=== PATIENT | male | born 1945 | race Caucasian/White ===

== ENCOUNTER → 2016-09-30 | Outpatient (CLI) | payer BC | END | disposition home or self-care (01) | LOC: C.LAB 06:53 | PROVIDERS: ATTEND Urology | DX: N40.1 Benign prostatic hyperplasia with lower urinary tract symptoms (principal) ==

== ENCOUNTER → 2016-11-11 | Outpatient (CLI) | payer BC | END | disposition home or self-care (01) | LOC: C.PATHSPEC 10:26 | PROVIDERS: ATTEND Urology | DX: R97.20 Elevated prostate specific antigen [PSA] (principal) ==

== ENCOUNTER → 2017-07-18 | Outpatient (CLI) | payer BC | END | disposition home or self-care (01) | LOC: C.LABSPEC 12:29 | PROVIDERS: ATTEND Internal Medicine | DX: Z12.11 Encounter for screening for malignant neoplasm of colon (principal) ==

== ENCOUNTER 2021-09-11 19:46 | Observation (INO) ==
[2021-09-11] MEDS ORDERED: SODIUM CHLORIDE 0.9% 1000ML 1,000 ML IV STA (19:57)
--- NOTE | 2021-09-11 20:02 | Emergency Department Note ---
Impression & Plan Observed seizure-like activity ADMIT ED Provider Note HPI: Patient arrived to the ED via EMS ambulance The patient is a 75-year-old male with history of type 2 diabetes, hypertension, presents the emergency department via EMS with concern for seizure-like activity. Patient reportedly was sitting in a recliner chair at home, his noticed him to become unresponsive for some period of time and had rigid upper extremities, he was incontinent of urine. Patient's at the bedside states this lasted approximately 60 seconds. He seemed somewhat confused for a period afterwards. Unclear how long this possible postictal phase lasted. Patient tells me the next he remembers was waking up with "everyone around me". He is saturating well on room air and otherwise appears well on my initial assessment, tells me "I feel completely fine". 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 She does state that he had upper extremity rigidity, his eyes rolled back, he seemed to have a postictal state, he did lose Continence of urine at the time. Labwork was obtained and is generally unremarkable, slight lactic acid elevation of 2.1, troponin is negative, EKG does not show any ischemic changes, CT imaging of the head does not show any evidence of an acute intracranial process. Prudencio daley overall appears very well here in the ED.Patient was given IV fluids in the ED. I discussed the above findings with on-call neurology, Dr. Vicente,She is recommending at this time admission, will hold off on any antiepileptic therapy as it is unclear whether or not the patient may have had a true seizure this could have been some type of syncopal event.The story according to his at the bedside is concerning for seizure. Will require observation on telemetry and further work-up and therefore will be admitted. I discussed the above findings with the on-call hospitalist, patient will be admitted [facility] the [facility] for further care. The patient and his at the bedside are in agreement to the above plan, patient was admitted in stable condition. Diagnosis: 1. Seizure-like event 2. Lactic acidosis Disposition: Admission Jorge A Thorpe DO Emergency Medicine Past Med/Surg History Medical History (Updated 09/12/21 @ 01:18 by Jorge A Thorpe DO) BPH with obstruction/lower urinary tract symptoms Bronchitis Hypercholesterolemia Surgical History No pertinent past surgical history Family History Father Cardiac disorder Mother Hypertension Son Nephrolithiasis Other Diabetes Social History Smoking Status: Former smoker Preferred Language: [place]i marital status: Feels Safe at Home: Yes Allergies Allergies Allergy/AdvReac Type Severity Reaction Status Date / Time No Known Allergies Allergy Unknown Verified 09/11/21 20:27 Home Meds Home Medications Medication Instructions Recorded Confirmed folic acid 1 mg tablet 1 mg PO DAILY tab 06/12/19 09/11/21 metformin 500 mg tablet 500 mg PO BID tab 06/12/19 09/11/21 losartan 100 mg tablet 100 mg PO DAILY 09/11/21 09/11/21 pyridoxine (vitamin B6) 100 mg 100 mg PO DAILY 09/11/21 09/11/21 tablet (Vitamin B-6) warfarin 5 mg tablet 0 mg PO DAILY 09/11/21 09/11/21 Results & Data (ED) Vital Signs Vital Signs - 24 hr 09/11/21 19:53 09/11/21 19:55 09/11/21 20:02 Temperature 37.0 C Temperature Source Oral Pulse Rate 107 H Pulse Rate [Apical] 92 H Pulse Rhythm Regular Pulse Rhythm [Apical] Regular Pulse Strength Normal Pulse Strength [Apical] Normal Respiratory Rate 16 18 Respiratory Effort / Characteristics Non-Labored Non-Labored Respiratory Depth Normal Normal Respiratory Pattern Regular Regular Blood Pressure 156/102 H Blood Pressure [Right Arm] 156/102 H Blood Pressure Mean 120 Blood Pressure Mean [Right Arm] 120 Blood Pressure Position Sitting Blood Pressure Position [Right Arm] Lying Pulse Oximetry 95 97 96 Oxygen Delivery Method Room Air Room Air Room Air Sepsis Recent Fever Within 48 Hours No Sepsis New/Unexplained Change in Mental Status Yes Sepsis Action Taken by Nursing Physician Notified 09/11/21 20:19 09/11/21 21:53 09/11/21 23:53 Temperature Temperature Source Pulse Rate Pulse Rate [Apical] 82 80 Pulse Rhythm Pulse Rhythm [Apical] Regular Regular Pulse Strength Pulse Strength [Apical] Normal Normal Respiratory Rate 16 16 Respiratory Effort / Characteristics Non-Labored Non-Labored Respiratory Depth Normal Normal Respiratory Pattern Regular Blood Pressure Blood Pressure [Right Arm] 156/100 H 168/100 H Blood Pressure Mean Blood Pressure Mean [Right Arm] 118 122 Blood Pressure Position Blood Pressure Position [Right Arm] Semi-fowlers Semi-fowlers Pulse Oximetry 95 95 96 Oxygen Delivery Method Room Air Room Air Room Air Sepsis Recent Fever Within 48 Hours Sepsis New/Unexplained Change in Mental Status Sepsis Action Taken by Nursing Laboratory Data Result diagrams: 09/11/21 20:00 09/11/21 20:00 Lab Results 09/11/21 09/11/21 09/11/21 Range/Units 20:00 20:00 20:00 WBC 5.99 (4.8-10.8) K/uL RBC 4.42 L (4.7-6.1) M/uL Hgb 13.4 L (14.0-18.0) g/dL Hct 39.0 L (42-52) % MCV 88.2 (80-100) fL MCH 30.3 (25-34) pg MCHC 34.4 (32-36) g/dL RDW Std Deviation 47.1 H (36.4-46.3) fL RDW Coeff of Spike 14.5 (11.5-14.5) % Plt Count 167 (130-400) K/uL MPV 9.7 (7.4-10.4) fL Immature Gran % (Auto) 0.2 % Neut % (Auto) 61.1 % Lymph % (Auto) 26.7 % [place] % (Auto) 7.8 % Eos % (Auto) 4.0 % Baso % (Auto) 0.2 % Neut # (Auto) 3.66 (1.4-6.5) K/uL Lymph # (Auto) 1.60 (1.2-3.4) K/uL [place] # (Auto) 0.47 (0.11-0.59) K/uL Eos # (Auto) 0.24 (0-0.5) K/uL Baso # (Auto) 0.01 (0-0.2) K/uL Immature Gran # (Auto) 0.01 (0.00-0.02) K/uL PT 29.1 H (9.0-12.0) Seconds INR 3.1 H (0.9-1.1) APTT 39.5 H (21.0-31.0) Seconds PTT Ratio 1.5 Sodium 140 (136-145) mmol/L Potassium 3.8 (3.5-5.1) mmol/L Chloride 106 (98-107) mmol/L Carbon Dioxide 28 (21-32) mmol/L Anion Gap 6.0 (3-11) BUN 17 (7-18) mg/dl Creatinine 1.43 H (0.6-1.4) mg/dl Est Cr Clr Drug Dosing 58.5 ml/min Est GFR ( Amer) 54.7 ml/min Est GFR (Non-Af Amer) 47.2 ml/min BUN/Creatinine Ratio 11.7 (10-20) Glucose 129 H (70-99) mg/dl POC Glucose (70-99) mg/dl Lactate (0.4-2.0) mmol/L Calcium 9.0 (8.5-10.1) mg/dl Total Bilirubin 0.4 (0.2-1) mg/dl AST 32 (15-37) U/L ALT 50 (12-78) Alkaline Phosphatase 63 (45-117) U/L Troponin I < 0.015 (0-0.045) ng/ml Total Protein 7.4 (6.4-8.2) gm/dl Albumin 3.5 (3.4-5.0) gm/dl Globulin 3.9 (2.5-4.0) gm/dl Albumin/Globulin Ratio 0.9 (0.9-2) Lipase 184 (73-393) U/L Urine Color Urine Appearance (Clear) Urine pH (4.5-7.5) Ur Specific [place] (1.000-1.030) Urine Protein (Negative) Urine Glucose (UA) (Negative) Urine Ketones (Negative) Urine Blood (Negative) Urine Nitrite (Negative) Urine Bilirubin (Negative) Urine Urobilinogen (Negative) Ur Leukocyte Esterase (Negative) Urine WBC (Auto) (0-5) /hpf Urine RBC (Auto) (0-4) /hpf U Hyaline Cast (Auto) (0-5) /lpf U Epithel Cells (Auto) (0-5) /lpf Urine Bacteria (Auto) (Negative) SARS-CoV-2 (PCR) (Negative) Influenza Type A (PCR) (Neg) Influenza Type B (PCR) (Neg) RSV (RT-PCR) (Neg) 09/11/21 09/11/21 09/11/21 Range/Units 20:07 20:15 20:17 WBC (4.8-10.8) K/uL RBC (4.7-6.1) M/uL Hgb (14.0-18.0) g/dL Hct (42-52) % MCV (80-100) fL MCH (25-34) pg MCHC (32-36) g/dL RDW Std Deviation (36.4-46.3) fL RDW Coeff of Spike (11.5-14.5) % Plt Count (130-400) K/uL MPV (7.4-10.4) fL Immature Gran % (Auto) % Neut % (Auto) % Lymph % (Auto) % [place] % (Auto) % Eos % (Auto) % Baso % (Auto) % Neut # (Auto) (1.4-6.5) K/uL Lymph # (Auto) (1.2-3.4) K/uL [place] # (Auto) (0.11-0.59) K/uL Eos # (Auto) (0-0.5) K/uL Baso # (Auto) (0-0.2) K/uL Immature Gran # (Auto) (0.00-0.02) K/uL PT (9.0-12.0) Seconds INR (0.9-1.1) APTT (21.0-31.0) Seconds PTT Ratio Sodium (136-145) mmol/L Potassium (3.5-5.1) mmol/L Chloride (98-107) mmol/L Carbon Dioxide (21-32) mmol/L Anion Gap (3-11) BUN (7-18) mg/dl Creatinine (0.6-1.4) mg/dl Est Cr Clr Drug Dosing ml/min Est GFR ( Amer) ml/min Est GFR (Non-Af Amer) ml/min BUN/Creatinine Ratio (10-20) Glucose (70-99) mg/dl POC Glucose 120 H (70-99) mg/dl Lactate 2.1 H* (0.4-2.0) mmol/L Calcium (8.5-10.1) mg/dl Total Bilirubin (0.2-1) mg/dl AST (15-37) U/L ALT (12-78) Alkaline Phosphatase (45-117) U/L Troponin I (0-0.045) ng/ml Total Protein (6.4-8.2) gm/dl Albumin (3.4-5.0) gm/dl Globulin (2.5-4.0) gm/dl Albumin/Globulin Ratio (0.9-2) Lipase (73-393) U/L Urine Color Urine Appearance (Clear) Urine pH (4.5-7.5) Ur Specific [place] (1.000-1.030) Urine Protein (Negative) Urine Glucose (UA) (Negative) Urine Ketones (Negative) Urine Blood (Negative) Urine Nitrite (Negative) Urine Bilirubin (Negative) Urine Urobilinogen (Negative) Ur Leukocyte Esterase (Negative) Urine WBC (Auto) (0-5) /hpf Urine RBC (Auto) (0-4) /hpf U Hyaline Cast (Auto) (0-5) /lpf U Epithel Cells (Auto) (0-5) /lpf Urine Bacteria (Auto) (Negative) SARS-CoV-2 (PCR) NEGATIVE (Negative) Influenza Type A (PCR) Negative (Neg) Influenza Type B (PCR) Negative (Neg) RSV (RT-PCR) Negative (Neg) 09/11/21 09/11/21 Range/Units 21:30 22:40 WBC (4.8-10.8) K/uL RBC (4.7-6.1) M/uL Hgb (14.0-18.0) g/dL Hct (42-52) % MCV (80-100) fL MCH (25-34) pg MCHC (32-36) g/dL RDW Std Deviation (36.4-46.3) fL RDW Coeff of Spike (11.5-14.5) % Plt Count (130-400) K/uL MPV (7.4-10.4) fL Immature Gran % (Auto) % Neut % (Auto) % Lymph % (Auto) % [place] % (Auto) % Eos % (Auto) % Baso % (Auto) % Neut # (Auto) (1.4-6.5) K/uL Lymph # (Auto) (1.2-3.4) K/uL [place] # (Auto) (0.11-0.59) K/uL Eos # (Auto) (0-0.5) K/uL Baso # (Auto) (0-0.2) K/uL Immature Gran # (Auto) (0.00-0.02) K/uL PT (9.0-12.0) Seconds INR (0.9-1.1) APTT (21.0-31.0) Seconds PTT Ratio Sodium (136-145) mmol/L Potassium (3.5-5.1) mmol/L Chloride (98-107) mmol/L Carbon Dioxide (21-32) mmol/L Anion Gap (3-11) BUN (7-18) mg/dl Creatinine (0.6-1.4) mg/dl Est Cr Clr Drug Dosing ml/min Est GFR ( Amer) ml/min Est GFR (Non-Af Amer) ml/min BUN/Creatinine Ratio (10-20) Glucose (70-99) mg/dl POC Glucose (70-99) mg/dl Lactate 1.1 (0.4-2.0) mmol/L Calcium (8.5-10.1) mg/dl Total Bilirubin (0.2-1) mg/dl AST (15-37) U/L ALT (12-78) Alkaline Phosphatase (45-117) U/L Troponin I (0-0.045) ng/ml Total Protein (6.4-8.2) gm/dl Albumin (3.4-5.0) gm/dl Globulin (2.5-4.0) gm/dl Albumin/Globulin Ratio (0.9-2) Lipase (73-393) U/L Urine Color Yellow Urine Appearance Clear (Clear) Urine pH 5.0 (4.5-7.5) Ur Specific [place] 1.014 (1.000-1.030) Urine Protein Trace H (Negative) Urine Glucose (UA) Negative (Negative) Urine Ketones Negative (Negative) Urine Blood Trace H (Negative) Urine Nitrite Negative (Negative) Urine Bilirubin Negative (Negative) Urine Urobilinogen Negative (Negative) Ur Leukocyte Esterase Negative (Negative) Urine WBC (Auto) 1-5 (0-5) /hpf Urine RBC (Auto) 0-4 (0-4) /hpf U Hyaline Cast (Auto) 1-5 (0-5) /lpf U Epithel Cells (Auto) 5-10 H (0-5) /lpf Urine Bacteria (Auto) Negative (Negative) SARS-CoV-2 (PCR) (Negative) Influenza Type A (PCR) (Neg) Influenza Type B (PCR) (Neg) RSV (RT-PCR) (Neg) Administered Medications Discontinued Medications Sodium Chloride (Nss 1000ml) 1,000 mls @ 999 mls/hr IV .[id number] STA Stop: 09/11/21 20:57 Last Infusion: 09/11/21 22:45 Dose: 0 mls/hr Documented by: [id number] Admin: 09/11/21 20:16 Dose: 999 mls/hr Documented by: [id number] Imaging Data Radiologist's Impression: Chest X-Ray 09/11/21 19:58 XR chest 1V portable CLINICAL HISTORY: Chest Pain. COMPARISON STUDY: No previous studies for comparison. TECHNIQUE: 1 view of the chest FINDINGS: Single frontal view of the chest demonstrates the cardiomediastinal silhouette to be within normal limits. There is a decreased inspiratory effort with elevation of the hemidiaphragms and crowding of the bronchovascular markings at the lung bases and centrally. The lungs are clear of alveolar opacities. There is no evidence for pleural effusion. There is no evidence for vascular congestion. There is no acute osseous pathology. IMPRESSION: There is a decreased inspiratory effort with otherwise no acute chest disease. ACT 112: Negative or not required by law. Electronically signed by: Ed Ash M.D. 09/11/2021 8:[address] 09/11/21 19:59 CT head/brain wo con CLINICAL HISTORY: Seizure like activity COMPARISON STUDY: No previous studies for comparison. CT DOSE: 729.78 mGycm TECHNIQUE: Standard CT of the Brain was performed without IV contrast. A dose lowering technique was utilized adhering to the principles of ALARA. FINDINGS: Extraaxial space: There is no evidence for subdural hematoma. There are no extra-axial fluid collections. Ventricles and cisterns: The ventricles are normal in size and configuration. There is no evidence for midline shift or mass effect. Parenchyma: There is no subarachnoid or intraparenchymal hemorrhage. There is no evidence for an acute infarct or cerebral edema. There is homogeneous attenuation of the brain parenchyma. There are no gross mass lesions. Osseous structures: There is no evidence for an acute fracture. The visualized paranasal sinuses are clear. The mastoid air cells are clear bilaterally. Soft tissues: There is no evidence for focal soft tissue swelling. IMPRESSION: No acute intracerebral pathology. ACT 112: Negative or not required by law. Electronically signed by: Ed Ash M.D. 09/11/2021 9:10 PM Discharge Plan Visit Data Chief Complaint: Altered Mental Status Stated Complaint: FEVER/SEIZURE ED Provider: Jorge A Thorpe Discharge Problem: Observed seizure-like activity Patient Disposition: Admitted As Inpatient Forms Stand Alone Forms: My [facility] Prescriptions Prescriptions: No Action folic acid 1 mg tablet 1 mg PO DAILY RF: 0 metformin 500 mg tablet 500 mg PO BID RF: 0 warfarin 5 mg tablet 0 mg PO DAILY RF: 0 pyridoxine (vitamin B6) [Vitamin B-6] 100 mg Tablet 100 mg PO DAILY RF: 0 losartan 100 mg tablet 100 mg PO DAILY RF: 0 Referrals Referrals: Konstantin Wade MD [Primary Care Provider] -
[2021-09-11 20:13] LABS: Basophils # (auto) 0.01 K/uL (0-0.2); Basophils % (auto) 0.2 %; Eosinophils # (auto) 0.24 K/uL (0-0.5); Hemoglobin 13.4 g/dL (14.0-18.0); Immature Granulocytes # (auto) 0.01 K/uL (0.00-0.02); Immature Granulocytes % (auto) 0.2 %; Lymphocytes % (auto) 26.7 %; Mean Corpuscular Hemoglobin 30.3 pg (25-34); Mean Corpuscular Hgb Conc 34.4 g/dL (32-36); Mean Corpuscular Volume 88.2 fL (80-100); Mean Platelet Volume 9.7 fL (7.4-10.4); Monocytes # (auto) 0.47 K/uL (0.11-0.59); Monocytes % (auto) 7.8 %; Neutrophils # (auto) 3.66 K/uL (1.4-6.5); Neutrophils % (auto) 61.1 %; Platelet Count 167 K/uL (130-400); RDW Coefficient of Variation 14.5 % (11.5-14.5); RDW Standard Deviation 47.1 fL (36.4-46.3); Red Blood Count 4.42 M/uL (4.7-6.1); White Blood Count 5.99 K/uL (4.8-10.8)
[2021-09-11 20:22] LABS: INR 3.1 (0.9-1.1); Partial Thromboplastin Ratio 1.5; Partial Thromboplastin Time 39.5 Seconds (21.0-31.0); Prothrombin Time 29.1 Seconds (9.0-12.0)
[2021-09-11 20:30] LABS: Alanine Aminotransferase 50 (12-78); Albumin Level 3.5 gm/dl (3.4-5.0); Aspartate Aminotransferase 32 U/L (15-37); BUN Creatinine Ratio 11.7 (10-20); Blood Urea Nitrogen 17 mg/dl (7-18); Carbon Dioxide 28 mmol/L (21-32); Chloride 106 mmol/L (98-107); Creatinine Clr Calc Pharmacy 58.5 ml/min; Est GFR (African American) 54.7 ml/min; Est GFR (Non-African American) 47.2 ml/min; Glucose 129 mg/dl (70-99); Lipase 184 U/L (73-393); Potassium 3.8 mmol/L (3.5-5.1); Sodium 140 mmol/L (136-145)
[2021-09-11 20:35] LABS: Albumin Globulin Ratio 0.9 (0.9-2); Alkaline Phosphatase 63 U/L (45-117); Bilirubin,Total 0.4 mg/dl (0.2-1); Globulin 3.9 gm/dl (2.5-4.0); Total Protein 7.4 gm/dl (6.4-8.2); Troponin I < 0.015 ng/ml (0-0.045)
--- NOTE | 2021-09-11 20:52 | XRay Report ---
XR chest 1V portable CLINICAL HISTORY: Chest Pain. COMPARISON STUDY: No previous studies for comparison. TECHNIQUE: 1 view of the chest FINDINGS: Single frontal view of the chest demonstrates the cardiomediastinal silhouette to be within normal li mits. There is a decreased inspiratory effort with elevation of the hemidiaphragms and crowding of th e bronchovascular markings at the lung bases and centrally. The lungs are clear of alveolar opacities . There is no evidence for pleural effusion. There is no evidence for vascular congestion. There is n o acute osseous pathology. IMPRESSION: There is a decreased inspiratory effort with otherwise no acute chest disease. ACT 112: Negative or not required by law. Electronically signed by: Ed Ash M.D. 09/11/2021 8:51 PM
[2021-09-11 21:00] LABS: Influenza A virus by PCR Negative (Neg); Influenza B virus by PCR Negative (Neg); RSV by PCR Negative (Neg); SARS CoV2 RNA(COVID-19) InHosp NEGATIVE (Negative)
--- NOTE | 2021-09-11 21:11 | CT Scan Report ---
CT head/brain wo con CLINICAL HISTORY: Seizure like activity COMPARISON STUDY: No previous studies for comparison. CT DOSE: 729.78 mGycm TECHNIQUE: Standard CT of the Brain was performed without IV contrast. A dose lowering technique was utilized adhering to the principles of ALARA. FINDINGS: Extraaxial space: There is no evidence for subdural hematoma. There are no extra-axial fluid collecti ons. Ventricles and cisterns: The ventricles are normal in size and configuration. There is no evidence f or midline shift or mass effect. Parenchyma: There is no subarachnoid or intraparenchymal hemorrhage. There is no evidence for an acu te infarct or cerebral edema. There is homogeneous attenuation of the brain parenchyma. There are no gross mass lesions. Osseous structures: There is no evidence for an acute fracture. The visualized paranasal sinuses are clear. The mastoid air cells are clear bilaterally. Soft tissues: There is no evidence for focal soft tissue swelling. IMPRESSION: No acute intracerebral pathology. ACT 112: Negative or not required by law. Electronically signed by: Ed Ash M.D. 09/11/2021 9:10 PM
[2021-09-11 21:45] LABS: Appearance Urine Clear (Clear); Bacteria Urine Automated Negative (Negative); Bilirubin Urine Negative (Negative); Blood Urine Trace (Negative); Color Urine Yellow; Glucose Urine UA Negative (Negative); Ketones Urine Negative (Negative); Leukocyte Esterase Urine Negative (Negative); Nitrite Urine Negative (Negative); Protein Urine Trace (Negative); RBC Urine Automated 0-4 /hpf (0-4); Specific Gravity Urine 1.014 (1.000-1.030); Urobilinogen Urine Negative (Negative)
--- NOTE | 2021-09-12 03:41 | History & Physical Report ---
Date of Service September 12, 2021 Assessment & Plan (1) Observed seizure-like activity: Plan: Patient had an approximate 10-minute episode as noted above CT head without contrast negative. Order MRI of brain without contrast, Order EEG, Order carotid Dopplers Seizure precautions Consult neurology, who was already contacted by the ED If recurrent symptoms while in hospital, will start seizure medications (2) Hx pulmonary embolism: Plan: He reports that after an initial episode of pulmonary emboli a few years ago, he did a trial off of anticoagulation after treatment for 6 months, had a recurrent episode of pulmonary emboli, and is now on anticoagulation for life (3) BPH with obstruction/lower urinary tract symptoms: Plan: On no specific treatment, but will monitor urinary output while in hospital (4) Type 2 diabetes mellitus: Plan: Hold Metformin Place on Accu-Cheks before meals and at bedtime with NovoLog coverage per scale (5) Hypertension: Plan: Continue losartan with hold parameters (6) Pseudogout: Plan: Reports primary involvement of left knee intermittently. (7) Peripheral neuropathy: Plan: Intermittent symptoms, none at this time Admission and Anticipated Discharge Date Admission Date: September 12, 2021 History of Present Illness Chief Complaint: The patient presents to the emergency department via EMS after his noted seizure-like activity at home Primary Care Provider: Konstantin Wade MD The patient is a 75-year-old male with a past medical history including BPH with LUTS, diabetes mellitus type 2, hypertension, pseudo-gout, hyperlipidemia, GPN, severe aortic stenosis, and chronic anticoagulation for recurrent pulmonary emboli. He reports that he had been moving some boxes around at home, and then went to sit in his recliner chair at home, where his noted him to become unresponsive for total time of about 10 minutes. During this time his eyes rolled backwards in his head, and his upper extremities became rigid, and he had an episode of urinary incontinence. In emergency department, patient is completely alert and oriented. He reports a brief episode similar to this about 2 years ago. Allergies Allergy/AdvReac Type Severity Reaction Status Date / Time No Known Allergies Allergy Unknown Verified 09/11/21 20:27 Home Medications Medication Instructions Recorded Confirmed Type folic acid 1 mg tablet 1 mg PO DAILY tab 06/12/19 09/11/21 History metformin 500 mg tablet 500 mg PO BID tab 06/12/19 09/11/21 History losartan 100 mg tablet 100 mg PO DAILY 09/11/21 09/11/21 History pyridoxine (vitamin B6) 100 mg 100 mg PO DAILY 09/11/21 09/11/21 History tablet (Vitamin B-6) warfarin 5 mg tablet 0 mg PO DAILY 09/11/21 09/11/21 History Past Med/Surg History Medical History (Updated 09/12/21 @ 04:14 by Joe Dale MD) BPH with obstruction/lower urinary tract symptoms Bronchitis Hx pulmonary embolism Hypercholesterolemia Peripheral neuropathy Pseudogout Surgical History No pertinent past surgical history Family History Father Cardiac disorder Mother Hypertension Son Nephrolithiasis Other Diabetes Social History Smoking Status: Former smoker Preferred Language: Pashto marital status: Feels Safe at Home: Yes Review of Systems Review of Systems: The patient denies chest pain, palpitations, shortness of breath, dyspnea on exertion, cough, lower extremity swelling, sore throat, fevers, chills, sweats, weight change, fatigue, nausea, vomiting, diarrhea , constipation, abdominal pain, pelvic pain, blood in urine or stool, dysuria, urinary frequency or urgency, rash, abnormal bruising or bleeding, imbalance, focal weakness, numbness or tingling in arms or legs, generalized arthralgias or myalgias, back or neck pain, or night sweats. The review of systems is otherwise negative other than for that already noted above, and at least 10 systems have been reviewed. Physical Exam Physical Exam: The patient is awake, alert and oriented 3, well developed and well nourished, normocephalic and atraumatic, lying in bed and in no acute distress. HEENT--PERRL, EOMI, mucous membranes and oropharynx mildly dry. Neck--supple. No JVD. No bruits. Thyroid normal, trachea midline, no adenopathy. Heart--normal S1 and S2. No murmurs, rubs or gallops. Lungs--clear bilaterally, no respiratory distress, no accessory muscle use. Abdomen--normal bowel sounds and soft. Nontender. Nondistended, no hernias or masses, no organomegaly. Extremities--no cyanosis or clubbing. No edema. Dermatologic--normal skin turgor, normal color, no abnormal lymph nodes, no rash. Neurologic--cranial nerves II through XII grossly intact. Rheumatologic--normal range of motion. Psychiatric--normal affect. Results & Data Results & Data ([facility]) Vital Signs (Past 12 Hours) Vital Signs Temp Pulse Pulse Resp BP BP Pulse Ox 09/11/21 23:53 80 16 168/100 H 96 09/11/21 21:53 82 16 156/100 H 95 09/11/21 20:19 95 09/11/21 20:02 96 09/11/21 19:55 37.0 C 107 H 18 156/102 H 97 09/11/21 19:53 92 H 16 156/102 H 95 Laboratory Results Laboratory Results WBC 5.99 K/uL (4.8-10.8) 09/11/21 20:00 RBC 4.42 M/uL (4.7-6.1) L 09/11/21 20:00 Hgb 13.4 g/dL (14.0-18.0) L 09/11/21 20:00 Hct 39.0 % (42-52) L 09/11/21 20:00 MCV 88.2 fL (80-100) 09/11/21 20:00 MCH 30.3 pg (25-34) 09/11/21 20:00 MCHC 34.4 g/dL (32-36) 09/11/21 20:00 RDW Std Deviation 47.1 fL (36.4-46.3) H 09/11/21 20:00 RDW Coeff of Spike 14.5 % (11.5-14.5) 09/11/21 20:00 Plt Count 167 K/uL (130-400) 09/11/21 20:00 MPV 9.7 fL (7.4-10.4) 09/11/21 20:00 Immature Gran % (Auto) 0.2 % 09/11/21 20:00 Neut % (Auto) 61.1 % 09/11/21 20:00 Lymph % (Auto) 26.7 % 09/11/21 20:00 [place] % (Auto) 7.8 % 09/11/21 20:00 Eos % (Auto) 4.0 % 09/11/21 20:00 Baso % (Auto) 0.2 % 09/11/21 20:00 Neut # (Auto) 3.66 K/uL (1.4-6.5) 09/11/21 20:00 Lymph # (Auto) 1.60 K/uL (1.2-3.4) 09/11/21 20:00 [place] # (Auto) 0.47 K/uL (0.11-0.59) 09/11/21 20:00 Eos # (Auto) 0.24 K/uL (0-0.5) 09/11/21 20:00 Baso # (Auto) 0.01 K/uL (0-0.2) 09/11/21 20:00 Immature Gran # (Auto) 0.01 K/uL (0.00-0.02) 09/11/21 20:00 PT 29.1 Seconds (9.0-12.0) H 09/11/21 20:00 INR 3.1 (0.9-1.1) H 09/11/21 20:00 APTT 39.5 Seconds (21.0-31.0) H 09/11/21 20:00 PTT Ratio 1.5 09/11/21 20:00 Sodium 140 mmol/L (136-145) 09/11/21 20:00 Potassium 3.8 mmol/L (3.5-5.1) 09/11/21 20:00 Chloride 106 mmol/L (98-107) 09/11/21 20:00 Carbon Dioxide 28 mmol/L (21-32) 09/11/21 20:00 Anion Gap 6.0 (3-11) 09/11/21 20:00 BUN 17 mg/dl (7-18) 09/11/21 20:00 Creatinine 1.43 mg/dl (0.6-1.4) H 09/11/21 20:00 Est Cr Clr Drug Dosing 58.5 ml/min 09/11/21 20:00 Est GFR ( Amer) 54.7 ml/min 09/11/21 20:00 Est GFR (Non-Af Amer) 47.2 ml/min 09/11/21 20:00 BUN/Creatinine Ratio 11.7 (10-20) 09/11/21 20:00 Glucose 129 mg/dl (70-99) H 09/11/21 20:00 POC Glucose 120 mg/dl (70-99) H 09/11/21 20:07 Lactate 1.1 mmol/L (0.4-2.0) 09/11/21 22:40 Calcium 9.0 mg/dl (8.5-10.1) 09/11/21 20:00 Total Bilirubin 0.4 mg/dl (0.2-1) 09/11/21 20:00 AST 32 U/L (15-37) 09/11/21 20:00 ALT 50 (12-78) 09/11/21 20:00 Alkaline Phosphatase 63 U/L (45-117) 09/11/21 20:00 Troponin I < 0.015 ng/ml (0-0.045) 09/11/21 20:00 Total Protein 7.4 gm/dl (6.4-8.2) 09/11/21 20:00 Albumin 3.5 gm/dl (3.4-5.0) 09/11/21 20:00 Globulin 3.9 gm/dl (2.5-4.0) 09/11/21 20:00 Albumin/Globulin Ratio 0.9 (0.9-2) 09/11/21 20:00 Lipase 184 U/L (73-393) 09/11/21 20:00 Urine Color Yellow 09/11/21 21:30 Urine Appearance Clear (Clear) 09/11/21 21:30 Urine pH 5.0 (4.5-7.5) 09/11/21 21:30 Ur Specific [place] 1.014 (1.000-1.030) 09/11/21 21:30 Urine Protein Trace (Negative) H 09/11/21 21:30 Urine Glucose (UA) Negative (Negative) 09/11/21 21:30 Urine Ketones Negative (Negative) 09/11/21 21:30 Urine Blood Trace (Negative) H 09/11/21 21:30 Urine Nitrite Negative (Negative) 09/11/21 21:30 Urine Bilirubin Negative (Negative) 09/11/21 21:30 Urine Urobilinogen Negative (Negative) 09/11/21 21:30 Ur Leukocyte Esterase Negative (Negative) 09/11/21 21:30 Urine WBC (Auto) 1-5 /hpf (0-5) 09/11/21 21:30 Urine RBC (Auto) 0-4 /hpf (0-4) 09/11/21 21:30 U Hyaline Cast (Auto) 1-5 /lpf (0-5) 09/11/21 21:30 U Epithel Cells (Auto) 5-10 /lpf (0-5) H 09/11/21 21:30 Urine Bacteria (Auto) Negative (Negative) 09/11/21 21:30 SARS-CoV-2 (PCR) NEGATIVE (Negative) 09/11/21 20:17 Influenza Type A (PCR) Negative (Neg) 09/11/21 20:17 Influenza Type B (PCR) Negative (Neg) 09/11/21 20:17 RSV (RT-PCR) Negative (Neg) 09/11/21 20:17 Impressions Chest X-Ray 09/11/21 19:58 XR chest 1V portable CLINICAL HISTORY: Chest Pain. COMPARISON STUDY: No previous studies for comparison. TECHNIQUE: 1 view of the chest FINDINGS: Single frontal view of the chest demonstrates the cardiomediastinal silhouette to be within normal limits. There is a decreased inspiratory effort with elevation of the hemidiaphragms and crowding of the bronchovascular markings at the lung bases and centrally. The lungs are clear of alveolar opacities. There is no evidence for pleural effusion. There is no evidence for vascular congestion. There is no acute osseous pathology. IMPRESSION: There is a decreased inspiratory effort with otherwise no acute chest disease. ACT 112: Negative or not required by law. Electronically signed by: Ed Ash M.D. 09/11/2021 8:[address] 09/11/21 19:59 CT head/brain wo con CLINICAL HISTORY: Seizure like activity COMPARISON STUDY: No previous studies for comparison. CT DOSE: 729.78 mGycm TECHNIQUE: Standard CT of the Brain was performed without IV contrast. A dose lowering technique was utilized adhering to the principles of ALARA. FINDINGS: Extraaxial space: There is no evidence for subdural hematoma. There are no extra-axial fluid collections. Ventricles and cisterns: The ventricles are normal in size and configuration. There is no evidence for midline shift or mass effect. Parenchyma: There is no subarachnoid or intraparenchymal hemorrhage. There is no evidence for an acute infarct or cerebral edema. There is homogeneous attenuation of the brain parenchyma. There are no gross mass lesions. Osseous structures: There is no evidence for an acute fracture. The visualized paranasal sinuses are clear. The mastoid air cells are clear bilaterally. Soft tissues: There is no evidence for focal soft tissue swelling. IMPRESSION: No acute intracerebral pathology. ACT 112: Negative or not required by law. Electronically signed by: Ed Ash M.D. 09/11/2021 9:10 PM Code Status & VTE Plan Code Status Full code VTE Prophylaxis Plan VTE Prophylaxis will be ordered: Yes PG Care Time/CCT Total # of Minutes Spent Total Time Spent with Patient: Total time spent is greater than 50% in coordination of care (as documented) at patient's floor/unit and/or counseling patient: Coding Level of Care Code INT OBSERVATION CARE 70M LVL 3 Diagnoses Hx pulmonary embolism Z86.711 Observed seizure-like activity R56.9 BPH with obstruction/lower urinary tract symptoms N40.1; N13.8 Type 2 diabetes mellitus E11.9 Hypertension I10 Pseudogout M11.20 Peripheral neuropathy G62.9
[2021-09-12] MEDS ORDERED: GLUCOSE 40% GEL 15 GM TUBE PO PRN (03:47)
[2021-09-12] MEDS ORDERED: ACETAMINOPHEN 325 MG TAB PO PRN (03:47)
[2021-09-12] MEDS ORDERED: DEXTROSE 50% 50 ML SYRINGE IV PRN (03:47)
[2021-09-12] MEDS ORDERED: GLUCOSE 10 TABS/TUBE PO PRN (03:47)
[2021-09-12] MEDS ORDERED: ONDANSETRON INJ 2 MG/ML 2 ML VIAL IV PRN (03:47)
[2021-09-12] MEDS ORDERED: CARBOHYDRATES FOR HYPOGLYCEMIA PO PRN (03:47)
[2021-09-12] MEDS ORDERED: GLUCAGON FOR INJ 1 MG VIAL SQ PRN (03:47)
[2021-09-12 07:19] LABS: Estimated Average Glucose 126 mg/dl
--- NOTE | 2021-09-12 08:45 | Ultrasound Report ---
US carotid doppler BI CLINICAL HISTORY: murmur, seizure like activity. COMPARISON: None. TECHNIQUE: Nguyen scale, Doppler spectral analysis, and color imaging was performed. Stenosis assessmen t by velocity criteria. FINDINGS: Right CCA velocity (cm/s): 100 Right ICA velocity (cm/s): 94 Right ICA/CCA ratio: 1.1 Right vertebral arterial flow: Antegrade. Right findings: There is no significant atherosclerotic plaquing noted on the right. Left CCA velocity (cm/s): 85 Left ICA velocity (cm/s): 102 Left ICA/CCA ratio: 1.2 Left vertebral arterial flow: Antegrade. Left findings: There is no significant atherosclerotic plaquing noted on the left. IMPRESSION: No significant atherosclerotic plaquing or significant flow limiting stenoses noted by v elocity criteria bilaterally. ACT 112: Negative or not required by law. Electronically signed by: Ed Ash M.D. 09/12/2021 8:43 AM
[2021-09-12] MEDS ORDERED: PYRIDOXINE HCL 50 MG TAB PO SCH (09:00)
[2021-09-12] MEDS ORDERED: FOLIC ACID 1 MG TAB PO SCH (09:00)
[2021-09-12] MEDS ORDERED: hydrALAZINE HCL 20 MG/ML VIAL IV PRN (09:36)
--- NOTE | 2021-09-12 09:37 | Hospitalist Progress Note ---
Date of Service September 12, 2021 Assessment & Plan (1) Observed seizure-like activity: Plan: Patient had an approximate 10-minute episode as noted above CT head without contrast negative. Order MRI of brain without contrast, Order EEG, Order carotid Dopplers Seizure precautions Consult neurology, who was already contacted by the ED If recurrent symptoms while in hospital, will start seizure medications (2) Hx pulmonary embolism: Plan: He reports that after an initial episode of pulmonary emboli a few years ago, he did a trial off of anticoagulation after treatment for 6 months, had a recurrent episode of pulmonary emboli, and is now on anticoagulation for life (3) BPH with obstruction/lower urinary tract symptoms: Plan: On no specific treatment, but will monitor urinary output while in hospital (4) Type 2 diabetes mellitus: Plan: Hold Metformin Place on Accu-Cheks before meals and at bedtime with NovoLog coverage per scale (5) Hypertension: Plan: Continue losartan with hold parameters (6) Pseudogout: Plan: Reports primary involvement of left knee intermittently. (7) Peripheral neuropathy: Plan: Intermittent symptoms, none at this time Admission and Anticipated Discharge Date Admission Date: September 12, 2021 Results & Data Results & Data ([facility]) Vital Signs (Past 12 Hours) Vital Signs Pulse Resp BP Pulse Ox Pulse Ox 09/12/21 03:47 73 16 149/87 H 95 96 09/11/21 23:53 80 16 168/100 H 96 09/11/21 21:53 82 16 156/100 H 95 PG Care Time/CCT Total # of Minutes Spent Total Time Spent with Patient: Total time spent is greater than 50% in coordination of care (as documented) at patient's floor/unit and/or counseling patient: Coding Diagnoses Observed seizure-like activity R56.9 Hx pulmonary embolism Z86.711 BPH with obstruction/lower urinary tract symptoms N40.1; N13.8 Type 2 diabetes mellitus E11.9 Hypertension I10 Pseudogout M11.20 Peripheral neuropathy G62.9
[2021-09-12] MEDS: INSULIN ASPART PER UNIT SC SCH ×3 (09:51→18:02)
--- NOTE | 2021-09-12 10:37 | Electrocardiogram Report ---
Test Reason : Blood Pressure : / mmHG Vent. Rate : 104 BPM Atrial Rate : 104 BPM P-R Int : 142 ms QRS Dur : 114 ms QT Int : 350 ms P-R-T Axes : 041 -03 087 degrees QTc Int : 460 ms Sinus tachycardia with occasional Premature ventricular complexes Abnormal ECG When compared with ECG of 12-JAN-2004 20:50, QRS duration has increased Confirmed by Sharath Felipe ([id number]) on 09/12/2021 10:36:54 AM Referred By: REFERRED SELF Confirmed By:Sharath Felipe
[2021-09-12 10:43] LABS: BUN Creatinine Ratio 15.9 (10-20); Calcium 8.6 mg/dl (8.5-10.1); Creatinine Clr Calc Pharmacy 83.6 ml/min; Est GFR (African American) 84.4 ml/min; Est GFR (Non-African American) 72.8 ml/min; Magnesium 1.5 mg/dl (1.8-2.4); Potassium 3.8 mmol/L (3.5-5.1)
[2021-09-12] MEDS ORDERED: FAMOTIDINE 20 MG TAB PO SCH (11:15)
--- NOTE | 2021-09-12 11:18 | Magnetic Resonance Report ---
MR brain wo con CLINICAL HISTORY: seizure like activity TECHNIQUE: Multiplanar and multisequence MR images of the brain were obtained without intravenous con trast. Comparison: None available at the time of this dictation. FINDINGS: No abnormal restricted diffusion is identified. Foci of T2 and FLAIR hyperintensity are noted in the paraventricular areas consistent with chronic small vessel ischemic disease. Ex vacuo ventriculomegal y and sulcal enlargement is noted compatible with diffuse encephalomalacia. No extra axial fluid luzma ections are seen. There are no masses, mass effect, or midline shift. The corpus callosum, pituitary gland, and cerebellar tonsils appear grossly unremarkable. Flow voids of the major intracranial arterial vessels are identified. The imaged portions of the para nasal sinuses, mastoid air cells, and orbits are unremarkable. IMPRESSION: No acute abnormalities. ACT 112: Negative or not required by law. Electronically signed by: Ba Prajapati M.D. 09/12/2021 11:17 AM
--- NOTE | 2021-09-12 11:23 | Neurology Consultation ---
Date of Consultation September 12, 2021 Assessment & Plan (1) Convulsive syncope: I suspect this patient experienced an episode of convulsive syncope, triggered by epigastric discomfort that he relates to his hiatal hernia and hyperventilation as reported by the patient. There is no compelling evidence in this case to suggest this patient has epilepsy. He has denied having episodes of loss of consciousness, syncope, or seizure activity in the past and I cannot find any documentation of such history in our medical record. (I see that he did present to [facility] in 2003 for dizziness and shortness of breath occurring in the context of pulmonary embolism.) He has an intact neurological examination and is without symptomatology at this point in time. Neurologic imaging thus far has been unrevealing including CT of the head, carotid duplex, and brain MRI per my review. Patient does have a mild bump in troponin and this lab abnormality will need to be trended. (I am uncertain if he would need to be reevaluated for recurrence of PE in this context.) Follow-up with official brain MRI report from radiology when available. Nonurgent EEG may be completed as an outpatient. Case discussed with hospitalist, Yady Montoya PA-C. History of Present Illness Reason for Consultation: Seizure-like episode Requesting Physician: Joe Dale MD Attending Physician: Deepthi Fortune MD History of Present Illness The patient is a 75-year-old male who presented to the emergency department last night after an episode of unresponsiveness with associated stiffening of the limbs that occurred while sitting in a recliner at home. The patient relays a history of hiatal hernia that frequently gives him trouble. He recalls having some epigastric discomfort prior to the episode, lying back in his recliner and taking multiple deep breaths to alleviate symptoms. Beyond that, no specific recollection. He was apparently confused afterwards, stiff in the upper limbs, shook for a little bit, had some urinary incontinence as well. Patient did not sustain any injuries. He is back to his baseline, feels fine, no recent illnesses or injuries, no fever. Denies experiencing any other neurologic symptoms at this point in time, no vision loss, diplopia, dysarthria, difficulty swallowing, focal weakness, neck or spinal pain. Patient adamantly denies having any history of previous episodes of loss of consciousness or seizure-like activity. (He remarks that his spouse had a similar episode of loss of consciousness 2 to 3 years ago, not himself as documented in the admission history.) He denies a history of stroke, TIA, or seizures. History notable for pulmonary embolism, on warfarin, reports compliance. History also notable for aortic stenosis, type 2 diabetes mellitus, and pseudogout. Patient follows regularly with Dr. Wade his PCP. Again, he is currently feeling fine, no specific complaints, no chest pain, fevers, chills, or other neurologic symptoms. He has just eaten his breakfast, no difficulty with swallowing. A CT of the head was negative for hemorrhage or acute process. A carotid duplex was negative for significant atherosclerotic plaque, no significant stenosis identified. Vertebral flow antegrade bilaterally. Brain MRI completed this morning. I did review the images, report pending at this time. No evidence of restricted diffusion or acute infarct. There is mild generalized atrophy and evidence of chronic small vessel ischemic change. No evidence of hemorrhage. Hippocampal formation are symmetric, no compelling evidence for mesial temporal sclerosis. Allergies Allergy/AdvReac Type Severity Reaction Status Date / Time No Known Allergies Allergy Unknown Verified 09/11/21 20:27 Home Medications Medication Instructions Recorded Confirmed Type folic acid 1 mg tablet 1 mg PO DAILY tab 06/12/19 09/11/21 History metformin 500 mg tablet 500 mg PO BID tab 06/12/19 09/11/21 History losartan 100 mg tablet 100 mg PO DAILY 09/11/21 09/11/21 History pyridoxine (vitamin B6) 100 mg 100 mg PO DAILY 09/11/21 09/11/21 History tablet (Vitamin B-6) warfarin 5 mg tablet 0 mg PO DAILY 09/11/21 09/11/21 History Patient History Medical History (Updated 09/12/21 @ 11:12 by Samuel Burnett MD) BPH with obstruction/lower urinary tract symptoms Bronchitis Hx pulmonary embolism Hypercholesterolemia Peripheral neuropathy Pseudogout Surgical History No pertinent past surgical history Family History Father Cardiac disorder Mother Hypertension Son Nephrolithiasis Other Diabetes Social History Smoking Status: Former smoker Preferred Language: Congolese marital status: Feels Safe at Home: Yes Review of Systems Constitutional: no fever and no chills Eyes: no blind spots and no diplopia Ear, Nose, Mouth, Throat: no ear pain and no hearing loss Respiratory: no cough and no dyspnea Cardiovascular: no chest pain and no palpitations Gastrointestinal: no constipation and no diarrhea/loose stools Genitourinary: + as per Subjective / HPI and + urinary incontinence; no urinary urgency Musculoskeletal: no muscle weakness and no muscle atrophy Integumentary: no rash and no lesions Neurologic: as per Subjective / HPI; no localized weakness, no loss of sensation, no tremor(s), no headache(s) and no memory loss Psychiatric: no behavioral changes, no depression, no abnormal sleep pattern and no anxiety Hematologic / Lymphatic: no easy bruising and no lymphadenopathy Results & Data ([facility]) Vital Signs (Past 12 Hours) Vital Signs Pulse Resp BP Pulse Ox Pulse Ox 09/12/21 03:47 73 16 149/87 H 95 96 09/11/21 23:53 80 16 168/100 H 96 Laboratory Results WBC 5.99, hemoglobin 13.4, hematocrit 39.0, platelet count 167, INR 3.1, sodium 140, potassium 3.8, BUN 16, creatinine 1.00, glucose 150, hemoglobin A1c 6.0, magnesium 1.5, troponin 0 0.263, SARS-CoV-2 PCR negative, influenza and RSV PCR is negative. Diagnostic Findings CT of the head, carotid duplex, and preliminary MRI images are as described in the history of present illness. Electrocardiogram reveals sinus tachycardia with occasional PVCs. An echocardiogram completed August 17, 2021 for follow-up of patient's aortic stenosis revealed left ventricular systolic function normal, moderate concentric left ventricular hypertrophy, severe valvular aortic stenosis, mild mitral regurgitation, slight progression in patient's aortic stenosis compared with previous echocardiogram done in July 2020. Normal left atrial size noted. Coding Level of Care Code 94833 Initial Inpt Care Lvl 3 Diagnoses Convulsive syncope R55
[2021-09-12] MEDS: MAGNESIUM SULFATE / D5W 1 GM/100 ML BAG IV SCH ×3 (11:49→15:51)
[2021-09-12 13:14] LABS: D Dimer 210 ug/L FEU (0-500)
[2021-09-12] MEDS ORDERED: METOPROLOL SUCC 25MG EXT REL TAB PO SCH (14:30)
--- NOTE | 2021-09-12 15:07 | Discharge Summary ---
Date of Service September 12, 2021 Admission HPI Per Admitting Provider The patient is a 75-year-old male with a past medical history including BPH with LUTS, diabetes mellitus type 2, hypertension, pseudo-gout, hyperlipidemia, GPN, severe aortic stenosis, and chronic anticoagulation for recurrent pulmonary emboli. He reports that he had been moving some boxes around at home, and then went to sit in his recliner chair at home, where his noted him to become unresponsive for total time of about 10 minutes. During this time his eyes rolled backwards in his head, and his upper extremities became rigid, and he had an episode of urinary incontinence. In emergency department, patient is completely alert and oriented. He reports a brief episode similar to this about 2 years ago. Admission Exam Per Admitting Provider The patient is awake, alert and oriented 3, well developed and well nourished, normocephalic and atraumatic, lying in bed and in no acute distress. HEENT--PERRL, EOMI, mucous membranes and oropharynx mildly dry. Neck--supple. No JVD. No bruits. Thyroid normal, trachea midline, no adenopathy. Heart--normal S1 and S2. No murmurs, rubs or gallops. Lungs--clear bilaterally, no respiratory distress, no accessory muscle use. Abdomen--normal bowel sounds and soft. Nontender. Nondistended, no hernias or masses, no organomegaly. Extremities--no cyanosis or clubbing. No edema. Dermatologic--normal skin turgor, normal color, no abnormal lymph nodes, no rash. Neurologic--cranial nerves II through XII grossly intact. Rheumatologic--normal range of motion. Psychiatric--normal affect. Principal Diagnosis Syncope, Aortic Stenosis Discharge Exam Constitutional WD/WN, vitals as above cooperative and comfortable; no acute distress Eyes + anicteric sclerae and PERRL ENMT mmm Neck normal visual inspection and trachea midline; no tracheal deviation Respiratory normal respiratory effort, lungs clear to auscultation Cardiovascular Rate/Rhythm: regular rate and regular rhythm +systolic ejection murmur with radiation to carotids, S1/quiet S2, no gallops or rubs appreciated, no edema, calves non-tender to palpation Gastrointestinal (Abdomen) normal bowel sounds, soft, nontender, no hepatosplenomegaly Musculoskeletal no cyanosis or clubbing, extremities motor strength 5/5 Skin warm, dry Neurologic patellar DTR's 2+ bilat, sensation intact and PERRL, EOMI, accommodation nl, no face palsy, no dysarthria Psychiatric A+Ox3, euthymic affect Genitourinary no simeon Lymphatic no cervical or axillary lymphadenopathy Discharge Data Allergies Allergy/AdvReac Type Severity Reaction Status Date / Time No Known Allergies Allergy Unknown Verified 09/11/21 20:27 Consultations 09/11/21 23:57 ED Decision to Admit Stat 09/12/21 03:47 Consult Neurology Routine 09/12/21 09:32 Consult Cardiology Routine 09/12/21 14:20 Consult [facility] curing oven attendant Routine 09/12/21 14:26 Consult [facility] curing oven attendant Routine Ordered Studies Chest X-Ray 09/11/21 19:58 XR chest 1V portable CLINICAL HISTORY: Chest Pain. COMPARISON STUDY: No previous studies for comparison. TECHNIQUE: 1 view of the chest FINDINGS: Single frontal view of the chest demonstrates the cardiomediastinal silhouette to be within normal limits. There is a decreased inspiratory effort with elevation of the hemidiaphragms and crowding of the bronchovascular markings at the lung bases and centrally. The lungs are clear of alveolar opacities. There is no evidence for pleural effusion. There is no evidence for vascular congestion. There is no acute osseous pathology. IMPRESSION: There is a decreased inspiratory effort with otherwise no acute chest disease. ACT 112: Negative or not required by law. Electronically signed by: Ed Ash M.D. 09/11/2021 8:[address] 09/11/21 19:59 CT head/brain wo con CLINICAL HISTORY: Seizure like activity COMPARISON STUDY: No previous studies for comparison. CT DOSE: 729.78 mGycm TECHNIQUE: Standard CT of the Brain was performed without IV contrast. A dose lowering technique was utilized adhering to the principles of ALARA. FINDINGS: Extraaxial space: There is no evidence for subdural hematoma. There are no extra-axial fluid collections. Ventricles and cisterns: The ventricles are normal in size and configuration. There is no evidence for midline shift or mass effect. Parenchyma: There is no subarachnoid or intraparenchymal hemorrhage. There is no evidence for an acute infarct or cerebral edema. There is homogeneous attenuation of the brain parenchyma. There are no gross mass lesions. Osseous structures: There is no evidence for an acute fracture. The visualized paranasal sinuses are clear. The mastoid air cells are clear bilaterally. Soft tissues: There is no evidence for focal soft tissue swelling. IMPRESSION: No acute intracerebral pathology. ACT 112: Negative or not required by law. Electronically signed by: Ed Ash M.D. 09/11/2021 9:10 PM Brain MRI 09/12/21 00:45 MR brain wo con CLINICAL HISTORY: seizure like activity TECHNIQUE: Multiplanar and multisequence MR images of the brain were obtained without intravenous contrast. Comparison: None available at the time of this dictation. FINDINGS: No abnormal restricted diffusion is identified. Foci of T2 and FLAIR hyperintensity are noted in the paraventricular areas consistent with chronic small vessel ischemic disease. Ex vacuo ventriculomegaly and sulcal enlargement is noted compatible with diffuse encephalomalacia. No extra axial fluid collections are seen. There are no masses, mass effect, or midline shift. The corpus callosum, pituitary gland, and cerebellar tonsils appear grossly unremarkable. Flow voids of the major intracranial arterial vessels are identified. The imaged portions of the paranasal sinuses, mastoid air cells, and orbits are unremarkable. IMPRESSION: No acute abnormalities. ACT 112: Negative or not required by law. Electronically signed by: Ba Prajapati M.D. 09/12/2021 11:17 AM Carotid Doppler Study 09/12/21 00:45 US carotid doppler BI CLINICAL HISTORY: murmur, seizure like activity. COMPARISON: None. TECHNIQUE: Nguyen scale, Doppler spectral analysis, and color imaging was performed. Stenosis assessment by velocity criteria. FINDINGS: Right CCA velocity (cm/s): 100 Right ICA velocity (cm/s): 94 Right ICA/CCA ratio: 1.1 Right vertebral arterial flow: Antegrade. Right findings: There is no significant atherosclerotic plaquing noted on the right. Left CCA velocity (cm/s): 85 Left ICA velocity (cm/s): 102 Left ICA/CCA ratio: 1.2 Left vertebral arterial flow: Antegrade. Left findings: There is no significant atherosclerotic plaquing noted on the left. IMPRESSION: No significant atherosclerotic plaquing or significant flow limiting stenoses noted by velocity criteria bilaterally. ACT 112: Negative or not required by law. Electronically signed by: Ed Ash M.D. 09/12/2021 8:43 AM Hospital Course (1) Observed seizure-like activity: Reported minute prior to admission after walking table cloth downstair and back up, feeling chest tightness requiring him to stop/deep breath (as previously reported "reflux" but no dietary links/PPI use and comes/goes but does seem to worsen with heavier activity per ) No previous episodes of seizure like activity as initially thought and this may have actually been history of his but misunderstoof by staff No arrhythmia on telemetry, back to baseline self. Initially thought to be seizure like activity, however review of chart in patient with known Aortic stenosis, admitted with VIDA with Cr 1.4 (baseline ~1)/dehydration. No jerking but did have urinary incontinence reported CT head, carotid dopplers negative MRI brain negative Neurology consulted --> back to baseline. Can arrange for outpatient EEG. Consult placed for nurse navigator to complete next week IVF provided --> repeat Cr back to baseline. Mag 1.5 -- ordered 3gm IV replacement. Repeat ECHO obtained -- official read not yet in system but with severe and significant LV --> Discussed with cards and started 12.5mg metoprolol which has been continued at discharge and arranging for cardiology outpatient follow up for further eval/consideration for TAVR in future. (2) Syncope: Suspected syncopal episode on admission rather than suspected seizure like activity, worsened by dehydration (elevated Cr to 1.45 on admission) in setting of severe aortic stenosis -- See below regarding Aortic Stenosis (3) Aortic stenosis: Recent Echo July 2021 (also noted severe in 2019) with normal LV systolic function, MODERATE LVH, SEVERE VALVULAR AORTIC STENOSIS, mild mitral regurgitation --> compared to Jul 2020, progressed slightly Repeat ECHO obtained prior to d/c but did discuss with Cardiology on consult who saw images, no wma. Ok w/ outpatient follow up and agreed elevated troponin likely 2nd to demand /dehydration in setting of NUrse navigator sent message to arrange for patient next week. Also has appointment with Dr Juliane Brunson this upcoming week as well (4) Elevated troponin: normal on admission, elevated to .263 on repeat and trending down with tx for above 0.150 ECHO obtained prior to admission -- official read not yet back but reportedly no wma. Patient did endorse anginal symptoms with activity indicating worsening of aortic valve and arrangements being made for f/u cardiology at discharge BB -- metoprolol 12.5mg daily started (5) Acute kidney injury: Cr 1.43 on admission IVF provided, losartan held Cr 1.0 on repeat To resume losartan tomorrow, stay hydrated. Also started low dose BB as above, and to have f/u with PCP outpatient (6) Hx pulmonary embolism: He reports that after an initial episode of pulmonary emboli a few years ago, he did a trial off of anticoagulation after treatment for 6 months, had a recurrent episode of pulmonary emboli, and is now on anticoagulation for life ddimer negative (7) Type 2 diabetes mellitus: Hold Metformin while inpatient and placed on ISS Cr back to baseline with IVF and resuming metformin at d/c A1c 6.0 (8) Hypertension: Continue losartan Bp elevated --> metoprolol succinate 12.5mg started and continued at d/c Encouraged hydration (9) Pseudogout: Reports primary involvement of left knee intermittently. (10) Peripheral neuropathy: Intermittent symptoms, none at this time (11) Dehydration: improved with IVF, losartan to resume tomorrow (12) Hypomagnesemia: 1.5 -- replacement ordered f/u PCP not on PPI therapy patient stable and wanting to discharge today with discussed Aortic Stenosis and warning signs to monitor/return to ER for and rec'd following up with PCP and Cards at d/c for further eval/work-up for possib le valve surgery in future given progressive nature of symptoms. Of note, patient follows with Dr Juliane Brunson and is retiring this upcoming year. They are attempting to get in with Dr. Cheyanne Olmos as no available PCP in [place] [facility], but they would like to f/u with [facility] Cardiology. Total Time Total Time Spent Total Time Spent (In Minutes): 70 Discharge Plan Discharge Items Patient Disposition: Home - Self-Care Reason For Visit: SEIZURE LIKE ACTIVITY Discharge Diagnosis: Syncope, Severe Aortic Stenosis, Dehydration Goals: You have been hospitalized for an acute medical problem. During your stay at [facility], we have made an effort to correct the problem that brought you to the hospital while keeping you as comfortable as possible. Medications were used to bring your condition under control and your discharge instructions will include directions for any medications you should take after leaving the hospital. Please make sure you see your Primary Care Provider as part of your follow up plan. Activity: As commented below Activity Comment: no heavy lifting/strenuous activity Non-emergency contact: Primary Care Provider and Infrastructure Technician Call non-emergency contact if: you have any medication questions and your symptoms worsen Follow-up/Referrals: Samuel Burnett MD [Physician] - Perez Kramer MD [Physician] - Konstantin Wade MD [Primary Care Provider] - Diet: Heart Healthy Addtl Attending Provider Instructions: You have been hospitalized for concerns of seizure like activity. Given this is first episode, you have been evaluated by Neurology and all imaging has been negative. You will be arranged for an outpatient EEG. As discussed, it is possible this current episode could be from worsening of your aortic heart valve, as indicated by worsening on most recent ECHOCARDIOGRAM in July, and combined with dehydration could have lead to a vasovagal/syncopal episode (passing out). You were given IV fluids and your kidney function has returned to normal. A d-dimer was checked to RULE OUT a Pulmonary Embolism, and this was negative. As discussed, it is important to stay well hydrated to prevent worsening issues with this valvular heart disease, and your troponin level was elevated and then trended down, indicating DEMAND ischemia. You will need to have follow up with Dr Juliane Brunson regarding possible change in medication from losartan to something like metoprolol as discussed, as the losartan can cause worsening dehydration and this can worsen symptoms. As discussed, you may need to have consideration for valve replacement/repair in the future and symptoms to watch out for are S.A.D -- Syncope (feeling like or actually passing out), angina (chest discomfort) and dyspnea (shortness of breath with activity) which sounds like you have, and worsening of these symptoms would indicate a more urgent need for intervention. Please follow up with Dr Juliane Brunson this week to monitor your progress. You should be checking your blood pressure at home and if elevated, would highly recommend additional agent like metoprolol or amlodipine as discussed. As discussed with cardiology in advance, you have been started on metoprolol 12.5mg by mouth ONCE daily. This will help with not only heart rate, but also blood pressure. You will be set up follow up with cardiology next week as well as a follow up appointment for EEG for further investigation of reported seizure activity, but suspect this is related to your heart valve. Please return to the emergency department with any fever, recurrent chest discomfort, shortness of breath, syncope, or for any other symptoms that are concerning for you. It has been a pleasure being a part of the medical team providing for you while you have been in the hospital. Take care! Pending Studies at Discharge: No Stand-Alone Forms: My [facility] Medications and DC Order Prescriptions: New metoprolol succinate [Toprol XL] 25 mg tablet extended release 24 hr 12.5 mg PO DAILY 30 Days Qty: 15 RF: 0 Continued folic acid 1 mg tablet 1 mg PO DAILY RF: 0 metformin 500 mg tablet 500 mg PO BID RF: 0 warfarin 5 mg tablet 0 mg PO DAILY RF: 0 pyridoxine (vitamin B6) [Vitamin B-6] 100 mg Tablet 100 mg PO DAILY RF: 0 losartan 100 mg tablet 100 mg PO DAILY RF: 0 Discharge Orders: Discharge Order (Routine); Ordered 09/12/21 Ordered By: Deepthi Fortune Admission Data Admit Date/Time: 09/12/21 00:45 Attending Provider: Deepthi Fortune Admit Provider: Joe Dale Primary Care Provider: Konstantin Wade Other Providers: Joe Dale ; Samuel Burnett ; Sharath Felipe Other Interventions: Discharge Summary Assessment (RN) Last Done: 09/12/21 18:02 Supervising Physician Co-Signing Physician Notes ZANDER Supervision Note: I personally saw and examined the patient. I verified all mcdaniel points and agree with ZANDER Montoya with the following exceptions and/or additions: S-patient reports no further chest pain or pressure, no lightheadedness or passing out. His troponin was mildly elevated and trended back downward. It does sound like he has been having stable angina with exertion that goes away with rest over the last 3 months and now an episode of syncope. All likely related to his severe aortic stenosis. I discussed his care with Dr. Felipe on the phone of cardiology who will help to arrange timely follow-up with cardiology within the next week. He will need a cardiac catheterization and evaluation for aortic valve replacement. Advised patient to not overexert himself and if he develops chest pain at rest or chest pain is not going away, or further episodes of lightheadedness or syncope, he should return to the hospital immediately. O- Vitals reviewed Gen: AAOx3, NAD HEENT: Anicteric sclerae, EOMI CV: RRR 3/6 GIOVANA at the RUSB Pulm: CTAB no wcr Abd: +BS soft NT ND no masses or hernias Ext: No edema, 2+ DP pulses Skin: No rashes, warm/dry Neuro: Full strength throughout A/H-62-nnci-old male here with syncope, stable angina, myocardial demand ischemia, in the setting of severe aortic stenosis. Plan outlined as above Follow-up with cardiology within the next week to be arranged as an outpatient Coding Level of Care Code OBSERV/HOSP SAME DATE LVL 3 Diagnoses Observed seizure-like activity R56.9 Hx pulmonary embolism Z86.711 Type 2 diabetes mellitus E11.9 Hypertension I10 Pseudogout M11.20 Peripheral neuropathy G62.9 Aortic stenosis I35.0 Syncope R55 Elevated troponin R77.8 Dehydration E86.0 Acute kidney injury N17.9 Hypomagnesemia E83.42
[2021-09-12] MEDS ORDERED: WARFARIN SOD 7.5 MG TAB PO SCH (16:00)
--- NOTE | 2021-09-13 11:21 | XCELERA ---
[id number]
== END 2021-09-12 18:00 | disposition home or self-care (01) ==
LOC: EDINP 19:46 → ED 19:46 → SUATTDRO 09-12 00:45 → EDINP 09-12 03:38
DX: R77.8 Other specified abnormalities of plasma proteins; N17.9 Acute kidney failure, unspecified; G62.9 Polyneuropathy, unspecified; R56.9 Unspecified convulsions; R55 Syncope and collapse; Z79.84 Long term (current) use of oral hypoglycemic drugs; Z20.822 Contact with and (suspected) exposure to COVID-19; Z79.01 Long term (current) use of anticoagulants; I10 Essential (primary) hypertension; E83.42 Hypomagnesemia; E78.00 Pure hypercholesterolemia, unspecified; Z87.891 Personal history of nicotine dependence; Z86.711 Personal history of pulmonary embolism; I35.0 Nonrheumatic aortic (valve) stenosis; E86.0 Dehydration; N40.1 Benign prostatic hyperplasia with lower urinary tract symptoms; N13.8 Other obstructive and reflux uropathy; E78.5 Hyperlipidemia, unspecified; E11.40 Type 2 diabetes mellitus with diabetic neuropathy, unspecified; Z79.899 Other long term (current) drug therapy

== ENCOUNTER 2023-01-06 09:24 | Inpatient (IN) ==
[2023-01-06] MEDS ORDERED: CEFEPIME 2,000 MG/20 ML VIAL IV STA (10:06)
[2023-01-06] MEDS ORDERED: SODIUM CHLORIDE 0.9% 1000ML 1,000 ML IV SCH (10:15)
--- NOTE | 2023-01-06 10:39 | XRay Report ---
SINGLE VIEW CHEST CLINICAL HISTORY: Sepsis FINDINGS: An AP, portable, upright chest radiograph is compared to study dated 09/11/2021. The patien t is status post cardiac valve surgery. The heart is enlarged. The pulmonary vasculature is nonconges majo. Chronic interstitial thickening is similar to previous. The lungs and pleural spaces are clear n oting bibasilar scarring/atelectasis. No pneumothorax is seen. The skeletal structures are osteopenic . The bony thorax is grossly intact. Tiny metallic foreign bodies project over the left shoulder. IMPRESSION: Cardiomegaly with no active disease in the chest. ACT 112: Negative or not required by law. Electronically signed by: David Shafer M.D. 01/06/2023 10:38 AM
[2023-01-06 11:06] LABS: Basophils # (auto) 0.02 K/uL (0-0.2); Basophils % (auto) 0.3 %; Eosinophils # (auto) 0.29 K/uL (0-0.50); Hematocrit (blood only) 33.3 % (42.0-52.0); Hemoglobin 11.5 g/dl (14.0-18.0); Immature Granulocytes # (auto) 0.09 K/uL (0.01-0.20); Immature Granulocytes % (auto) 1.3 %; Lymphocytes # (auto) 0.49 K/uL (1.2-3.4); Lymphocytes % (auto) 6.8 %; Mean Corpuscular Hgb Conc 34.5 g/dL (32.0-36.0); Mean Platelet Volume 9.8 fL (9.4-12.4); Monocytes # (auto) 0.65 K/uL (0.11-0.59); Monocytes % (auto) 9.1 %; Neutrophils # (auto) 5.63 K/uL (1.40-6.50); Neutrophils % (auto) 78.5 %; Platelet Count 293 K/uL (130-400); RDW Coefficient of Variation 14.7 % (11.5-14.5); RDW Standard Deviation 43.5 fL (36.4-46.3); Red Blood Count 4.11 M/uL (4.70-6.10); White Blood Count 7.17 K/ul (4.8-10.8)
[2023-01-06 11:25] LABS: Albumin Level 3.4 gm/dl (3.4-5.0); BUN Creatinine Ratio 24.3 (10-20); Bilirubin Direct 0.1 mg/dl (0-0.2); Bilirubin,Total 0.6 mg/dl (0.2-1.0); Calcium 9.1 mg/dl (8.6-10.3); Creatinine Clr Calc Pharmacy 26.6 ml/min; Potassium 4.9 mmol/L (3.5-5.1); Total Protein 7.3 gm/dl (6.0-8.3)
[2023-01-06 11:29] LABS: Troponin I High Sensitivity 13.3 pg/ml (0-20)
--- NOTE | 2023-01-06 11:35 | Emergency Department Note ---
Impression & Plan Fall, Generalized weakness, Contusion of periorbital region, right ED Provider Note INFORMANT: Patient and ED PROVIDER(S): Arnulfo West DO CHIEF COMPLAINT: Fall, generalized weakness PLAN: Disposition: Admission Outpatient prescription management: none Discussion with: Hospitalist MEDICAL DECISION MAKING: This is a 69-year-old male who presents to the ED with a chief complaint of decreased blood pressure at the PCPs office. The patient had fallen about 10 days ago. The patient is chronically on Coumadin for history of PE. He suffered a contusion to the right eye area. The patient was seen at the PCPs office today and was noted to be hypotensive with a blood pressure of 70/40. They recommended because of this and the generalized weakness that he be evaluated in the emergency department. The patient states that his fall was related to tripping. He typically has to use a walker to get around. He does complain of some stiffness in the back of his neck in addition to the right periorbital contusion. He is extremely weak according to the . Exam reveals right periorbital contusion. He has generalized weakness with difficulty/inability picking up his legs off the bed. No focal weakness. No long bone discomfort with axial loading. His EKG shows normal sinus rhythm at a rate of 80 with a chronic left bundle branch block. CBC did not show any concerning anemia or leukocytosis. The patient's chemistry panel shows no concerning electrolyte abnormality. Kidney function is worse than baseline with a BUN of 73 and a creatinine of 3. Baseline creatinine is 2. Chest x-ray was negative for acute pneumonia or other acute process. CT scan of the head and cervical spine did not show acute traumatic injury. Urine did not show in fection. The patient was told the results of the test. She had acute kidney injury and dehydration. He has generalized weakness. He will be seen by the hospitalist for further evaluation and care. Triage Nursing notes reviewed. Vital Signs: reviewed Prior /Outside records reviewed: Nephrology visit from 12/23/2022 shows history of acute kidney injury, hypertension, diabetes type 2 Differential diagnosis: Differential includes acute coronary syndrome, myocardial infarction, CVA, TIA, anemia, infection, pneumonia, UTI, pyelonephritis, poor nutrition, dehydration, electrolyte disturbance,hypoglycemia. Cervical spine injury, right periorbital injury, intracranial hemorrhage. Diagnostics, as interpreted by me: 12 lead ECG: Normal sinus rhythm rate of 80 with left bundle branch block. No ST elevation. No PVCs. Normal QTc. Cardiac Monitoring ordered: Normal sinus rhythm in the 70s and 80s Medical decision rules: none Imaging studies: Chest x-ray: No acute disease. No pneumonia. Procedures: none. Critical care: none. HPI: See MDM above. PAST MEDICAL HISTORY: See Below PAST SURGICAL HISTORY: See Below SOCIAL HISTORY: See Below HOME MEDICATIONS: See Below ALLERGIES: See Below VITALS: See Below PHYSICAL EXAMINATION: See MDM for positive findings otherwise unremarkable. CONSTITUTIONAL/VITAL SIGNS: Reviewed GENERAL:done as appropriate INTEGUMENTARY: done as appropriate HEAD: done as appropriate EYES: done as appropriate RESPIRATORY: done as appropriate CARDIOVASCULAR:done as appropriate GI/ABDOMEN:done as appropriate EXTREMITIES: done as appropriate NEUROLOGICAL: done as appropriate PSYCHIATRIC:done as appropriate MUSCULOSKELETAL:done as appropriate TRIAGE NURSING DOCUMENTATION REVIEWED. Past Med/Surg History Medical History (Updated 01/06/23 @ 11:35 by Arnulfo West DO) BPH with obstruction/lower urinary tract symptoms Bronchitis Hx pulmonary embolism Hypercholesterolemia Leg swelling Peripheral neuropathy Pseudogout Vitamin D deficiency Surgical History (Updated 07/13/22 @ 09:06 by Spenser Walsh) Aortic valve replaced S/P colonoscopy Family History (Updated 03/03/22 @ 14:31 by Elza Lu) Father Cardiac disorder Mother Hypertension Son Nephrolithiasis Other Diabetes Social History (Updated 03/03/22 @ 14:39 by Elza Lu) Smoking Status: Never smoker Tobacco Type: Cigarettes Hx Alcohol Use: No Hx Substance Use: No Preferred Language: Azerbaijani Communication Ability: Effective Chief Executive Officer Required: No Beliefs That Will Affect Care: None marital status: Current Living Situation: Spouse Feels Safe at Home: Yes Assistive Devices: None Allergies Allergies Allergy/AdvReac Type Severity Reaction Status Date / Time bee venom protein (honey bee) Allergy Unknown Anaphylaxis Verified 12/23/22 13:47 Home Meds Home Medications Medication Instructions Recorded Confirmed folic acid 1 mg tablet 1 mg PO DAILY 06/12/19 12/23/22 metformin 500 mg tablet 500 mg PO BID 06/12/19 12/23/22 losartan 100 mg tablet 100 mg PO DAILY 09/11/21 12/23/22 pyridoxine (vitamin B6) 100 mg 100 mg PO DAILY 09/11/21 12/23/22 tablet (Vitamin B-6) warfarin 5 mg tablet 0 mg PO DAILY 09/11/21 12/23/22 amlodipine 5 mg tablet 5 mg PO DAILY 03/04/22 12/23/22 famotidine 20 mg tablet (Pepcid) 20 mg PO BID 03/04/22 12/23/22 metoprolol tartrate 25 mg tablet 25 mg PO BID 03/04/22 12/23/22 triamcinolone acetonide 0.1 % g topical 03/04/22 12/23/22 topical cream triamterene 37.5 See Rx Instructions PO DAILY 03/04/22 12/23/22 mg-hydrochlorothiazide 25 mg tablet warfarin 1 mg tablet 1 mg PO DAILY 03/04/22 12/23/22 amoxicillin 500 mg capsule 500 mg PO ONCE 12/07/22 12/23/22 Previous Rx's Medication Instructions Recorded alfuzosin 10 mg tablet,extended 10 mg PO DAILY #90 tabs 12/24/22 release 24 hr (Uroxatral) Results & Data (ED) Vital Signs Vital Signs - 24 hr 01/06/23 09:25 01/06/23 10:00 01/06/23 10:00 Temperature 36.9 C Temperature Source Oral Pulse Rate 84 77 77 Pulse Rate from SpO2 Sensor 77 Pulse Rhythm Regular Respiratory Rate 19 21 Respiratory Effort / Characteristics Non-Labored Respiratory Depth Normal Respiratory Pattern Regular Blood Pressure 93/66 L 118/64 Blood Pressure Mean 75 82 Pulse Oximetry 97 97 Oxygen Delivery Method Room Air Sepsis Recent Fever Within 48 Hours No Sepsis New/Unexplained Change in Mental Status N/A Sepsis Action Taken by Nursing No Action Required 01/06/23 10:06 01/06/23 10:30 01/06/23 11:01 Temperature Temperature Source Pulse Rate 77 79 117 H Pulse Rate from SpO2 Sensor 79 Pulse Rhythm Regular Respiratory Rate 21 20 17 Respiratory Effort / Characteristics Respiratory Depth Respiratory Pattern Blood Pressure 116/71 116/100 Blood Pressure Mean 86 105 Pulse Oximetry 97 98 Oxygen Delivery Method Room Air Sepsis Recent Fever Within 48 Hours Sepsis New/Unexplained Change in Mental Status Sepsis Action Taken by Nursing 01/06/23 11:31 Temperature Temperature Source Pulse Rate 87 Pulse Rate from SpO2 Sensor 87 Pulse Rhythm Respiratory Rate 28 H Respiratory Effort / Characteristics Respiratory Depth Respiratory Pattern Blood Pressure 132/80 Blood Pressure Mean 97 Pulse Oximetry 98 Oxygen Delivery Method Sepsis Recent Fever Within 48 Hours Sepsis New/Unexplained Change in Mental Status Sepsis Action Taken by Nursing Laboratory Data 01/06/23 09:25 01/06/23 09:25 Lab Results 01/06/23 01/06/23 01/06/23 Range/Units 09:25 09:25 09:25 WBC 7.17 (4.8-10.8) K/ul RBC 4.11 L (4.70-6.10) M/uL Hgb 11.5 L (14.0-18.0) g/dl Hct 33.3 L (42.0-52.0) % MCV 81.0 (80.0-100.0) fL MCH 28.0 (25.0-34.0) pg MCHC 34.5 (32.0-36.0) g/dL RDW Std Deviation 43.5 (36.4-46.3) fL RDW Coeff of Spike 14.7 H (11.5-14.5) % Plt Count 293 (130-400) K/uL MPV 9.8 (9.4-12.4) fL Immature Gran % (Auto) 1.3 % Neut % (Auto) 78.5 % Lymph % (Auto) 6.8 % [place] % (Auto) 9.1 % Eos % (Auto) 4.0 % Baso % (Auto) 0.3 % Neut # (Auto) 5.63 (1.40-6.50) K/uL Lymph # (Auto) 0.49 L (1.2-3.4) K/uL [place] # (Auto) 0.65 H (0.11-0.59) K/uL Eos # (Auto) 0.29 (0-0.50) K/uL Baso # (Auto) 0.02 (0-0.2) K/uL Immature Gran # (Auto) 0.09 (0.01-0.20) K/uL Sodium 135 L (136-145) mmol/L Potassium 4.9 (3.5-5.1) mmol/L Chloride 103 (98-107) mmol/L Carbon Dioxide 19 L (21-32) mmol/L Anion Gap 13 H (3-11) BUN 73 H (6-23) mg/dl Creatinine 3.00 H (0.6-1.4) mg/dl Est Cr Clr Drug Dosing 26.6 ml/min Est GFR ( Amer) 22.0 ml/min Est GFR (Non-Af Amer) 19.0 ml/min BUN/Creatinine Ratio 24.3 H (10-20) Glucose 137 H (70-99(Fasting)) mg/dl Lactate (0.4-2.0) mmol/L Calcium 9.1 (8.6-10.3) mg/dl Magnesium 1.0 L (1.7-2.4) mg/dl Total Bilirubin 0.6 (0.2-1.0) mg/dl Direct Bilirubin 0.1 (0-0.2) mg/dl AST 39 (13-39) U/L ALT 50 (7-52) U/L Alkaline Phosphatase 73 (34-104) U/L Troponin I High Sens 13.3 (0-20) pg/ml Total Protein 7.3 (6.0-8.3) gm/dl Albumin 3.4 (3.4-5.0) gm/dl Procalcitonin 0.53 H (0-0.5) ng/ml Urine Color Urine Appearance (Clear) Urine pH (4.5-7.5) Ur Specific [place] (1.000-1.030) Urine Protein (Negative) Urine Glucose (UA) (Negative) Urine Ketones (Negative) Urine Blood (Negative) Urine Nitrite (Negative) Urine Bilirubin (Negative) Urine Urobilinogen (Negative) Ur Leukocyte Esterase (Negative) 01/06/23 01/06/23 Range/Units 10:41 11:00 WBC (4.8-10.8) K/ul RBC (4.70-6.10) M/uL Hgb (14.0-18.0) g/dl Hct (42.0-52.0) % MCV (80.0-100.0) fL MCH (25.0-34.0) pg MCHC (32.0-36.0) g/dL RDW Std Deviation (36.4-46.3) fL RDW Coeff of Spike (11.5-14.5) % Plt Count (130-400) K/uL MPV (9.4-12.4) fL Immature Gran % (Auto) % Neut % (Auto) % Lymph % (Auto) % [place] % (Auto) % Eos % (Auto) % Baso % (Auto) % Neut # (Auto) (1.40-6.50) K/uL Lymph # (Auto) (1.2-3.4) K/uL [place] # (Auto) (0.11-0.59) K/uL Eos # (Auto) (0-0.50) K/uL Baso # (Auto) (0-0.2) K/uL Immature Gran # (Auto) (0.01-0.20) K/uL Sodium (136-145) mmol/L Potassium (3.5-5.1) mmol/L Chloride (98-107) mmol/L Carbon Dioxide (21-32) mmol/L Anion Gap (3-11) BUN (6-23) mg/dl Creatinine (0.6-1.4) mg/dl Est Cr Clr Drug Dosing ml/min Est GFR ( Amer) ml/min Est GFR (Non-Af Amer) ml/min BUN/Creatinine Ratio (10-20) Glucose (70-99(Fasting)) mg/dl Lactate 1.3 (0.4-2.0) mmol/L Calcium (8.6-10.3) mg/dl Magnesium (1.7-2.4) mg/dl Total Bilirubin (0.2-1.0) mg/dl Direct Bilirubin (0-0.2) mg/dl AST (13-39) U/L ALT (7-52) U/L Alkaline Phosphatase (34-104) U/L Troponin I High Sens (0-20) pg/ml Total Protein (6.0-8.3) gm/dl Albumin (3.4-5.0) gm/dl Procalcitonin (0-0.5) ng/ml Urine Color Yellow Urine Appearance Clear (Clear) Urine pH 5.0 (4.5-7.5) Ur Specific [place] 1.011 (1.000-1.030) Urine Protein Negative (Negative) Urine Glucose (UA) Negative (Negative) Urine Ketones Negative (Negative) Urine Blood Negative (Negative) Urine Nitrite Negative (Negative) Urine Bilirubin Negative (Negative) Urine Urobilinogen Negative (Negative) Ur Leukocyte Esterase Negative (Negative) Administered Medications Discontinued Medications Cefepime HCl (Maxipime) 2,000 mg in 20 mls @ 5 mls/min IV NOW STA; Protocol Stop: 01/06/23 10:09 Last Admin: 01/06/23 10:55 Dose: 5 mls/min Documented By: MONTRELL Sodium Chloride (Nss 1000ml) 1,000 mls @ 999 mls/hr IV .Q1H1M JARAD Stop: 01/06/23 11:15 Last Infusion: 01/06/23 11:43 Dose: 0 mls/hr Documented By: Admin: 01/06/23 10:24 Dose: 999 mls/hr Documented By: MONTRELL Imaging Data Radiologist's Impression: Chest X-Ray 01/06/23 10:06 SINGLE VIEW CHEST CLINICAL HISTORY: Sepsis FINDINGS: An AP, portable, upright chest radiograph is compared to study dated 09/11/2021. The patient is status post cardiac valve surgery. The heart is enlarged. The pulmonary vasculature is noncongested. Chronic interstitial thickening is similar to previous. The lungs and pleural spaces are clear noting bibasilar scarring/atelectasis. No pneumothorax is seen. The skeletal structures are osteopenic. The bony thorax is grossly intact. Tiny metallic foreign bodies project over the left shoulder. IMPRESSION: Cardiomegaly with no active disease in the chest. ACT 112: Negative or not required by law. Electronically signed by: David Shafer M.D. 01/06/2023 10:[address] 01/06/23 10:07 CT SCAN OF THE BRAIN WITHOUT IV CONTRAST CLINICAL HISTORY: Head injury. COMPARISON STUDY: CT of the brain dated 09/11/2021. TECHNIQUE: Unenhanced axial CT scan of the brain is performed from the vertex to the skull base. A dose lowering technique was utilized adhering to the prin ciples of SERGO. The patient was scanned twice due to motion artifact. FINDINGS: Brain parenchyma: There is age-related involutional change noting moderate subcortical and periventricular microangiopathic disease. There is no hemorrhage, mass effect, or evidence of acute territorial ischemia by CT criteria. Mineralization is noted in the basal ganglia. Nguyen-white matter differentiation is preserved. No extra-axial fluid collection is seen. Ventricles, sulci, cisterns: Prominent secondary to involutional change. Intracranial vasculature: There is atherosclerotic calcification of the [place] carotid and vertebral arteries. Calvarium: The skeletal structures are osteopenic. No depressed calvarial fracture is seen. Soft tissues: There is minimal right supraorbital scalp contusion. Sinuses and mastoids: The paranasal sinuses are clear. The mastoid air cells are well pneumatized. Orbits: The bony orbits are grossly intact. IMPRESSION: There is no hemorrhage, mass effect, or evidence of acute territorial ischemia by CT criteria. ACT 112: Negative or not required by law. Electronically signed by: David Shafer M.D. 01/06/2023 11:[address] 01/06/23 10:[address] DOSE: 2036.64 mGy.cm HISTORY: fall, pain TECHNIQUE: Multiaxial CT images of the cervical spine were performed and reformatted in the sagittal and coronal plane without the use of contrast. A dose lowering technique was utilized adhering to the principles of ALARA. COMPARISON: None. FINDINGS: No fractures. No subluxation. Prevertebral soft tissues and the C1-C2 interval are intact. No pneumothorax. [id number] degenerative changes within the cervical spine. IMPRESSION: No fractures within the cervical spine. ACT 112: Negative or not required by law. Electronically signed by: Blaze Aguirre M.D. 01/06/2023 11:57 AM Discharge Plan Visit Data Chief Complaint: Hypotension Stated Complaint: HYPOTENSION, WEAKNESS ED Provider: Arnulfo West Discharge Problem: Fall, Generalized weakness, Contusion of periorbital region, right Patient Disposition: Being Evaluated by Hospitalist Forms Stand Alone Forms: [facility], Virtual Emergency Department, Important Visit Information Prescriptions Prescriptions: No Action alfuzosin [Uroxatral] 10 mg tablet extended release 24 hr 10 mg PO DAILY Qty: 90 3RF Rx Instructions: administer after the same meal each day warfarin 1 mg tablet 1 mg PO DAILY metoprolol tartrate 25 mg tablet 25 mg PO BID amlodipine 5 mg tablet 5 mg PO DAILY triamcinolone acetonide 0.1 % cream topical triamterene-hydrochlorothiazid 37.5-25 mg tablet See Rx Instructions PO DAILY Rx Instructions: 0.5 tab PO daily; famotidine [Pepcid] 20 mg tablet 20 mg PO BID amoxicillin 500 mg capsule 500 mg PO ONCE Rx Instructions: Prior to dental Procedures folic acid 1 mg tablet 1 mg PO DAILY metformin 500 mg tablet 500 mg PO BID warfarin 5 mg tablet 0 mg PO DAILY Rx Instructions: DOSE CHANGES DEPENDS ON INR. pyridoxine (vitamin B6) [Vitamin B-6] 100 mg Tablet 100 mg PO DAILY losartan 100 mg tablet 100 mg PO DAILY Referrals Referrals: Cheyanne De Los Santos MD [Primary Care Provider] -
--- NOTE | 2023-01-06 11:53 | CT Scan Report ---
CT SCAN OF THE BRAIN WITHOUT IV CONTRAST CLINICAL HISTORY: Head injury. COMPARISON STUDY: CT of the brain dated 09/11/2021. TECHNIQUE: Unenhanced axial CT scan of the brain is performed from the vertex to the skull base. A do se lowering technique was utilized adhering to the principles of ALARA. The patient was scanned twice due to motion artifact. FINDINGS: Brain parenchyma: There is age-related involutional change noting moderate subcortical and periventri cular microangiopathic disease. There is no hemorrhage, mass effect, or evidence of acute territorial ischemia by CT criteria. Mineralization is noted in the basal ganglia. Nguyen-white matter differentia tion is preserved. No extra-axial fluid collection is seen. Ventricles, sulci, cisterns: Prominent secondary to involutional change. Intracranial vasculature: There is atherosclerotic calcification of the cavernous carotid and vertebr al arteries. Calvarium: The skeletal structures are osteopenic. No depressed calvarial fracture is seen. Soft tissues: There is minimal right supraorbital scalp contusion. Sinuses and mastoids: The paranasal sinuses are clear. The mastoid air cells are well pneumatized. Orbits: The bony orbits are grossly intact. IMPRESSION: There is no hemorrhage, mass effect, or evidence of acute territorial ischemia by CT felipe campos. ACT 112: Negative or not required by law. Electronically signed by: David Shafer M.D. 01/06/2023 11:51 AM
--- NOTE | 2023-01-06 12:00 | CT Scan Report ---
CERVICAL SPINE CT CT DOSE: 2036.64 mGy.cm HISTORY: fall, pain TECHNIQUE: Multiaxial CT images of the cervical spine were performed and reformatted in the sagittal and coronal plane without the use of contrast. A dose lowering technique was utilized adhering to th e principles of ALARA. COMPARISON: None. FINDINGS: No fractures. No subluxation. Prevertebral soft tissues and the C1-C2 interval are intact. No pneumothorax. [id number] degenerative changes within the cervical spine. IMPRESSION: No fractures within the cervical spine. ACT 112: Negative or not required by law. Electronically signed by: Blaze Aguirre M.D. 01/06/2023 11:57 AM
[2023-01-06 12:10] LABS: Partial Thromboplastin Ratio 2.4; Prothrombin Time 88.3 Seconds (9.0-12.0)
[2023-01-06 12:19] LABS: Appearance Urine Clear (Clear); Bilirubin Urine Negative (Negative); Blood Urine Negative (Negative); Color Urine Yellow; Glucose Urine UA Negative (Negative); Ketones Urine Negative (Negative); Leukocyte Esterase Urine Negative (Negative); Nitrite Urine Negative (Negative); Protein Urine Negative (Negative); Specific Gravity Urine 1.011 (1.000-1.030); Urobilinogen Urine Negative (Negative)
[2023-01-06 12:28] LABS: INR 9.3 (0.9-1.1); Partial Thromboplastin Time 67.1 Seconds (21.0-31.0)
--- NOTE | 2023-01-06 12:36 | History & Physical Report ---
Date of Service January 06, 2023 Assessment & Plan (1) Acute kidney injury: Plan: -Admit to med/tele -The patient is currently afebrile, hemodynamically stable, and stable on RA -Cr noted to be 3.0 today, has had recent fluctuations in renal function over the past few months, baseline appears near 2.0 -Likely due to being dehydrated and his recent episodes of hypotension, could also include a component of obstruction with his hx of BPH and not starting alfluzosin, will obtain renal US to monitor for obstruction -S/P 1L NSS in the ED, appears dry on exam, will give LR at 80 mL/hr x 2 bags for now -Avoid nephrotoxic agents -Will obtain a bladder scan and PVR for further evaluation -Monitor daily renal function and electrolytes -BL SCD's for DVT PPX with his supratherapeutic INR today (2) Hypotension: Plan: -Likely due to not drinking enough water, taking a daily diuretic, and being on multiple antihypertensives -Was hypotensive this am at his PCP with systolics in the 70's -Currently hemodynamically stable S/P 1L NSS in the ED -Hold amlodipine and triamterene-HCTZ for now -Will continue metoprolol and losartan (Losartan is nephroprotective) -Will likely need to discontinue one or both of amlodipine/triamterene-HCTZ prior to discharge as we are starting him on HS tamsulosin for BPH (3) Hypomagnesemia: Plan: -Noted to be 1.0 today -Likely has been a chronic issue due to poor oral intake/absorption and diuretic use -Will start with 4gm IV mag-sulfate on admission -Due to a likely who body depletion of mag will also start oral Mag-Oxide at 400 mg PO BID tonight -Monitor daily magnesium levels and adjust regimen as needed -Continue to monitor on tele (4) Generalized weakness: Plan: -Likely multifactorial including severe hypomagnesemia, dehydration, and deconditioning -Hgb is stable, no leukocytosis, procal is elevated minimally at 0.53 but no signs, symptoms, labs, or imaging to suggest an acute infection at this time -Was given one dose of cefepime in the ED, will hold additional abx for now and monitor for fever or leukocytosis -Will continue to rehydrate and replete electrolytes -PT/OT consults placed, may need short rehab stay on discharge -Will obtain am B12 level (5) Supratherapeutic INR: Plan: -Noted to be 9.0 today -Typically take 6 mg Warfarin on Tuesday, Tue, and 7 mg on ,,,Tue -Does eat broccoli but tries to avoid other green-leafy vegetables -No signs of active bleeding but will give 2.5 mg PO Vit K now -Hold Warfarin, monitor daily INR and restart Warfarin when he's back within therapeutic range (6) Hypertension: Plan: -See hypotension (7) Type 2 diabetes mellitus: Plan: -Hold metformin -Monitor BSG ACHS, goal is 110-140 -Will start 5 units lantus BID, CF of 50 and CR of 15 -DM II and HH diet -Adjust regimen as needed -AM A1C ordered (8) BPH with obstruction/lower urinary tract symptoms: Plan: -Will start HS tamsulosin tonight -FU bladder scan and PVR (9) Hx pulmonary embolism: Plan: -Hold warfarin for now with Supratherapeutic INR -Restart warfarin when INR is therapeutic Plan The patient was discussed with Dr. Sánchez at the time of the admission History of Present Illness Chief Complaint: Generalized weakness, hypotension Primary Care Provider: Cheyanne De Los Santos MD Patrick is 77 year old male with a PMH significant for symptomatic aortic stenosis S/P TAVR in Sep, CAD, BPH with LUTS, diabetes mellitus type 2, hypertension, pseudo-gout, hyperlipidemia, GPN, and chronic anticoagulation (on Warfarin) for recurrent pulmonary emboli who presented to the [facility] ED on 01/06/23 due to generalized weakness and hypotension at his PCP's office this am. In the ED the patient was found to be afebrile, hypotensive at 93/66, and stable on RA. Labs were remarkable for a lymphocyte count of 0.49, Cr of 3.00 (baseline is approx 2.0 this year), AG of 13 with bicarb of 19, mag of 1.0, procal of 0.53, clean UA. CT of the head was read as "There is no hemorrhage, mass effect, or evidence of acute territorial ischemia by CT criteria.". Chest xray was read as "Cardiomegaly with no active disease in the chest.". CT of the cervical spine was read as "No fractures within the cervical spine.". Prior to admission the patient was given 1L NSS and a dose of Cefepime. At the time of the exam the patient was lying in bed in no acute distress with his , son, and [id number] at bedside, history was obtained from all. The patient has had progressive generalized weakness over the past couple of months. His states that he is not drinking enough water. Approximately 10 days ago the patient was at home by himself and walking in their bedroom. He felt dizzy and attempted to grab their treadmill for balance but fell; he hit the right side of his face on the treadmill resulting in the black eye but did not lose consciousness. They confirm that this has been the only episode of lightheadedness/dizziness since his TAVR. When asked about the recent prescription written for Alfuzosin, his states that they never started it because one of the side effects is dizziness, she was concerned he would fall at night while getting up to go to the bathroom. He has been taking his amlodipine, metoprolol, losartan, and triamterene-HCTZ as prescribed, and had all of his morning medications prior to his PCP appointment today. They made the appointment with his PCP today due to ongoing leg weakness/cramping. When his PCP saw his hypotension they advised the patient to come to the ED via EMS. They deny recent fever, chills, productive cough, chest pain, SOB, abd pain, nausea, vomiting, diarrhea, dysuria, hematuria, LE swelling and other recent falls or trauma. When asked about his diet due to his supratherapeutic INR, his states that they often eat broccoli but they try to avoid green/leafy vegetables. His family would like him to be evaluated by PT/OT for possibly rehab with his ongoing generalized weakness. We discussed code status, the patient is a DNR/DNI and would want his to make medical decisions for him if he cannot make them himself. Please refer to Dr. Sánchez's attestation for any changes to the treatment plan. Allergies Allergy/AdvReac Type Severity Reaction Status Date / Time bee venom protein (honey bee) Allergy Unknown Anaphylaxis Verified 01/06/23 12:26 Home Medications Medication Instructions Recorded Confirmed Type folic acid 1 mg tablet 1 mg PO DAILY 06/12/19 01/06/23 History metformin 500 mg tablet 500 mg PO BID 06/12/19 01/06/23 History losartan 100 mg tablet 100 mg PO DAILY 09/11/21 01/06/23 History pyridoxine (vitamin B6) 100 mg 100 mg PO DAILY 09/11/21 01/06/23 History tablet (Vitamin B-6) warfarin 5 mg tablet 0 mg PO DAILY 09/11/21 01/06/23 History amlodipine 5 mg tablet 5 mg PO HS 03/04/22 01/06/23 History famotidine 20 mg tablet (Pepcid) 20 mg PO BID 03/04/22 01/06/23 History metoprolol tartrate 25 mg tablet 25 mg PO BID 03/04/22 01/06/23 History triamcinolone acetonide 0.1 % 1 g topical DAILY 03/04/22 01/06/23 History topical cream triamterene 37.5 0.5 tab PO DAILY 03/04/22 01/06/23 History mg-hydrochlorothiazide 25 mg tablet warfarin 1 mg tablet 0 mg PO DAILY 03/04/22 01/06/23 History amoxicillin 500 mg capsule 0 mg PO ONCE 12/07/22 01/06/23 History Past Med/Surg History Medical History (Updated 01/06/23 @ 13:31 by Arnulfo Darnell PA-C) BPH with obstruction/lower urinary tract symptoms Bronchitis Hx pulmonary embolism Hypercholesterolemia Leg swelling Peripheral neuropathy Pseudogout Vitamin D deficiency Surgical History (Updated 07/13/22 @ 09:06 by Spenser Walsh) Aortic valve replaced S/P colonoscopy Family History (Updated 03/03/22 @ 14:31 by Elza Lu) Father Cardiac disorder Mother Hypertension Son Nephrolithiasis Other Diabetes Social History (Updated 03/03/22 @ 14:39 by Elza Lu) Smoking Status: Never smoker Tobacco Type: Cigarettes Hx Alcohol Use: No Hx Substance Use: No Preferred Language: Danish Communication Ability: Effective Branch Coordinator Required: No Beliefs That Will Affect Care: None marital status: Current Living Situation: Spouse Feels Safe at Home: Yes Safety Concerns: Feels Safe At This Time Assistive Devices: Walker Physical Exam Physical Exam: Physical Exam: General: In no acute distress, stated age, well-nourished, good hygiene HEENT: Patient with large hematoma in various stages of healing around the right eye, no scleral icterus, pupils around round, symmetrical, and reactive to light, dry mucus membranes, trachea midline, no thyromegaly Chest/Pulm: No respiratory distress, symmetrical chest expansion, clear breath sounds throughout Cardiac: RRR, systolic murmur noted Abdomen: Negative for ascites and bruising, normoactive bowel sounds, soft, non-tender to palpation throughout Musculoskeletal: No tenderness to palpation of the face, head, cervical spine, able to touch chin to his chest without issue, ROM intact in the BL upper and lower extremities Extremities: Radial, dorsalis pedis, and posterior tibial pulses are intact and symmetrical, no edema noted in the BL LE's Skin: Patient with facial bruising as described above, right skin tear overlying the right elbow is currently bleeding after removal of his home bandage but without signs of infection Neuro: Alert and oriented to person, place, month, year, and president, no focal defects, CN II-XII tested and intact, no tremors noted, symmetrical strength in the BL upper and lower extremities Psych: No acute distress, calm and cooperative during the exam Results & Data Results & Data Vital Signs (Past 12 Hours) Vital Signs Temp Pulse Resp BP Pulse Ox O2 Del Method 01/06/23 11:31 87 28 H 132/80 98 01/06/23 11:01 117 H 17 116/100 01/06/23 10:30 79 20 116/71 98 01/06/23 10:06 77 21 97 Room Air 01/06/23 10:00 77 21 118/64 97 01/06/23 10:00 77 01/06/23 09:25 36.9 C 84 19 93/66 L 97 Room Air Laboratory Results Abnormal lab results 01/06/23 01/06/23 01/06/23 Range/Units 09:25 09:25 09:25 RBC 4.11 L (4.70-6.10) M/uL Hgb 11.5 L (14.0-18.0) g/dl Hct 33.3 L (42.0-52.0) % RDW Coeff of Spike 14.7 H (11.5-14.5) % Lymph # (Auto) 0.49 L (1.2-3.4) K/uL [place] # (Auto) 0.65 H (0.11-0.59) K/uL PT 88.3 H (9.0-12.0) Seconds INR 9.3 H* (0.9-1.1) APTT 67.1 H* (21.0-31.0) Seconds Sodium 135 L (136-145) mmol/L Carbon Dioxide 19 L (21-32) mmol/L Anion Gap 13 H (3-11) BUN 73 H (6-23) mg/dl Creatinine 3.00 H (0.6-1.4) mg/dl BUN/Creatinine Ratio 24.3 H (10-20) Glucose 137 H (70-99(Fasting)) mg/dl Magnesium 1.0 L (1.7-2.4) mg/dl Procalcitonin (0-0.5) ng/ml 01/06/23 Range/Units 09:25 RBC (4.70-6.10) M/uL Hgb (14.0-18.0) g/dl Hct (42.0-52.0) % RDW Coeff of Spike (11.5-14.5) % Lymph # (Auto) (1.2-3.4) K/uL [place] # (Auto) (0.11-0.59) K/uL PT (9.0-12.0) Seconds INR (0.9-1.1) APTT (21.0-31.0) Seconds Sodium (136-145) mmol/L Carbon Dioxide (21-32) mmol/L Anion Gap (3-11) BUN (6-23) mg/dl Creatinine (0.6-1.4) mg/dl BUN/Creatinine Ratio (10-20) Glucose (70-99(Fasting)) mg/dl Magnesium (1.7-2.4) mg/dl Procalcitonin 0.53 H (0-0.5) ng/ml Diagnostic Findings Chest X-Ray 01/06/23 10:06 SINGLE VIEW CHEST CLINICAL HISTORY: Sepsis FINDINGS: An AP, portable, upright chest radiograph is compared to study dated 09/11/2021. The patient is status post cardiac valve surgery. The heart is enlarged. The pulmonary vasculature is noncongested. Chronic interstitial thickening is similar to previous. The lungs and pleural spaces are clear noting bibasilar scarring/atelectasis. No pneumothorax is seen. The skeletal structures are osteopenic. The bony thorax is grossly intact. Tiny metallic foreign bodies project over the left shoulder. IMPRESSION: Cardiomegaly with no active disease in the chest. ACT 112: Negative or not required by law. Electronically signed by: David Shafer M.D. 01/06/2023 10:[address] 01/06/23 10:07 CT SCAN OF THE BRAIN WITHOUT IV CONTRAST CLINICAL HISTORY: Head injury. COMPARISON STUDY: CT of the brain dated 09/11/2021. TECHNIQUE: Unenhanced axial CT scan of the brain is performed from the vertex to the skull base. A dose lowering technique was utilized adhering to the principles of ALARA. The patient was scanned twice due to motion artifact. FINDINGS: Brain parenchyma: There is age-related involutional change noting moderate subcortical and periventricular microangiopathic disease. There is no hemorrhage, mass effect, or evidence of acute territorial ischemia by CT criteria. Mineralization is noted in the basal ganglia. Nguyen-white matter differentiation is preserved. No extra-axial fluid collection is seen. Ventricles, sulci, cisterns: Prominent secondary to involutional change. Intracranial vasculature: There is atherosclerotic calcification of the cavernous carotid and vertebral arteries. Calvarium: The skeletal structures are osteopenic. No depressed calvarial fracture is seen. Soft tissues: There is minimal right supraorbital scalp contusion. Sinuses and mastoids: The paranasal sinuses are clear. The mastoid air cells are well pneumatized. Orbits: The bony orbits are grossly intact. IMPRESSION: There is no hemorrhage, mass effect, or evidence of acute territorial ischemia by CT criteria. ACT 112: Negative or not required by law. Electronically signed by: David Shafer M.D. 01/06/2023 11:[address] 01/06/23 10:[address] DOSE: 2036.64 mGy.cm HISTORY: fall, pain TECHNIQUE: Multiaxial CT images of the cervical spine were performed and reformatted in the sagittal and coronal plane without the use of contrast. A dose lowering technique was utilized adhering to the principles of ALARA. COMPARISON: None. FINDINGS: No fractures. No subluxation. Prevertebral soft tissues and the C1-C2 interval are intact. No pneumothorax. [id number] degenerative changes within the cervical spine. IMPRESSION: No fractures within the cervical spine. ACT 112: Negative or not required by law. Electronically signed by: Blaze Aguirre M.D. 01/06/2023 11:57 AM ECG Additional Comments: Normal sinus rhythm Left bundle branch block Abnormal ECG When compared with ECG of 07-DEC-2022 10:22, (unconfirmed) No significant change was found Code Status & VTE Plan Code Status DNR/DNI VTE Prophylaxis Plan VTE Prophylaxis will be ordered: Yes Supervising Physician Co-Signing Physician Notes I personally saw and examined the patient. I verified all mcdaniel points and agree with Arnulfo Darnell PA-C with the following exceptions and/or additions: 77 year old male admission for generalized weakness following fall getting slowly progressively worse. Chronic lack of balance and peripheral neuropathy below knee without EMG/NCS testing. O/E HS RRR, no murmurs, Chest CTAB, Abdo SNT, no CVA tenderness, bilateral LE motor weakness 3/5 hip flex, knee flex/ext, ankle plantarflex, left ankle dorsiflex 2/5, CN 2-> 12 intact A/P Generalized weakness - do no suspect stroke as b/l symptoms, possible chronic left foot drop, will get B12 level with AM labs. Worsening generalized weakness since fall may be due to concussion, low Mg (although suspect this is more chronic), low BP causing VIDA/uremia. PT/OT Hypomagnesemia - suspect chronic from diuretics and metformin use, unclear how much contributing towards current symptoms. Mg sulfate 4f IV ordered and will need oral supplementation in addition. Will likely continue to stay low as Mg redistributes into cells and will likely need a high amount of replacement ongoing until total body stores replenished. VIDA - suspect pre-renal secondary to diuretics. Stop amlodipine and diuretics. Supratherapeutic INR - unclear cause as he reports warfarin dosing usually stable. Will given 2.5mg PO vit K to slowly reverse as no active bleeding. Hold warfarin. On lifelong anticoagulation for multiple PE/DVTs BPH - start tamsulosin, bladder scan for PVR Dizziness - not clear dizziness prior to fall was vertigo vs. lightheadedness vs unbalanced. Adjustment of antihypertensives as above. B12 level as above. PT/OT to assess potentially will require inpatient rehabilitation. PG Care Time/CCT Total # of Minutes Spent Total Time Spent with Patient: Total time spent is greater than 50% in coordination of care (as documented) at patient's floor/unit and/or counseling patient: [place] [address] INT INP/OBS CARE 375MIN Patient Type Established Medical Decision Making High Complexity Diagnoses Acute kidney injury N17.9 Hypotension I95.9 Hypomagnesemia E83.42 Generalized weakness R53.1 Supratherapeutic INR R79.1 Hypertension I10 Type 2 diabetes mellitus E11.9 BPH with obstruction/lower urinary tract symptoms N40.1; N13.8 Hx pulmonary embolism Z86.711
[2023-01-06] MEDS ORDERED: GLUCAGON FOR INJ 1 MG VIAL SQ PRN (12:37)
[2023-01-06] MEDS ORDERED: DEXTROSE 50% 50 ML SYRINGE IV PRN (12:37)
[2023-01-06] MEDS ORDERED: GLUCOSE 10 TAB/TUBE PO PRN (12:37)
[2023-01-06] MEDS ORDERED: CARBOHYDRATES FOR HYPOGLYCEMIA PO PRN (12:37)
[2023-01-06] MEDS ORDERED: GLUCOSE 40% GEL 15 GM TUBE PO PRN (12:37)
[2023-01-06] MEDS ORDERED: PHYTONADIONE 5 MG TAB PO STA (13:15)
[2023-01-06] MEDS: MAGNESIUM SULFATE / D5W 1 GM/100 ML BAG IV SCH ×4 (13:47→20:43)
[2023-01-06] MEDS: LACTATED RINGER'S 1,000 ML IV SCH (13:48)
[2023-01-06] MEDS: INSULIN ASPART PER UNIT CHARGE SC SCH ×2 (17:37→20:43)
[2023-01-06] MEDS: TAMSULOSIN HCL 0.4 MG CAP PO SCH (20:43)
[2023-01-06] MEDS: METOPROLOL TARTRATE 25 MG TAB PO SCH (20:44)
[2023-01-06] MEDS: FAMOTIDINE 10 MG TABLET PO SCH (20:44)
[2023-01-06] MEDS: MAGNESIUM OXIDE 400 MG TAB PO SCH (20:45)
[2023-01-06] MEDS: ACETAMINOPHEN 500 MG TAB PO PRN (20:48)
[2023-01-06] MEDS: MELATONIN 3 MG TAB PO PRN (20:49)
[2023-01-06] MEDS: LANTUS PER UNIT CHARGE SQ SCH (20:53)
[2023-01-06] MEDS ORDERED: FAMOTIDINE 20 MG TAB PO SCH (21:00)
[2023-01-07] MEDS: LACTATED RINGER'S 1,000 ML IV SCH ×2 (03:43→18:39)
[2023-01-07] MEDS: ACETAMINOPHEN 500 MG TAB PO PRN ×2 (06:27→20:32)
[2023-01-07 07:35] LABS: Basophils # (auto) 0.02 K/uL (0-0.2); Basophils % (auto) 0.3 %; Eosinophils # (auto) 0.16 K/uL (0-0.50); Eosinophils % (auto) 2.7 %; Hematocrit (blood only) 28.3 % (42.0-52.0); Immature Granulocytes # (auto) 0.06 K/uL (0.01-0.20); Lymphocytes # (auto) 0.43 K/uL (1.2-3.4); Lymphocytes % (auto) 7.2 %; Mean Corpuscular Hemoglobin 28.6 pg (25.0-34.0); Mean Corpuscular Hgb Conc 35.3 g/dL (32.0-36.0); Mean Corpuscular Volume 80.9 fL (80.0-100.0); Mean Platelet Volume 9.7 fL (9.4-12.4); Monocytes # (auto) 0.52 K/uL (0.11-0.59); Monocytes % (auto) 8.7 %; Neutrophils # (auto) 4.79 K/uL (1.40-6.50); Neutrophils % (auto) 80.1 %; Platelet Count 250 K/uL (130-400); RDW Coefficient of Variation 14.6 % (11.5-14.5); RDW Standard Deviation 42.9 fL (36.4-46.3); White Blood Count 5.98 K/ul (4.8-10.8)
--- NOTE | 2023-01-07 07:35 | Hospitalist Progress Note ---
Date of Service January 07, 2023 Assessment & Plan (1) Acute kidney injury: (2) Hypotension: (3) Hypomagnesemia: (4) Generalized weakness: (5) Supratherapeutic INR: (6) Hypertension: (7) Type 2 diabetes mellitus: (8) BPH with obstruction/lower urinary tract symptoms: (9) Hx pulmonary embolism: Plan Patrick is a 77M with history of CAD, s/p TAVR for aortic stenosis, LBBB, convulsive syncope, peripheral neuropathy, BPH, Hx of PE, T2DM, and HTN who presented for evaluation of weakness and hypotension after being sent from his PCP. Patient was admitted for management of an VIDA, supratherapeutic INR, and hypomagnesemia. VIDA (a/w Dehydration) - Cr. 3.0 on admission, follows closely with Nephrology for history of AKIs, baseline 2.0 - Likely etiology is dehydration - Has not started Alfluzosin at home for his BPH - S/p 1 L NSS In ED, clinically dry, now s/p LR @ 80 ml/hr x 2 bags - Continue LR @ 80 ml/hr, patient hypovolemic on exam, monitor volume status - Avoid nephrotoxins - Follow CMP Hypotension (Chronic HTN) - Likely etiology is dehydration + diuretic + multiple antihypertensives - Presented to PCP with SBP in 70s - Hemodynamically stable following bolus NSS in ED - Amlodipine and Triamterene HCTZ held on admission - Will continue Metoprolol/Losartan (nephroprotective) - Consider dc of an antihypertensive prior to d/c to balance addition of Tamsulosin for BPH Hypomagnesemia - Likely component of patient's weakness - Considered a/w poor PO intake/absorption and diuretics - Mg 1.0 on admission, currently 1.6 - Continue PO Mag-Oxide at 400 mg PO BID - Check Magnesium level in AM Generalized Weakness - Multifactorial in nature a/w hypomagnesemia (severe), dehydration, deconditioning - Hgb stable (despite elevated INR and recent fall) - B12 level wnl - Procal at 0.53 (mildly elevated) w/o systemic sx, labs, or imaging suggestive of infection (received dose of Cefepime in ED) * No need for additional Abx at this time given no clinical evidence of infection - Continue re-hydration and electrolyte repletion as patient notes improvement - PT/OT consulted, recommending inpatient rehab upon discharge Supratherapeutic INR (d/t Hx of PE) - Noted to be 9.0 on admission, Warfarin held, currently 7.0 - Home dose 6 mg Warfarin Tuesday, Tuesday, Tuesday/ 7 mg on Tuesday, , Tuesday, Tuesday - No active bleeding, recent fall, Hgb stable - Received 2.5 mg PO Vitamin K - Follow daily INR, will restart Warfarin when within therapeutic range T2DM - Metformin held on admission - Started on BSG ACHS, 5 units Lantus BID, w/ CF of 50 CR of 15 - A1c 6.8 BPH (w/ obstructive uropathy - Bladder scan PRN - Started Tamsulosin HS on admission DVT Ppx: Bilateral SCDs, given supratherapeutic INR Code: DNR/DNI FEN: Reg, Heart Healthy, DM2 PT/OT: Rec inpatient rehab Admission and Anticipated Discharge Date Admission Date: January 06, 2023 Supervising Physician Co-Signing Physician Notes I personally examined the patient and verified all mcdaniel points of history and exam, discussed case, and agree with decision making and plan documented by Dr. Hart. BP improved, will monitor and adjust antihypertensives. Holding warfarin in setting of supratherapeutic INR. Patient deconditioned and will benefit from rehabilitation. Hema Nguyen is 77 year old male with a PMH significant for symptomatic aortic stenosis S/P TAVR in Sep, CAD, BPH with LUTS, diabetes mellitus type 2, hypertension, pseudo-gout, hyperlipidemia, GPN, and chronic anticoagulation (on Warfarin) for recurrent pulmonary emboli who presented to the [facility] ED on 01/06/23 due to generalized weakness and hypotension at his PCP's office this am. In the ED the patient was found to be afebrile, hypotensive at 93/66, and stable on RA. 01/07: Patient was resting comfortably upon arrival to room. Does not recall why he was brought to the hospital. Denies any pain or weakness. Patient continues to repeat that 'This all happened so quickly." and that "I was healthy before all this". Patrick denies any chest pain, dyspnea, abdominal pain, urinary symptoms, or bowel changes. He denies any recent bleeding. He notes that he had a recent fall where he hit the right side of his face, but does not recall the details. Patient's arrived in the afternoon, she noted that she was away when patient fell, and that she heard about it second hand from the neighbor. She states that patient has a chronic shuffling gait, but that over the last week has has become progressively more weak, to the point where its hard for him to get out of bed and walk. She denies any recent medication changes or illnesses. Review of Systems Review of Systems: As per HPI Physical Exam Physical Exam: Gen: NAD, alert, interactive, repetitive speech HEENT: Supple, no LAD, no thyromegaly, INGRID/EOMI (right periorbital ecchymosis), dry mucous membranes Resp:Non-labored, no wheezing/rhonchi/rales, CTAB CV:RRR, normal S1/S2, systolic murmur loudest at LUSB Abd: Soft, non-distended, no TTP, normoactive bowels, no masses Extr: 2+ dp bilaterally, no edema, strength 4/5 in UE and LE, symmetric bilaterally Skin: No rashes lesions or erythema Results & Data Results & Data Vital Signs (Past 12 Hours) Vital Signs Temp Pulse Pulse Resp BP BP Pulse Ox 01/06/23 22:04 101 H 01/07/23 03:10 37.2 C 86 18 143/72 H 95 01/06/23 23:25 36.8 C 87 20 126/65 94 01/06/23 19:47 36.6 C 98 H 20 159/81 H 96 O2 Del Method 01/06/23 22:04 01/07/23 03:10 Room Air 01/06/23 23:25 Room Air 01/06/23 19:47 Room Air Resident Activity Tracking Resident Involvement: Resident Care Provided Care Provided: Adult Hospital Medicine
[2023-01-07 07:36] LABS: Albumin Globulin Ratio 0.9 (0.9-2); BUN Creatinine Ratio 24.7 (10-20); Bilirubin,Total 0.6 mg/dl (0.2-1.0); Calcium 8.9 mg/dl (8.6-10.3); Creatinine Clr Calc Pharmacy 30.4 ml/min; Globulin 3.3 gm/dl (2.5-4.0); Magnesium 1.6 mg/dl (1.7-2.4); Potassium 4.7 mmol/L (3.5-5.1); Total Protein 6.3 gm/dl (6.0-8.3)
[2023-01-07 07:58] LABS: Prothrombin Time 68.3 Seconds (9.0-12.0)
[2023-01-07 08:40] LABS: INR 7.1 (0.9-1.1)
[2023-01-07] MEDS: FOLIC ACID 1 MG TAB PO SCH (08:55)
[2023-01-07] MEDS: LOSARTAN POTASSIUM 50 MG TAB PO SCH (08:55)
[2023-01-07] MEDS: PYRIDOXINE HCL 50 MG TAB PO SCH (08:55)
[2023-01-07] MEDS: MAGNESIUM OXIDE 400 MG TAB PO SCH ×2 (08:56→20:32)
[2023-01-07] MEDS: METOPROLOL TARTRATE 25 MG TAB PO SCH ×2 (08:56→20:25)
[2023-01-07 09:12] LABS: Estimated Average Glucose 148 mg/dl; Hemoglobin A1C 6.8 % (4.5-5.6)
[2023-01-07] MEDS: INSULIN ASPART PER UNIT CHARGE SC SCH ×4 (09:13→20:46)
[2023-01-07] MEDS: LANTUS PER UNIT CHARGE SQ SCH ×2 (09:58→20:25)
--- NOTE | 2023-01-07 17:52 | Electrocardiogram Report ---
Test Reason : Blood Pressure : / mmHG Vent. Rate : 080 BPM Atrial Rate : 080 BPM P-R Int : 134 ms QRS Dur : 138 ms QT Int : 398 ms P-R-T Axes : 086 007 125 degrees QTc Int : 459 ms Normal sinus rhythm Left bundle branch block Abnormal ECG When compared with ECG of 07-DEC-2022 10:22, (unconfirmed) No significant change was found Confirmed by Erasmo He ([id number]) on 01/07/2023 5:51:32 PM Referred By: REFERRED SELF Confirmed By:Mac He
[2023-01-07] MEDS: FAMOTIDINE 10 MG TABLET PO SCH (20:24)
[2023-01-07] MEDS: MELATONIN 3 MG TAB PO PRN (20:25)
[2023-01-07] MEDS: TAMSULOSIN HCL 0.4 MG CAP PO SCH (20:25)
--- NOTE | 2023-01-08 06:54 | Hospitalist Progress Note ---
Date of Service January 08, 2023 Assessment & Plan (1) Acute kidney injury: (2) Hypotension: (3) Hypomagnesemia: (4) Generalized weakness: (5) Supratherapeutic INR: (6) Hypertension: (7) Type 2 diabetes mellitus: (8) BPH with obstruction/lower urinary tract symptoms: (9) Hx pulmonary embolism: Plan Patrick is a 77M with history of CAD, s/p TAVR for aortic stenosis, LBBB, convulsive syncope, peripheral neuropathy, BPH, Hx of PE, T2DM, and HTN who presented for evaluation of weakness and hypotension after being sent from his PCP. Patient was admitted for management of an VIDA, supratherapeutic INR, and hypomagnesemia. VIDA (a/w Dehydration) - Cr. 3.0 on admission, follows closely with Nephrology for history of AKIs, baseline 2.0 - Likely etiology is dehydration - Has not started Alfluzosin at home for his BPH - S/p 1 L NSS In ED, clinically dry, now s/p LR @ 80 ml/hr x 2 bags - Continue LR @ 80 ml/hr, patient hypovolemic on exam, monitor volume status - Avoid nephrotoxins --- Cr down trending from 2.39 to 1.93 w/ rehydration --- Continue to monitor fluid status and follow BMP Hypotension (Chronic HTN) - Likely etiology is dehydration + diuretic + multiple antihypertensives - Presented to PCP with SBP in 70s - Hemodynamically stable following bolus NSS in ED - Amlodipine and Triamterene HCTZ held on admission - Will continue Metoprolol/Losartan (nephroprotective) - Consider dc of an antihypertensive prior to d/c to balance addition of Tamsulosin for BPH --- Blood pressure remains stable on Losartan/Metoprolol Hypomagnesemia - Likely component of patient's weakness - Considered a/w poor PO intake/absorption and diuretics - Mg 1.0 on admission - Continue PO Mag-Oxide at 400 mg PO BID - Check Magnesium level in AM --- Magnesium 1.3 L this AM, repleted with Magnesium Sulfate 1 g x 3 bags --- Continue PO supplementation as well Generalized Weakness - Multifactorial in nature a/w hypomagnesemia (severe), dehydration, deconditioning - Hgb stable (despite elevated INR and recent fall) - B12 level wnl - Procal at 0.53 (mildly elevated) w/o systemic sx, labs, or imaging suggestive of infection (received dose of Cefepime in ED) * No need for additional Abx at this time given no clinical evidence of infection - Continue re-hydration and electrolyte repletion as patient notes improvement - PT/OT consulted, recommending inpatient rehab upon discharge --- Placement pending for rehab Supratherapeutic INR (d/t Hx of PE) - Noted to be 9.0 on admission, Warfarin held - Home dose 6 mg Warfarin Tuesday, Tuesday, Tuesday/ 7 mg on Tuesday, , Tuesday, Tuesday - No active bleeding, recent fall, Hgb stable - Received 2.5 mg PO Vitamin K - Follow daily INR, will restart Warfarin when within therapeutic range --- INR now 7.4 despite Warfarin hold, continue to monitor INR, increase likely a/w ongoing dehydration T2DM - Metformin held on admission - Started on BSG ACHS, 5 units Lantus BID, w/ CF of 50 CR of 15 - A1c 6.8 BPH (w/ obstructive uropathy - Bladder scan PRN - Started Tamsulosin HS on admission Hx of GERD/Epigastric Fullness - Currently taking Famotidine 20 mg - Recommending outpatient follow up with Endoscopy DVT Ppx: Bilateral SCDs, given supratherapeutic INR Code: DNR/DNI FEN: Reg, Heart Healthy, DM2 PT/OT: Rec inpatient rehab Admission and Anticipated Discharge Date Admission Date: January 06, 2023 Supervising Physician Co-Signing Physician Notes I personally examined the patient and verified all mcdaniel points of history and exam, discussed case, and agree with decision making and plan documented by Dr. Hart. at bedside during exam. Patient continues to feel weak and anticipates rehabilitation. Discussed patient's weight loss over the past 6 months (~10lbs), he endorses early satiety and abdominal bloating, has not had an EGD and may benefit outpatient. INR remains supratherapeutic, continue to hold warfarin. Hema Nguyen is 77 year old male with a PMH significant for symptomatic aortic stenosis S/P TAVR in Sep, CAD, BPH with LUTS, diabetes mellitus type 2, hypertension, pseudo-gout, hyperlipidemia, GPN, and chronic anticoagulation (on Warfarin) for recurrent pulmonary emboli who presented to the [facility] ED on 01/06/23 due to generalized weakness and hypotension at his PCP's office this am. In the ED the patient was found to be afebrile, hypotensive at 93/66, and stable on RA. 01/08: Patient resting in bed upon arrival, had fallen asleep having breakfast. P mami upon awakening today, but somewhat confused, repeating that his was coming in soon. Patient continues to note that he doesn't know what's going on or why he is here. He denies any pain, but notes that his legs remain weak. He notes a disinterest in participating in PT but was agreeable to continue trying so that he can regain his strength. He denies chest pain, dyspnea, abdominal pain, or bowel/bladder change. Review of Systems Review of Systems: As per HPI Physical Exam Physical Exam: Gen: NAD, interactive, repetitive speech HEENT: INGRID/EOMI (right periorbital ecchymosis), dry mucous membranes Resp:Non-labored, no wheezing/rhonchi/rales, CTAB CV:RRR, normal S1/S2, systolic murmur loudest at LUSB Abd: Soft, non-distended, no TTP, normoactive bowels, no masses Extr: 2+ dp bilaterally, no edema, strength 4/5 in UE, symmetric Skin: No rashes lesions or erythema Results & Data Results & Data Vital Signs (Past 12 Hours) Vital Signs Temp Pulse Pulse Resp BP Pulse Ox O2 Del Method 01/08/23 04:00 36.4 C L 90 16 134/80 95 Room Air 01/08/23 00:24 111 H 01/07/23 22:40 37.2 C 83 18 133/75 95 Room Air 01/07/23 19:36 36.7 C 97 H 16 161/86 H 95 Room Air Resident Activity Tracking Resident Involvement: Resident Care Provided Care Provided: Adult Hospital Medicine
[2023-01-08] MEDS: LACTATED RINGER'S 1,000 ML IV SCH (07:17)
[2023-01-08 07:49] LABS: Basophils # (auto) 0.01 K/uL (0-0.2); Basophils % (auto) 0.2 %; Eosinophils # (auto) 0.19 K/uL (0-0.50); Eosinophils % (auto) 3.4 %; Hematocrit (blood only) 27.6 % (42.0-52.0); Hemoglobin 9.7 g/dl (14.0-18.0); Immature Granulocytes # (auto) 0.04 K/uL (0.01-0.20); Immature Granulocytes % (auto) 0.7 %; Lymphocytes # (auto) 0.55 K/uL (1.2-3.4); Lymphocytes % (auto) 9.9 %; Mean Corpuscular Hgb Conc 35.1 g/dL (32.0-36.0); Mean Corpuscular Volume 79.8 fL (80.0-100.0); Mean Platelet Volume 9.4 fL (9.4-12.4); Monocytes # (auto) 0.48 K/uL (0.11-0.59); Monocytes % (auto) 8.6 %; Neutrophils # (auto) 4.28 K/uL (1.40-6.50); Neutrophils % (auto) 77.2 %; Platelet Count 263 K/uL (130-400); RDW Coefficient of Variation 14.7 % (11.5-14.5); RDW Standard Deviation 43.2 fL (36.4-46.3); Red Blood Count 3.46 M/uL (4.70-6.10); White Blood Count 5.55 K/ul (4.8-10.8)
[2023-01-08 08:01] LABS: Albumin Globulin Ratio 0.9 (0.9-2); Albumin Level 2.9 gm/dl (3.4-5.0); BUN Creatinine Ratio 24.4 (10-20); Bilirubin,Total 0.5 mg/dl (0.2-1.0); Calcium 8.8 mg/dl (8.6-10.3); Creatinine Clr Calc Pharmacy 37.7 ml/min; Est GFR (African American) 37.6 ml/min; Est GFR (Non-African American) 32.4 ml/min; Globulin 3.4 gm/dl (2.5-4.0); Magnesium 1.3 mg/dl (1.7-2.4); Potassium 4.5 mmol/L (3.5-5.1); Total Protein 6.3 gm/dl (6.0-8.3)
[2023-01-08] MEDS: METOPROLOL TARTRATE 25 MG TAB PO SCH ×2 (08:05→21:18)
[2023-01-08] MEDS: MAGNESIUM OXIDE 400 MG TAB PO SCH ×2 (08:05→21:19)
[2023-01-08] MEDS: LOSARTAN POTASSIUM 50 MG TAB PO SCH (08:06)
[2023-01-08] MEDS: LANTUS PER UNIT CHARGE SQ SCH ×2 (08:06→21:18)
[2023-01-08] MEDS: PYRIDOXINE HCL 50 MG TAB PO SCH (08:06)
[2023-01-08] MEDS: FOLIC ACID 1 MG TAB PO SCH (08:06)
[2023-01-08] MEDS: INSULIN ASPART PER UNIT CHARGE SC SCH ×4 (08:07→21:13)
[2023-01-08 08:22] LABS: Prothrombin Time 71.8 Seconds (9.0-12.0)
[2023-01-08 08:27] LABS: INR 7.4 (0.9-1.1)
[2023-01-08] MEDS: ACETAMINOPHEN 500 MG TAB PO PRN ×2 (09:50→17:59)
[2023-01-08] MEDS: MAGNESIUM SULFATE / D5W 1 GM/100 ML BAG IV SCH ×3 (11:42→15:43)
[2023-01-08] MEDS: FAMOTIDINE 10 MG TABLET PO SCH (21:18)
[2023-01-08] MEDS: TAMSULOSIN HCL 0.4 MG CAP PO SCH (21:18)
[2023-01-09] MEDS: ACETAMINOPHEN 500 MG TAB PO PRN (03:50)
[2023-01-09 06:31] LABS: Basophils # (auto) 0.02 K/uL (0-0.2); Basophils % (auto) 0.3 %; Eosinophils # (auto) 0.23 K/uL (0-0.50); Eosinophils % (auto) 3.6 %; Hematocrit (blood only) 28.3 % (42.0-52.0); Hemoglobin 9.8 g/dl (14.0-18.0); Immature Granulocytes # (auto) 0.05 K/uL (0.01-0.20); Immature Granulocytes % (auto) 0.8 %; Lymphocytes # (auto) 0.64 K/uL (1.2-3.4); Lymphocytes % (auto) 9.9 %; Mean Corpuscular Hemoglobin 28.3 pg (25.0-34.0); Mean Corpuscular Hgb Conc 34.6 g/dL (32.0-36.0); Mean Corpuscular Volume 81.8 fL (80.0-100.0); Mean Platelet Volume 9.3 fL (9.4-12.4); Monocytes % (auto) 7.8 %; Neutrophils # (auto) 5.01 K/uL (1.40-6.50); Neutrophils % (auto) 77.6 %; Platelet Count 263 K/uL (130-400); RDW Coefficient of Variation 14.6 % (11.5-14.5); RDW Standard Deviation 43.8 fL (36.4-46.3); Red Blood Count 3.46 M/uL (4.70-6.10); White Blood Count 6.45 K/ul (4.8-10.8)
[2023-01-09 06:49] LABS: Albumin Globulin Ratio 0.9 (0.9-2); BUN Creatinine Ratio 22.2 (10-20); Bilirubin,Total 0.5 mg/dl (0.2-1.0); Creatinine Clr Calc Pharmacy 43.6 ml/min; Est GFR (African American) 44.7 ml/min; Est GFR (Non-African American) 38.6 ml/min; Globulin 3.2 gm/dl (2.5-4.0); Magnesium 1.6 mg/dl (1.7-2.4); Potassium 4.6 mmol/L (3.5-5.1); Total Protein 6.2 gm/dl (6.0-8.3)
[2023-01-09 07:11] LABS: Prothrombin Time 76.5 Seconds (9.0-12.0)
--- NOTE | 2023-01-09 07:11 | Hospitalist Progress Note ---
Date of Service January 09, 2023 Assessment & Plan (1) Acute kidney injury: (2) Hypotension: (3) Hypomagnesemia: (4) Generalized weakness: (5) Supratherapeutic INR: (6) Hypertension: (7) Type 2 diabetes mellitus: (8) BPH with obstruction/lower urinary tract symptoms: (9) Hx pulmonary embolism: Plan Patrick is a 77M with history of CAD, s/p TAVR for aortic stenosis, LBBB, convulsive syncope, peripheral neuropathy, BPH, Hx of PE, T2DM, and HTN who presented for evaluation of weakness and hypotension after being sent from his PCP. Patient was admitted for management of an VIDA, supratherapeutic INR, and hypomagnesemia. VIDA (a/w Dehydration) - Cr. 3.0 on admission, follows closely with Nephrology for history of AKIs, baseline 2.0 - Likely etiology is dehydration - Has not started Alfluzosin at home for his BPH - S/p 1 L NSS In ED, clinically dry, now s/p LR @ 80 ml/hr x 2 bags - Continue LR @ 80 ml/hr, patient hypovolemic on exam, monitor volume status - Avoid nephrotoxins --- Cr down trending from 2.39 to 1.93 w/ rehydration --- Continue to monitor fluid status and follow BMP Hypotension (Chronic HTN) - Likely etiology is dehydration + diuretic + multiple antihypertensives - Presented to PCP with SBP in 70s - Hemodynamically stable following bolus NSS in ED - Amlodipine and Triamterene HCTZ held on admission - Will continue Metoprolol/Losartan (nephroprotective) - Consider dc of an antihypertensive prior to d/c to balance addition of Tamsulosin for BPH --- Patient normotensive, remains stable on Losartan/Metoprolol only Hypomagnesemia - Likely component of patient's weakness - Considered a/w poor PO intake/absorption and diuretics - Mg 1.0 on admission - Continue PO Mag-Oxide at 400 mg PO BID - Check Magnesium level in AM --- Magnesium 1.3 L this AM, repleted with Magnesium Sulfate 1 g x 3 bags --- Continue PO supplementation as well Generalized Weakness - Multifactorial in nature a/w hypomagnesemia (severe), dehydration, deconditi oning - Hgb stable (despite elevated INR and recent fall) - B12 level wnl - Procal at 0.53 (mildly elevated) w/o systemic sx, labs, or imaging suggestive of infection (received dose of Cefepime in ED) * No need for additional Abx at this time given no clinical evidence of infection - Continue re-hydration and electrolyte repletion as patient notes improvement - PT/OT consulted, recommending inpatient rehab upon discharge --- Placement pending for rehab --- noted patient fell on R hip and that patient complained of pain with rolling/sitting * Obtained XR Hip, negative for acute fracture Supratherapeutic INR (d/t Hx of PE) - Noted to be 9.0 on admission, Warfarin held - Home dose 6 mg Warfarin Tuesday, Tuesday, Tuesday/ 7 mg on Tuesday, , Tuesday, Tuesday - No active bleeding, recent fall, Hgb stable - Received 2.5 mg PO Vitamin K - Follow daily INR, will restart Warfarin when within therapeutic range --- INR 8 (despite Warfarin hold and attempt at rehydration) --- Transitioned from Acetaminophen to Ibuprofen, given interaction with Warfarin metabolism --- Famotidine deemed low risk for interaction with Warfarin metabolism, per pharmacy review --- Continue to follow T2DM - Metformin held on admission - Started on BSG ACHS, 5 units Lantus BID, w/ CF of 50 CR of 15 - A1c 6.8 BPH (w/ obstructive uropathy - Bladder scan PRN - Started Tamsulosin HS on admission Hx of GERD/Epigastric Fullness - Currently taking Famotidine 20 mg - Recommending outpatient follow up with Endoscopy DVT Ppx: Bilateral SCDs, given supratherapeutic INR Code: DNR/DNI FEN: Reg, Heart Healthy, DM2 PT/OT: Rec inpatient rehab Admission and Anticipated Discharge Date Admission Date: January 06, 2023 Supervising Physician Co-Signing Physician Notes I personally examined the patient and verified all mcdaniel points of history and exam, discussed case, and agree with decision making and plan documented by Dr. Hart. Patient lying in bed during exam today. He continues to have profound weakness, especially in his proximal muscles, this has been worsening over the past few months per report, in addition to decreased ambulation and noted shuffling of feet. expressed concern that patient has not been out of bed during hospitalization, physical therapy was concerned that INR remained supratherapeutic. INR increased slightly to 8 today. We will give a dose of vitamin K 2.5 mg and recheck tomorrow. After discussion with team, will check CK, aldolase, CRP, and LDH in addition to morning labs. Magnesium is slowly improving. Patient reports no BM since admission, usual is 1 to 3 days at home, he is currently not interested in any medication, continue to monitor. Awaiting insurance Auth for dispo. Hema Nguyen is 77 year old male with a PMH significant for symptomatic aortic stenosis S/P TAVR in Sep, CAD, BPH with LUTS, diabetes mellitus type 2, hypertension, pseudo-gout, hyperlipidemia, GPN, and chronic anticoagulation (on Warfarin) for recurrent pulmonary emboli who presented to the [facility] ED on 01/06/23 due to generalized weakness and hypotension at his PCP's office this am. In the ED the patient was found to be afebrile, hypotensive at 93/66, and stable on RA. 01/09: Patient somnolent this morning, arousable, but confused upon awakening. Patient's at bedside, she notes concern about patient ongoing weakness, stats that she notices that he has pain in his right hip when attempting to roll and sit at bedside. Patient's re-iterated today that prior to this presentation, patient was very independent and active, despite taking slow, shuffling steps for many months. Review of Systems Review of Systems: As per HPI Physical Exam Physical Exam: Gen: NAD, interactive, repetitive speech HEENT: INGRID/EOMI (right periorbital ecchymosis), dry mucous membranes Resp:Non-labored, no wheezing/rhonchi/rales, CTAB CV:RRR, normal S1/S2, systolic murmur loudest at LUSB Abd: Soft, non-distended, no TTP, normoactive bowels, no masses Extr: 2+ dp bilaterally, no edema, strength 4/5 retail coverage merchandiser lead strength, slow/rigid movements of lower extremities Skin: No rashes lesions or erythema Results & Data Results & Data Vital Signs (Past 12 Hours) Vital Signs Temp Pulse Pulse Resp BP Pulse Ox O2 Del Method 01/09/23 02:38 36.8 C 93 H 18 155/82 H 92 Room Air 01/09/23 00:39 82 01/08/23 22:00 36.4 C L 81 18 152/78 H 94 Room Air 01/08/23 19:21 36.8 C 94 H 18 151/76 H 93 Room Air Diagnostic Findings Hip/Pelvis X-Ray 01/09/23 09:38 XR hip RT 2V w pelvis HISTORY: 77 years-old Male fall on right hip/hip pain acute right hip pain status post fall COMPARISON: None TECHNIQUE: AP view the pelvis with 2 views the right hip FINDINGS: Arterial calcifications. Mild osteoarthritis of the hips. No acute fracture, dislocation or avascular necrosis. Ill-defined sclerosis of the intertrochanteric right femur is likely benign. IMPRESSION: No acute fracture or dislocation identified. ACT 112: Negative or not required by law. The above report was generated using voice recognition software. It may contain grammatical, syntax or spelling errors. Electronically signed by: Brandan Argueta M.D. 01/09/2023 10:56 AM Resident Activity Tracking Resident Involvement: Resident Care Provided Care Provided: Adult Hospital Medicine
[2023-01-09] MEDS: MAGNESIUM SULFATE / D5W 1 GM/100 ML BAG IV SCH ×3 (07:15→11:13)
[2023-01-09] MEDS: PYRIDOXINE HCL 50 MG TAB PO SCH (07:17)
[2023-01-09] MEDS: FOLIC ACID 1 MG TAB PO SCH (07:17)
[2023-01-09] MEDS: LOSARTAN POTASSIUM 50 MG TAB PO SCH (07:17)
[2023-01-09] MEDS: MAGNESIUM OXIDE 400 MG TAB PO SCH ×2 (07:18→21:08)
[2023-01-09] MEDS: METOPROLOL TARTRATE 25 MG TAB PO SCH ×2 (07:18→21:09)
[2023-01-09] MEDS: LANTUS PER UNIT CHARGE SQ SCH ×2 (08:06→21:37)
[2023-01-09] MEDS: INSULIN ASPART PER UNIT CHARGE SC SCH ×4 (08:06→21:15)
[2023-01-09] MEDS ORDERED: LACTATED RINGER'S 1,000 ML IV SCH (09:45)
--- NOTE | 2023-01-09 10:58 | XRay Report ---
XR hip RT 2V w pelvis HISTORY: 77 years-old Male fall on right hip/hip pain acute right hip pain status post fall COMPARISON: None TECHNIQUE: AP view the pelvis with 2 views the right hip FINDINGS: Arterial calcifications. Mild osteoarthritis of the hips. No acute fracture, dislocation or avascular necrosis. Ill-defined sclerosis of the intertrochanteric right femur is likely benign. IMPRESSION: No acute fracture or dislocation identified. ACT 112: Negative or not required by law. The above report was generated using voice recognition software. It may contain grammatical, syntax o r spelling errors. Electronically signed by: Brandan Argueta M.D. 01/09/2023 10:56 AM
[2023-01-09] MEDS ORDERED: PHYTONADIONE 5 MG TAB PO STA (15:36)
[2023-01-09] MEDS: FAMOTIDINE 10 MG TABLET PO SCH (21:08)
[2023-01-09] MEDS: TAMSULOSIN HCL 0.4 MG CAP PO SCH (21:08)
[2023-01-10] MEDS: IBUPROFEN 800 MG TAB PO PRN (01:28)
--- NOTE | 2023-01-10 06:41 | Hospitalist Progress Note ---
Date of Service January 10, 2023 Assessment & Plan (1) Acute kidney injury: (2) Hypotension: (3) Hypomagnesemia: (4) Generalized weakness: (5) Supratherapeutic INR: (6) Hypertension: (7) Type 2 diabetes mellitus: (8) BPH with obstruction/lower urinary tract symptoms: (9) Hx pulmonary embolism: Plan Patrick is a 77M with history of CAD, s/p TAVR for aortic stenosis, LBBB, convulsive syncope, peripheral neuropathy, BPH, Hx of PE, T2DM, and HTN who presented for evaluation of weakness and hypotension after being sent from his PCP. Patient was admitted for management of an VIDA, supratherapeutic INR, and hypomagnesemia. VIDA (a/w Dehydration) - Cr. 3.0 on admission, follows closely with Nephrology for history of AKIs, baseline 2.0 - Likely etiology is dehydration - Has not started Alfluzosin at home for his BPH - S/p 1 L NSS In ED, clinically dry, now s/p LR @ 80 ml/hr x 2 bags - Continue LR @ 80 ml/hr, patient hypovolemic on exam, monitor volume status - Avoid nephrotoxins --- Cr down trending 1.61 w/ rehydration --- Continue to monitor fluid status and follow BMP Hypotension (Chronic HTN) - Likely etiology is dehydration + diuretic + multiple antihypertensives - Presented to PCP with SBP in 70s - Hemodynamically stable following bolus NSS in ED - Amlodipine and Triamterene HCTZ held on admission - Will continue Metoprolol/Losartan (nephroprotective) - Consider dc of an antihypertensive prior to d/c to balance addition of Tamsulosin for BPH --- Patient normotensive, remains stable on Losartan/Metoprolol only Hypomagnesemia - Likely component of patient's weakness - Considered a/w poor PO intake/absorption and diuretics - Mg 1.0 on admission - Continue PO Mag-Oxide at 400 mg PO BID - Check Magnesium level in AM --- Magnesium 1.6 L this AM, repleted with Magnesium Sulfate 1 g x 4 bags --- Continue PO supplementation as well Generalized Weakness - Multifactorial in nature a/w hypomagnesemia (severe), dehydration, deconditioning - Hgb stable (despite elevated INR and recent fall) - B12 level wnl - Procal at 0.53 (mildly elevated) w/o systemic sx, labs, or imaging suggestive of infection (received dose of Cefepime in ED) * No need for additional Abx at this time given no clinical evidence of infection - Continue re-hydration and electrolyte repletion as patient notes improvement - PT/OT consulted, recommending inpatient rehab upon discharge - noted patient fell on R hip and that patient complained of pain with rolling/sitting * Obtained XR Hip, negative for acute fracture --- Placement pending for rehab, ongoing inpatient --- ESR (127) and CRP (10.67) elevated, CK and LDH wnl, ongoing hip and shoulder pain/weakness, clinical picture consistent with PMR, will start therapeutic trial of Prednisone 15 mg daily --- Concern remains for clinical picture of underlying progressive dementia vs motor dysfunction with acute hospital delirium ongoing Supratherapeutic INR (d/t Hx of PE) - Noted to be 9.0 on admission, Warfarin held - Home dose 6 mg Warfarin Tuesday, Tuesday, Tuesday/ 7 mg on Tuesday, , Tuesday, Tuesday - No active bleeding, recent fall, Hgb stable - Received 2.5 mg PO Vitamin K - Follow daily INR, will restart Warfarin when within therapeutic range --- INR 2.6 (following receipt of Vitamin K) --- Continue Acetaminophen hold --- Continue to monitor INR and hold Warfarin T2DM - Metformin held on admission - Started on BSG ACHS, 5 units Lantus BID, w/ CF of 50 CR of 15 - A1c 6.8 BPH (w/ obstructive uropathy - Bladder scan PRN - Started Tamsulosin HS on admission Hx of GERD/Epigastric Fullness - Currently taking Famotidine 20 mg - Recommending outpatient follow up with Endoscopy DVT Ppx: Bilateral SCDs, given supratherapeutic INR Code: DNR/DNI FEN: Reg, Heart Healthy, DM2 PT/OT: Rec inpatient rehab Admission and Anticipated Discharge Date Admission Date: January 06, 2023 Supervising Physician Co-Signing Physician Notes I personally examined the patient and verified all mcdaniel points of history and exam, discussed case, and agree with decision making with Dr Hart Feeling okay. would like him to go to rehab. A little bit difficult to glean history, but seems quite consistent that he could have had fairly poor p.o. intake while his was out of town. Vitals noted, in general he is awake and alert pleasant no distress. HEENT normocephalic bruising around right eye mucous membranes moist. Breathing unlabored no accessory muscle use good effort. No focal neurodeficits Hypotension/hypomagnesemiaappears likely to have been poor p.o. intake plus diuretic use. This appears to have improved. Hold off on further diuretics, follow blood pressure, if further medications needed, would utilize a different class Coumadin coagulopathyfurther corroborates poor p.o. intake, given that his Coumadin dose was likely unchanged (polypharmacy by accident is certainly a possibility, but poor oral intake seems more likely)leading to reduced vitamin K intake Fall/weaknesshopefully from here to rehab Continue to follow mental status both urine chronically, supplement B12 since it is borderline at 260, continue to follow. Hema Nguyen is 77 year old male with a PMH significant for symptomatic aortic stenosis S/P TAVR in Sep, CAD, BPH with LUTS, diabetes mellitus type 2, hypertension, pseudo-gout, hyperlipidemia, GPN, and chronic anticoagulation (on Warfarin) for recurrent pulmonary emboli who presented to the [facility] ED on 01/06/23 due to generalized weakness and hypotension at his PCP's office this am. In the ED the patient was found to be afebrile, hypotensive at 93/66, and stable on RA. 01/10: Patient remained somnolent/confused this morning upon evaluation, but was arousable to voice and was able to follow brief commands. Patient denied pain or weakness, he was pleased to have increased mobility of his lower extremities tod ay. Patient's was at bedside again today, she noted concern about him having not yet been out of bed, provided reassurance that it is safe for him to advance with physical therapy now that his INR is down. Review of Systems Review of Systems: As per HPI Physical Exam Physical Exam: Gen: NAD, somnolent at baseline, repetitive speech, follows commands HEENT: INGRID/EOMI (right periorbital ecchymosis), dry mucous membranes Resp:Non-labored, no wheezing/rhonchi/rales, CTAB CV:RRR, normal S1/S2, systolic murmur loudest at LUSB Abd: Soft, non-distended, no TTP, normoactive bowels, no masses Extr: 2+ dp bilaterally, no edema, strength 4/5 structural manager strength, slow/rigid movements of lower extremities, will not raise arms independently, but will hold arms up if assisted Skin: No rashes lesions or erythema Results & Data Results & Data Vital Signs (Past 12 Hours) Vital Signs Temp Pulse Pulse Resp BP BP Pulse Ox 01/10/23 03:24 36.8 C 86 16 142/70 H 92 01/09/23 22:00 90 01/09/23 20:00 01/09/23 22:10 36.7 C 87 18 154/85 H 96 01/09/23 19:01 36.8 C 100 H 16 164/82 H 93 O2 Del Method 01/10/23 03:24 Room Air 01/09/23 22:00 01/09/23 20:00 Room Air 01/09/23 22:10 Room Air 01/09/23 19:01 Room Air Resident Activity Tracking Resident Involvement: Resident Care Provided Care Provided: Adult Hospital Medicine
[2023-01-10] MEDS: LOSARTAN POTASSIUM 50 MG TAB PO SCH (07:10)
[2023-01-10] MEDS: PYRIDOXINE HCL 50 MG TAB PO SCH (07:10)
[2023-01-10] MEDS: FOLIC ACID 1 MG TAB PO SCH (07:11)
[2023-01-10] MEDS: MAGNESIUM OXIDE 400 MG TAB PO SCH ×2 (07:11→22:14)
[2023-01-10] MEDS: LANTUS PER UNIT CHARGE SQ SCH ×2 (08:04→22:14)
[2023-01-10] MEDS: METOPROLOL TARTRATE 25 MG TAB PO SCH ×2 (08:05→22:13)
[2023-01-10] MEDS: INSULIN ASPART PER UNIT CHARGE SC SCH ×4 (08:05→22:06)
[2023-01-10 08:26] LABS: Hematocrit (blood only) 28.8 % (42.0-52.0); Hemoglobin 10.1 g/dl (14.0-18.0); Mean Corpuscular Hemoglobin 28.3 pg (25.0-34.0); Mean Corpuscular Hgb Conc 35.1 g/dL (32.0-36.0); Mean Corpuscular Volume 80.7 fL (80.0-100.0); Mean Platelet Volume 9.4 fL (9.4-12.4); Platelet Count 257 K/uL (130-400); RDW Coefficient of Variation 14.4 % (11.5-14.5); RDW Standard Deviation 42.5 fL (36.4-46.3); Red Blood Count 3.57 M/uL (4.70-6.10); White Blood Count 6.25 K/ul (4.8-10.8)
[2023-01-10 08:51] LABS: INR 2.6 (0.9-1.1); Prothrombin Time 27.3 Seconds (9.0-12.0)
[2023-01-10 08:54] LABS: Albumin Globulin Ratio 0.9 (0.9-2); Albumin Level 2.9 gm/dl (3.4-5.0); BUN Creatinine Ratio 21.1 (10-20); Bilirubin,Total 0.6 mg/dl (0.2-1.0); C Reactive Protein 10.67 mg/dl (0-0.5); Creatinine Clr Calc Pharmacy 45.2 ml/min; Est GFR (African American) 46.8 ml/min; Est GFR (Non-African American) 40.4 ml/min; Globulin 3.4 gm/dl (2.5-4.0); Magnesium 1.6 mg/dl (1.7-2.4); Potassium 4.5 mmol/L (3.5-5.1); Total Protein 6.3 gm/dl (6.0-8.3)
[2023-01-10] MEDS: MAGNESIUM SULFATE / D5W 1 GM/100 ML BAG IV SCH ×4 (10:29→16:17)
[2023-01-10] MEDS: predniSONE 5 MG TAB PO SCH (16:16)
--- NOTE | 2023-01-10 16:50 | Billing Data ---
Date of Service January 10, 2023 Coding Level of Care Code 45854 SUB INP/OBS CARE
[2023-01-10] MEDS: TAMSULOSIN HCL 0.4 MG CAP PO SCH (22:13)
[2023-01-10] MEDS: FAMOTIDINE 10 MG TABLET PO SCH (22:14)
--- NOTE | 2023-01-11 06:50 | Hospitalist Progress Note ---
Date of Service January 11, 2023 Assessment & Plan (1) Acute kidney injury: (2) Hypotension: (3) Hypomagnesemia: (4) Generalized weakness: (5) Supratherapeutic INR: (6) Hypertension: (7) Type 2 diabetes mellitus: (8) BPH with obstruction/lower urinary tract symptoms: (9) Hx pulmonary embolism: Plan Patrick is a 77M with history of CAD, s/p TAVR for aortic stenosis, LBBB, convulsive syncope, peripheral neuropathy, BPH, Hx of PE, T2DM, and HTN who presented for evaluation of weakness and hypotension after being sent from his PCP. Patient was admitted for management of an VIDA, supratherapeutic INR, and hypomagnesemia. VIDA (a/w Dehydration) - Cr. 3.0 on admission, follows closely with Nephrology for history of AKIs, baseline 2.0 - Likely etiology is dehydration - Has not started Alfluzosin at home for his BPH - S/p 1 L NSS In ED, clinically dry, now s/p LR @ 80 ml/hr x 2 bags - Continue LR @ 80 ml/hr, patient hypovolemic on exam, monitor volume status - Avoid nephrotoxins --- Cr down trending 1.61 w/ rehydration --- Continue to monitor fluid status and follow BMP Hypotension (Chronic HTN) - Likely etiology is dehydration + diuretic + multiple antihypertensives - Presented to PCP with SBP in 70s - Hemodynamically stable following bolus NSS in ED - Amlodipine and Triamterene HCTZ held on admission - Will continue Metoprolol/Losartan (nephroprotective) - Consider dc of an antihypertensive prior to d/c to balance addition of Tamsulosin for BPH --- Patient normotensive, remains stable on Losartan/Metoprolol only Hypomagnesemia - Likely component of patient's weakness - Considered a/w poor PO intake/absorption and diuretics - Mg 1.0 on admission - Continue PO Mag-Oxide at 400 mg PO BID - Check Magnesium level in AM --- Magnesium 1.6 L this AM, repleted with Magnesium Sulfate 1 g x 4 bags --- Continue PO supplementation as well Generalized Weakness - Multifactorial in nature a/w hypomagnesemia (severe), dehydration, deconditioning - Hgb stable (despite elevated INR and recent fall) - B12 level wnl - Procal at 0.53 (mildly elevated) w/o systemic sx, labs, or imaging suggestive of infection (received dose of Cefepime in ED) * No need for additional Abx at this time given no clinical evidence of infection - Continue re-hydration and electrolyte repletion as patient notes improvement - PT/OT consulted, recommending inpatient rehab upon discharge - noted patient fell on R hip and that patient complained of pain with rolling/sitting * Obtained XR Hip, negative for acute fracture --- Placement pending for rehab, ongoing inpatient --- ESR (127) and CRP (10.67) elevated, CK and LDH wnl, ongoing hip and shoulder pain/weakness, clinical picture consistent with PMR, will start therapeutic trial of Prednisone 15 mg daily --- Concern remains for clinical picture of underlying progressive dementia vs motor dysfunction with acute hospital delirium ongoing Supratherapeutic INR (d/t Hx of PE) - Noted to be 9.0 on admission, Warfarin held - Home dose 6 mg Warfarin Tuesday, Tuesday, Tuesday/ 7 mg on Tuesday, , Tuesday, Tuesday - No active bleeding, recent fall, Hgb stable - Received 2.5 mg PO Vitamin K - Follow daily INR, will restart Warfarin when within therapeutic range --- INR 2.6 (following receipt of Vitamin K) --- Continue Acetaminophen hold --- Continue to monitor INR and hold Warfarin T2DM - Metformin held on admission - Started on BSG ACHS, 5 units Lantus BID, w/ CF of 50 CR of 15 - A1c 6.8 BPH (w/ obstructive uropathy - Bladder scan PRN - Started Tamsulosin HS on admission Hx of GERD/Epigastric Fullness - Currently taking Famotidine 20 mg - Recommending outpatient follow up with Endoscopy DVT Ppx: Bilateral SCDs, given supratherapeutic INR Code: DNR/DNI FEN: Reg, Heart Healthy, DM2 PT/OT: Rec inpatient rehab Admission and Anticipated Discharge Date Admission Date: January 06, 2023 Hema Nguyen is 77 year old male with a PMH significant for symptomatic aortic stenosis S/P TAVR in Sep, CAD, BPH with LUTS, diabetes mellitus type 2, hypertension, pseudo-gout, hyperlipidemia, GPN, and chronic anticoagulation (on Warfarin) for recurrent pulmonary emboli who presented to the [facility] ED on 01/06/23 due to generalized weakness and hypotension at his PCP's office this am. In the ED the patient was found to be afebrile, hypotensive at 93/66, and stable on RA. 01/11: ____. 01/10: Patient remained somnolent/confused this morning upon evaluation, but was arousable to voice and was able to follow brief commands. Patient denied pain or weakness, he was pleased to have increased mobility of his lower extremities today. Patient's was at bedside again today, she noted concern about him having not yet been out of bed, provided reassurance that it is safe for him to advance with physical therapy now that his INR is down. Review of Systems Review of Systems: As per HPI Physical Exam Physical Exam: Gen: NAD, somnolent at baseline, repetitive speech, follows commands HEENT: INGRID/EOMI (right periorbital ecchymosis), dry mucous membranes Resp:Non-labored, no wheezing/rhonchi/rales, CTAB CV:RRR, normal S1/S2, systolic murmur loudest at LUSB Abd: Soft, non-distended, no TTP, normoactive bowels, no masses Extr: 2+ dp bilaterally, no edema, strength 4/5 telemetry tech strength, slow/rigid movements of lower extremities, will not raise arms independently, but will hold arms up if assisted Skin: No rashes lesions or erythema Results & Data Results & Data Vital Signs (Past 12 Hours) Vital Signs Temp Pulse Pulse Resp BP Pulse Ox O2 Del Method 01/11/23 03:22 36.5 C 83 18 134/73 95 Room Air 01/10/23 22:01 89 01/10/23 22:00 Room Air 01/10/23 22:19 36.8 C 93 H 18 149/81 H 92 Room Air 01/10/23 19:12 36.6 C 93 H 18 147/81 H 92 Room Air Resident Activity Tracking Resident Involvement: Resident Care Provided Care Provided: Adult Hospital Medicine
[2023-01-11 07:30] LABS: Hematocrit (blood only) 26.9 % (42.0-52.0); Hemoglobin 9.4 g/dl (14.0-18.0); Mean Corpuscular Hemoglobin 28.7 pg (25.0-34.0); Mean Corpuscular Hgb Conc 34.9 g/dL (32.0-36.0); Mean Corpuscular Volume 82.3 fL (80.0-100.0); Mean Platelet Volume 9.5 fL (9.4-12.4); Platelet Count 273 K/uL (130-400); RDW Coefficient of Variation 14.6 % (11.5-14.5); RDW Standard Deviation 44.4 fL (36.4-46.3); Red Blood Count 3.27 M/uL (4.70-6.10); White Blood Count 6.43 K/ul (4.8-10.8)
[2023-01-11 07:32] LABS: Albumin Globulin Ratio 0.9 (0.9-2); Albumin Level 2.9 gm/dl (3.4-5.0); BUN Creatinine Ratio 22.8 (10-20); Bilirubin,Total 0.5 mg/dl (0.2-1.0); Calcium 8.8 mg/dl (8.6-10.3); Creatinine Clr Calc Pharmacy 48.8 ml/min; Est GFR (African American) 51.4 ml/min; Est GFR (Non-African American) 44.3 ml/min; Globulin 3.4 gm/dl (2.5-4.0); Potassium 4.4 mmol/L (3.5-5.1); Total Protein 6.3 gm/dl (6.0-8.3)
[2023-01-11 07:41] LABS: INR 1.6 (0.9-1.1)
[2023-01-11] MEDS ORDERED: CYANOCOBALAMIN (B-12) 500 MCG TABLET PO SCH (09:00)
[2023-01-11] MEDS: LANTUS PER UNIT CHARGE SQ SCH (09:11)
[2023-01-11] MEDS: INSULIN ASPART PER UNIT CHARGE SC SCH ×3 (09:11→17:46)
[2023-01-11] MEDS: METOPROLOL TARTRATE 25 MG TAB PO SCH (09:13)
[2023-01-11] MEDS: IBUPROFEN 800 MG TAB PO PRN (09:13)
[2023-01-11] MEDS: MAGNESIUM OXIDE 400 MG TAB PO SCH (09:13)
[2023-01-11] MEDS: predniSONE 5 MG TAB PO SCH (09:14)
[2023-01-11] MEDS: FOLIC ACID 1 MG TAB PO SCH (09:14)
[2023-01-11] MEDS: PYRIDOXINE HCL 50 MG TAB PO SCH (09:14)
[2023-01-11] MEDS: LOSARTAN POTASSIUM 50 MG TAB PO SCH (09:14)
[2023-01-11] MEDS ORDERED: WARFARIN SOD 5 MG TAB PO SCH (16:00)
--- NOTE | 2023-01-11 17:48 | Discharge Summary ---
Date of Service January 11, 2023 Admission HPI Per Admitting Provider Patrick is 77 year old male with a PMH significant for symptomatic aortic stenosis S/P TAVR in Sep, CAD, BPH with LUTS, diabetes mellitus type 2, hypertension, pseudo-gout, hyperlipidemia, GPN, and chronic anticoagulation (on Warfarin) for recurrent pulmonary emboli who presented to the [facility] ED on 01/06/23 due to generalized weakness and hypotension at his PCP's office this am. In the ED the patient was found to be afebrile, hypotensive at 93/66, and stable on RA. Labs were remarkable for a lymphocyte count of 0.49, Cr of 3.00 (baseline is approx 2.0 this year), AG of 13 with bicarb of 19, mag of 1.0, procal of 0.53, clean UA. CT of the head was read as "There is no hemorrhage, mass effect, or evidence of acute territorial ischemia by CT criteria.". Chest xray was read as "Cardiomegaly with no active disease in the chest.". CT of the cervical spine was read as "No fractures within the cervical spine.". Prior to admission the patient was given 1L NSS and a dose of Cefepime. At the time of the exam the patient was lying in bed in no acute distress with his , son, and [id number] at bedside, history was obtained from all. The patient has had progressive generalized weakness over the past couple of months. His states that he is not drinking enough water. Approximately 10 days ago the patient was at home by himself and walking in their bedroom. He felt dizzy and attempted to grab their treadmill for balance but fell; he hit the right side of his face on the treadmill resulting in the black eye but did not lose consciousness. They confirm that this has been the only episode of lightheadedness/dizziness since his TAVR. When asked about the recent prescription written for Alfuzosin, his states that they never started it because one of the side effects is dizziness, she was concerned he would fall at night while getting up to go to the bathroom. He has been taking his amlodipine, metoprolol, losartan, and triamterene-HCTZ as prescribed, and had all of his morning medications prior to his PCP appointment today. They made the appointment with his PCP today due to ongoing leg weakness/cramping. When his PCP saw his hypotension they advised the patient to come to the ED via EMS. They deny recent fever, chills, productive cough, chest pain, SOB, abd pain, nausea, vomiting, diarrhea, dysuria, hematuria, LE swelling and other recent falls or trauma. When asked about his diet due to his supratherapeutic INR, his states that they often eat broccoli but they try to avoid green/leafy vegetables. His family would like him to be evaluated by PT/OT for possibly rehab with his ongoing generalized weakness. We discussed code status, the patient is a DNR/DNI and would want his to make medical decisions for him if he cannot make them himself. Please refer to Dr. Sánchez's attestation for any changes to the treatment plan. Admission Exam Per Admitting Provider Physical Exam: General:In no acute distress, stated age, well-nourished, good hygiene HEENT:Patient with large hematoma in various stages of healing around the right eye, no scleral icterus, pupils around round, symmetrical, and reactive to light, dry mucus membranes, trachea midline, no thyromegaly Chest/Pulm:No respiratory distress, symmetrical chest expansion, clear breath sounds throughout Cardiac:RRR, systolic murmur noted Abdomen:Negative for ascites and bruising, normoactive bowel sounds, soft, non-tender to palpation throughout Musculoskeletal:No tenderness to palpation of the face, head, cervical spine, able to touch chin to his chest without issue, ROM intact in the BL upper and lower extremities Extremities:Radial, dorsalis pedis, and posterior tibial pulses are intact and symmetrical, no edema noted in the BL LE's Skin:Patient with facial bruising as described above, right skin tear overlying the right elbow is currently bleeding after removal of his home bandage but without signs of infection Neuro:Alert and oriented to person, place, month, year, and president, no focal defects, CN II-XII tested and intact, no tremors noted, symmetrical strength in the BL upper and lower extremities Psych:No acute distress, calm and cooperative during the exam Principal Diagnosis Generalized Weakness Hypotension Supratherapeutic INR Discharge Exam Gen: NAD, somnolent at baseline, repetitive speech, follows commands HEENT: INGRID/EOMI (right periorbital ecchymosis), dry mucous membranes Resp:Non-labored, no wheezing/rhonchi/rales, CTAB CV:RRR, normal S1/S2, systolic murmur loudest at LUSB Abd: Soft, non-distended, no TTP, normoactive bowels, no masses Extr: 2+ dp bilaterally, no edema, strength 4/5 accountant machine processing strength, slow/rigid movements of lower extremities, will not raise arms independently, but will hold arms up if assisted Skin: No rashes lesions or erythema Discharge Data Allergies Allergy/AdvReac Type Severity Reaction Status Date / Time bee venom protein (honey bee) Allergy Unknown Anaphylaxis Verified 01/06/23 12:26 Consultations 01/06/23 12:29 ED Decision to Admit Stat Ordered Studies 01/06/23 10:07 CT head/brain wo con Stat 01/06/23 10:36 CT cervical spine wo con Stat Hospital Course (1) Acute kidney injury: (2) Hypotension: (3) Hypomagnesemia: (4) Generalized weakness: (5) Supratherapeutic INR: (6) Hypertension: (7) Type 2 diabetes mellitus: (8) BPH with obstruction/lower urinary tract symptoms: (9) Hx pulmonary embolism: Jerzy Nguyen is a 77M with history of CAD, s/p TAVR for aortic stenosis, LBBB, convulsive syncope, peripheral neuropathy, BPH, Hx of PE, T2DM, and HTN who presented for evaluation of weakness and hypotension after being sent from his PCP. Patient was admitted for management of an VIDA, supratherapeutic INR, and hypomagnesemia. VIDA (a/w Dehydration) - Cr. 3.0 on admission, follows closely with Nephrology for history of AKIs, baseline 2.0 - Likely etiology is dehydration - Has not started Alfluzosin at home for his BPH - S/p 1 L NSS In ED, clinically dry, now s/p LR @ 80 ml/hr x 2 bags - Continue LR @ 80 ml/hr, patient hypovolemic on exam, monitor volume status - Avoid nephrotoxins --- Cr downtrended; 1.4 at DC Hypotension (Chronic HTN) - Likely etiology is dehydration + diuretic + multiple antihypertensives - Presented to PCP with SBP in 70s - Hemodynamically stable following bolus NSS in ED - Amlodipine and Triamterene HCTZ held on admission - Will continue Metoprolol/Losartan (nephroprotective) - Consider dc of an antihypertensive prior to d/c to balance addition of Tamsulosin for BPH --- Patient normotensive, remains stable on Losartan/Metoprolol only Hypomagnesemia - Likely component of patient's weakness - Considered a/w poor PO intake/absorption and diuretics - Mg 1.0 on admission - Continue PO Mag-Oxide at 400 mg PO BID - Check Magnesium level in AM --- Magnesium normalized after parenteral repletion --- Continue PO supplementation at DC Generalized Weakness - Multifactorial in nature a/w hypomagnesemia (severe), dehydration, deconditioning - Hgb stable (despite elevated INR and recent fall) - B12 level wnl - Procal at 0.53 (mildly elevated) w/o systemic sx, labs, or imaging suggestive of infection (received dose of Cefepime in ED) * No need for additional Abx at this time given no clinical evidence of infection- Continue re-hydration and electrolyte repletion as patient notes improvement- PT/OT consulted, recommending inpatient rehab upon discharge -- will be transferred to inpt rehab from hospital - noted patient fell on R hip and that patient complained of pain with rolling/sitting * Obtained XR Hip, negative for acute fracture Polymyalgia Rheumatica --- ESR (127) and CRP (10.67) elevated, CK and LDH wnl, ongoing hip and shoulder pain/weakness, clinical picture consistent with PMR, will start therapeutic trial of Prednisone 15 mg daily * Proximal muscle weakness improving with prednisone -- will continue for at least 1 month and can discuss tapering down to lowest effective dose with PCP at f/u--- Likely contributing to Generalized weakness but concern remains for clinical picture of underlying progressive dementia vs motor dysfunction with acute hospital delirium ongoing Supratherapeutic INR (d/t Hx of PE) - Noted to be 9.0 on admission, Warfarin held - Home dose 6 mg Warfarin Tuesday, Tuesday, Tuesday/ 7 mg on Tuesday, , Tuesday, Tuesday - No active bleeding, recent fall, Hgb stable - Received 2.5 mg PO Vitamin K - Follow daily INR, will restart Warfarin when within therapeutic range --- INR 2.6 (following receipt of Vitamin K) --- Downtrended to 1.6 on day of DC; can restart regular home warfarin dosing --- Monitor INR T2DM - Metformin held on admission -- continue at DC - A1c 6.8 BPH (w/ obstructive uropathy - Bladder scan PRN - Started Tamsulosin HS on admission Hx of GERD/Epigastric Fullness - Currently taking Famotidine 20 mg - Recommending outpatient follow up with Endoscopy Code: DNR/DNI Dispo: Transfer to inpt rehab Total Time Total Time Spent Total Time Spent (In Minutes): <30 minutes Discharge Plan Discharge Items Patient Disposition: Transfer Inpatient Rehab Fac Reason For Visit: GENERALIZED WEAKNESS, HYPOTENSION Discharge Diagnosis: Deconditioning Activity: Per Instructions section Non-emergency contact: Primary Care Provider Call non-emergency contact if: you have any medication questions and your symptoms worsen Follow-up/Referrals: Cheyanne De Los Santos MD [Primary Care Provider] - Diet: Carb Consistent or DM2 and Heart Healthy Addtl Attending Provider Instructions: Jerzy Nguyen is a 77M with history of CAD, s/p TAVR for aortic stenosis, LBBB, convulsive syncope, peripheral neuropathy, BPH, Hx of PE, T2DM, and HTN who presented for evaluation of weakness and hypotension after being sent from his PCP. Patient was admitted for management of an VIDA, supratherapeutic INR, and hypomagnesemia. VIDA (a/w Dehydration) - Cr. 3.0 on admission, follows closely with Nephrology for history of AKIs, baseline 2.0 - Likely etiology is dehydration - Has not started Alfluzosin at home for his BPH - S/p 1 L NSS In ED, clinically dry, now s/p LR @ 80 ml/hr x 2 bags - Continue LR @ 80 ml/hr, patient hypovolemic on exam, monitor volume status - Avoid nephrotoxins --- Cr downtrended; 1.49 at DC Hypotension (Chronic HTN) - Likely etiology is dehydration + diuretic + multiple antihypertensives - Presented to PCP with SBP in 70s - Hemodynamically stable following bolus NSS in ED - Amlodipine and Triamterene HCTZ held on admission - Will continue Metoprolol/Losartan (nephroprotective) - Consider dc of an antihypertensive prior to d/c to balance addition of Tamsulosin for BPH --- Patient normotensive, remains stable on Losartan/Metoprolol only Hypomagnesemia - Likely component of patient's weakness - Considered a/w poor PO intake/absorption and diuretics - Mg 1.0 on admission - Continue PO Mag-Oxide at 400 mg PO BID - Check Magnesium level in AM --- Magnesium normalized after parenteral repletion --- Continue PO supplementation at DC Generalized Weakness - Multifactorial in nature a/w hypomagnesemia (severe), dehydration, deconditioning - Hgb stable (despite elevated INR and recent fall) - B12 level wnl - Procal at 0.53 (mildly elevated) w/o systemic sx, labs, or imaging suggestive of infection (received dose of Cefepime in ED) * No need for additional Abx at this time given no clinical evidence of infection- Continue re-hydration and electrolyte repletion as patient notes improvement - PT/OT consulted, recommending inpatient rehab upon discharge -- will be transferred to inpt rehab from hospital - noted patient fell on R hip and that patient complained of pain with rolling/sitting * Obtained XR Hip, negative for acute fracture Polymyalgia Rheumatica --- ESR (127) and CRP (10.67) elevated, CK and LDH wnl, ongoing hip and shoulder pain/weakness, clinical picture consistent with PMR, will start therapeutic trial of Prednisone 15 mg daily * Proximal muscle weakness improving with prednisone -- will continue for at least 1 month and can discuss tapering down to lowest effective dose with PCP at f/u --- Likely contributing to Generalized weakness but concern remains for clinical picture of underlying progressive dementia vs motor dysfunction with acute hospital delirium ongoing Supratherapeutic INR (d/t Hx of PE) - Noted to be 9.0 on admission, Warfarin held - Home dose 6 mg Warfarin Tuesday, Tuesday, Tuesday/ 7 mg on Tuesday, , Tuesday, Tuesday - No active bleeding, recent fall, Hgb stable - Received 2.5 mg PO Vitamin K - Follow daily INR, will restart Warfarin when within therapeutic range --- INR 2.6 (following receipt of Vitamin K) --- Downtrended to 1.6 on day of DC; can restart regular home warfarin dosing --- Monitor INR T2DM - Metformin held on admission -- continue at DC - A1c 6.8 BPH (w/ obstructive uropathy - Bladder scan PRN - Started Tamsulosin HS on admission Hx of GERD/Epigastric Fullness - Currently taking Famotidine 20 mg - Recommending outpatient follow up with Endoscopy Code: DNR/DNI Dispo: Transfer to inpt rehab Pending Studies at Discharge: No Stand-Alone Forms: My [facility] Skilled Items Patient informed of condition?: Yes DNR: Yes Discharge Level of Care: Acute rehab Communicable Disease: No Discharge Prognosis: Improving Lines: None Urinary Catheter: No Medications and DC Order Prescriptions: New prednisone 5 mg Tablet 15 mg PO DAILY 30 Days Qty: 90 0RF Continued metoprolol tartrate 25 mg tablet 25 mg PO BID triamcinolone acetonide 0.1 % cream 1 g topical DAILY famotidine [Pepcid] 20 mg tablet 20 mg PO BID folic acid 1 mg tablet 1 mg PO DAILY metformin 500 mg tablet 500 mg PO BID warfarin 5 mg tablet 0 mg PO DAILY Rx Instructions: Current Dose as of 01/06/2023. 6mg by mouth on Tuesday, Tuesday and Tuesday and 7mg all other days. pyridoxine (vitamin B6) [Vitamin B-6] 100 mg Tablet 100 mg PO DAILY losartan 100 mg tablet 100 mg PO DAILY Discontinued warfarin 1 mg tablet 0 mg PO DAILY Rx Instructions: Current Dose as of 01/06/2023. 6mg by mouth on Tuesday, Tuesday and Tuesday and 7mg all other days. amlodipine 5 mg tablet 5 mg PO HS triamterene-hydrochlorothiazid 37.5-25 mg tablet 0.5 tab PO DAILY amoxicillin 500 mg capsule 0 mg PO ONCE Rx Instructions: Prior to dental Procedures Discharge Orders: Discharge Order (Routine); Ordered 01/11/23 Ordered By: Mik Tapia/Other Patient Handouts: Managing Type 2 Diabetes, Special Foot Care for Diabetes Admission Data Admit Date/Time: 01/06/23 12:36 Attending Provider: Tigre Soares Admit Provider: Luis Sánchez Primary Care Provider: Cheyanne De Los Santos Other Providers: Luis Sánchez ; [facility] ; Jay[facility] Other Interventions: Discharge Summary Assessment (RN) Last Done: 01/11/23 17:54 Supervising Physician Co-Signing Physician Notes I personally examined the patient and verified all mcdaniel points of history and exam, discussed case, and agree with decision making with Dr Hart Approved for rehab, feels up to going, happy that he is going. No new complaints. Vitals noted, in general he is awake and alert pleasant no distress. HEENT normocephalic bruising around right eye mucous membranes moist. Breathing unlabored no accessory muscle use good effort. Skin shows no rashes no pallor or icterus. Hypotension/hypomagnesemiaappears likely to have been poor p.o. intake plus diuretic use. This appears to have improved. Hold off on further diuretics, follow blood pressure, if further medications needed, would utilize a different classsafe for discharge Coumadin coagulopathyfurther corroborates poor p.o. intake, given that his Coumadin dose was likely unchanged (polypharmacy by accident is certainly a p ossibility, but poor oral intake seems more likely)leading to reduced vitamin K intakeresume Coumadin Fall/weaknessfor rehab Continue to follow mental status both urine chronically, supplement B12 since it is borderline at 260, continue to follow. Resident Activity Tracking Resident Involvement: Resident Care Provided Care Provided: Adult Hospital Medicine
--- NOTE | 2023-01-11 19:18 | Billing Data ---
Date of Service January 11, 2023 Coding Level of Care Code 79403 IN/OBS DISCH 30 MIN/LESS
== END 2023-01-11 18:38 | DRG 684 ==
LOC: ED 09:24 → 2N 12:36 → SUATTDRO 12:36 → 2N 15:48

== ENCOUNTER 2025-06-28 15:55 | Inpatient (IN) ==
--- NOTE | 2025-06-28 16:20 | Emergency Department Note ---
Impression & Plan Acute adrenal insufficiency, Hypomagnesemia, Supratherapeutic INR, Acute hyponatremia, Retroperitoneal mass ED Provider Note NAME: BETTYE Arndt WHITE AGE: 79 SEX: M : 1945 ARRIVES VIA: Walk-In INFORMANT: Patient, ED PROVIDER(S): Everardo Dubose DO CHIEF COMPLAINT: hypotension HPI: This is a 79-year-old male with the PMHx of hypertension, DM2, BPH, aortic stenosis s/p TAVR, CAD, chronic steroid use and CKD presenting to [facility] for further evaluation of hypotension and weakness. Patient is accompanied by his who provide additional history. Patient's reports that he has been hypotensive of late leading to cessation of antihypertensives including losartan and amlodipine. He is on chronic steroids and take 2 mg of prednisone daily. There were concerns for aortic insufficiency per his primary care physician. Patient's ambulatory status and performance of ADLs have been worsening of late. They deny fever or chills. Patient endorses a chronic cough that has been ongoing since he had a viral URI-like illness. Denies chest pain or palpitations. No shortness of breath. They deny abdominal pain, nausea and vomiting. No urinary complaints. No recent changes in bowel movements. Patient denies recent changes in medications or OTC supplements. Patient offers no other complaints, today. ADDITIONAL HISTORY OBTAINED: Per HPI Chronic Medical/Social Conditions Affecting Care: Per HPI PAST MEDICAL HISTORY: See Below PAST SURGICAL HISTORY: See Below FAMILY HISTORY: See Below SOCIAL HISTORY: See Below HOME MEDICATIONS: See Below ALLERGIES: See Below VITALS: See Below PHYSICAL EXAMINATION: GENERAL: Sitting up in bed, alert, well appearing, well nourished, no distress, non-toxic EYE EXAM: normal conjunctiva. PERRL and EOM's grossly intact. OROPHARYNX: no exudate, no erythema, lips, buccal mucosa, and tongue normal and mucous membranes are moist NECK: supple, no nuchal rigidity, no adenopathy, non-tender LUNGS: Clear to auscultation. Normal chest wall mechanics HEART: no murmurs, tachycardic rate, regular rhythm ABDOMEN: abdomen soft, non-tender, no masses, no rebound or guarding. BACK: Back is symmetrical on inspection and there is no deformity, no midline tenderness, no CVA tenderness. SKIN: no rashes and no bruising UPPER EXTREMITIES: upper extremities are grossly normal. LOWER EXTREMITIES: No pitting edema. NEURO EXAM: Normal sensorium, GCS 15, normal speech, no gross weakness of arms, no gross weakness of legs. No drift. Finger to nose intact. Gross sensation intact. NIHSS 0. MEDICAL DECISION MAKING: Differential diagnoses includes but not limited to intracranial hemorrhage, CVA, hydrocephalus, NPH, electrolyte derangements, dehydration, adrenal insufficiency, electrolyte derangements, dehydration, bacteremia, viral URI, UTI, malignancy, pneumonia In summary, this is an 79 year old male who presented with generalized weakness and hypotension. Differential as above. Nursing notes and pertinent past medical records reviewed. Vital signs reviewed and the patient is hypotensive, tachycardic and tachypneic. Patient is afebrile. History and presentation revealed has been ill over the past few weeks. Worsening anemia. Has been confused. Sent in by his primary care physician for further workup. There are concerns for possible adrenal insufficiency as well. Physical examination revealed as above. As a result of my initial evaluation, patient does have a nonfocal exam but will evaluate with CT head for possible hydrocephalus or NPH. Do feel he could have adrenal insufficiency given chronic steroid use. Plan to support this with laboratory workup. Will stress dose the patient at this time given hypotension and concerns for this. Patient will have sepsis workup as well given vital signs. Do not feel that broad-spectrum antibiotics are necessary at this time. Plan for CT of the chest for evaluation of possible pneumonia or malignancy given chronic cough now with hypotension and weakness. Diagnostics interpreted by me include EKG and cardiac monitoring as listed below: -Cardiac Monitoring: An order was placed for continuous cardiac monitoring. The monitor shows a rate of [] with [] rhythm. -ECG: EKG independently interpreted by me reveals normal sinus rhythm at a ventricular rate of 92 bpm. Left bundle branch block present. No significant ST segment changes to suggest STEMI. Does not meet Sgarbossa criteria. Patient's left bundle branch block is chronic. Patient completed laboratory studies and imaging. CXR independently interpreted by me reveals no evidence of focal consolidation to suggest pna. No large pneumothorax or pleural effusion. There is slight elevation of the L hemidiaphragm. Results independently interpreted by me are mild anemia that is stable as compared to prior. No significant leukocytosis. Hyponatremia and hypomagnesemia noted. Patient does not have an VIDA. Lactate is elevated at 3.7. Crystalloid resuscitation is ongoing. Patient did receive stress dose steroids given he is on chronic steroids with features that could be consistent with adrenal insufficiency. Minimal elevation of AST and ALT. Bilirubin is normal. Hypoalbuminemia is present. CTH independently interpreted by me reveals no evidence of ICH. No significant hydrocephalus. No major skull fractures. CTH does not demonstrate findings to suggest an etiology of the patient's symptoms or presentation, today. CT chest independently interpreted by me reveals some lower lobe atelectasis and a small left pleural effusion. There is a soft tissue abnormality involving the left diaphragm which could represent the left hemidiaphragm elevation on plain films. Given the patient's laboratory abnormalities as well as chronic cough, we will investigate further with CT abdomen/pelvis. Patient will be appropriate for admission following the CT imaging study. INR was found to be supratherapeutic. He is not bleeding at this time. Do not think reversal or vitamin K is necessary. He has held his Coumadin for 2 days and we will continue this. Patient was given another liter of IV crystalloid resuscitation given elevated lactate and appearance of hypovolemia. Patient will benefit from further resuscitation as an inpatient. Patient's tachycardia has improved. Doubt sepsis at this time and have found no source of infection. Do believe there is likely a component of adrenal insufficiency. CT abdomen/pelvis was concerning for possible retroperitoneal hematoma or bleeding. Could represent a mass as well. Again the patient symptoms have been going on for a month. There are concerns that he has adrenal insufficiency. He has had 0 trauma. The patient does not have any evidence of tenderness of the abdomen or peritonitis. His hemoglobin has been stable over the course the last few weeks. While his lactate is mildly elevated, I do believe this is likely related to mild dehydration. His blood pressure has responded briskly without significant interventions besides crystalloid resuscitation. The patient was to be admitted by the hospitalist service and I requested this. The hospitalist service requested that I consult general surgery. Patient was discussed with the general surgery team Dr. Avelar. I do not necessarily have a clinical question for general surgery at this time. The patient is hemodynamically stable and it is unclear if this is retroperitoneal hemorrhage or mass. I think it is sufficient for further workup as an inpatient while keeping a close monitor on the patient's hemodynamics, hemoglobin and INR. General surgery was agreeable to this. They discussed that there is no operative intervention at this time. Ultimately, the decision was made to admit the patient for generalized weakness and hypotension in the setting of likely adrenal insufficiency with multiple electrolyte derangements and supratherapeutic INR with possible retroperitoneal mass or hematoma. I discussed the case with the hospitalist service via telephone/TigerText and they are agreeable to admit the patient to their services. Based on the above, including the patient's age, coexisting illnesses, labs, imaging, and exam findings the decision to treat as an inpatient. I discussed the patient with the hospitalist team who recommended admission to their services. They received the medications, treatments, interventions indicated above and their condition remained guarded. I discussed my findings with the patient and their family and they understand and agree with the treatment plan. All patient / family questions were answered to their satisfaction. Consults/Care Managements Discussions: Per MDM ER treatment provided: See above Procedures: none Critical Care: None The chart was completed utilizing [employer] Speech voice recognition software. Grammatical errors, random word insertions, pronoun errors, and incomplete sentences are an occasional consequence of this system due to software limitations, ambient noise, and hardware issues. Any formal questions or concerns about the content, text, or information contained within the body of this dictation should be directly addressed to the physician for clarification. Past Med/Surg History Problem List Retroperitoneal mass (Acute) Acute hyponatremia (Acute) Supratherapeutic INR (Acute) Hypomagnesemia (Acute) Acute adrenal insufficiency (Acute) Hypomagnesemia Lactic acidosis Retroperitoneal hemorrhage Supratherapeutic INR Acute adrenal insufficiency Chronic kidney disease, stage 3a Spinal stenosis H/O polymyalgia rheumatica Back pain Arthralgia Vitamin D deficiency Anticoagulant long-term use CAD (coronary artery disease) Seizure-like activity S/P TAVR (transcatheter aortic valve replacement) TIA (transient ischemic attack) LBBB (left bundle branch block) Leg swelling Chest discomfort Acute kidney injury Dehydration Elevated troponin Syncope Aortic stenosis Convulsive syncope Peripheral neuropathy Pseudogout Observed seizure-like activity (Acute) BPH with obstruction/lower urinary tract symptoms Type 2 diabetes mellitus (Acute) Elevated PSA (Acute) Hypertension (Acute) Medical History Hypotension Contusion of periorbital region, right Generalized weakness Fall Hx pulmonary embolism Hypercholesterolemia Bronchitis Surgical History Aortic valve replaced S/P colonoscopy Family History Father Cardiac disorder Mother Hypertension Son Nephrolithiasis Other Diabetes Social History Smoking Status: Former smoker Tobacco Type: Cigarettes Second Hand Exposure: No; Do You Dip or Chew Tobacco: No; Hx Alcohol Use: No Hx Substance Use: No Preferred Language: Serbian Communication Ability: Effective Monorail Hooker Required: No Beliefs That Will Affect Care: None marital status: Current Living Situation: Spouse Current Living Situation Comment: single family home Other Information That Helps Us Care for You: No Feels Safe at Home: Yes Safety Concerns: Feels Safe At This Time Assistive Devices: Glasses and Walker Allergies Allergies Allergy/AdvReac Type Severity Reaction Status Date / Time bee venom protein (honey bee) Allergy Unknown Anaphylaxis Verified 12/12/24 10:02 Home Meds Home Medications Medication Instructions Recorded Confirmed folic acid 1 mg tablet 1 mg PO DAILY 06/12/19 06/28/25 metformin 500 mg tablet 500 mg PO BID 06/12/19 06/28/25 losartan 100 mg tablet 100 mg PO DAILY 09/11/21 06/28/25 pyridoxine (vitamin B6) 100 mg 100 mg PO DAILY 09/11/21 06/28/25 tablet (Vitamin B-6) warfarin 5 mg tablet 0 mg PO DAILY 09/11/21 06/28/25 famotidine 20 mg tablet (Pepcid) 20 mg PO BID 03/04/22 06/28/25 metoprolol tartrate 25 mg tablet 25 mg PO BID 03/04/22 06/28/25 triamcinolone acetonide 0.1 % 1 g topical DAILY PRN Rash 03/04/22 06/28/25 topical cream magnesium 200 mg tablet 400 mg PO DAILY 02/23/23 06/28/25 tamsulosin 0.4 mg capsule (Flomax) 0.4 mg PO DAILY 02/23/23 06/28/25 cholecalciferol (vitamin D3) 50 50 mcg PO DAILY 06/08/23 06/28/25 mcg (2,000 unit) capsule amlodipine 5 mg tablet 5 mg PO DAILY 06/28/25 06/28/25 prednisone 1 mg tablet 2 mg PO DAILY 06/28/25 06/28/25 Results & Data (ED) Vital Signs Vital Signs - 24 hr 06/28/25 16:05 06/28/25 16:15 06/28/25 16:36 Temperature 36.5 C Temperature Source Temporal Artery Scan Pulse Rate 100 H 98 H 98 H Pulse Rate [Apical] Pulse Rate from SpO2 Sensor Pulse Rhythm Regular Respiratory Rate 22 22 Respiratory Effort / Characteristics Non-Labored Respiratory Depth Normal Respiratory Pattern Blood Pressure 89/58 L Blood Pressure [Right Arm] Blood Pressure Mean 68 Blood Pressure Mean [Right Arm] Blood Pressure Position [Right Arm] Pulse Oximetry 95 95 Oxygen Delivery Method Room Air Room Air Sepsis Recent Fever Within 48 Hours No Sepsis New/Unexplained Change in Mental Status No Sepsis Action Taken by Nursing No Action Required 06/28/25 17:15 06/28/25 18:09 06/28/25 18:57 Temperature Temperature Source Pulse Rate 85 85 87 Pulse Rate [Apical] Pulse Rate from SpO2 Sensor 86 85 87 Pulse Rhythm Respiratory Rate 19 21 19 Respiratory Effort / Characteristics Respiratory Depth Respiratory Pattern Blood Pressure 147/80 H 121/74 Blood Pressure [Right Arm] Blood Pressure Mean 102 89 Blood Pressure Mean [Right Arm] Blood Pressure Position [Right Arm] Pulse Oximetry 97 94 92 Oxygen Delivery Method Sepsis Recent Fever Within 48 Hours Sepsis New/Unexplained Change in Mental Status Sepsis Action Taken by Nursing 06/28/25 19:00 06/28/25 19:00 06/28/25 19:00 Temperature Temperature Source Pulse Rate Pulse Rate [Apical] 88 Pulse Rate from SpO2 Sensor Pulse Rhythm Respiratory Rate 20 Respiratory Effort / Characteristics Non-Labored Spontaneous Respiratory Depth Normal Respiratory Pattern Regular Blood Pressure 141/77 H 141/77 H Blood Pressure [Right Arm] 141/77 H Blood Pressure Mean 111 111 Blood Pressure Mean [Right Arm] 98 Blood Pressure Position [Right Arm] Semi-fowlers Pulse Oximetry 94 Oxygen Delivery Method Room Air Sepsis Recent Fever Within 48 Hours Sepsis New/Unexplained Change in Mental Status Sepsis Action Taken by Nursing 06/28/25 19:00 06/28/25 19:00 06/28/25 19:03 Temperature Temperature Source Pulse Rate 84 81 Pulse Rate [Apical] Pulse Rate from SpO2 Sensor 81 81 Pulse Rhythm Respiratory Rate 17 16 Respiratory Effort / Characteristics Respiratory Depth Respiratory Pattern Blood Pressure 141/77 H Blood Pressure [Right Arm] Blood Pressure Mean 111 Blood Pressure Mean [Right Arm] Blood Pressure Position [Right Arm] Pulse Oximetry 90 92 Oxygen Delivery Method Sepsis Recent Fever Within 48 Hours Sepsis New/Unexplained Change in Mental Status Sepsis Action Taken by Nursing 06/28/25 19:15 06/28/25 19:27 06/28/25 19:30 Temperature Temperature Source Pulse Rate 87 Pulse Rate [Apical] Pulse Rate from SpO2 Sensor 84 Pulse Rhythm Respiratory Rate 17 Respiratory Effort / Characteristics Respiratory Depth Respiratory Pattern Blood Pressure 140/72 140/81 Blood Pressure [Right Arm] Blood Pressure Mean 114 92 Blood Pressure Mean [Right Arm] Blood Pressure Position [Right Arm] Pulse Oximetry 95 Oxygen Delivery Method Sepsis Recent Fever Within 48 Hours Sepsis New/Unexplained Change in Mental Status Sepsis Action Taken by Nursing 06/28/25 19:30 06/28/25 19:33 06/28/25 19:42 Temperature Temperature Source Pulse Rate 83 83 Pulse Rate [Apical] Pulse Rate from SpO2 Sensor 84 83 Pulse Rhythm Respiratory Rate 20 24 Respiratory Effort / Characteristics Respiratory Depth Respiratory Pattern Blood Pressure 140/81 Blood Pressure [Right Arm] Blood Pressure Mean 92 Blood Pressure Mean [Right Arm] Blood Pressure Position [Right Arm] Pulse Oximetry 92 93 Oxygen Delivery Method Sepsis Recent Fever Within 48 Hours Sepsis New/Unexplained Change in Mental Status Sepsis Action Taken by Nursing 06/28/25 19:45 06/28/25 19:45 06/28/25 19:45 Temperature Temperature Source Pulse Rate Pulse Rate [Apical] Pulse Rate from SpO2 Sensor Pulse Rhythm Respiratory Rate 20 Respiratory Effort / Characteristics Non-Labored Spontaneous Respiratory Depth Normal Respiratory Pattern Blood Pressure 148/84 H 148/84 H Blood Pressure [Right Arm] Blood Pressure Mean 111 111 Blood Pressure Mean [Right Arm] Blood Pressure Position [Right Arm] Pulse Oximetry 94 Oxygen Delivery Method Room Air Sepsis Recent Fever Within 48 Hours Sepsis New/Unexplained Change in Mental Status Sepsis Action Taken by Nursing 06/28/25 20:00 06/28/25 20:03 06/28/25 20:15 Temperature Temperature Source Pulse Rate 78 Pulse Rate [Apical] Pulse Rate from SpO2 Sensor 78 Pulse Rhythm Respiratory Rate 14 Respiratory Effort / Characteristics Respiratory Depth Respiratory Pattern Blood Pressure 150/97 H 135/75 Blood Pressure [Right Arm] Blood Pressure Mean 123 96 Blood Pressure Mean [Right Arm] Blood Pressure Position [Right Arm] Pulse Oximetry 92 Oxygen Delivery Method Sepsis Recent Fever Within 48 Hours Sepsis New/Unexplained Change in Mental Status Sepsis Action Taken by Nursing 06/28/25 20:15 06/28/25 20:34 06/28/25 20:35 Temperature Temperature Source Pulse Rate 85 88 Pulse Rate [Apical] Pulse Rate from SpO2 Sensor 85 Pulse Rhythm Respiratory Rate 21 Respiratory Effort / Characteristics Respiratory Depth Respiratory Pattern Blood Pressure 136/73 Blood Pressure [Right Arm] Blood Pressure Mean 100 Blood Pressure Mean [Right Arm] Blood Pressure Position [Right Arm] Pulse Oximetry 93 Oxygen Delivery Method Sepsis Recent Fever Within 48 Hours Sepsis New/Unexplained Change in Mental Status Sepsis Action Taken by Nursing 06/28/25 20:39 06/28/25 20:45 06/28/25 20:45 Temperature Temperature Source Pulse Rate 85 89 Pulse Rate [Apical] Pulse Rate from SpO2 Sensor 84 88 Pulse Rhythm Respiratory Rate 20 18 Respiratory Effort / Characteristics Respiratory Depth Respiratory Pattern Blood Pressure 127/73 Blood Pressure [Right Arm] Blood Pressure Mean 96 Blood Pressure Mean [Right Arm] Blood Pressure Position [Right Arm] Pulse Oximetry 94 95 Oxygen Delivery Method Sepsis Recent Fever Within 48 Hours Sepsis New/Unexplained Change in Mental Status Sepsis Action Taken by Nursing 06/28/25 21:00 06/28/25 21:00 06/28/25 21:00 Temperature 36.4 C Temperature Source Oral Pulse Rate 84 Pulse Rate [Apical] Pulse Rate from SpO2 Sensor 84 Pulse Rhythm Respiratory Rate 20 Respiratory Effort / Characteristics Respiratory Depth Respiratory Pattern Blood Pressure 123/72 Blood Pressure [Right Arm] Blood Pressure Mean 99 Blood Pressure Mean [Right Arm] Blood Pressure Position [Right Arm] Pulse Oximetry 94 Oxygen Delivery Method Sepsis Recent Fever Within 48 Hours Sepsis New/Unexplained Change in Mental Status Sepsis Action Taken by Nursing 06/28/25 21:15 06/28/25 21:15 06/28/25 21:15 Temperature Temperature Source Pulse Rate 82 Pulse Rate [Apical] Pulse Rate from SpO2 Sensor 81 Pulse Rhythm Respiratory Rate 23 Respiratory Effort / Characteristics Respiratory Depth Respiratory Pattern Blood Pressure 118/68 118/68 Blood Pressure [Right Arm] Blood Pressure Mean 84 84 Blood Pressure Mean [Right Arm] Blood Pressure Position [Right Arm] Pulse Oximetry 93 Oxygen Delivery Method Sepsis Recent Fever Within 48 Hours Sepsis New/Unexplained Change in Mental Status Sepsis Action Taken by Nursing Laboratory Data 06/28/25 16:32 06/28/25 16:32 Lab Results 06/28/25 06/28/25 06/28/25 Range/Units 16:32 16:52 19:52 WBC 5.65 (4.8-10.8) K/ul RBC 4.53 L (4.70-6.10) M/uL Hgb 11.9 L (14.0-18.0) g/dl Hct 35.2 L (42.0-52.0) % MCV 77.7 L (80.0-100.0) fL MCH 26.3 (25.0-34.0) pg MCHC 33.8 (32.0-36.0) g/dL RDW Std Deviation 40.9 (36.4-46.3) fL RDW Coeff of Spike 14.7 H (11.5-14.5) % Plt Count 162 (130-400) K/uL MPV 10.5 (9.4-12.4) fL Immature Gran % (Auto) 0.9 % Neut % (Auto) 56.3 % Lymph % (Auto) 11.5 % Gordon % (Auto) 30.3 % Eos % (Auto) 0.5 % Baso % (Auto) 0.5 % Neut # (Auto) 3.18 (1.40-6.50) K/uL Lymph # (Auto) 0.65 L (1.20-3.40) K/uL Gordon # (Auto) 1.71 H (0.11-0.59) K/uL Eos # (Auto) 0.03 (0.00-0.50) K/uL Baso # (Auto) 0.03 (0.00-0.20) K/uL Immature Gran # (Auto) 0.05 (0.01-0.20) K/uL PT 69.8 H (9.0-12.0) Seconds INR 7.4 H* (0.9-1.1) APTT 56 H (21-31) Seconds PTT Ratio 2.1 VBG pH 7.39 (7.36-7.41) VBG pCO2 37 L (38-50) mmHg VBG pO2 31 mmHg VBG HCO3 22 mmol/L VBG O2 Saturation < 60.0 % VBG Base Excess -2.2 mEq/L Sodium 132 L (136-145) mmol/L Potassium 4.9 (3.5-5.1) mmol/L Chloride 96 L (98-107) mmol/L Carbon Dioxide 22 (21-32) mmol/L Anion Gap 14 H (3-11) BUN 22 (6-23) mg/dl Creatinine 1.31 (0.6-1.4) mg/dl Est Cr Clr Drug Dosing 53.8 ml/min eGFR 55.03 BUN/Creatinine Ratio 16.8 (10-20) Glucose 118 H (70-99(Fasting)) mg/dl Lactate 3.7 H* (0.4-2.0) mmol/L Calcium 9.2 (8.6-10.3) mg/dl Phosphorus 3.0 (2.5-4.9) mg/dl Magnesium 1.4 L (1.7-2.4) mg/dl Total Bilirubin 0.8 (0.2-1.0) mg/dl Direct Bilirubin 0.1 (0-0.2) mg/dl AST 132 H (13-39) U/L ALT 87 H (7-52) U/L Alkaline Phosphatase 83 (34-104) U/L Troponin I High Sens 18.1 (0-20) pg/ml Total Protein 6.8 (6.0-8.3) gm/dl Albumin 3.2 L (3.4-5.0) gm/dl Procalcitonin 0.25 (0-0.5) ng/ml Random Cortisol 22.81 mcg/dl Urine Color Yellow Urine Appearance Clear (Clear) Urine pH 5.5 (4.5-7.5) Ur Specific Jadwin > 1.045 H (1.000-1.030) Urine Protein Negative (Negative) Urine Glucose (UA) Negative (Negative) Urine Ketones 1+ H (Negative) Urine Blood Negative (Negative) Urine Nitrite Negative (Negative) Urine Bilirubin Negative (Negative) Urine Urobilinogen Negative (Negative) Ur Leukocyte Esterase Negative (Negative) Urine Comment Adenovirus (PCR) Not Detected (NotDetected) B. pertussis DNA (PCR) Not Detected (NotDetected) B.parapertussis DNA PCR Not Detected (NotDetected) C. pneumoniae DNA (PCR) Not Detected (NotDetected) Coronavirus OC43 (PCR) Not Detected (NotDetected) Coronavirus HKU1 (PCR) Not Detected (NotDetected) Coronavirus 229E (PCR) Not Detected (NotDetected) SARS-CoV-2 (PCR) Not Detected (NotDetected) Coronavirus NL63 (PCR) Not Detected (NotDetected) Human Metapneumovir PCR Not Detected (NotDetected) Influenza Type A (PCR) Not Detected (NotDetected) Influenza Type B (PCR) Not Detected (NotDetected) M. pneumoniae (PCR) Not Detected (NotDetected) Parainfluenza 1 (PCR) Not Detected (NotDetected) Parainfluenza 2 (PCR) Not Detected (NotDetected) Parainfluenza 3 (PCR) Not Detected (NotDetected) Parainfluenza 4 (PCR) Not Detected (NotDetected) RSV (PCR) Not Detected (NotDetected) Entero/Rhino (PCR) Not Detected (NotDetected) 06/28/25 Range/Units 20:56 WBC (4.8-10.8) K/ul RBC (4.70-6.10) M/uL Hgb (14.0-18.0) g/dl Hct (42.0-52.0) % MCV (80.0-100.0) fL MCH (25.0-34.0) pg MCHC (32.0-36.0) g/dL RDW Std Deviation (36.4-46.3) fL RDW Coeff of Spike (11.5-14.5) % Plt Count (130-400) K/uL MPV (9.4-12.4) fL Immature Gran % (Auto) % Neut % (Auto) % Lymph % (Auto) % Gordon % (Auto) % Eos % (Auto) % Baso % (Auto) % Neut # (Auto) (1.40-6.50) K/uL Lymph # (Auto) (1.20-3.40) K/uL Gordon # (Auto) (0.11-0.59) K/uL Eos # (Auto) (0.00-0.50) K/uL Baso # (Auto) (0.00-0.20) K/uL Immature Gran # (Auto) (0.01-0.20) K/uL PT (9.0-12.0) Seconds INR (0.9-1.1) APTT (21-31) Seconds PTT Ratio VBG pH (7.36-7.41) VBG pCO2 (38-50) mmHg VBG pO2 mmHg VBG HCO3 mmol/L VBG O2 Saturation % VBG Base Excess mEq/L Sodium (136-145) mmol/L Potassium (3.5-5.1) mmol/L Chloride (98-107) mmol/L Carbon Dioxide (21-32) mmol/L Anion Gap (3-11) BUN (6-23) mg/dl Creatinine (0.6-1.4) mg/dl Est Cr Clr Drug Dosing ml/min eGFR BUN/Creatinine Ratio (10-20) Glucose (70-99(Fasting)) mg/dl Lactate 1.9 (0.4-2.0) mmol/L Calcium (8.6-10.3) mg/dl Phosphorus (2.5-4.9) mg/dl Magnesium (1.7-2.4) mg/dl Total Bilirubin (0.2-1.0) mg/dl Direct Bilirubin (0-0.2) mg/dl AST (13-39) U/L ALT (7-52) U/L Alkaline Phosphatase (34-104) U/L Troponin I High Sens (0-20) pg/ml Total Protein (6.0-8.3) gm/dl Albumin (3.4-5.0) gm/dl Procalcitonin (0-0.5) ng/ml Random Cortisol mcg/dl Urine Color Urine Appearance (Clear) Urine pH (4.5-7.5) Ur Specific Jadwin (1.000-1.030) Urine Protein (Negative) Urine Glucose (UA) (Negative) Urine Ketones (Negative) Urine Blood (Negative) Urine Nitrite (Negative) Urine Bilirubin (Negative) Urine Urobilinogen (Negative) Ur Leukocyte Esterase (Negative) Urine Comment Adenovirus (PCR) (NotDetected) B. pertussis DNA (PCR) (NotDetected) B.parapertussis DNA PCR (NotDetected) C. pneumoniae DNA (PCR) (NotDetected) Coronavirus OC43 (PCR) (NotDetected) Coronavirus HKU1 (PCR) (NotDetected) Coronavirus 229E (PCR) (NotDetected) SARS-CoV-2 (PCR) (NotDetected) Coronavirus NL63 (PCR) (NotDetected) Human Metapneumovir PCR (NotDetected) Influenza Type A (PCR) (NotDetected) Influenza Type B (PCR) (NotDetected) M. pneumoniae (PCR) (NotDetected) Parainfluenza 1 (PCR) (NotDetected) Parainfluenza 2 (PCR) (NotDetected) Parainfluenza 3 (PCR) (NotDetected) Parainfluenza 4 (PCR) (NotDetected) RSV (PCR) (NotDetected) Entero/Rhino (PCR) (NotDetected) Administered Medications Lactated Ringer's (Lr) 1,000 mls @ 100 mls/hr IV .Q10H JARAD Stop: 06/29/25 17:14 Last Admin: 06/28/25 22:57 Dose: 100 mls/hr Documented By: RICHY Discontinued Medications Hydrocortisone Sodium Succinate (Hydrocortisone Sod Succinate 100 Mg/2 Ml Vial) 100 mg IV NOW STA Stop: 06/28/25 16:30 Last Admin: 06/28/25 16:49 Dose: 100 mg Documented By: MONTRELL Parenteral Electrolytes (Plasma-Lyte A Ph 7.4) 1,000 mls @ 999 mls/hr IV .Q1H1M ONE Stop: 06/28/25 17:14 Last Infusion: 06/28/25 18:02 Dose: Infused Documented By: Admin: 06/28/25 16:49 Dose: 999 mls/hr Documented By: MONTRELL Magnesium Sulfate/Dextrose (Magnesium Sulfate / D5w) 1 gm in 100 mls @ 100 mls/hr IV Q1H JARAD Stop: 06/28/25 19:13 Last Infusion: 06/28/25 20:00 Dose: Infused Documented By: Admin: 06/28/25 19:07 Dose: 100 mls/hr Documented By: Infusion: 06/28/25 19:07 Dose: Infused Documented By: Admin: 06/28/25 18:04 Dose: 100 mls/hr Documented By: MONTRELL Parenteral Electrolytes (Plasma-Lyte A Ph 7.4) 1,000 mls @ 999 mls/hr IV .Q1H1M ONE Stop: 06/28/25 19:38 Last Infusion: 06/28/25 20:00 Dose: Infused Documented By: Admin: 06/28/25 18:57 Dose: 999 mls/hr Documented By: MONTRELL Phytonadione 5 mg/ Dextrose 50.5 mls @ 101 mls/hr IV ONE ONE Stop: 06/28/25 19:49 Last Infusion: 06/28/25 20:45 Dose: Infused Documented By: Admin: 06/28/25 19:57 Dose: 101 mls/hr Documented By: RICHY Phytonadione 5 mg/ Dextrose 50.5 mls @ 101 mls/hr IV ONE ONE Stop: 06/28/25 20:32 Last Infusion: 06/28/25 22:50 Dose: Infused Documented By: Admin: 06/28/25 21:23 Dose: 101 mls/hr Documented By: RICHY Magnesium Sulfate/Dextrose (Magnesium Sulfate / D5w) 1 gm in 100 mls @ 50 mls/hr IV ONE ONE Stop: 06/28/25 22:11 Last Infusion: 06/29/25 00:25 Dose: Infused Documented By: Admin: 06/28/25 21:19 Dose: 50 mls/hr Documented By: RICHY Ioversol (Optiray 320 100ml) 93 ml IV ONCE ONE Stop: 06/28/25 17:54 Last Admin: 06/28/25 17:53 Dose: 93 ml Documented By: RENE Ioversol (Optiray 320 100ml) 93 ml IV ONCE ONE Stop: 06/28/25 18:49 Last Admin: 06/28/25 18:48 Dose: 93 ml Documented By: RENE Imaging Data Radiologist's Impression: Chest X-Ray 06/28/25 16:15 Chest radiograph, one view History: Sepsis Comparison: None Findings: Single AP view of the chest performed. No focal consolidation or pleural effusion. No pneumothorax. The cardiomediastinal silhouette is within normal limits. Normal pulmonary vascularity. No evidence for lymphadenopathy. No visualized bony or soft tissue abnormality. Impression: Normal chest radiograph Electronically signed by Erasmo Lezama 06-28-2025 5:[address] 06/28/25 16:28 Clinical history: Chronic cough Technique: Axial computed tomography images were obtained of the chest after the administration of intravenous contrast Findings: There is mild dependent subsegmental atelectasis in both lower lobes. The lungs otherwise appear clear without infiltrate or mass. There is no right pleural effusion or pneumothorax. There is a small left pleural effusion. No endobronchial lesion is seen There is no mediastinal, hilar, or axillary adenopathy. The thoracic aorta appears unremarkable with no sign of aneurysm or dissection. There is no pericardial effusion. There is extensive coronary atherosclerosis. There is an aortic valve replacement There are small thyroid nodules bilaterally The spleen is at the upper limit of normal in size. There is partially visualized soft tissue attenuation enlargement of the left diaphragmatic torres. No fracture is seen. No focal osseous lesion is evident Impression: 1. Mild bilateral lower lobe atelectasis 2. Small left pleural effusion 3. Partially visualized soft tissue abnormality involving the left diaphragmatic torres. CT of the abdomen and pelvis could be obtained for further evaluation 4. Indeterminate thyroid nodules. A follow-up thyroid ultrasound could be obtained 5. Extensive coronary atherosclerosis ACT 112: Positive. There are findings on this exam that require communication between the performing entity and the patient following Patient Test Result Information Act ([place] ACT 112) guidelines. Electronically signed by Amador Weinstein 06-28-2025 6:[address] 06/28/25 16:28 Technique: Axial computed tomography images were obtained of the brain without intravenous contrast. Findings: There is diffuse cerebral atrophy, within expected limits for the patient's age. Areas of decreased attenuation are seen within the periventricular white matter, likely representing chronic small vessel ischemic disease. There is no definite sign of acute or old infarction. No intracranial hemorrhage is evident. No definite mass lesion is seen on this noncontrast examination. There is no midline shift or other form of herniation. No hydrocephalus is seen. No fracture is identified. The orbits and the visualized paranasal sinuses appear unremarkable. The mastoid air cells appear clear. Impression: 1. Cerebral atrophy and chronic small vessel ischemic disease 2. Otherwise unremarkable noncontrast CT of the brain Electronically signed by Amador Weinstein 06-28-2025 6:20 PM Abdomen/Pelvis CT 06/28/25 18:29 EXAMINATION: CT of the abdomen and pelvis performed after the administration of IV contrast TECHNIQUE: Helical CT images from the lung bases through the symphysis pubis were obtained with contrast. Coronal and sagittal reformatted images were generated at a workstation for further assessment. Dose reduction techniques were achieved by using automatic exposure control and/or adjustment of mA and/or kV according to patient size and/or use of iterative reconstruction technique. COMPARISON: Same-day chest CT HISTORY: Abdominal pain FINDINGS: Lower chest: A small left pleural effusion demonstrates increased attenuation. There is elevation of the left hemidiaphragm. Liver: No suspicious liver lesions. Portal veins appear patent. Gallbladder: No gallstones. No evidence of acute cholecystitis. Spleen: Normal size. Pancreas: No suspicious pancreatic lesions. The pancreatic duct is not dilated. Adrenal glands: No adrenal nodules. Kidneys: No hydronephrosis or obstructing renal stones. Bladder / Pelvic organs: The prostate gland is significantly enlarged. The urinary bladder is normal.. Bowel: No bowel obstruction. No abnormal bowel wall thickening. The appendix is unremarkable. Lymph nodes: No retroperitoneal, mesenteric, or pelvic lymphadenopathy. Peritoneum / Retroperitoneum: As noted on the chest CT, there is thickening of the left diaphragmatic torres medially, which appears high in attenuation. Further inferiorly in the retroperitoneum, there is extensive rounded high density, lateral to the psoas muscle, and the psoas muscle is also enlarged. Mild fat stranding is seen to overlie this area posteriorly within the peritoneal space, which extends into the left paracolic gutter. Vessels: No infrarenal aortic aneurysm. Heavy aortoiliac calcification. Bones and soft tissues: No suspicious lesion in the bones. IMPRESSION: Enlargement of the left psoas muscle as well as the left diaphragmatic torres, which is high in density, with additional rounded area of high attenuation abnormality lateral to the psoas, as well as some fat stranding seen anterior to this region. Findings overall favor retroperitoneal hemorrhage, over that of a malignancy, although which is difficult to entirely exclude. A distinctly enhancing mass is not definitely seen, and the area appears homogeneously hyperattenuating. Additionally, a tiny left pleural effusion is increased in attenuation, and favors a hemothorax. If the findings do not resolve, or there is further clinical concern, both PET/CT as well as multiphasic MRI would be helpful for further evaluation. Electronically signed by Erasmo Lezama 06-28-2025 7:18 PM Discharge Plan Visit Data Chief Complaint: Abnormal Labs/Diagnostic Testing Stated Complaint: ADRENAL INSUFFICIENCY ED Provider: Everardo Dubose Discharge Problem: Acute adrenal insufficiency, Hypomagnesemia, Supratherapeutic INR, Acute hyponatremia, Retroperitoneal mass Patient Disposition: Admitted As Inpatient Condition: Serious Discharge Instructions Interventions: ED Discharge Assessment Last Done: 06/28/25 22:58
[2025-06-28] MEDS: HYDROCORTISONE SOD SUCCINATE 100 MG/2 ML VIAL IV STA (16:49)
[2025-06-28] MEDS: PLASMA-LYTE A 1,000 ML IV ONE ×2 (16:49→18:57)
[2025-06-28 16:54] LABS: Base Excess VBG -2.2 mEq/L; HCO3 VBG 22 mmol/L; Oxygen Saturation VBG < 60.0 %; PCO2 VBG 37 mmHg (38-50); PO2 VBG 31 mmHg; pH VBG 7.39 (7.36-7.41)
[2025-06-28 16:59] LABS: Hematocrit (blood only) 35.2 % (42.0-52.0); Hemoglobin 11.9 g/dl (14.0-18.0); Immature Granulocytes # (auto) 0.05 K/uL (0.01-0.20); Immature Granulocytes % (auto) 0.9 %; Mean Corpuscular Hemoglobin 26.3 pg (25.0-34.0); Mean Corpuscular Volume 77.7 fL (80.0-100.0); Platelet Count 162 K/uL (130-400); RDW Standard Deviation 40.9 fL (36.4-46.3); Red Blood Count 4.53 M/uL (4.70-6.10); White Blood Count 5.65 K/ul (4.8-10.8)
[2025-06-28 17:13] LABS: Alanine Aminotransferase 87.0 U/L (7-52); Albumin Level 3.2 gm/dl (3.4-5.0); Alkaline Phosphatase 83.0 U/L (34-104); Anion Gap 14.0 (3-11); Bilirubin,Total 0.8 mg/dl (0.2-1.0); Blood Urea Nitrogen 22.0 mg/dl (6-23); Calcium 9.2 mg/dl (8.6-10.3); Carbon Dioxide 22.0 mmol/L (21-32); Chloride 96.0 mmol/L (98-107); Creatinine Clr Calc Pharmacy 53.8 ml/min; Glucose 118.0 mg/dl (70-99(Fasting)); Magnesium 1.4 mg/dl (1.7-2.4); Potassium 4.9 mmol/L (3.5-5.1); Sodium 132.0 mmol/L (136-145); Total Protein 6.8 gm/dl (6.0-8.3)
[2025-06-28 17:32] LABS: Partial Thromboplastin Time 56 Seconds (21-31); Prothrombin Time 69.8 Seconds (9.0-12.0)
[2025-06-28 17:40] LABS: INR 7.4 (0.9-1.1)
[2025-06-28] MEDS: OPTIRAY 320 100ml IV ONE ×2 (17:53→18:48)
--- NOTE | 2025-06-28 17:54 | XRay Report ---
Chest radiograph, one view History: Sepsis Comparison: None Findings: Single AP view of the chest performed. No focal consolidation or pleural effusion. No pneumothorax. The cardiomediastinal silhouette is within normal limits. Normal pulmonary vascularity. No evidence for lymphadenopathy. No visualized bony or soft tissue abnormality. Impression: Normal chest radiograph Electronically signed by Erasmo Lezama 06-28-2025 5:47 PM
[2025-06-28 18:02] LABS: Chlamydia pneumoniae PCR Not Detected (NotDetected); Coronavirus 229E PCR Not Detected (NotDetected); Coronavirus CoV-2 (COVID19)PCR Not Detected (NotDetected); Coronavirus HKU1 PCR Not Detected (NotDetected); Coronavirus NL63 PCR Not Detected (NotDetected); Coronavirus OC43PCR Not Detected (NotDetected); Human Metapneumovirus PCR Not Detected (NotDetected); Parainfluenza Virus 1 PCR Not Detected (NotDetected); Parainfluenza Virus 2 PCR Not Detected (NotDetected); Parainfluenza Virus 3 PCR Not Detected (NotDetected); Parainfluenza Virus 4 PCR Not Detected (NotDetected); Respiratory Syncytial VirusPCR Not Detected (NotDetected); Rhinovirus/Enterovirus PCR Not Detected (NotDetected)
[2025-06-28] MEDS: MAGNESIUM SULFATE / D5W 1 GM/100 ML BAG IV SCH (18:04)
--- NOTE | 2025-06-28 18:21 | CT Scan Report ---
Technique: Axial computed tomography images were obtained of the brain without intravenous contrast. Findings: There is diffuse cerebral atrophy, within expected limits for the patient's age. Areas of decreased attenuation are seen within the periventricular white matter, likely representing chronic small vessel ischemic disease. There is no definite sign of acute or old infarction. No intracranial hemorrhage is evident. No definite mass lesion is seen on this noncontrast examination. There is no midline shift or other form of herniation. No hydrocephalus is seen. No fracture is identified. The orbits and the visualized paranasal sinuses appear unremarkable. The mastoid air cells appear clear. Impression: 1. Cerebral atrophy and chronic small vessel ischemic disease 2. Otherwise unremarkable noncontrast CT of the brain Electronically signed by Amador Weinstein 06-28-2025 6:20 PM
--- NOTE | 2025-06-28 18:25 | CT Scan Report ---
Clinical history: Chronic cough Technique: Axial computed tomography images were obtained of the chest after the administration of intravenous contrast Findings: There is mild dependent subsegmental atelectasis in both lower lobes. The lungs otherwise appear clear without infiltrate or mass. There is no right pleural effusion or pneumothorax. There is a small left pleural effusion. No endobronchial lesion is seen There is no mediastinal, hilar, or axillary adenopathy. The thoracic aorta appears unremarkable with no sign of aneurysm or dissection. There is no pericardial effusion. There is extensive coronary atherosclerosis. There is an aortic valve replacement There are small thyroid nodules bilaterally The spleen is at the upper limit of normal in size. There is partially visualized soft tissue attenuation enlargement of the left diaphragmatic torres. No fracture is seen. No focal osseous lesion is evident Impression: 1. Mild bilateral lower lobe atelectasis 2. Small left pleural effusion 3. Partially visualized soft tissue abnormality involving the left diaphragmatic torres. CT of the abdomen and pelvis could be obtained for further evaluation 4. Indeterminate thyroid nodules. A follow-up thyroid ultrasound could be obtained 5. Extensive coronary atherosclerosis ACT 112: Positive. There are findings on this exam that require communication between the performing entity and the patient following Patient Test Result Information Act ([place] ACT 112) guidelines. Electronically signed by Amador Weinstein 06-28-2025 6:24 PM
--- NOTE | 2025-06-28 19:19 | CT Scan Report ---
EXAMINATION: CT of the abdomen and pelvis performed after the administration of IV contrast TECHNIQUE: Helical CT images from the lung bases through the symphysis pubis were obtained with contrast. Coronal and sagittal reformatted images were generated at a workstation for further assessment. Dose reduction techniques were achieved by using automatic exposure control and/or adjustment of mA and/or kV according to patient size and/or use of iterative reconstruction technique. COMPARISON: Same-day chest CT HISTORY: Abdominal pain FINDINGS: Lower chest: A small left pleural effusion demonstrates increased attenuation. There is elevation of the left hemidiaphragm. Liver: No suspicious liver lesions. Portal veins appear patent. Gallbladder: No gallstones. No evidence of acute cholecystitis. Spleen: Normal size. Pancreas: No suspicious pancreatic lesions. The pancreatic duct is not dilated. Adrenal glands: No adrenal nodules. Kidneys: No hydronephrosis or obstructing renal stones. Bladder / Pelvic organs: The prostate gland is significantly enlarged. The urinary bladder is normal.. Bowel: No bowel obstruction. No abnormal bowel wall thickening. The appendix is unremarkable. Lymph nodes: No retroperitoneal, mesenteric, or pelvic lymphadenopathy. Peritoneum / Retroperitoneum: As noted on the chest CT, there is thickening of the left diaphragmatic torres medially, which appears high in attenuation. Further inferiorly in the retroperitoneum, there is extensive rounded high density, lateral to the psoas muscle, and the psoas muscle is also enlarged. Mild fat stranding is seen to overlie this area posteriorly within the peritoneal space, which extends into the left paracolic gutter. Vessels: No infrarenal aortic aneurysm. Heavy aortoiliac calcification. Bones and soft tissues: No suspicious lesion in the bones. IMPRESSION: Enlargement of the left psoas muscle as well as the left diaphragmatic torres, which is high in density, with additional rounded area of high attenuation abnormality lateral to the psoas, as well as some fat stranding seen anterior to this region. Findings overall favor retroperitoneal hemorrhage, over that of a malignancy, although which is difficult to entirely exclude. A distinctly enhancing mass is not definitely seen, and the area appears homogeneously hyperattenuating. Additionally, a tiny left pleural effusion is increased in attenuation, and favors a hemothorax. If the findings do not resolve, or there is further clinical concern, both PET/CT as well as multiphasic MRI would be helpful for further evaluation. Electronically signed by Erasmo Lezama 06-28-2025 7:18 PM
--- NOTE | 2025-06-28 19:54 | Communication Note ---
Date of Service: June 28, 2025 I was called by the emergency department to review a CT scan because the hospitalists need a surgeon to review his scan before admitting the patient to the hospital. This is an 79-year-old gentleman who is in for weakness, dehydration, adrenal insufficiency. A CT the scan demonstrates a masslike lesion of the left psoas muscle versus possible retroperitoneal hematoma. I reviewed the scan. There are no general surgical indications in this situation. The radiologist recommended possible PET scan versus possible MRI for further evaluation of this area, as the radiologist was unclear what this was. Once again, this is not a general surgical issue. If there is concern for mass or for retroperitoneal bleed, he would need the specialty services that we do not have here. Recommend having hospitalist workup patient further for diagnostic purposes.
[2025-06-28] MEDS: PHYTONADIONE 5 MG in DEXTROSE 5% 50 ML IV ONE ×2 (19:57→21:23)
[2025-06-28 20:08] LABS: Appearance Urine Clear (Clear); Glucose Urine UA Negative (Negative)
--- NOTE | 2025-06-28 20:25 | History & Physical Report ---
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 Patient presented after referral by his PCP for 3 weeks of weakness, hypotension, URI symptoms, and difficulty with ADLs. He was found to have a supratherapeutic INR of 7.4 and concern for retroperitoneal hemorrhage first mass on abdomen pelvis CT. He is being admitted for adrenal insufficiency. #adrenal insufficiency - on chronic prednisone 2mg daily. BP 89/58, Na 132, K+ 4.9, AST and ALT mildly elevated, renal function stable. - PT/OT consulted - given 100 mg IV hydrocortisone in ED, continue with hydrocortisone 50mg Q8h - random cortisol ordered Continue to hold antihypertensive agents with hypotension including losartan, amlodipine, metoprolol - trend CMP #supratherapeutic INR - Likely 2/2 poor po intake of Vit K with above. INR has been reportedly increasing since 06/19. 7.4 at time of admission. Follows with [facility] anticoagulation clinic. - total of 10mg IV Vit K ordered - hold warfarin - trend INR #retroperitoneal hemorrhage vs mass - AP CT showed concern for retroperitoneal hemorrhage vs mass. Low concern for bleeding as hemodynamically stable, abd nontender, denies trauma. - trend CBC - recommend PET scan in outpatient setting as patient stated mass has been present for several years, recent weight loss/anorexia, and fatigue #lactic acidosis - lactate 3.7 -> 1.9, anion gap 14. Likely in the setting of acute dehydration and hypotension. - low concern for infectious causing elevated lactate - CXR negative, biofire negative, UA negative - holding metformin - lactate improved after 2L plasmalyte in ED - continue fluid resuscitation with LR @ 100 ml/hr X2L - trend CMP #hypomagnesemia - 2/2 GI losses with diarrhea and poor po intake. Mag 1.4. - 3 g IV mag ordered - continue home PO supplement - trend Mag #Type II DMon metformin, holding. SSI ordered Pharmacy glycemic consult with stress dose steroids #PMRfollows with Dr. Rodriguez. Has been tapering off 15 mg daily prednisone currently at 2 mg daily over the past 2 years. #Thyroid nodulesnoted on chest CT Follow-up with PCP in outpatient setting #HTN/CAD holding antihypertensives. #Recurrent PEspatient reported when he was 49 years old. 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 Patient presented after referral by his PCP for 3 weeks of weakness, hypotension, URI symptoms, and difficulty with ADLs. He was was found to have a supratherapeutic INR of 7.4 and concern for retroperitoneal hemorrhage first mass on abdomen pelvis CT. He is being admitted for adrenal insufficiency. Patient seen at bedside with his present.Patient is extremely hard of hearing however able to obtain history. He stated for several weeks he has been getting weaker, had poor appetite, had significant weight loss, difficulty with ADLs, and a low blood pressure. They are holding his losartan and amlodipine for this. Typically is able to ambulate without assistance during the daytime and uses a walker at night however has been having even difficulty with this. He also is extremely fatigued and has difficulty with ADLs in the morning. He also endorses a dry cough for about 4 months. He does endorse diarrhea last week, now resolved. Regarding his supratherapeutic INR. He follows with the [facility] anticoagulation clinic and had an INR of 4.8 on 06/19. He held warfarin for 1 day and continued with 5 mg daily after this. On 06/26 his stated it was 6.7 in which she was told to hold warfarin for 2 days. Today would be day 3 and he is due for his warfarin this evening. He has never had issues with his INR other than when he was admitted in 2022. He has been on warfarin since he was about 49 years old for recurrent PEs. As for the retroperitoneal hemorrhage versus mass seen on his CAT scan. Patient stated he has had a palpable mass on his left upper quadrant for several years, palpated at bedside and is firm and mobile. He denies any trauma to the area. He is due for his evening medications including metformin, metoprolol, and warfarin. He has been tapering off 15mg daily prednisone over 2 years. Discussed CODE STATUS with patient and his at bedside. He wishes to be full code currently however if clinically digresses would want to switch to DNR/DNI. He would not want prolonged or extensive measures. General surgery Dr. Avelar reviewed patient's chart and diagnostic imaging. Stated there is no surgical indication at this time. If there is concern for mass or retroperitoneal bleed would recommend transfer as patient will require services that are not present here. Allergies Allergy/AdvReac Type Severity Reaction Status Date / Time bee venom protein (honey bee) Allergy Unknown Anaphylaxis Verified 12/12/24 10:02 Home Medications Medication Instructions Recorded Confirmed Type folic acid 1 mg tablet 1 mg PO DAILY 06/12/19 06/28/25 History metformin 500 mg tablet 500 mg PO BID 06/12/19 06/28/25 History losartan 100 mg tablet 100 mg PO DAILY 09/11/21 06/28/25 History pyridoxine (vitamin B6) 100 mg 100 mg PO DAILY 09/11/21 06/28/25 History tablet (Vitamin B-6) warfarin 5 mg tablet 0 mg PO DAILY 09/11/21 06/28/25 History famotidine 20 mg tablet (Pepcid) 20 mg PO BID 03/04/22 06/28/25 History metoprolol tartrate 25 mg tablet 25 mg PO BID 03/04/22 06/28/25 History triamcinolone acetonide 0.1 % 1 g topical DAILY PRN Rash 03/04/22 06/28/25 History topical cream magnesium 200 mg tablet 400 mg PO DAILY 02/23/23 06/28/25 History tamsulosin 0.4 mg capsule (Flomax) 0.4 mg PO DAILY 02/23/23 06/28/25 History cholecalciferol (vitamin D3) 50 50 mcg PO DAILY 06/08/23 06/28/25 History mcg (2,000 unit) capsule amlodipine 5 mg tablet 5 mg PO DAILY 06/28/25 06/28/25 History prednisone 1 mg tablet 2 mg PO DAILY 06/28/25 06/28/25 History Past Med/Surg History Problem List (Updated 06/29/25 @ 12:41 by Jamilah Ni DO) Weakness Retroperitoneal mass (Acute) Acute hyponatremia (Acute) Supratherapeutic INR (Acute) Hypomagnesemia (Acute) Acute adrenal insufficiency (Acute) Hypomagnesemia Lactic acidosis Retroperitoneal hemorrhage Supratherapeutic INR Acute adrenal insufficiency Chronic kidney disease, stage 3a Spinal stenosis H/O polymyalgia rheumatica Back pain Arthralgia Vitamin D deficiency Anticoagulant long-term use CAD (coronary artery disease) Seizure-like activity S/P TAVR (transcatheter aortic valve replacement) TIA (transient ischemic attack) LBBB (left bundle branch block) Leg swelling Chest discomfort Acute kidney injury Dehydration Elevated troponin Syncope Aortic stenosis Convulsive syncope Peripheral neuropathy Pseudogout Observed seizure-like activity (Acute) BPH with obstruction/lower urinary tract symptoms Type 2 diabetes mellitus (Acute) Elevated PSA (Acute) Hypertension (Acute) Medical History Hypotension Contusion of periorbital region, right Generalized weakness Fall Hx pulmonary embolism Hypercholesterolemia Bronchitis Surgical History Aortic valve replaced S/P colonoscopy Family History Father Cardiac disorder Mother Hypertension Son Nephrolithiasis Other Diabetes Social History Smoking Status: Former smoker Tobacco Type: Cigarettes Second Hand Exposure: No; Do You Dip or Chew Tobacco: No; Hx Alcohol Use: No Hx Substance Use: No Preferred Language: Palestinian Communication Ability: Effective Oil Burner Required: No Beliefs That Will Affect Care: None marital status: Current Living Situation: Spouse Current Living Situation Comment: single family home Other Information That Helps Us Care for You: No Feels Safe at Home: Yes Safety Concerns: Feels Safe At This Time Assistive Devices: Glasses and Walker Review of Systems Review of Systems: see HPI Physical Exam Physical Exam: The patient is awake, alert and oriented 3, well developed and well nourished, normocephalic and atraumatic, in no acute distress. Non-toxic appearing. HEENT- EOMI, mucous membranes dry. Hearing grossly intact. Heart-normal S1 and S2. No murmurs, rubs or gallops. Lungs-clear bilaterally, no respiratory distress, no accessory muscle use. Abdomen-normal bowel sounds and soft. No ascites noted. Non-tender. Firm, mobile, nontender mass to left upper lateral abdominal wall. Extremities- no clubbing, cyanosis, or edema. Psychiatric-normal affect. Results & Data Results & Data Vital Signs (Past 12 Hours) Vital Signs Temp Pulse Pulse Resp BP BP Pulse Ox 06/28/25 19:45 148/84 H 06/28/25 19:45 148/84 H 06/28/25 19:45 20 94 06/28/25 19:42 83 24 93 06/28/25 19:33 83 20 92 06/28/25 19:30 140/81 06/28/25 19:30 140/81 06/28/25 19:27 87 17 95 06/28/25 19:15 140/72 06/28/25 19:03 81 16 92 06/28/25 19:00 84 17 90 06/28/25 19:00 141/77 H 06/28/25 19:00 141/77 H 06/28/25 19:00 141/77 H 06/28/25 19:00 88 20 141/77 H 94 06/28/25 18:57 87 19 92 06/28/25 18:09 85 21 121/74 94 06/28/25 17:15 85 19 147/80 H 97 06/28/25 16:36 98 H 06/28/25 16:15 98 H 22 95 06/28/25 16:05 36.5 C 100 H 22 89/58 L 95 O2 Del Method 06/28/25 19:45 06/28/25 19:45 06/28/25 19:45 Room Air 06/28/25 19:42 06/28/25 19:33 06/28/25 19:30 06/28/25 19:30 06/28/25 19:27 06/28/25 19:15 06/28/25 19:03 06/28/25 19:00 06/28/25 19:00 06/28/25 19:00 06/28/25 19:00 06/28/25 19:00 Room Air 06/28/25 18:57 06/28/25 18:09 06/28/25 17:15 06/28/25 16:36 06/28/25 16:15 Room Air 06/28/25 16:05 Room Air Laboratory Results Reviewed CBC, PT/INR, CMP, Pro-Antonio, bio fire, UA, troponin, mag, lactate, VBG Diagnostic Findings reviewed AP CT, head CT, chest CT, CXR Medications Administered ed - 2l plasmalyte bolus, 2g IV mag, 5mg IV vit k, hydrocortisone 100 mg IV admission - 1 g IV mag, additional 5mg IV vit k Code Status & VTE Plan Code Status full code VTE Prophylaxis Plan VTE Prophylaxis will be ordered: Yes Supervising Physician Co-Signing Physician Notes Attending addendum: I have physically seen this patient, have supervised the ORA's activities, and agree with the H&P unless as otherwise noted. 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 He is referred from his PCP due to 3 weeks of generalized weakness, hypotension, respiratory infection symptoms and difficulty with ADLs. In the emergency department he was found to have a supratherapeutic INR 7.4, and CT scan of abdomen pelvis suggesting retroperitoneal hemorrhage versus mass. He is referred to ED by admitting hospitalist service for evaluation for admission and treatment, including adrenal insufficiency. Adrenal sufficiency- On chronic prednisone 10 mg daily. Given hydrocortisone 100 mg IV in the ED, will admit on 50 mg IV every 8 hours Consult PT/OT Random cortisol level ordered Hypotension- Blood pressure 89/58 in the ED Hold antihypertensives, amlodipine, losartan, mag oxide, metoprolol tartrate Supratherapeutic INR- INR 7.4 on admission lab Follows with the anticoagulation clinic Was given 5 mg IV vitamin K by the ED, will give an additional 5 mg IV now for a total of 10 Holding warfarin Follow serial PT/INR Retroperitoneal hemorrhage versus mass- CT of abdomen pelvis concern for retroperitoneal hemorrhage versus mass. Reversing supratherapeutic INR above is noted Serial CT scans Serial H&H's Initial hemoglobin 11.9 with hematocrit 35.2 General Surgery consulted from the ED, and reports no urgent need for surgery. They will follow-up during stay Lactic acidosis- Initial lactate 3.7 with follow-up 1.9, and anion gap 14 Principal treatment will be rehydration Hold metformin Patient was given 2 L of Plasma-Lyte from the ED, which improved lactate is noted Continue fluid resuscitation with LR at 100 mL/h x 2 L Serial laboratories Hypomagnesemia- Magnesium 1.4 on admission Received 3 g of IV replacement Continue home mag oxide replacement Repeat laboratories in a.m. Diabetes mellitus type 2- Hold metformin Placed on Accu-Cheks with NovoLog SSI PMR- Following with rheumatology Dr. Rodriguez Presently on prednisone taper as noted Will need stress dosing as noted above Remaining orders and notations as noted PG Care Time/CCT Total # of Minutes Spent Total Time Spent with Patient: Total time spent is greater than 50% in coordination of care (as documented) at patient's floor/unit and/or counseling patient: Coding Level of Care Code 63298 INT INP/OBS CARE 3/75MIN Diagnoses Acute adrenal insufficiency E27.40 Supratherapeutic INR R79.1 Retroperitoneal hemorrhage K68.3 Lactic acidosis E87.20 Hypomagnesemia E83.42
[2025-06-28] MEDS: MAGNESIUM SULFATE / D5W 1 GM/100 ML BAG IV ONE (21:19)
[2025-06-28] MEDS: LACTATED RINGER'S 1,000 ML IV SCH (22:57)
[2025-06-29] MEDS ORDERED: ONDANSETRON INJ 2 MG/ML 2 ML VIAL IV PRN (00:20)
[2025-06-29] MEDS ORDERED: GLUCAGON FOR INJ 1 MG VIAL SQ PRN (00:20)
[2025-06-29] MEDS ORDERED: GLUCOSE 40% GEL 15 GM TUBE PO PRN (00:20)
[2025-06-29] MEDS ORDERED: GLUCOSE 10 TAB/TUBE PO PRN (00:20)
[2025-06-29] MEDS ORDERED: DEXTROSE 50% 50 ML SYRINGE IV PRN (00:20)
[2025-06-29] MEDS ORDERED: DOCUSATE SODIUM 100 MG CAP PO PRN (00:20)
[2025-06-29] MEDS ORDERED: PHARMACY GLYCEMIC MGMT CONSULT PRN (00:20)
[2025-06-29] MEDS ORDERED: CARBOHYDRATES FOR HYPOGLYCEMIA PO PRN (00:20)
[2025-06-29] MEDS ORDERED: MELATONIN 3 MG TAB PO PRN (00:20)
[2025-06-29 06:31] LABS: Hematocrit (blood only) 28.3 % (42.0-52.0); Hemoglobin 9.5 g/dl (14.0-18.0); Immature Granulocytes # (auto) 0.05 K/uL (0.01-0.20); Immature Granulocytes % (auto) 1.0 %; Mean Corpuscular Hemoglobin 25.6 pg (25.0-34.0); Mean Corpuscular Volume 76.3 fL (80.0-100.0); Platelet Count 153 K/uL (130-400); RDW Standard Deviation 40.5 fL (36.4-46.3); Red Blood Count 3.71 M/uL (4.70-6.10); White Blood Count 5.20 K/ul (4.8-10.8)
[2025-06-29 06:52] LABS: INR 1.7 (0.9-1.1); Prothrombin Time 17.1 Seconds (9.0-12.0)
[2025-06-29 07:05] LABS: Alanine Aminotransferase 57.0 U/L (7-52); Albumin Globulin Ratio 1.0 (0.9-2); Albumin Level 2.7 gm/dl (3.4-5.0); Alkaline Phosphatase 58.0 U/L (34-104); Anion Gap 9.0 (3-11); Bilirubin,Total 0.6 mg/dl (0.2-1.0); Blood Urea Nitrogen 20.0 mg/dl (6-23); Calcium 8.3 mg/dl (8.6-10.3); Carbon Dioxide 24.0 mmol/L (21-32); Chloride 101.0 mmol/L (98-107); Creatinine Clr Calc Pharmacy 68.4 ml/min; Globulin 2.7 gm/dl (2.5-4.0); Glucose 139.0 mg/dl (70-99(Fasting)); Magnesium 2.0 mg/dl (1.7-2.4); Potassium 4.1 mmol/L (3.5-5.1); Sodium 134.0 mmol/L (136-145); Total Protein 5.4 gm/dl (6.0-8.3)
[2025-06-29 07:26] LABS: Hemoglobin A1C 6.5 % (4.5-5.6)
[2025-06-29] MEDS: FAMOTIDINE 20 MG TAB PO SCH (08:24)
[2025-06-29] MEDS: HYDROCORTISONE SOD 50 MG in SYRINGE 0 ML IV SCH (08:25)
[2025-06-29] MEDS ORDERED: HYDROCORTISONE SOD SUCCINATE 100 MG/2 ML VIAL IV SCH (09:00)
[2025-06-29] MEDS: INSULIN ASPART PER UNIT CHARGE SC SCH (09:34)
[2025-06-29] MEDS: LORazepam 1 MG TAB PO STA (10:36)
[2025-06-29] MEDS: MAGNESIUM OXIDE 400 MG TAB PO SCH (10:37)
[2025-06-29] MEDS: TAMSULOSIN HCL 0.4 MG CAP PO SCH (10:37)
[2025-06-29] MEDS: GADOBUTROL 30ML VIAL IV ONE (12:12)
--- NOTE | 2025-06-29 12:43 | Hospitalist Progress Note ---
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 Patient presented after referral by his PCP for 3 weeks of weakness, hypotension, URI symptoms, and difficulty with ADLs. ED workup revealing of CT abdomen/pelvis concerning for retroperitoneal hemorrhage vs mass, as well as a supratherapeutic INR of 7.4. He is being admitted for weakness in the setting of suspected adrenal insufficiency and supratherapeutic INR. #weakness/adrenal insufficiency #retroperitoneal hemorrhage vs mass - ongoing for 3 weeks with decreased appetite, 13 pound weight loss and decreased ability to complete ADLs without assistance - possibly in setting of adrenal insufficiency as patient is on chronic prednisone 2mg daily. Hypotensive on admission BP 89/58. Na 132, K+ 4.9, AST and ALT mildly elevated, renal function stable. random cortisol 22.81. However, CT ab/pelvis was revealing of concern for retroperitoneal hemorrhage vs mass. - patient remains hemodynamically stable. H&H 9.1 & 28 (slight decrease from hbg 11.9 yesterday, however is likely dilutional because of IV fluids administered). There is less concern for active bleed at this point, given patient stability. 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 Given these MRI findings, patient's new onset weakness is likely in the setting of malignancy which is resulting in the fatigue, decreased energy, appetite and weight loss - will likely need tissue biopsy to confirm diagnosis - PT/OT consulted - given 100 mg IV hydrocortisone in ED, continue with hydrocortisone 50mg Q8h BP remain stable, however will continue to hold antihypertensive agents with hypotension including losartan, amlodipine, metoprolol - trend CMP #supratherapeutic INR - Likely 2/2 poor po intake of Vit K with above. INR has been reportedly increasing since 06/19. 7.4 at time of admission. Follows with [facility] anticoagulation clinic. - IV vit K given on admission. INR today now 1.7 - will continue to hold warfarin, even with INR out of therapeutic range. Concern for thromboembolic event is low at this time. - trend INR #lactic acidosis - lactate 3.7 -> 1.9, anion gap 14. Likely in the setting of acute dehydration and hypotension. - low concern for infectious causing elevated lactate - CXR negative, biofire negative, UA negative - lactate improved after 2L plasmalyte in ED - patient remains without sign of systemic infection or sepsis; hemodynamically stable and afebrile - holding metformin - continue fluid resuscitation with LR @ 100 ml/hr X2L - trend CMP #hypomagnesemia - 2/2 GI losses with diarrhea and poor po intake. Mag 1.4 on admission; replaced with 3g IV mag - Mg 1.4 -> 2.0. - continue home PO supplement - trend Mag #Type II DMon metformin, holding. SSI ordered Pharmacy glycemic consult with stress dose steroids #PMRfollows with Dr. Rodriguez. Has been tapering off 15 mg daily prednisone cur rently at 2 mg daily over the past 2 years. - continue hydrocortisone Iv q8h as above #Thyroid nodulesnoted on chest CT Follow-up with PCP in outpatient setting #HTN/CAD holding antihypertensives. #Recurrent PEspatient reported when he was 49 years old. Holding warfarin as above #BPH - MRI abdomen showing enlarged prostate and irregularity of the wall of the urinary bladder, possible [id number] from chronic urinary bladder outlet obstruction - continue tamsulosin - bladder scan as needed - simeon catheter available if retaining #GERDcontinue famotidine VTE ppx: SCDs, holding chemical Dispo: med/tele Admission and Anticipated Discharge Date Admission Date: June 28, 2025 Supervising Physician Co-Signing Physician Notes I personally examined the patient and verified all mcdaniel points of history and exam, discussed case, and agree with decision making with Dr Ni Patient very sedated after Ativan for MRI. Updated extensively. Vitals noted, in general he is sleeping comfortably appears to be in no distress. HEENT normocephalic atraumatic mucous membranes moist. Breathing unlabored no accessory muscle use good effort. Skin without rashes pallor or icterus. Neuro without focal deficits. 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 Fortunately because by their nature ER is have to cast a "wide net" their workup for what might be causing him illness essentially accidentally found the psoas mass, which otherwise probably would not have been found this soon with such nonspec [facility] symptoms. As a relates to the deconditioningPT/OT eval and treat. As it relates to the malnutrition, dietitian eval and supportive care (he did eat better today), and as it relates to the mass, hopefully radiology will be able to do biopsy on Tuesday. To be clearthere was no retroperitoneal bleeding his Coumadin is for recurrent VTE, not his aortic valvetherefore being subtherapeutic for a few days is reasonable, and if he is below 1.5, we could always utilize 40 of Lovenox for DVT prophylaxis otherwise as above Subjective Seen and examined at bedside this morning. Patient's is at bedside. No acute distress. No overnight events. Feeling well this morning, still reporting decreased appetite, did not eat much of his breakfast this morning. Has not been up and walking around so unable to authorization nurse how patient is feeling compared to baseline. At bedside, his also mentioned Lexx has lost about 13 pounds over 3 weeks, since the onset of this weakness that he has been feeling. Denies chest pain, SOB, abdominal pain, flank pain. Review of Systems Review of Systems: as per hpi Physical Exam Constitutional: WD/WN, vitals as above Respiratory: normal respiratory effort; no respiratory distress, no labored breathing and does not use accessory muscles Auscultation: lungs clear to auscultation bilaterally Cardiovascular: RRR, no murmur, no edema Musculoskeletal: Head/Neck/Chest: normocephalic and head atraumatic Extremities: extremities normal to inspection Skin: no rashes, warm and dry Neurologic: no focal neurological deficits Psychiatric: A+Ox3, euthymic affect Results & Data Results & Data Vital Signs (Past 12 Hours) Vital Signs Temp Pulse Pulse Resp BP BP BP 06/29/25 03:32 36.3 C L 77 18 137/68 06/29/25 00:46 06/29/25 00:30 36.4 C L 90 20 146/77 H 06/28/25 22:58 36.5 C 76 16 129/68 06/28/25 22:21 82 16 06/28/25 22:03 79 18 06/28/25 22:00 123/78 06/28/25 22:00 123/78 06/28/25 21:57 83 14 06/28/25 21:45 79 18 Pulse Ox O2 Del Method 06/29/25 03:32 96 Room Air 06/29/25 00:46 Room Air 06/29/25 00:30 93 Room Air 06/28/25 22:58 95 Room Air 06/28/25 22:21 92 06/28/25 22:03 93 06/28/25 22:00 06/28/25 22:00 06/28/25 21:57 94 06/28/25 21:45 94
--- NOTE | 2025-06-29 12:59 | Magnetic Resonance Report ---
Clinical history: Abnormal CT Technique: Multiple T1 and T2-weighted magnetic resonance images were obtained of the abdomen before and after the administration of 10 cc of Gadavist intravenous gadolinium contrast Comparison is made to the CT dated 06/28/2025 Findings: This examination is limited by artifact Again seen is lobulated enlargement of the left psoas muscle, extending approximately 25 cm craniocaudal and up to 11 x 7 cm in cross-section. This is of intermediate T1 signal intensity and heterogeneous intermediate and mildly high T2 signal intensity. There is apparent heterogeneous enhancement. This lesion extends posteriorly to involve the left posterior paraspinal musculature and also the left iliacus muscle No liver mass lesion is identified. There is no sign of cirrhosis or significant fatty infiltration. The gallbladder appears unremarkable. No bile duct dilatation is noted. The pancreatic duct is of normal caliber. There is no sign of acute pancreatitis. There are several apparent pancreatic cysts, measuring up to 9 mm. No definite pancreatic mass lesion is seen The spleen is of normal size. No focal splenic lesion is evident. The adrenal glands appear unremarkable. No renal mass lesion is seen. There is no hydronephrosis The visualized aorta is of normal caliber. No adenopathy is seen. There is a minimal amount of ascites. No definite abnormality of the abdominal wall musculature is identified. No hernia is seen The prostate is enlarged, measuring 6.2 cm in diameter. There is irregularity of the bladder wall that may be due to trabeculation from chronic bladder outlet obstruction. There is colonic diverticulosis without definite diverticulitis Impression: 1. 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 Tissue diagnosis may be needed 2. Limited examination due to motion artifact 3. Apparent small pancreatic cysts, indeterminate in nature but likely benign congenital or post inflammatory cysts 4. Enlarged prostate. Correlation with PSA levels may be useful 5. Irregularity of the wall of the urinary bladder, which may be due to trabeculation from chronic bladder outlet obstruction 6. Minimal amount of ascites ACT 112: Positive. There are findings on this exam that require communication between the performing entity and the patient following Patient Test Result Information Act ([place] ACT 112) guidelines. Electronically signed by Amador Weinstein 06-29-2025 12:58 PM
--- NOTE | 2025-06-29 14:43 | Pharmacy Report ---
Pharmacy Glycemic Short Note 2 - Date of Service June 29, 2025 - Glycemic Short BSG Results (Last 24 hours): 06/28/25 06/29/25 06/29/25 16:32 05:47 08:20 Glucose 118 H 139 H POC Glucose 128 H 06/29/25 12:41 Glucose POC Glucose 123 H OUTPATIENT ANTIDIABETIC REGIMEN: * metformin 500 mg bid ASSESSMENT: * 79 year old admitted with adrenal insufficiency, elevated INR. Started on hydrocortisone - pharmacy consulted for glycemic management. Typically limited effects seen with this steroid and blood sugar therefore will continue with only novolog SSI for now PLAN FOR INPATIENT GLYCEMIC CONTROL: * Hold outpatient oral diabetes medications * Basal insulin * Lantus - hold * Bolus insulin * NovoLog per scale ACHS or Q6hrs while NPO * Goal Range: Low 110 mg/dL - High 140 mg/dL * Correction Factor: 25 mg/dL/unit * Nutritional / Prandial insulin per carb ratio of 1 unit per 12 grams CHO consumed
--- NOTE | 2025-06-29 17:36 | Billing Data ---
Date of Service June 29, 2025 Coding Level of Care Code 84501 SUB INP/OBS CARE MIN
[2025-06-30 06:00] LABS: Hematocrit (blood only) 27.3 % (42.0-52.0); Hemoglobin 9.4 g/dl (14.0-18.0); Immature Granulocytes # (auto) 0.07 K/uL (0.01-0.20); Immature Granulocytes % (auto) 1.1 %; Mean Corpuscular Hemoglobin 26.4 pg (25.0-34.0); Mean Corpuscular Volume 76.7 fL (80.0-100.0); Platelet Count 156 K/uL (130-400); RDW Standard Deviation 40.7 fL (36.4-46.3); Red Blood Count 3.56 M/uL (4.70-6.10); White Blood Count 6.09 K/ul (4.8-10.8)
[2025-06-30 06:16] LABS: Alanine Aminotransferase 51.0 U/L (7-52); Albumin Globulin Ratio 1.1 (0.9-2); Albumin Level 2.7 gm/dl (3.4-5.0); Alkaline Phosphatase 57.0 U/L (34-104); Anion Gap 7.0 (3-11); Bilirubin,Total 0.6 mg/dl (0.2-1.0); Blood Urea Nitrogen 18.0 mg/dl (6-23); Calcium 8.6 mg/dl (8.6-10.3); Carbon Dioxide 26.0 mmol/L (21-32); Chloride 104.0 mmol/L (98-107); Creatinine Clr Calc Pharmacy 74.1 ml/min; Globulin 2.5 gm/dl (2.5-4.0); Glucose 151.0 mg/dl (70-99(Fasting)); Magnesium 1.7 mg/dl (1.7-2.4); Potassium 4.2 mmol/L (3.5-5.1); Sodium 137.0 mmol/L (136-145); Total Protein 5.2 gm/dl (6.0-8.3)
[2025-06-30 06:29] LABS: INR 1.2 (0.9-1.1); Prothrombin Time 12.8 Seconds (9.0-12.0)
--- NOTE | 2025-06-30 06:58 | Electrocardiogram Report ---
Test Reason : Blood Pressure : */* mmHG Vent. Rate : 92 BPM Atrial Rate : 92 BPM P-R Int : 120 ms QRS Dur : 132 ms QT Int : 364 ms P-R-T Axes : 43 9 141 degrees QTcB Int : 450 ms Normal sinus rhythm Left bundle branch block Abnormal ECG When compared with ECG of 11-Jun-2025 13:51, T wave inversion no longer evident in Inferior leads Confirmed by Perez Kramer ([id number]) on 06/30/2025 6:58:25 AM Referred By: REFERRED SELF Confirmed By: Perez Kramer
--- NOTE | 2025-06-30 08:24 | Hospitalist Progress Note ---
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 Patient presented after referral by his PCP for 3 weeks of weakness, hypotension, URI symptoms, and difficulty with ADLs. ED workup revealing of CT abdomen/pelvis concerning for retroperitoneal hemorrhage vs mass, as well as a supratherapeutic INR of 7.4. He is being admitted for weakness in the setting of suspected adrenal insufficiency and supratherapeutic INR. #weakness/malnutrition/deconditioning - ongoing for at least 3 weeks with decreased appetite, 13 pound weight loss and decreased ability to complete ADLs without assistance. It was initially thought on presentation that these symptoms were the result of adrenal insufficiency as patient is on chronic prednisone for PMR. He was hypotensive on admission BP 89/58, Na 132, K+ 4.9, AST and ALT mildly elevated, renal function stable, random cortisol 22.81. However, during workup in ED, CT ab/pelvis was completed revealing a concern for retroperitoneal hemorrhage vs mass. 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 Given these MRI findings, patient's new onset weakness is likely in the setting of malignancy which is resulting in the fatigue, decreased energy, appetite and weight loss. There is NO evidence of retroperitoneal hemorrhage. Patient continues to be hemodynamically stable and H&H remains stable 9.4 & 27. - will likely need tissue biopsy to confirm diagnosis, plan to discuss with IR tomorrow in hopes of getting this completed on Tuesday - PT/OT eval and treat - dietitian evaluation and continued support/encouragement to eat and drink - continue hydrocortisone 50 mg IV q8h - BP remains stable, however will continue to hold antihypertensives given patient's hypotension on admission - losartan, amlodipine, metoprolol hold - AST & ALT continue to downtrend - 57 & 51, respectfully - CBC and CMP daily - NPO at midnight #supratherapeutic INR Likely 2/2 poor po intake of Vit K with above. INR has been reportedly increasing since 06/19. 7.4 at time of admission. Follows with [facility] anticoagulation clinic. Chronically anticoagulated due to recurrent PE, not due to TAVR - IV vit K given on admission. INR today now 1.2 - lovenox 40mg subq given due to today's INR. - will continue to hold warfarin, even with INR out of therapeutic range. Concern for thromboembolic event is low at this time. Will continue to supplement with lovenox 40mg subq as needed if INR <1.5. - daily INR #lactic acidosis - resolved - lactate 3.7 -> 1.9, anion gap 14. Likely in the setting of acute dehydration and hypotension. - low concern for infectious causing elevated lactate - CXR negative, biofire negative, UA negative - lactate improved after 2L plasmalyte in ED - patient remains without sign of systemic infection or sepsis; hemodynamically stable and afebrile - holding metformin - continue fluid resuscitation with LR @ 80 ml/hr - trend CMP #hypomagnesemia - 2/2 GI losses with diarrhea and poor po intake. Mag 1.4 on admission; replaced with 3g IV mag - Mg 1.7 today. - continue home PO supplement - trend Mag #Type II DMon metformin, holding. SSI ordered Pharmacy glycemic consult with stress dose steroids #PMRfollows with Dr. Rodriguez. Has been tapering off 15 mg daily prednisone currently at 2 mg daily over the past 2 years. - continue hydrocortisone IV q8h as above #Thyroid nodulesnoted on chest CT Follow-up with PCP in outpatient setting #HTN/CAD holding antihypertensives. #Recurrent PEspatient reported when he was 49 years old. Holding warfarin as above #BPH - MRI abdomen showing enlarged prostate and irregularity of the wall of the urinary bladder, possible [id number] from chronic urinary bladder outlet obstruction - continue tamsulosin - bladder scan as needed - simeon catheter available if retaining #GERDcontinue famotidine VTE ppx: SCDs, lovenox 40mg subq if INR <1.5 Dispo: med/surg ; plan to discuss mass with IR tomorrow morning to see if there is chance of biopsy. Patient will be NPO at midnight in anticipation for procedure. Will most likely need acute rehab before patient is safe enough to return home, would still like formal PT/OT evaluation. Anticipate discharge either tomorrow or Tuesday following biopsy. Admission and Anticipated Discharge Date Admission Date: June 28, 2025 Supervising Physician Co-Signing Physician Notes I personally examined the patient and verified all mcdaniel points of history and exam, discussed case, and agree with decision making with Dr Ni feeling weak. was only able to sit in the chair for about 15 minutes. He is awake and alert, was able to discuss everything that I discussed with his yesterdayhe expresses understanding. Vitals noted, in general he is sleeping comfortably appears to be in no distress. HEENT normocephalic atraumatic mucous membranes moist. Breathing unlabored no accessory muscle use good effort. Skin without rashes pallor or icterus. Neuro without focal deficits. 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 Fortunately because by their nature ER is have to cast a "wide net" their workup for what might be causing him illness essentially accidentally found the psoas mass, which otherwise probably would not have been found this soon with such nonspecific symptoms. As a relates to the deconditioningPT/OT eval and treat. As it relates to the malnutrition, dietitian eval and supportive care (he did eat better today), and as it relates to the mass, hopefully radiology will be able to do biopsy on Tuesday. INR is low enough for this, he is not on antiplatelets, I have made him n.p.o. after midnight and put the order in, I did make it clear to patient and that I do not yet know if this will be reachable by IR biopsy, but hopefully will be To be clearthere was no retroperitoneal bleeding his Coumadin is for recurrent VTE, not his aortic valvetherefore being subtherapeutic for a few days is reasonable, and if he is below 1.5, we could always utilize 40 of Lovenox for DVT prophylaxis otherwise as above after biopsy, the plan would be going for a rehab stay, and then having follow- up after biopsy results are back. Subjective Seen and examined at bedside this morning. Patient's in the room during discussion. Reports feeling well today. Has not been OOB much, his expresses that she would like him to be OOB and moving more often, which I agree. Diet improved yesterday, was able to eat more of his meals throughout the day. Ate some eggs and a little toast this morning for breakfast. Denies abdominal pain/N/V. No acute concerns or complaints today. Review of Systems Review of Systems: as per hpi Physical Exam Constitutional: WD/WN, vitals as above Respiratory: normal respiratory effort; no respiratory distress, no labored breathing and does not use accessory muscles Auscultation: lungs clear to auscultation bilaterally Cardiovascular: RRR, no murmur, no edema Musculoskeletal: Head/Neck/Chest: normocephalic and head atraumatic Extremities: extremities normal to inspection Skin: no rashes, warm and dry Neurologic: no acute neurological deficits Psychiatric: A+Ox3, euthymic affect Results & Data Results & Data Vital Signs (Past 12 Hours) Vital Signs Temp Pulse Resp BP Pulse Ox O2 Del Method 06/29/25 22:45 Room Air 06/29/25 22:33 36.7 C 80 14 125/79 94 Room Air Resident Activity Tracking Resident Involvement: Resident Care Provided Care Provided: Adult Hospital Medicine
[2025-06-30] MEDS: ENOXAPARIN INJ 40 MG/0.4 ML SYR SQ ONE (08:39)
[2025-06-30] MEDS: LACTATED RINGER'S 1,000 ML IV SCH (08:43)
--- NOTE | 2025-06-30 13:47 | Pharmacy Report ---
Pharmacy Glycemic Sign Off Nt - Date of Service June 30, 2025 - Assessment & Plan ASSESSMENT: * Pharmacy was consulted by ZANDER Tristan on 06/29 for glycemic control and to write orders per [facility] inpatient glycemic control protocol. * Major changes made by pharmacy to antidiabetic regimen include: * added novolog scale * Patient has been receiving minimal insulin over last 24 hours PLAN FOR INPATIENT GLYCEMIC CONTROL: No changes needed to current regimen. * No basal insulin currently warranted * Continue NovoLog per scale ACHS/Q6hrs while NPO * Goal range = 110-140 mg/dl * CF = 25 mg/dl/unit * CR = 1 unit for ever 12 g CHO consumed * Pharmacy is signing off of glycemic consult and will no longer be making adjustments to inpatient regimen. Please feel free to re-consult if needed. Thank you.
--- NOTE | 2025-06-30 18:25 | Billing Data ---
Date of Service June 30, 2025 Coding Level of Care Code 25274 SUB INP/OBS CARE MIN
[2025-07-01 07:13] LABS: Hematocrit (blood only) 29.0 % (42.0-52.0); Hemoglobin 9.7 g/dl (14.0-18.0); Mean Corpuscular Hemoglobin 26.1 pg (25.0-34.0); Mean Corpuscular Volume 78.0 fL (80.0-100.0); Platelet Count 165 K/uL (130-400); RDW Standard Deviation 41.7 fL (36.4-46.3); Red Blood Count 3.72 M/uL (4.70-6.10); White Blood Count 5.70 K/ul (4.8-10.8)
[2025-07-01 07:34] LABS: Anion Gap 6.0 (3-11); Blood Urea Nitrogen 16.0 mg/dl (6-23); Calcium 8.6 mg/dl (8.6-10.3); Carbon Dioxide 28.0 mmol/L (21-32); Chloride 104.0 mmol/L (98-107); Creatinine Clr Calc Pharmacy 73.4 ml/min; Glucose 115.0 mg/dl (70-99(Fasting)); Potassium 3.8 mmol/L (3.5-5.1); Sodium 138.0 mmol/L (136-145)
[2025-07-01 07:51] LABS: INR 1.2 (0.9-1.1); Prothrombin Time 12.1 Seconds (9.0-12.0)
--- NOTE | 2025-07-01 07:58 | Hospitalist Progress Note ---
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 Patient presented after referral by his PCP for 3 weeks of weakness, hypotension, URI symptoms, and difficulty with ADLs. ED workup revealing of CT abdomen/pelvis concerning for retroperitoneal hemorrhage vs mass, as well as a supratherapeutic INR of 7.4. He is being admitted for weakness in the setting of suspected adrenal insufficiency and supratherapeutic INR. #weakness/malnutrition/deconditioning - ongoing for at least 3 weeks with decreased appetite, 13 pound weight loss and decreased ability to complete ADLs without assistance. It was initially thought on presentation that these symptoms were the result of adrenal insufficiency as patient is on chronic prednisone for PMR. He was hypotensive on admission BP 89/58, Na 132, K+ 4.9, AST and ALT mildly elevated, renal function stable, random cortisol 22.81. However, during workup in ED, CT ab/pelvis was completed revealing a concern for retroperitoneal hemorrhage vs mass. 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 Given these MRI findings, patient's new onset weakness is likely in the setting of malignancy which is resulting in the fatigue, decreased energy, appetite and weight loss. There is NO evidence of retroperitoneal hemorrhage. Patient continues to be hemodynamically stable and H&H remains stable 9.7 & 29. - may need tissue biopsy to confirm diagnosis, discussed with IR on 07/01, who believe biopsy may not have diagnostic benefit at this time and that psoas muscle is enlarged due to hemorrhage, advised pt to complete CT in 1 month and to follow with biopsy if CT does not show anything - PT/OT eval and treat - dietitian evaluation and continued support/encouragement to eat and drink - continue hydrocortisone 50 mg IV q8h - BP remains stable, however will continue to hold antihypertensives given patient's hypotension on admission - losartan, amlodipine, metoprolol hold - AST & ALT continue to downtrend - 57 & 51, respectfully - CBC and CMP daily - orthostatic vitals today, >10mmHg change in diastolic value, administered 1 L NS fluid on 07/01 - IV Morphine, PO Tylenol, HS Gabapentin, lidocaine patch, heating pad for pain management #supratherapeutic INR Likely 2/2 poor PO intake of Vit K with above. INR has been reportedly increasing since 06/19. 7.4 at time of admission. Follows with [facility] anticoagulation clinic. Chronically anticoagulated due to recurrent PE, not due to TAVR - IV vit K given on admission. INR today now 1.2 - Lovenox 40mg subq given 06/30 to 1.2 INR. - Continue to hold warfarin, even with INR out of therapeutic range. Concern for thromboembolic event is low at this time. Previously supplementing with lovenox 40mg subq as needed if INR <1.5, however will hold with this after speaking with IR and there being a chance for bleed - daily PT & INR #lactic acidosis - resolved - lactate 3.7 -> 1.9, anion gap 14. Likely in the setting of acute dehydration and hypotension. - low concern for infectious causing elevated lactate - CXR negative, biofire negative, UA negative - lactate improved after 2L plasmalyte in ED - patient remains without sign of systemic infection or sepsis; hemodynamically stable and afebrile - holding metformin - continue fluid resuscitation with LR @ 80 ml/hr - trend CMP #hypomagnesemia - 2/2 GI losses with diarrhea and poor po intake. Mag 1.4 on admission; replaced with 3g IV mag - Mg 1.7 06/30. - continue home PO supplement - Mg 2g given on 07/01 - trend Mag #Type II DMon metformin, holding. SSI ordered Pharmacy glycemic consult with stress dose steroids #PMRfollows with Dr. Rodriguez. Has been tapering off 15 mg daily prednisone currently at 2 mg daily over the past 2 years. - continue hydrocortisone IV q8h as above #Thyroid nodulesnoted on chest CT Follow-up with PCP in outpatient setting #HTN/CAD holding antihypertensives. #Recurrent PEspatient reported when he was 49 years old. Holding warfarin as above #BPH - MRI abdomen showing enlarged prostate and irregularity of the wall of the urinary bladder, possible [id number] from chronic urinary bladder outlet obstruction - continue tamsulosin - bladder scan as needed - simeon catheter available if retaining #GERDcontinue famotidine VTE ppx: SCDs, lovenox 40mg subq if INR <1.5 Dispo: med/surg; Will most likely need acute rehab before patient is safe enough to return home, would still like formal PT/OT evaluation. Admission and Anticipated Discharge Date Admission Date: June 28, 2025 Supervising Physician Co-Signing Physician Notes Attending Attestation & Progress Note: Pt seen/examined, chart reviewed, care plan d/w resident physician Dr Kandy Douglas. I agree w/ the mcdaniel components of her progress note documentation with the fo fely addition - * acute blood loss anemia Patient c/o severe left lower back pain with extension onto the upper L buttock. Pain not worsened with flexing the left hip. He reports nightsweats for some period of time - couple weeks? He has lost weight recently. Has simply felt poorly with extreme fatigue. VSS, afebrile gen - lying in bed; when he rolls he has pain in the left low back mouth - MM very dry neck - no JVD, lymph nodes b/l vs prominent submandibular glands b/l heart - RRR, s1 s2 lungs - CTA b/l back - neg Nobles-Day's sign, no obvious deformity abd - soft NT ND BS+ ext - no edema, pulses 2+ b/l skin - mild pallor labs: Hb 11.9 --> 9.7 imaging from this admission reviewed A/P: 1. Left psoas/retroperitoneal mass/hemorrhage - -case d/w IR today; after reviewing all imaging radiology does not feel that IR biopsy/drainage will yield a diagnosis -radiology feels that much of the mass is hemorrhage -repeat CBC am -gen surg was consulted for their opinion as well 2. supratherapeutic INR - resolved -likely due to poor PO intake leading to unopposed action of coumadin 3. acute blood loss anemia - 2nd to #1 4. weight loss, nightsweats - etiology? -if #1 is a true mass consider lymphoma vs sarcoma vs other 5. low MCV - check Fe studies in am 6. low back pain - 2nd to #1 - increase pain meds, schedule tylenol 1gm TID, heating pad if available Luis Mota MD Subjective Patient is complaining of L lower back pain today. States the pain is very severe and uncomfortable. Denies CP, AP, SOB, urinary sx. States he has lost 30 pounds in the past few months and feels tired. Reports night sweats for past week. Reports issues with balance, attempted to ambulate around the room but felt dizzy within 15 min. Review of Systems Review of Systems: All systems reviewed & are unremarkable except as noted in HPI & below Physical Exam Constitutional: WD/WN, vitals as above Respiratory: normal respiratory effort, lungs clear to auscultation Cardiovascular: RRR, no murmur, no edema Gastrointestinal (Abdomen): normal bowel sounds, soft, nontender, no hepatosplenomegaly Skin: no rashes, warm and dry Psychiatric: A+Ox3, euthymic affect Results & Data Results & Data Vital Signs (Past 12 Hours) Vital Signs Temp Pulse Resp BP BP Pulse Ox O2 Del Method 07/01/25 07:43 36.8 C 84 18 168/75 H 93 Room Air 06/30/25 23:39 36.6 C 76 16 157/81 H 94 Room Air Resident Activity Tracking Resident Involvement: Resident Care Provided Care Provided: Adult Hospital Medicine
[2025-07-01] MEDS ORDERED: ENOXAPARIN INJ 40 MG/0.4 ML SYR SQ SCH (10:00)
[2025-07-01] MEDS: KETOROLAC TROMETHAMINE 15 MG/ML VIAL IV PRN (10:05)
[2025-07-01] MEDS: ACETAMINOPHEN 500 MG TAB PO PRN (11:05)
[2025-07-01] MEDS: MAGNESIUM SULFATE / D5W 1 GM/100 ML BAG IV SCH (11:10)
--- NOTE | 2025-07-01 19:36 | Surgery Consultation ---
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 The patient was worked up in the ED and was found to have a supratherapeutic INR (7.4) and CT imaging concerning for retroperitoneal hemorrhage vs mass (NO evidence of retroperitoneal hemorrhage). The IR team was consulted for possible biopsy however due to psoas muscle being enlarged they believe repeating CT imaging in about a months time and possibly obtaining a biopsy at that time. The surgical team was also consulted for further evaluation. The patient was seen and evaluated this evening at bedside, from a surgical standpoint recommend the following: -Continue to treat patient conservatively, currently here is no surgical intervention required. -Continue to trend H&H -Patient has remained hemodynamically stable, however if he has any signs of active bleeding, recommend repeat imaging and possible transfer to outside facility for intervention. -Will discuss patient's case with attending surgeon, Dr. Alejandro, and will provide any additional recommendations. (2) Supratherapeutic INR: (3) Weakness: (4) Acute hyponatremia: Supervising Physician Co-Signing Physician Notes The CT and MRI images were personally viewed interpreted by myself He does have a large left-sided retroperitoneal versus psoas mass We did discuss the case with radiology who feels this is more likely a hematoma than malignancy and recommended a repeat CT scan in 1 month No role for surgical biopsy or drainage of the hematoma Would certainly reach out to surgical oncology at a tertiary care center if malignancy needs to be ruled out Surgery will sign off at this time, please call with any questions or concerns History of Present Illness Reason for Consultation: retroperitoneal hemorrhage vs mass History of Present Illness The patient is an 79-year-old male with a PMH of PMR on chronic prednisone, aortic stenosis s/p TAVR, 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 The patient was worked up in the ED and was found to have a supratherapeutic INR (7.4) and CT imaging concerning for retroperitoneal hemorrhage vs mass (NO evidence of retroperitoneal hemorrhage) and he was admitted to the medical service. Due to CT findings IR team was consulted for possible biopsy however due to psoas muscle being enlarged they believe treating the patient conservatively for now and repeating CT imaging in about a months time and possibly obtaining a biopsy at that time. However, the general surgery was consulted for evaluation because of these findings. The patient was seen and evaluated at bedside this evening. He is accompanied by his who helps provide some history due to the patient being significantly hard of hearing. Both the patient, and his , state that over the last few weeks he has had poor appetite, weight loss, and started with pain in his left hip region. He states the pain has been progressively getting worse and has made it difficult for him to walk. He denies any recent falls or trauma to the area. Due to his INR level of 6.7 on 06/26 his Warfarin was held by his PCP and since admission his anticoagulation has continued to be held. Through his hospital stay the patient has remained hemodynamically stable, H&H 9.7 today. Allergies Allergy/AdvReac Type Severity Reaction Status Date / Time bee venom protein (honey bee) Allergy Unknown Anaphylaxis Verified 12/12/24 10:02 Home Medications Medication Instructions Recorded Confirmed Type folic acid 1 mg tablet 1 mg PO DAILY 06/12/19 06/28/25 History metformin 500 mg tablet 500 mg PO BID 06/12/19 06/28/25 History losartan 100 mg tablet 100 mg PO DAILY 09/11/21 06/28/25 History pyridoxine (vitamin B6) 100 mg 100 mg PO DAILY 09/11/21 06/28/25 History tablet (Vitamin B-6) warfarin 5 mg tablet 0 mg PO DAILY 09/11/21 06/28/25 History famotidine 20 mg tablet (Pepcid) 20 mg PO BID 03/04/22 06/28/25 History metoprolol tartrate 25 mg tablet 25 mg PO BID 03/04/22 06/28/25 History triamcinolone acetonide 0.1 % 1 g topical DAILY PRN Rash 03/04/22 06/28/25 History topical cream magnesium 200 mg tablet 400 mg PO DAILY 02/23/23 06/28/25 History tamsulosin 0.4 mg capsule (Flomax) 0.4 mg PO DAILY 02/23/23 06/28/25 History cholecalciferol (vitamin D3) 50 50 mcg PO DAILY 06/08/23 06/28/25 History mcg (2,000 unit) capsule amlodipine 5 mg tablet 5 mg PO DAILY 06/28/25 06/28/25 History prednisone 1 mg tablet 2 mg PO DAILY 06/28/25 06/28/25 History Patient History Medical History Hypotension Contusion of periorbital region, right Generalized weakness Fall Hx pulmonary embolism Hypercholesterolemia Bronchitis Surgical History Aortic valve replaced S/P colonoscopy Family History Father Cardiac disorder Mother Hypertension Son Nephrolithiasis Other Diabetes Social History Smoking Status: Former smoker Tobacco Type: Cigarettes Second Hand Exposure: No; Do You Dip or Chew Tobacco: No; Hx Alcohol Use: No Hx Substance Use: No Preferred Language: Slovak Communication Ability: Effective Detective Supervisor Required: No Beliefs That Will Affect Care: None marital status: Current Living Situation: Spouse Current Living Situation Comment: single family home Other Information That Helps Us Care for You: No Feels Safe at Home: Yes Safety Concerns: Feels Safe At This Time Assistive Devices: Lift Chair, Raised Toilet Seat and Walker Review of Systems Constitutional: + chills, + weakness and + weight loss; no fever Respiratory: + cough (dry cough ) Cardiovascular: no chest pain and no palpitations Gastrointestinal: no abdominal pain, no bloating, no nausea and no vomiting Physical Exam Constitutional: WD/WN, vitals as above Respiratory: normal respiratory effort; no respiratory distress and no labored breathing Cardiovascular: Rate/Rhythm: regular rate Gastrointestinal (Abdomen): Soft, nondistended, nontender to palpation. Firm, mobile, nontender mass to left upper lateral abdominal wall. Skin: no rashes, warm and dry Psychiatric: A+Ox3, euthymic affect Results & Data Vital Signs (Past 12 Hours) Vital Signs Temp Pulse Resp BP Pulse Ox O2 Del Method 07/01/25 17:01 36.8 C 76 20 145/78 H 95 Room Air 07/01/25 07:43 36.8 C 84 18 168/75 H 93 Room Air Diagnostic Findings EXAMINATION: CT of the abdomen and pelvis performed after the administration of IV contrast TECHNIQUE: Helical CT images from the lung bases through the symphysis pubis were obtained with contrast. Coronal and sagittal reformatted images were generated at a workstation for further assessment. Dose reduction techniques were achieved by using automatic exposure control and/or adjustment of mA and/or kV according to patient size and/or use of iterative reconstruction technique. COMPARISON: Same-day chest CT HISTORY: Abdominal pain FINDINGS: Lower chest: A small left pleural effusion demonstrates increased attenuation. There is elevation of the left hemidiaphragm. Liver: No suspicious liver lesions. Portal veins appear patent. Gallbladder: No gallstones. No evidence of acute cholecystitis. Spleen: Normal size. Pancreas: No suspicious pancreatic lesions. The pancreatic duct is not dilated. Adrenal glands: No adrenal nodules. Kidneys: No hydronephrosis or obstructing renal stones. Bladder / Pelvic organs: The prostate gland is significantly enlarged. The urinary bladder is normal.. Bowel: No bowel obstruction. No abnormal bowel wall thickening. The appendix is unremarkable. Lymph nodes: No retroperitoneal, mesenteric, or pelvic lymphadenopathy. Peritoneum / Retroperitoneum: As noted on the chest CT, there is thickening of the left diaphragmatic torres medially, which appears high in attenuation. Further inferiorly in the retroperitoneum, there is extensive rounded high density, lateral to the psoas muscle, and the psoas muscle is also enlarged. Mild fat stranding is seen to overlie this area posteriorly within the peritoneal space, which extends into the left paracolic gutter. Vessels: No infrarenal aortic aneurysm. Heavy aortoiliac calcification. Bones and soft tissues: No suspicious lesion in the bones. IMPRESSION: Enlargement of the left psoas muscle as well as the left diaphragmatic torres, which is high in density, with additional rounded area of high attenuation abnormality lateral to the psoas, as well as some fat stranding seen anterior to this region. Findings overall favor retroperitoneal hemorrhage, over that of a malignancy, although which is difficult to entirely exclude. A distinctly enhancing mass is not definitely seen, and the area appears homogeneously hyperattenuating. Additionally, a tiny left pleural effusion is increased in attenuation, and favors a hemothorax. If the findings do not resolve, or there is further clinical concern, both PET/CT as well as multiphasic MRI would be helpful for further evaluation. Electronically signed by Erasmo Lezama 06-28-2025 7:18 PM MRI Abdomen: Clinical history: Abnormal CT Technique: Multiple T1 and T2-weighted magnetic resonance images were obtained of the abdomen before and after the administration of 10 cc of Gadavist intravenous gadolinium contrast Comparison is made to the CT dated 06/28/2025 Findings: This examination is limited by artifact Again seen is lobulated enlargement of the left psoas muscle, extending approximately 25 cm craniocaudal and up to 11 x 7 cm in cross-section. This is of intermediate T1 signal intensity and heterogeneous intermediate and mildly high T2 signal intensity. There is apparent heterogeneous enhancement. This lesion extends posteriorly to involve the left posterior paraspinal musculature and also the left iliacus muscle No liver mass lesion is identified. There is no sign of cirrhosis or significant fatty infiltration. The gallbladder appears unremarkable. No bile duct dilatation is noted. The pancreatic duct is of normal caliber. There is no sign of acute pancreatitis. There are several apparent pancreatic cysts, measuring up to 9 mm. No definite pancreatic mass lesion is seen The spleen is of normal size. No focal splenic lesion is evident. The adrenal glands appear unremarkable. No renal mass lesion is seen. There is no hydronephrosis The visualized aorta is of normal caliber. No adenopathy is seen. There is a minimal amount of ascites. No definite abnormality of the abdominal wall musculature is identified. No hernia is seen The prostate is enlarged, measuring 6.2 cm in diameter. There is irregularity of the bladder wall that may be due to trabeculation from chronic bladder outlet obstruction. There is colonic diverticulosis without definite diverticulitis Impression: 1. 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 Tissue diagnosis may be needed 2. Limited examination due to motion artifact 3. Apparent small pancreatic cysts, indeterminate in nature but likely benign congenital or post inflammatory cysts 4. Enlarged prostate. Correlation with PSA levels may be useful 5. Irregularity of the wall of the urinary bladder, which may be due to trabeculation from chronic bladder outlet obstruction 6. Minimal amount of ascites PG Care Time/CCT Total # of Minutes Spent Total Time Spent with Patient: Total time spent is greater than 50% in coordination of care (as documented) at patient's floor/unit and/or counseling patient: [place] [address] INT INP/OBS CARE MIN Patient Type New Medical Decision Making Straight Forward Diagnoses Retroperitoneal mass R19.00 Supratherapeutic INR R79.1 Weakness R53.1 Acute hyponatremia E87.1
--- NOTE | 2025-07-01 20:17 | Billing Data ---
Date of Service July 01, 2025 Coding Level of Care Code 05562 SUB INP/OBS CARE MIN
[2025-07-01] MEDS: SODIUM CHLORIDE 0.9% 1,000 ML IV SCH (20:39)
[2025-07-01] MEDS: LIDOCAINE 5% 1 PATCH TD STA (20:39)
[2025-07-01] MEDS: ACETAMINOPHEN 500 MG TAB PO SCH (20:40)
[2025-07-01] MEDS: GABAPENTIN 100 MG CAP PO SCH (20:40)
[2025-07-01] MEDS: REMOVE LIDODERM PATCH SCH (20:41)
[2025-07-01] MEDS: MoRPHine SULFATE 2 MG/ML CARP IV PRN (21:55)
[2025-07-02 06:29] LABS: Hematocrit (blood only) 30.1 % (42.0-52.0); Hemoglobin 10.2 g/dl (14.0-18.0); Mean Corpuscular Hemoglobin 26.1 pg (25.0-34.0); Mean Corpuscular Volume 77.0 fL (80.0-100.0); Platelet Count 155 K/uL (130-400); RDW Standard Deviation 41.3 fL (36.4-46.3); Red Blood Count 3.91 M/uL (4.70-6.10); White Blood Count 5.12 K/ul (4.8-10.8)
[2025-07-02 06:44] LABS: Anion Gap 7 (3-11); Blood Urea Nitrogen 20 mg/dl (6-23); Calcium 8.2 mg/dl (8.6-10.3); Carbon Dioxide 27 mmol/L (21-32); Chloride 103 mmol/L (98-107); Creatinine Clr Calc Pharmacy 60.2 ml/min; Glucose 107 mg/dl (70-99(Fasting)); Potassium 4.0 mmol/L (3.5-5.1); Sodium 137 mmol/L (136-145)
[2025-07-02 06:47] LABS: Iron 14 mcg/dl (35-175); Magnesium 1.4 mg/dl (1.7-2.4); Transferrin < 95 mg/dl (200-360)
[2025-07-02 06:59] LABS: INR 1.2 (0.9-1.1); Prothrombin Time 12.3 Seconds (9.0-12.0)
[2025-07-02 07:42] LABS: Ferritin 2508.0 ng/ml (8-388)
[2025-07-02] MEDS: MAGNESIUM SULFATE / D5W 1 GM/100 ML BAG IV SCH (08:00)
--- NOTE | 2025-07-02 08:13 | Hospitalist Progress Note ---
Date of Service July 02, 2025 Assessment & Plan (1) Weakness: (2) Acute hyponatremia: (3) Acute adrenal insufficiency: (4) Chronic kidney disease, stage 3a: (5) Retroperitoneal mass: Plan Patient is an 79-year-old male with past medical history of PMR on chronic prednisone, aortic stenosis s/p TAVR, 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 Patient presented after referral by his PCP for 3 weeks of weakness, hypotension, URI symptoms, and difficulty with ADLs. ED workup revealing of CT abdomen/pelvis concerning for retroperitoneal hemorrhage vs mass, as well as a supratherapeutic INR of 7.4. He is being admitted for weakness in the setting of suspected adrenal insufficiency and supratherapeutic INR. #weakness/malnutrition/deconditioning - ongoing for at least 3 weeks with decreased appetite, 13 pound weight loss and decreased ability to complete ADLs without assistance. It was initially thought on presentation that these symptoms were the result of adrenal insufficiency as patient is on chronic prednisone for PMR. He was hypotensive on admission BP 89/58, Na 132, K+ 4.9, AST and ALT mildly elevated, renal function stable, random cortisol 22.81. However, during workup in ED, CT ab/pelvis was completed revealing a concern for retroperitoneal hemorrhage vs mass. 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 Given these MRI findings, patient's new onset weakness is likely in the setting of malignancy which is resulting in the fatigue, decreased energy, appetite and weight loss. There is NO evidence of retroperitoneal hemorrhage. Patient continues to be hemodynamically stable and H&H remains stable 9.7 & 29. - may need tissue biopsy to confirm diagnosis, discussed with IR on 07/01, who believe biopsy may not have diagnostic benefit at this time and that psoas muscle is enlarged due to hemorrhage, advised pt to complete CT in 1 month and to follow with biopsy if CT does not show anything - PT/OT eval and treat - dietitian evaluation and continued support/encouragement to eat and drink - continue hydrocortisone 50 mg IV q8h - BP remains stable, however will continue to hold antihypertensives given patient's hypotension on admission - losartan, amlodipine, metoprolol hold - AST & ALT continue to downtrend - 57 & 51, respectfully - CBC and CMP daily - orthostatic vitals today, >10mmHg change in diastolic value, administered 1 L NS fluid on 07/01 - IV Morphine, PO Tylenol, HS Gabapentin, lidocaine patch, heating pad for pain management - Heme consult placed, state he may need to be seen at tertiary center for further workup and possibly inpatient chemo, patient informed, will discuss in AM with MD tomorrow - ESR, uric acid pending #supratherapeutic INR Likely 2/2 poor PO intake of Vit K with above. INR has been reportedly increasing since 06/19. 7.4 at time of admission. Follows with [facility] anticoagulation clinic. Chronically anticoagulated due to recurrent PE, not due to TAVR - IV vit K given on admission. INR today now 1.2 - Lovenox 40mg subq given 06/30 to 1.2 INR. - Continue to hold warfarin, even with INR out of therapeutic range. Concern for thromboembolic event is low at this time. Previously supplementing with lovenox 40mg subq as needed if INR <1.5, however will hold with this after speaking with IR and there being a chance for bleed - daily PT & INR #lactic acidosis - resolved - lactate 3.7 -> 1.9, anion gap 14. Likely in the setting of acute dehydration and hypotension. - low concern for infectious causing elevated lactate - CXR negative, biofire negative, UA negative - lactate improved after 2L plasmalyte in ED - patient remains without sign of systemic infection or sepsis; hemodynamically stable and afebrile - holding metformin - continue fluid resuscitation with LR @ 80 ml/hr - trend CMP #hypomagnesemia - 2/2 GI losses with diarrhea and poor po intake. Mag 1.4 on admission; replaced with 3g IV mag - Mg 1.7 06/30. - continue home PO supplement - Mg 2g given on 07/01 - Mg 4g given on 07/02 - trend Mag #Type II DMon metformin, holding. SSI ordered Pharmacy glycemic consult with stress dose steroids #PMRfollows with Dr. Rodriguez. Has been tapering off 15 mg daily prednisone currently at 2 mg daily over the past 2 years. - continue hydrocortisone IV q8h as above #Thyroid nodulesnoted on chest CT Follow-up with PCP in outpatient setting #HTN/CAD holding antihypertensives. #Recurrent PEspatient reported when he was 49 years old. Holding warfarin as above - Consider starting subq Heparin tomorrow #BPH - MRI abdomen showing enlarged prostate and irregularity of the wall of the urinary bladder, possible [id number] from chronic urinary bladder outlet obstruction - continue tamsulosin - bladder scan as needed - simeon catheter available if retaining #GERDcontinue famotidine VTE ppx: SCDs, lovenox 40mg subq if INR <1.5 Dispo: med/surg; Will most likely need acute rehab before patient is safe enough to return home Admission and Anticipated Discharge Date Admission Date: June 28, 2025 Supervising Physician Co-Signing Physician Notes Attending Attestation & Progress Note: Pt seen/examined, chart reviewed, care plan d/w resident physician Dr Kandy Douglas. I agree w/ the mcdaniel components of her progress note documentation with the following additions - * acute blood loss anemia * toxic encephalopathy from pain meds, gabapentin, etc.; can't rule out hospital psychosis confused today. very tired/fatigued. had drenching sweats this am per his who was at bedside during rounds. appetite remains poor. pain IS better with pain meds, however. VSS, afebrile, HRs top-normal in the 90s gen - lying in bed; confused; hearing impaired mouth - MM remain very dry neck - no JVD heart - RRR, s1 s2, 2/6 GIOVANA LSB lungs - CTA b/l back - neg Nobles-Day's sign abd - soft NT ND BS+; no HSM ext - no edema, pulses 2+ b/l labs: Hb 11.9 --> 9.7 --> 10.2 Fe studies - Fe 14, Transferrin <95, ferritin 2508 blood cx's negative A/P: 79yo male with PMR on chronic prednisone, aortic stenosis s/p TAVR, 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 Recent night-sweats, weight loss (at least 6kg in the last month), failure to thrive, poor appetite, left low back pain. 1. Left psoas/retroperitoneal mass/hemorrhage - -case d/w IR on 07/01; after reviewing all imaging radiology does not feel that IR biopsy/drainage will yield a diagnosis -radiology feels that much of the mass is hemorrhage -H/H stable suggesting bleeding has stopped/tamponaded -gen surg was consulted for their opinion as well - they, too, do not recommend intervention here at [facility] -in light of elevated ferritin, weight loss, nightsweats, etc - mass is concerning for lymphoma vs sarcoma vs other -recommend discussing his case with on-call heme/onc -transfer to tertiary care center for surg onc consultation?? -check a sed rate and crp -cont to hold coumadin 2. supratherapeutic INR - resolved -likely due to poor PO intake leading to unopposed action of coumadin 3. acute blood loss anemia - 2nd to #1; stable H/H today 4. mild-moderate protein calorie malnutrition, weight loss (12 pounds, about 6% body weight loss), nightsweats - etiology? -if #1 is a true mass consider lymphoma vs sarcoma vs other -see discussion above 5. low MCV - checked Fe studies - c/w anemia of chronic disease; worrisome that the L retroperitoneal process is pathologic 6. low back pain - 2nd to #1 - adjust pain meds due to confusion, cont scheduled tylenol 1gm TID 7. toxic encephalpathy - -2nd pain meds? -2nd to gabapentin? -other? -hospital psychosis also possible -consider stopping gabapentin -consider changing pain meds 8. PMR - cont prednisone 2mg daily. updated at bedside appreciate gen surg input will speak with heme/onc I suspect in the end he may need transfer to tertiary care for biopsy and/or intervention of the mass Luis Mota MD Subjective Patient is slightly altered this morning. assists with history. Patient states he is not in any pain. Denies CP, palpitations, SOB. He feels tired and continues to have sweating episodes. mentions he does not do well on pain medications as he gets very confused. Denies blood in stool or urine. Review of Systems Review of Systems: All systems reviewed & are unremarkable except as noted in HPI & below Physical Exam Constitutional: WD/WN, vitals as above Respiratory: normal respiratory effort, lungs clear to auscultation Cardiovascular: RRR, no murmur, no edema Gastrointestinal (Abdomen): normal bowel sounds, soft, nontender, no hepatosplenomegaly Psychiatric: Orientation: + not alert (confused) Results & Data Results & Data Vital Signs (Past 12 Hours) Vital Signs Temp Pulse Resp BP Pulse Ox O2 Del Method 07/02/25 07:00 36.3 C L 105 H 16 162/72 H 93 Room Air 07/01/25 22:56 36.6 C 95 H 18 163/85 H 95 Room Air 07/01/25 20:15 37.4 C Resident Activity Tracking Resident Involvement: Resident Care Provided Care Provided: Adult Hospital Medicine
[2025-07-03 07:31] LABS: Hematocrit (blood only) 31.3 % (42.0-52.0); Hemoglobin 10.5 g/dl (14.0-18.0); Mean Corpuscular Hemoglobin 25.9 pg (25.0-34.0); Mean Corpuscular Volume 77.1 fL (80.0-100.0); Platelet Count 154 K/uL (130-400); RDW Standard Deviation 41.5 fL (36.4-46.3); Red Blood Count 4.06 M/uL (4.70-6.10); White Blood Count 5.22 K/ul (4.8-10.8)
[2025-07-03 07:50] LABS: Anion Gap 8.0 (3-11); Blood Urea Nitrogen 22.0 mg/dl (6-23); Calcium 8.4 mg/dl (8.6-10.3); Carbon Dioxide 25.0 mmol/L (21-32); Chloride 102.0 mmol/L (98-107); Creatinine Clr Calc Pharmacy 74.9 ml/min; Glucose 107.0 mg/dl (70-99(Fasting)); Potassium 4.5 mmol/L (3.5-5.1); Sodium 135.0 mmol/L (136-145); Uric Acid 6.1 mg/dl (2.6-7.2)
[2025-07-03 08:02] LABS: INR 1.2 (0.9-1.1); Prothrombin Time 12.4 Seconds (9.0-12.0)
--- NOTE | 2025-07-03 09:39 | Hospitalist Progress Note ---
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 Patient presented after referral by his PCP for 3 weeks of weakness, hypotension, URI symptoms, and difficulty with ADLs. ED workup revealing of CT abdomen/pelvis concerning for retroperitoneal hemorrhage vs mass, as well as a supratherapeutic INR of 7.4. He is being admitted for weakness in the setting of suspected adrenal insufficiency and supratherapeutic INR. #weakness/malnutrition/deconditioning - ongoing for at least 3 weeks with decreased appetite, 13 pound weight loss and decreased ability to complete ADLs without assistance. It was initially thought on presentation that these symptoms were the result of adrenal insufficiency as patient is on chronic prednisone for PMR. He was hypotensive on admission BP 89/58, Na 132, K+ 4.9, AST and ALT mildly elevated, renal function stable, random cortisol 22.81. However, during workup in ED, CT ab/pelvis was completed revealing a concern for retroperitoneal hemorrhage vs mass. 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 Given these MRI findings, patient's new onset weakness is likely in the setting of malignancy which is resulting in the fatigue, decreased energy, appetite and weight loss. There is NO evidence of retroperitoneal hemorrhage. Patient continues to be hemodynamically stable and H&H remains stable 10.5 & 31.3. - may need tissue biopsy to confirm diagnosis, discussed with IR on 07/01, who believe biopsy may not have diagnostic benefit at this time and that psoas muscle is enlarged due to hemorrhage, advised pt to complete CT in 1 month and to follow with biopsy if CT does not show anything - PT/OT eval and treat - dietitian evaluation and continued support/encouragement to eat and drink - continue hydrocortisone 50 mg IV q8h - BP remains stable, however will continue to hold antihypertensives given patient's hypotension on admission - losartan, amlodipine, metoprolol hold - AST & ALT continue to downtrend - 57 & 51, respectfully - CBC and CMP daily - orthostatic vitals 07/01, >10mmHg change in diastolic value, administered 1 L NS fluid on 07/01 - IV Morphine, PO Tylenol, HS Gabapentin, lidocaine patch, heating pad for pain management - Heme consult placed, state he may need to be seen at tertiary center for further workup and possibly inpatient chemo, patient informed, prefer [facility] - spoke with [facility]/IR today, plan to shift patient to SNF facility until outpatient [facility] appt to schedule tissue biopsy, anticipate he will be scheduled relatively fast due to imminent concern - ESR elevated 61, uric acid WNL #tachycardia - HRs ranging 93-111s - could be related to pain response vs. d/c metoprolol on admission - restart home metoprolol tartrate 25mg BID, monitor #supratherapeutic INR Likely 2/2 poor PO intake of Vit K with above. INR has been reportedly increasing since 06/19. 7.4 at time of admission. Follows with [facility] anticoagulation clinic. Chronically anticoagulated due to recurrent PE, not due to TAVR - IV vit K given on admission. INR today now 1.2 - Lovenox 40mg subq given 06/30 due to 1.2 INR. - Continue to hold warfarin, even with INR out of therapeutic range. Concern for thromboembolic event is low at this time. Previously supplementing with lovenox 40mg subq as needed if INR <1.5, however will hold with due to hemorrhage risk - daily PT & INR #lactic acidosis - resolved - lactate 3.7 -> 1.9, anion gap 14. Likely in the setting of acute dehydration and hypotension. - low concern for infectious causing elevated lactate - CXR negative, biofire negative, UA negative - lactate improved after 2L plasmalyte in ED - patient remains without sign of systemic infection or sepsis; hemodynamically stable and afebrile - holding metformin - previous fluid resuscitation with LR @ 80 ml/hr - trend CMP #hypomagnesemia - 2/2 GI losses with diarrhea and poor po intake. Mag 1.4 on admission; replaced with 3g IV mag - Mg 1.7 06/30. - continue home PO supplement - IV repletion prn - Mg 1.8 on 07/03 - trend Mag #Type II DMon metformin, holding. SSI ordered Pharmacy glycemic consult with stress dose steroids #PMRfollows with Dr. Rodriguez. Has been tapering off 15 mg daily prednisone currently at 2 mg daily over the past 2 years. - continue hydrocortisone IV q8h as above?? #Thyroid nodulesnoted on chest CT Follow-up with PCP in outpatient setting #HTN/CAD holding antihypertensives. #Recurrent PEspatient reported when he was 49 years old. - Holding warfarin as above - Consider starting subq Heparin, will hold in lieu of possible transfer #BPH - MRI abdomen showing enlarged prostate and irregularity of the wall of the urinary bladder, possible trabeculation from chronic urinary bladder outlet obstruction - continue tamsulosin - bladder scan as needed - simeon catheter available if retaining #GERDcontinue famotidine VTE ppx: SCDs, lovenox 40mg subq if INR <1.5 Dispo: SNF facility Admission and Anticipated Discharge Date Admission Date: June 28, 2025 Supervising Physician Co-Signing Physician Notes Attending Attestation & Progress Note: Pt seen/examined, chart reviewed, care plan d/w resident physician Dr Kandy Douglas. I agree w/ the mcdaniel components of her progress note documentation with the following additions - * acute blood loss anemia * toxic encephalopathy from pain meds, gabapentin, etc.; can't rule out hospital psychosis very tired/fatigued.\ appetite remains poor. pain IS better with pain meds, however. VSS, afebrile, HRs top-normal in the 90s gen - lying in bed; confused; hearing impaired mouth - MM remain very dry neck - no JVD heart - RRR, s1 s2, 2/6 GIOVANA LSB lungs - CTA b/l back - neg Nobles-Day's sign abd - soft NT ND BS+; no HSM ext - no edema, pulses 2+ b/l labs: Hb stable. 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 Recent night-sweats, weight loss (at least 6kg in the last month), failure to thrive, poor appetite, left low back pain. 1. Left psoas/retroperitoneal mass/hemorrhage - -case d/w IR on 07/01; after reviewing all imaging radiology does not feel that IR biopsy/drainage will yield a diagnosis -radiology feels that much of the mass is hemorrhage -H/H stable suggesting bleeding has stopped/tamponaded -gen surg was consulted for their opinion as well - they, too, do not recommend intervention here at [facility]. Tried to call to transfer patient to [facility]. However they would prefer to have this done as an outpatient. Plan to go to SNF and have procedure done there. -in light of elevated ferritin, weight loss, nightsweats, etc - mass is concerning for lymphoma vs sarcoma vs other -cont to hold coumadin 2. supratherapeutic INR - resolved -likely due to poor PO intake leading to unopposed action of coumadin 3. acute blood loss anemia - 2nd to #1; stable H/H today 4. mild-moderate protein calorie malnutrition, weight loss (12 pounds, about 6% body weight loss), nightsweats - etiology? -if #1 is a true mass consider lymphoma vs sarcoma vs other -see discussion above 5. low MCV - checked Fe studies - c/w anemia of chronic disease; worrisome that the L retroperitoneal process is pathologic 6. low back pain - 2nd to #1 - adjust pain meds due to confusion, cont sche duled tylenol 1gm TID 7. toxic encephalpathy - -2nd pain meds? -2nd to gabapentin? -other? -hospital psychosis also possible -consider stopping gabapentin -consider changing pain meds 8. PMR - cont prednisone 2mg daily. updated at bedside appreciate gen surg input= Subjective Patient is still lethargic and slightly confused this morning, but a lot better than yesterday. is present and helps with some of the history. States he is not in any pain and that the pain medications are working well for him. Denies SOB, CP, AP. He has been eating well. He skips breakfast usually since it is too early for him, but will eat a good amount of lunch and dinner. He continues to have sweats throughout the day and at night. He is using SCDs intermittently. Did well with PT for first 15 min of the session yesterday. Review of Systems Review of Systems: All systems reviewed & are unremarkable except as noted in HPI & below Physical Exam Constitutional: + ill appearing and + lethargic Respiratory: normal respiratory effort, lungs clear to auscultation Cardiovascular: RRR, no murmur, no edema Gastrointestinal (Abdomen): normal bowel sounds, soft, nontender, no hepatosplenomegaly Skin: no rashes, warm and dry Results & Data Results & Data Vital Signs (Past 12 Hours) Vital Signs Temp Pulse Resp BP Pulse Ox O2 Del Method 07/03/25 09:27 Room Air 07/03/25 07:00 37.0 C 111 H 20 118/74 92 Room Air 07/02/25 23:10 92 Room Air 07/02/25 23:07 36.4 C L 95 H 18 111/69 85 L Room Air Resident Activity Tracking Resident Involvement: Resident Care Provided Care Provided: Adult Hospital Medicine
--- NOTE | 2025-07-03 10:07 | Billing Data ---
Date of Service July 02, 2025 Coding Level of Care Code 44565 SUB INP/OBS CARE 3MIN
[2025-07-03] MEDS: METOPROLOL TARTRATE 25 MG TAB PO SCH (11:56)
[2025-07-03] MEDS: POLYETHYLENE (MIRALAX) 17 GM PACK PO SCH (12:25)
--- NOTE | 2025-07-03 17:21 | Oncology Consultation ---
Date of Consultation July 03, 2025 Assessment & Plan (1) Retroperitoneal mass: (2) Supratherapeutic INR: Plan -Imaging concerning for hematoma versus malignancy. Not amenable to biopsy by IR or surgery. If patient is not clinically stable, would recommend discussing case with tertiary center to see if he needs to be transferred. Otherwise, recommend outpatient workup with PET/CT to evaluate for malignancy and Outpatient biopsy if PET/CT is concerning for malignancy. History of Present Illness Reason for Consultation: retroperitoneal hemorrhage vs. mass + B symptoms Attending Physician: Sang Ramírez History of Present Illness 79-year-old gentleman with multiple comorbidities admitted to [facility] on 06/28/2025 with supratherapeutic INR of 7.4 and concern for retroperitoneal hemorrhage on CT imaging. CT abdomen and pelvis on 06/28/2025 revealed enlargement of the left psoas muscle as well as left diaphragmatic torres favoring retroperitoneal hemorrhage. MRI abdomen on 06/29/2025 showed large 25 cm abnormality of left psoas muscle with apparent enhancement suggesting hemorrhagic sarcoma or other neoplasm other than benign hematoma. Allergies Allergy/AdvReac Type Severity Reaction Status Date / Time bee venom protein (honey bee) Allergy Unknown Anaphylaxis Verified 12/12/24 10:02 Home Medications Medication Instructions Recorded Confirmed Type folic acid 1 mg tablet 1 mg PO DAILY 06/12/19 06/28/25 History metformin 500 mg tablet 500 mg PO BID 06/12/19 06/28/25 History losartan 100 mg tablet 100 mg PO DAILY 09/11/21 06/28/25 History pyridoxine (vitamin B6) 100 mg 100 mg PO DAILY 09/11/21 06/28/25 History tablet (Vitamin B-6) warfarin 5 mg tablet 0 mg PO DAILY 09/11/21 06/28/25 History famotidine 20 mg tablet (Pepcid) 20 mg PO BID 03/04/22 06/28/25 History metoprolol tartrate 25 mg tablet 25 mg PO BID 03/04/22 06/28/25 History triamcinolone acetonide 0.1 % 1 g topical DAILY PRN Rash 03/04/22 06/28/25 History topical cream magnesium 200 mg tablet 400 mg PO DAILY 02/23/23 06/28/25 History tamsulosin 0.4 mg capsule (Flomax) 0.4 mg PO DAILY 02/23/23 06/28/25 History cholecalciferol (vitamin D3) 50 50 mcg PO DAILY 06/08/23 06/28/25 History mcg (2,000 unit) capsule amlodipine 5 mg tablet 5 mg PO DAILY 06/28/25 06/28/25 History prednisone 1 mg tablet 2 mg PO DAILY 06/28/25 06/28/25 History Patient History Medical History Hypotension Contusion of periorbital region, right Generalized weakness Fall Hx pulmonary embolism Hypercholesterolemia Bronchitis Surgical History Aortic valve replaced S/P colonoscopy Family History Father Cardiac disorder Mother Hypertension Son Nephrolithiasis Other Diabetes Social History Smoking Status: Former smoker Tobacco Type: Cigarettes Second Hand Exposure: No; Do You Dip or Chew Tobacco: No; Hx Alcohol Use: No Hx Substance Use: No Preferred Language: Kiswahili Communication Ability: Effective Topstitcher Lockstitch Required: No Beliefs That Will Affect Care: None marital status: Current Living Situation: Spouse Current Living Situation Comment: single family home Other Information That Helps Us Care for You: No Feels Safe at Home: Yes Safety Concerns: Feels Safe At This Time Assistive Devices: Lift Chair, Raised Toilet Seat and Walker Results & Data Vital Signs (Past 12 Hours) Vital Signs Temp Pulse Resp BP Pulse Ox O2 Del Method 07/03/25 14:00 37.3 C 07/03/25 09:27 Room Air 07/03/25 07:00 37.0 C 111 H 20 118/74 92 Room Air
[2025-07-04] MEDS ORDERED: BENZONATATE 100 MG CAPSULE PO PRN (03:28)
[2025-07-04] MEDS: ACETAMINOPHEN 1,000 MG/100 ML VIAL IV STA (03:50)
[2025-07-04] MEDS: SODIUM CHLOR 7% 4 ML NEB NEB PRN (03:57)
[2025-07-04] MEDS: LACTATED RINGER'S 1,000 ML IV SCH (04:18)
[2025-07-04] MEDS: LACTATED RINGER'S 500 ML IV SCH (04:25)
--- NOTE | 2025-07-04 04:25 | XRay Report ---
EXAM: XR chest 1V portable CLINICAL HISTORY: Cough TECHNIQUE: An X-ray image of the chest was obtained in AP portable projection. COMPARISON: 06/28/[address] FINDINGS: Pulmonary Parenchyma: The lungs are clear bilaterally. There is no evidence of consolidation, collapse, or focal opacities. No pulmonary nodules are identified. Redemonstration of minimal blunting of the left costophrenic angle, denoting minimal effusion. No right-sided pleural effusion. Heart and Mediastinum: The heart size and shape are normal. There is no mediastinal widening or masses. No hilar or mediastinal lymphadenopathy is present. Bony Thorax: The bony thorax appears intact without fractures or deformities. Soft Tissues: The soft tissues overlying the chest wall are unremarkable. IMPRESSION: No gross airspace opacities. Redemonstration of minimal left pleural effusion. No changes compared to the prior study dated 06/28/2025. Electronically signed by Eliot Jack 07-04-2025 04:25 AM
[2025-07-04 05:11] LABS: Hematocrit (blood only) 32.0 % (42.0-52.0); Hemoglobin 10.7 g/dl (14.0-18.0); Immature Granulocytes # (auto) 0.08 K/uL (0.01-0.20); Immature Granulocytes % (auto) 1.4 %; Mean Corpuscular Hemoglobin 25.7 pg (25.0-34.0); Mean Corpuscular Volume 76.9 fL (80.0-100.0); Platelet Count 113 K/uL (130-400); RDW Standard Deviation 41.8 fL (36.4-46.3); Red Blood Count 4.16 M/uL (4.70-6.10); White Blood Count 5.72 K/ul (4.8-10.8)
[2025-07-04 05:31] LABS: Alanine Aminotransferase 29.0 U/L (7-52); Albumin Globulin Ratio 0.9 (0.9-2); Albumin Level 2.6 gm/dl (3.4-5.0); Alkaline Phosphatase 85.0 U/L (34-104); Anion Gap 11.0 (3-11); Bilirubin,Total 0.8 mg/dl (0.2-1.0); Blood Urea Nitrogen 25.0 mg/dl (6-23); Calcium 8.7 mg/dl (8.6-10.3); Carbon Dioxide 22.0 mmol/L (21-32); Chloride 101.0 mmol/L (98-107); Creatinine Clr Calc Pharmacy 74.1 ml/min; Globulin 3.0 gm/dl (2.5-4.0); Glucose 120.0 mg/dl (70-99(Fasting)); Potassium 4.6 mmol/L (3.5-5.1); Sodium 134.0 mmol/L (136-145); Total Protein 5.6 gm/dl (6.0-8.3)
[2025-07-04 07:04] LABS: Chlamydia pneumoniae PCR Not Detected (NotDetected); Coronavirus 229E PCR Not Detected (NotDetected); Coronavirus CoV-2 (COVID19)PCR Not Detected (NotDetected); Coronavirus HKU1 PCR Not Detected (NotDetected); Coronavirus NL63 PCR Not Detected (NotDetected); Coronavirus OC43PCR Not Detected (NotDetected); Human Metapneumovirus PCR Not Detected (NotDetected); Parainfluenza Virus 1 PCR Not Detected (NotDetected); Parainfluenza Virus 2 PCR Not Detected (NotDetected); Parainfluenza Virus 3 PCR Not Detected (NotDetected); Parainfluenza Virus 4 PCR Not Detected (NotDetected); Respiratory Syncytial VirusPCR Not Detected (NotDetected); Rhinovirus/Enterovirus PCR Not Detected (NotDetected)
[2025-07-04 07:54] LABS: Magnesium 1.4 mg/dl (1.7-2.4)
[2025-07-04 08:36] LABS: INR 1.3 (0.9-1.1); Prothrombin Time 13.1 Seconds (9.0-12.0)
[2025-07-04] MEDS: MAGNESIUM SULFATE / D5W 1 GM/100 ML BAG IV SCH (12:43)
--- NOTE | 2025-07-04 13:27 | Hospitalist Progress Note ---
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 Patient presented after referral by his PCP for 3 weeks of weakness, hypotension, URI symptoms, and difficulty with ADLs. ED workup revealing of CT abdomen/pelvis concerning for retroperitoneal hemorrhage vs mass, as well as a supratherapeutic INR of 7.4. He is being admitted for weakness in the setting of suspected adrenal insufficiency and supratherapeutic INR. #weakness/malnutrition/deconditioning - ongoing for at least 3 weeks with decreased appetite, 13 pound weight loss and decreased ability to complete ADLs without assistance. It was initially thought on presentation that these symptoms were the result of adrenal insufficiency as patient is on chronic prednisone for PMR. He was hypotensive on admission BP 89/58, Na 132, K+ 4.9, AST and ALT mildly elevated, renal function stable, random cortisol 22.81. However, during workup in ED, CT ab/pelvis was completed revealing a concern for retroperitoneal hemorrhage vs mass. 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 Given these MRI findings, patient's new onset weakness is likely in the setting of malignancy which is resulting in the fatigue, decreased energy, appetite and weight loss. There is NO evidence of retroperitoneal hemorrhage. Patient continues to be hemodynamically stable and H&H remains stable 10.5 & 31.3. - may need tissue biopsy to confirm diagnosis, discussed with IR on 07/01, who believe biopsy may not have diagnostic benefit at this time and that psoas muscle is enlarged due to hemorrhage, advised pt to complete CT in 1 month and to follow with biopsy if CT does not show anything - PT/OT eval and treat - dietitian evaluation and continued support/encouragement to eat and drink - continue hydrocortisone 50 mg IV q8h - BP remains stable, however will continue to hold antihypertensives given patient's hypotension on admission - losartan, amlodipine, metoprolol hold - AST & ALT continue to downtrend - 57 & 51, respectfully - CBC and CMP daily - orthostatic vitals 07/01, >10mmHg change in diastolic value, administered 1 L NS fluid on 07/01 - IV Morphine, PO Tylenol, HS Gabapentin, lidocaine patch, heating pad for pain management - Heme consult placed, state he may need to be seen at tertiary center for further workup and possibly inpatient chemo, patient informed, prefer [facility] - spoke with [facility], plan to shift patient to SNF facility until ou tpatient [facility] appt to schedule tissue biopsy, anticipate he will be scheduled relatively fast due to imminent concern - ESR elevated 61, uric acid WNL #tachycardia - HRs ranging 93-111s - could be related to pain response vs. d/c metoprolol on admission - restart home metoprolol tartrate 25mg BID, monitor - tachycardic overnight 07/03 in 130s, decreased throughout day today, unsure of etiology but will monitor - EKG does not look concerning, HR 80s #cough - developed overnight 07/03 PM - robitussin, scheduled DuoNebs 4 doses - Biofire negative - ESR 87, CRP 21.67 #supratherapeutic INR Likely 2/2 poor PO intake of Vit K with above. INR has been reportedly increasing since 06/19. 7.4 at time of admission. Follows with [facility] anticoagulation clinic. Chronically anticoagulated due to recurrent PE, not due to TAVR - IV vit K given on admission. INR today now 1.3 - Lovenox 40mg subq given 06/30 due to 1.2 INR. - Continue to hold warfarin, even with INR out of therapeutic range. Concern for thromboembolic event is low at this time. Previously supplementing with lovenox 40mg subq as needed if INR <1.5, however will hold with due to hemorrhage risk - daily PT & INR #lactic acidosis - lactate 3.7 -> 1.9, anion gap 14. Likely in the setting of acute dehydration and hypotension. - low concern for infectious causing elevated lactate - CXR negative, biofire negative, UA negative - lactate improved after 2L plasmalyte in ED - patient remains without sign of systemic infection or sepsis; hemodynamically stable and afebrile - holding metformin - previous fluid resuscitation with LR @ 80 ml/hr - trend CMP - 07/03 overnight: lactate 2.7 --> 2; again low concern for infectious causing elevated lactate - CXR negative, biofire negative - LR 125 ml/hr given overnight - procal 0.53 elevated #hypomagnesemia - 2/2 GI losses with diarrhea and poor po intake. Mag 1.4 on admission; replaced with 3g IV mag - continue home PO supplement - IV repletion prn - trend Mag #Type II DMon metformin, holding. SSI ordered Pharmacy glycemic consult with stress dose steroids #PMR - follows with Dr. Rodriguez. - Has been tapering off 15 mg daily prednisone currently at 2 mg daily over the past 2 years #Thyroid nodulesnoted on chest CT Follow-up with PCP in outpatient setting #HTN/CAD holding antihypertensives. #Recurrent PEspatient reported when he was 49 years old. - Holding warfarin as above #BPH - MRI abdomen showing enlarged prostate and irregularity of the wall of the urinary bladder, possible trabeculation from chronic urinary bladder outlet obstruction - continue tamsulosin - bladder scan as needed - simeon catheter available if retaining #GERDcontinue famotidine VTE ppx: SCDs, lovenox 40mg subq if INR <1.5 Dispo: SNF facility, [facility] outpatient follow up, [facility] for tissue biopsy Admission and Anticipated Discharge Date Admission Date: June 28, 2025 Subjective Received report from night resident who stated he was coughing overnight and tachcyardic in the 130s with fever. Patient says his cough has mildly improved but is still bothering him. He had a BM last night which was soft and brown. He continues to have sweating episodes where he is soaking through the sheets/gown. Back pain is well controlled. No other acute concerns. Review of Systems Review of Systems: All systems reviewed & are unremarkable except as noted in HPI & below Physical Exam Constitutional: WD/WN, vitals as above + ill appearing and + lethargic Respiratory: normal respiratory effort; no respiratory distress Auscultation: + wheezes (mild inspiratory wheezing on posterior upper lobes and anterior chest) unable to listen to bilateral lower lobes as patient was having pain with repositioning Cardiovascular: RRR, no murmur, no edema Gastrointestinal (Abdomen): normal bowel sounds, soft, nontender, no hepatosplenomegaly Skin: no rashes, warm and dry Psychiatric: A+Ox3, euthymic affect drowsy Results & Data Results & Data Vital Signs (Past 12 Hours) Vital Signs Temp Pulse Resp BP BP Pulse Ox O2 Del Method 07/04/25 07:08 36.3 C L 97 H 16 124/72 96 Room Air 07/04/25 05:46 108 H 95 Nasal Cannula 07/04/25 04:14 37.1 C 137 H 140/82 91 Nasal Cannula 07/04/25 04:00 133 H 17 89 L Room Air 07/04/25 03:29 37.4 C 93 Room Air O2 Flow Rate 07/04/25 07:08 07/04/25 05:46 3 07/04/25 04:14 3 07/04/25 04:00 07/04/25 03:29 Resident Activity Tracking Resident Involvement: Resident Care Provided Care Provided: Adult Hospital Medicine
[2025-07-04] MEDS: ALBUT/IPRATROP 3MG/0.5MG NEB 3 ML VIAL NEB SCH (14:18)
[2025-07-05 06:46] LABS: Hematocrit (blood only) 29.0 % (42.0-52.0); Hemoglobin 9.7 g/dl (14.0-18.0); Immature Granulocytes # (auto) 0.06 K/uL (0.01-0.20); Immature Granulocytes % (auto) 1.3 %; Mean Corpuscular Hemoglobin 25.7 pg (25.0-34.0); Mean Corpuscular Volume 76.7 fL (80.0-100.0); Platelet Count 121 K/uL (130-400); RDW Standard Deviation 41.8 fL (36.4-46.3); Red Blood Count 3.78 M/uL (4.70-6.10); White Blood Count 4.79 K/ul (4.8-10.8)
[2025-07-05 07:08] LABS: Anion Gap 9.0 (3-11); Blood Urea Nitrogen 21.0 mg/dl (6-23); Calcium 8.6 mg/dl (8.6-10.3); Carbon Dioxide 25.0 mmol/L (21-32); Chloride 100.0 mmol/L (98-107); Creatinine Clr Calc Pharmacy 81.9 ml/min; Glucose 104.0 mg/dl (70-99(Fasting)); Magnesium 1.5 mg/dl (1.7-2.4); Potassium 4.5 mmol/L (3.5-5.1); Sodium 134.0 mmol/L (136-145)
[2025-07-05 07:19] LABS: INR 1.3 (0.9-1.1); Prothrombin Time 13.5 Seconds (9.0-12.0)
[2025-07-05] MEDS: MAGNESIUM SULFATE / D5W 1 GM/100 ML BAG IV SCH (08:12)
--- NOTE | 2025-07-05 09:33 | Hospitalist Progress Note ---
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 Patient presented after referral by his PCP for 3 weeks of weakness, hypotension, URI symptoms, and difficulty with ADLs. ED workup revealing of CT abdomen/pelvis concerning for retroperitoneal hemorrhage vs mass, as well as a supratherapeutic INR of 7.4. He is being admitted for weakness in the setting of suspected adrenal insufficiency and supratherapeutic INR. #weakness/malnutrition/deconditioning - ongoing for at least 3 weeks with decreased appetite, 13 pound weight loss and decreased ability to complete ADLs without assistance. It was initially thought on presentation that these symptoms were the result of adrenal insufficiency as patient is on chronic prednisone for PMR. He was hypotensive on admission BP 89/58, Na 132, K+ 4.9, AST and ALT mildly elevated, renal function stable, random cortisol 22.81. However, during workup in ED, CT ab/pelvis was completed revealing a concern for retroperitoneal hemorrhage vs mass. 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 Given these MRI findings, patient's new onset weakness is likely in the setting of malignancy which is resulting in the fatigue, decreased energy, appetite and weight loss. There is NO evidence of retroperitoneal hemorrhage. Patient continues to be hemodynamically stable and H&H remains stable 10.5 & 31.3. - may need tissue biopsy to confirm diagnosis, discussed with IR on 07/01, who believe biopsy may not have diagnostic benefit at this time and that psoas muscle is enlarged due to hemorrhage, advised pt to complete CT in 1 month and to follow with biopsy if CT does not show anything - PT/OT eval and treat - dietitian evaluation and continued support/encouragement to eat and drink - continue hydrocortisone 50 mg IV q8h - BP remains stable, however will continue to hold antihypertensives given patient's hypotension on admission - losartan, amlodipine, metoprolol hold - AST & ALT continue to downtrend - 57 & 51, respectfully - CBC and CMP daily - orthostatic vitals 07/01, >10mmHg change in diastolic value, administered 1 L NS fluid on 07/01 - IV Morphine, PO Tylenol, HS Gabapentin, lidocaine patch, heating pad for pain management - Heme consult placed, state he may need to be seen at tertiary center for further workup and possibly inpatient chemo, patient informed, prefer [facility] - spoke with [facility], plan to shift patient to SNF facility until ou tpatient [facility] appt to schedule tissue biopsy, anticipate he will be scheduled relatively fast due to imminent concern; spoke with case management today and new issues with billing concerns from [facility], will try to reach out to [facility] tomorrow to evaluate other options - ESR elevated 61, uric acid WNL - CRP trend #tachycardia - HRs ranging 93-111s - could be related to pain response vs. d/c metoprolol on admission - restart home metoprolol tartrate 25mg BID, monitor - tachycardic overnight 07/03 in 130s, decreased throughout day today, unsure of etiology but will monitor - EKG does not look concerning, HR 80s - improved #cough - developed overnight 07/03 PM - robitussin, scheduled DuoNebs 4 doses, improving - Biofire negative - ESR 87, CRP 21.67 #supratherapeutic INR Likely 2/2 poor PO intake of Vit K with above. INR has been reportedly increasing since 06/19. 7.4 at time of admission. Follows with [facility] anticoagulation clinic. Chronically anticoagulated due to recurrent PE, not due to TAVR - IV vit K given on admission. INR today now 1.3 - Lovenox 40mg subq given 06/30 due to 1.2 INR. - Continue to hold warfarin, even with INR out of therapeutic range. Concern for thromboembolic event is low at this time. Previously supplementing with lovenox 40mg subq as needed if INR <1.5, however will hold with due to hemorrhage risk - daily PT & INR #lactic acidosis - lactate 3.7 -> 1.9, anion gap 14. Likely in the setting of acute dehydration and hypotension. - low concern for infectious causing elevated lactate - CXR negative, biofire negative, UA negative - lactate improved after 2L plasmalyte in ED - patient remains without sign of systemic infection or sepsis; hemodynamically stable and afebrile - holding metformin - previous fluid resuscitation with LR @ 80 ml/hr - trend CMP - 07/03 overnight: lactate 2.7 --> 2; again low concern for infectious causing elevated lactate - CXR negative, biofire negative - LR 125 ml/hr given overnight 07/04 - procal 0.53 elevated #hypomagnesemia - 2/2 GI losses with diarrhea and poor po intake. Mag 1.4 on admission; replaced with 3g IV mag - continue home PO supplement - IV repletion prn - trend Mag #Type II DMon metformin, holding. SSI ordered Pharmacy glycemic consult with stress dose steroids #PMR - follows with Dr. Rodriguez. - Has been tapering off 15 mg daily prednisone currently at 2 mg daily over the past 2 years #Thyroid nodulesnoted on chest CT Follow-up with PCP in outpatient setting #HTN/CAD holding antihypertensives. #Recurrent PEspatient reported when he was 49 years old. - Holding warfarin as above #BPH - MRI abdomen showing enlarged prostate and irregularity of the wall of the urinary bladder, possible trabeculation from chronic urinary bladder outlet obstruction - continue tamsulosin - bladder scan as needed - simeon catheter available if retaining #GERDcontinue famotidine VTE ppx: SCDs, lovenox 40mg subq if INR <1.5 Dispo: SNF facility, [facility] outpatient follow up, [facility] for tissue biopsy Admission and Anticipated Discharge Date Admission Date: June 28, 2025 Subjective Patient is doing a lot better this morning. States his cough has significantly improved. He continues to have sweating episodes throughout the night and day. Reports his pain is well controlled on current regimen. Denies SOB, CP, AP, palpitations. Feels his mouth and lips are very dry, he is hydrating well throughout the day. His last BM was yesterday and was soft and non-bloody. His mental status has considerably improved in comparison to the last few days. Review of Systems Review of Systems: All systems reviewed & are unremarkable except as noted in HPI & below Physical Exam Constitutional: WD/WN, vitals as above + lethargic Respiratory: normal respiratory effort, lungs clear to auscultation normal respiratory effort; no respiratory distress Cardiovascular: RRR, no murmur, no edema Rate/Rhythm: regular rate and regular rhythm Heart Sounds: + murmur (systolic crescendo decrescendo murmur over R sternal border) Extremities: no edema Gastrointestinal (Abdomen): normal bowel sounds, soft, nontender, no hepatosplenomegaly Skin: no rashes, warm and dry Psychiatric: A+Ox3, euthymic affect Results & Data Results & Data Vital Signs (Past 12 Hours) Vital Signs Temp Pulse Resp BP BP Pulse Ox O2 Del Method 07/05/25 07:24 80 18 94 Room Air 07/05/25 07:00 36.9 C 95 H 18 124/72 93 Room Air 07/04/25 23:54 Room Air 07/04/25 23:15 36.7 C 79 16 116/61 93 Room Air Resident Activity Tracking Resident Involvement: Resident Care Provided Care Provided: Adult Hospital Medicine
[2025-07-05] MEDS ORDERED: POLYETHYLENE (MIRALAX) 17 GM PACK PO PRN (10:11)
--- NOTE | 2025-07-05 16:00 | Electrocardiogram Report ---
Test Reason : Blood Pressure : */* mmHG Vent. Rate : 82 BPM Atrial Rate : 82 BPM P-R Int : 136 ms QRS Dur : 136 ms QT Int : 388 ms P-R-T Axes : 39 11 139 degrees QTcB Int : 453 ms Normal sinus rhythm Left bundle branch block Abnormal ECG When compared with ECG of 28-Jun-2025 16:25, T wave amplitude has decreased in Anterior leads Confirmed by Drew Montero ([id number]) on 07/05/2025 3:59:46 PM Referred By: REFERRED SELF Confirmed By: Drew Montero
[2025-07-05 23:48] VITALS: TEMP 97.7
[2025-07-06 06:49] LABS: Hematocrit (blood only) 28.1 % (42.0-52.0); Hemoglobin 9.4 g/dl (14.0-18.0); Mean Corpuscular Hemoglobin 25.5 pg (25.0-34.0); Mean Corpuscular Volume 76.4 fL (80.0-100.0); Platelet Count 111 K/uL (130-400); RDW Standard Deviation 41.6 fL (36.4-46.3); Red Blood Count 3.68 M/uL (4.70-6.10); White Blood Count 4.37 K/ul (4.8-10.8)
[2025-07-06 06:59] LABS: Anion Gap 8.0 (3-11); Blood Urea Nitrogen 20.0 mg/dl (6-23); Calcium 8.6 mg/dl (8.6-10.3); Carbon Dioxide 25.0 mmol/L (21-32); Chloride 101.0 mmol/L (98-107); Creatinine Clr Calc Pharmacy 84.8 ml/min; Glucose 105.0 mg/dl (70-99(Fasting)); Magnesium 1.5 mg/dl (1.7-2.4); Potassium 4.2 mmol/L (3.5-5.1); Sodium 134.0 mmol/L (136-145)
[2025-07-06 07:10] LABS: INR 1.4 (0.9-1.1); Prothrombin Time 14.3 Seconds (9.0-12.0)
[2025-07-06 07:26] LABS: Hypochromasia Present; Immature Granulocytes # (auto) 0.07 K/uL (0.01-0.20); Immature Granulocytes % (auto) 1.6 %; Microcytosis Present; Polychromasia 1+
[2025-07-06 07:30] VITALS: BP 127/71; PULSE 84; RESP 14; O2SAT 92
[2025-07-06] MEDS: MAGNESIUM SULFATE / D5W 1 GM/100 ML BAG IV SCH (08:39)
--- NOTE | 2025-07-06 09:57 | Hospitalist Progress Note ---
Date of Service July 06, 2025 Assessment & Plan Admission and Anticipated Discharge Date Admission Date: June 28, 2025 Results & Data Results & Data Vital Signs (Past 12 Hours) Vital Signs Temp Pulse Resp BP BP Pulse Ox O2 Del Method 07/06/25 07:28 36.5 C 84 14 127/71 92 Room Air 07/05/25 23:11 36.5 C 75 16 124/72 94 Room Air Resident Activity Tracking Resident Involvement: Resident Care Provided Care Provided: Adult Hospital Medicine
[2025-07-06] MEDS: LIDOCAINE 5% 1 PATCH TD STA (10:00)
--- NOTE | 2025-07-06 11:44 | Billing Data ---
Date of Service July 03, 2025 Coding Level of Care Code 49176 SUB INP/OBS CARE MIN
--- NOTE | 2025-07-06 12:33 | Discharge Summary ---
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 Patient presented after referral by his PCP for 3 weeks of weakness, hypotension, URI symptoms, and difficulty with ADLs. He was was found to have a supratherapeutic INR of 7.4 and concern for retroperitoneal hemorrhage first mass on abdomen pelvis CT. He is being admitted for adrenal insufficiency. Patient seen at bedside with his present.Patient is extremely hard of hearing however able to obtain history. He stated for several weeks he has been getting weaker, had poor appetite, had significant weight loss, difficulty with ADLs, and a low blood pressure. They are holding his losartan and amlodipine for this. Typically is able to ambulate without assistance during the daytime and uses a walker at night however has been having even difficulty with this. He also is extremely fatigued and has difficulty with ADLs in the morning. He also endorses a dry cough for about 4 months. He does endorse diarrhea last week, now resolved. Regarding his supratherapeutic INR. He follows with the [facility] anticoagulation clinic and had an INR of 4.8 on 06/19. He held warfarin for 1 day and continued with 5 mg daily after this. On 06/26 his stated it was 6.7 in which she was told to hold warfarin for 2 days. Today would be day 3 and he is due for his warfarin this evening. He has never had issues with his INR other than when he was admitted in 2022. He has been on warfarin since he was about 49 years old for recurrent PEs. As for the retroperitoneal hemorrhage versus mass seen on his CAT scan. Patient stated he has had a palpable mass on his left upper quadrant for several years, palpated at bedside and is firm and mobile. He denies any trauma to the area. He is due for his evening medications including metformin, metoprolol, and warfarin. He has been tapering off 15mg daily prednisone over 2 years. Discussed CODE STATUS with patient and his at bedside. He wishes to be full code currently however if clinically digresses would want to switch to DNR/DNI. He would not want prolonged or extensive measures. General surgery Dr. Avelar reviewed patient's chart and diagnostic imaging. Stated there is no surgical indication at this time. If there is concern for mass or retroperitoneal bleed would recommend transfer as patient will require services that are not present here. Admission Exam Per Admitting Provider Physical Exam: The patient is awake, alert and oriented 3, well developed and well nourished, normocephalic and atraumatic, in no acute distress. Non-toxic appearing. HEENT- EOMI, mucous membranes dry. Hearing grossly intact. Heart-normal S1 and S2. No murmurs, rubs or gallops. Lungs-clear bilaterally, no respiratory distress, no accessory muscle use. Abdomen-normal bowel sounds and soft. No ascites noted. Non-tender. Firm, mobile, nontender mass to left upper lateral abdominal wall. Extremities- no clubbing, cyanosis, or edema. Psychiatric-normal affect. Principal Diagnosis Hematoma, requiring biopsy Discharge Exam Constitutional lethargic, weak Respiratory normal respiratory effort, lungs clear to auscultation Cardiovascular RRR, no murmur, no edema Gastrointestinal (Abdomen) normal bowel sounds, soft, nontender, no hepatosplenomegaly Skin no rashes, warm and dry Discharge Data Allergies Allergy/AdvReac Type Severity Reaction Status Date / Time bee venom protein (honey bee) Allergy Unknown Anaphylaxis Verified 12/12/24 10:02 Consultations 06/28/25 19:40 ED Decision to Admit Stat 07/01/25 19:58 Consult General Surgery Routine 07/02/25 17:26 Consult Hematology Routine Ordered Studies 06/28/25 16:28 CT chest with contrast [CT chest diagnostic w con] Stat CT head/brain wo con Stat 06/28/25 18:29 CT abd pelvis IV con only Stat 06/29/25 09:10 MRI Abdomen [MR abdomen wo/w con] Routine Hospital Course (1) Weakness: (2) Retroperitoneal mass: (3) Acute hyponatremia: (4) Supratherapeutic INR: (5) Acute adrenal insufficiency: (6) Hypomagnesemia: (7) Retroperitoneal hemorrhage: (8) Chronic kidney disease, stage 3a: Plan Patient is an 79-year-old male with past medical history of PMR on chronic prednisone, aortic stenosis s/p TAVR, 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 Patient presented after referral by his PCP for 3 weeks of weakness, hypotension, URI symptoms, and difficulty with ADLs. ED workup revealing of CT abdomen/pelvis concerning for retroperitoneal hemorrhage vs mass, as well as a supratherapeutic INR of 7.4. He is being admitted for weakness in the setting of suspected adrenal insufficiency and supratherapeutic INR. #weakness/malnutrition/deconditioning - ongoing for at least 3 weeks with decreased appetite, 13 pound weight loss and decreased ability to complete ADLs without assistance. It was initially thought on presentation that these symptoms were the result of adrenal insufficiency as patient is on chronic prednisone for PMR. He was hypotensive on admission BP 89/58, Na 132, K+ 4.9, AST and ALT mildly elevated, renal function stable, random cortisol 22.81. However, during workup in ED, CT ab/pelvis was completed revealing a concern for retroperitoneal hemorrhage vs mass. 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 Given these MRI findings, patient's new onset weakness is likely in the setting of malignancy which is resulting in the fatigue, decreased energy, appetite and weight loss. There is NO evidence of retroperitoneal hemorrhage. Patient continues to be hemodyna mically stable and H&H remains stable 9.4 & 28.1. - needs tissue biopsy to confirm diagnosis, discussed with [facility] IR on 07/01, who believe biopsy may not have diagnostic benefit at this time and that psoas muscle is enlarged due to hemorrhage, advised pt to complete CT in 1 month and to follow with biopsy if CT does not show anything - PT/OT eval and treat - dietitian evaluation and continued support/encouragement to eat and drink - continue hydrocortisone 50 mg IV q8h - BP remains stable, however will continue to hold antihypertensives given patient's hypotension on admission - losartan, amlodipine - continue metoprolol - AST & ALT continue to downtrend - 57 & 51, respectfully - CBC and CMP daily - orthostatic vitals 07/01, >10mmHg change in diastolic value, administered 1 L NS fluid on 07/01 - PO Tramadol, PO Tylenol, HS Gabapentin, lidocaine patch, heating pad for pain management - Heme consult placed, state he may need to be seen at tertiary center for further workup and possibly inpatient chemo, patient informed, prefer [facility] - ESR and CRP trend - 07/06 spoke with [facility] medicine team/IR, plan to transfer patient today, patient is weak and may need multiple weeks in rehab facility if tissue biopsy done outpatient, cannot have procedure done while at [facility] facility due to billing concerns, and patient's Eliquis is being held in lieu of hemorrhage, discussed concern in delaying procedure further; IR team amenable to complete procedure inpatient and medicine team has accepted him for transfer #tachycardia - HRs ranging 93-111s - could be related to pain response vs. d/c metoprolol on admission - restart home metoprolol tartrate 25mg BID, monitor - tachycardic overnight 07/03 in 130s, decreased throughout day today, unsure of etiology but will monitor - EKG does not look concerning, HR 80s - improved #cough - developed overnight 07/03 PM - robitussin, scheduled DuoNebs 4 doses, improving - Biofire negative #supratherapeutic INR Likely 2/2 poor PO intake of Vit K with above. INR has been reportedly increasing since 06/19. 7.4 at time of admission. Follows with [facility] anticoagulation clinic. Chronically anticoagulated due to recurrent PE, not due to TAVR - IV vit K given on admission. INR today now 1.4 - Lovenox 40mg subq given 06/30 due to 1.2 INR. - Continue to hold warfarin, even with INR out of therapeutic range. Concern for thromboembolic event is low at this time. Previously supplementing with lovenox 40mg subq as needed if INR <1.5, however will hold with due to hemorrhage risk - daily PT & INR #lactic acidosis - lactate 3.7 -> 1.9, anion gap 14. Likely in the setting of acute dehydration and hypotension. - low concern for infectious causing elevated lactate - CXR negative, biofire negative, UA negative - lactate improved after 2L plasmalyte in ED - patient remains without sign of systemic infection or sepsis; hemodynamically stable and afebrile - holding metformin - previous fluid resuscitation with LR @ 80 ml/hr - trend CMP - 07/03 overnight: lactate 2.7 --> 2; again low concern for infectious causing elevated lactate - CXR negative, biofire negative - LR 125 ml/hr given overnight 07/04 - procal 0.53 elevated #hypomagnesemia - 2/2 GI losses with diarrhea and poor po intake. Mag 1.4 on ad mission; replaced with 3g IV mag - continue home PO supplement - IV repletion prn - trend Mag #Type II DMon metformin, holding. SSI ordered Pharmacy glycemic consult with stress dose steroids #PMR - follows with Dr. Rodriguez. - Has been tapering off 15 mg daily prednisone currently at 2 mg daily over the past 2 years #Thyroid nodulesnoted on chest CT Follow-up with PCP in outpatient setting #HTN/CAD holding antihypertensives. #Recurrent PEspatient reported when he was 49 years old. - Holding warfarin as above #BPH - MRI abdomen showing enlarged prostate and irregularity of the wall of the urinary bladder, possible trabeculation from chronic urinary bladder outlet obstruction - continue tamsulosin - bladder scan as needed - simeon catheter available if retaining #GERDcontinue famotidine VTE ppx: SCDs, lovenox 40mg subq if INR <1.5 Dispo: [facility] facility, [facility] outpatient follow up, [place] for tissue biopsy Total Time Total Time Spent Total Time Spent (In Minutes): as per attending attestation Discharge Plan Discharge Items Patient Disposition: Transfer Acute Care Hospital Reason For Visit: ADRENAL INSUFFICIENCY, SUPRATHERAPEUTIC INR, RETRO Discharge Diagnosis: hematoma, needs biopsy Condition on Discharge: Serious Activity: Per Instructions section Non-emergency contact: Primary Care Provider Call non-emergency contact if: you have any medication questions and your symptoms worsen Follow-up/Referrals: Cheyanne De Los Santos MD [Primary Care Provider] - Diet: Heart Healthy Addtl Attending Provider Instructions: Please continue all home medications as indicated. Hold Eliquis medication under further direction by [facility] team. Pending Studies at Discharge: No Stand-Alone Forms: My [facility] Skilled Items Patient informed of condition?: Yes DNR: No Discharge Level of Care: Other Communicable Disease: No Discharge Prognosis: Stable Lines: None Urinary Catheter: No Medications and DC Order Prescriptions: Continued metoprolol tartrate 25 mg tablet 25 mg PO BID triamcinolone acetonide 0.1 % cream 1 g topical DAILY PRN (Reason: Rash) Patient Comments: 06/28- pts states he uses meds as needed famotidine [Pepcid] 20 mg tablet 20 mg PO BID cholecalciferol (vitamin D3) 50 mcg (2,000 unit) capsule 50 mcg PO DAILY folic acid 1 mg tablet 1 mg PO DAILY metformin 500 mg tablet 500 mg PO BID tamsulosin [Flomax] 0.4 mg capsule 0.4 mg PO DAILY magnesium 200 mg tablet 400 mg PO DAILY pyridoxine (vitamin B6) [Vitamin B-6] 100 mg Tablet 100 mg PO DAILY prednisone 1 mg tablet 2 mg PO DAILY Patient Comments: 06/28- pts states he takes 2mg daily in the am Held warfarin 5 mg tablet 0 mg PO DAILY Hold Instructions: until instructed by [facility] team Patient Comments: 06/28- pts stated [facility] informed him to hold the warfarin due to an INR of 6.7 until further notice Rx Instructions: Current Dose as of 01/06/2023. 6mg by mouth on Tuesday, Tuesday and Tuesday and 7mg all other days. losartan 100 mg tablet 100 mg PO DAILY Hold Instructions: resume as per [facility] team's decision Patient Comments: 06/28- pts states informed pt to hold med due to BP being to low until further notice. amlodipine 5 mg tablet 5 mg PO DAILY Hold Instructions: resume as per [place] team's instructions Patient Comments: 06/28- pts states informed pt to hold med due to BP being to low until further notice. Discharge Orders: Discharge Order (Routine); Ordered 07/06/25 Ordered By: Kandy Tapia/Other Patient Handouts: Managing Type 2 Diabetes Admission Data Admit Date/Time: 06/28/25 21:20 Attending Provider: Sang Ramírez Admit Provider: Joe Dale Primary Care Provider: Che[facility]ne De Los Santos Other Providers: Joe Dale; John Alejandro; Mayra Burgess; [place] Resident Activity Tracking Resident Involvement: Resident Care Provided Care Provided: Adult Hospital Medicine
[2025-07-06] MEDS ORDERED: ACETAMINOPHEN 325 MG TAB PO SCH (13:00)
[2025-07-06] MEDS ORDERED: MAGNESIUM SULFATE / D5W 1 GM/100 ML BAG IV SCH (14:00)
[2025-07-06] MEDS ORDERED: REMOVE LIDODERM PATCH SCH (21:00)
== END 2025-07-06 14:07 | disposition short-term general hospital (02) | DRG 843 ==
LOC: ED 15:55 → SUATTDRO 21:20 → 2N 21:20 → 3E 06-29 22:30

== ENCOUNTER 2025-07-25 15:51 | Inpatient (IN) ==
--- NOTE | 2025-07-26 13:25 | History & Physical Report ---
Date of Service July 26, 2025 Assessment & Plan (1) B-cell lymphoma: Plan: Joshua is an 79-year-old male who was transferred to [facility] for evaluation of a retroperitoneal mass suspicious for malignancy versus hematoma. Following biopsy this was found to be high-grade B-cell lymphoma. He was being treated with mini CHOP however his course at [facility] was complicated by aspiration pneumonia requiring intubation. He was subsequently extubated and recovered. He then c ontinued to have inability to tolerate p.o. due to aspiration for which he had an NGT placed. Patient was discussed with [facility] and recommended for return evaluation as he had hemodynamically stabilized, was extubated, but required further evaluation for PEG tube and ongoing chemo with likely placement. At time of arrival/assessment patient's core safe NGT had been removed, in discussion with patient review of documentation this had been removed by patient however had been recommended for further evaluation at [facility] for replacement of NGT versus pursuing PEG. Patient was recovering from his mini CHOP treatment, and is anticipating his next treatment in approximately 2 weeks. Case had been signed out directly between [facility] oncology and Dr. Burgess. High-grade B-cell lymphoma Ultrasound-guided biopsy of retroperitoneal mass 07/11: High-grade B-cell lymphoma Flow cytometry: Atypical lymphoid population, CD5-, CD10-, double negative for kappa/lambda, favoring B-cell lymphoma MRI brain 07/12: Unremarkable Mini CHOP with cyclophosphamide 07/16, vincristine 07/19, doxorubicin 07/20. Next anticipated chemotherapy in approximately 2 weeks Recommended to continue allopurinol 300 mg daily twice daily through NGT/PEG when available FISH pending No indication for G-CSF as ANC was 7.03 at [facility]. Follow counts daily. If ANC less than 1, [facility] Oncology consulted On admission potassium normalized at 4.6, uric acid 2.5, most calcium 7.9 corrects to normal when corrected for hypoalbuminemia. Phosphorus normal, magnesium low range of normal Adrenal insufficiency On stress dose steroids. Home dose of steroids 2.5 mg daily. Plan was to down titrate to methylprednisolone 10 mg daily, was on 20 mg daily up through time of transfer. Will continue 20 mg on 07/27, and if hemodynamically stable wean back to 10 mg on 07/28. Severe dysphagia with aspiration Suspected multifactorial with encephalopathy, hospital delirium, Alzheimer's 10/22 Speech evaluation and modified Barium swallow: Pooling of contrast materials at the level of the vallecula and piriform sinuses. No Cricopharyngeal bar (sustained, greater than 50% diameter narrowing of esophagus): Or nasopharyngeal reflux. Aspiration to thin barium, nectar thin liquid, pure food/pudding. Further materials not attempted NGT placed 07/15 Per [facility] speech 07/22: Strict avoidance of p.o. route. was interested in PEG placement, patient was interested in continuing nasogastric tube at the time. This was dislodged and self removed by patient 07/24. Reportedly plan was to reinsert this. This was not done prior to transfer. Due to severe dysphagia over the preceding 3 weeks, failure to improve/progress, and speech recommendations patient was recommended for PEG placement. Speech at [facility] recommended against barium swallow due to concerns for continued recurrent aspiration and unsafe swallow. He was recommended to continue Protonix 40 mg IV in the morning, Pepcid 40 mg at bedtime by ENT. Further workup was deferred to [facility] GI Patient's reports she would like a speech reevaluation as she notes prior to this episode he has never had any trouble swallowing or aspiration and was critically ill for a decent period of time. He had not had an EGD at any point. He did have a flexible fiberoptic be with ENT, this was normal at [facility] 1.3 L serosanguineous fluid drained via thoracentesis 07/13 for left-sided pleural effusion in the setting of pneumonia. Stenotrophomonas and Coni positive. ID was consulted. He did not receive any antifungal treatment, clinically improved/progressed. ON admit I had a kandi discussion with the patient's that if he has severely impaired swallowing mechanics/dysphagia that a PEG tube does not eliminate the risk of aspiration. Discussed potential to have reflux aspiration even with continuous PEG tube feeds and that this cannot be eliminated as a risk. She expresses an understanding of this, would like to have a swallow reevaluation and ultimately still pursue PEG tube if he continues to be unsafe to swallow. Per report from [facility] he did have recurrent aspiration events and was not felt to be safe for further p.o. challenge. -Nutrition requirements while at [facility] when core safe was available: Nutren 2.0 at 55 cc/h with Beneprotein 1 packet per carton of feeding and Neutra source fiber 2 packets and 50 cc of water 4 times a day. With protein malnutrition and hypoalbuminemia contributing to third spacing He is significantly body overloaded with third spacing however appears slightly intravascularly contracted with dry mucous membranes, no JVD, and elevated BUN/creatinine ratio. Thigh-high SCDs to help mobilize lower extremity fluid Hx Asymptomatic hyperkalemia With BCL and chemo treatment Asymptomatic 5.05.5 without acute EKG changes at [facility], hx LBBB noted. - On admit EKG without acute ischemic changes, +LBBB redemonstrated, does not meet sgarbossa criteria. -Improved, potassium normal on admission BMP Hospital-acquired deep pressure injury of left heel, right heel. Left heel improving but not resolved. Right heel pressure wound healing. Does not appear acutely cellulitic Wound care, offloading precautions History of DVT, recurrent PE Was transiently on therapeutic Lovenox Transition to Eliquis by NGT however this was subsequently self removed and remains on Lovenox until able to tolerate p.o. or has feeding tube placed Continue Lovenox 1 mg/kg twice daily Confirmed with [facility] transfer center last dose of Lovenox was 9:45 AM on 07/26/2025 Bilateral lower extremity edema is present however he has significantly more right sided edema compared to the left. Unclear if this is baseline. Lovenox continued. He has had a complicated course including ICU admission and has recently been bedbound. Doppler pending to rule out recurrent DVT History of type II DM Last A1c 6.5% Sliding scale ordered on admission, dose reduced basal pending BSG evaluation Pharmacy consulted for assistance with management due to impaired p.o., and concurrent steroid Recent pneumonia with ICU admission Resolved at [facility] - Sepsis due to aspiration pneumonia: Resolved following Zosyn, vancomycin, meropenem, Bactrim. Completed Zosyn 07/06 - 07/12, vancomycin 07/06 - 07/16, meropenem 07/12 - 07/20, Bactrim single dose on 07/19. Respiratory cultures grew stenotrophomonas, ID was consulted and suspected colonization. TTE 07/13 while critically ill: Technically challenging study. EF 60-65%. Limited wall motion interpretation. Bundle branch block noted with some abnormal septal motion, mild LVH. Bioprosthetic AVR with expected gradients noted IV access: PICC in left upper extremity DVT prophylaxis: Lovenox therapeutic as noted Disposition: MSO. If any electrolyte or hemodynamic instability then will need transfer to telemetry. Hemodynamically stable at bedside assessment CODE STATUS: Full code. Discussed with patient and his on admission. He was recently intubated in the ICU at [facility] and would want all measures taken again; however if he did not have signs of significant recovery after 24-48 hours would want to review the rare/benefits of ongoing support at that time with care team Diet: n.p.o. (2) Chronic kidney disease, stage 3a: (3) Spinal stenosis: (4) LBBB (left bundle branch block): (5) TIA (transient ischemic attack): (6) BPH with obstruction/lower urinary tract symptoms: (7) Type 2 diabetes mellitus: (8) Hypertension: History of Present Illness Primary Care Provider: Cheyanne De Los Santos MD Per Sign Out from accepting hospitalist 79yo M with a history of PMR, CKD, s/p TAVR, PE previously on coumadin now on lovenox who presented to [facility] mid-June with back pain and who was found to have retroperitoneal hemorrhage vs mass and which was ultimately foudn to be a mass. Dx post bx LBCL, recieved mini-CHOP tx. Had a difficult recovery following this due to AHRF requiring ICU admission with severe encephalopathy. Transiently intubated, subsequently extubated on weaned to RA. Last chemo 07/20. Is on chronic steroids and on taper following stress dose at [facility]. 20mg 07/25 and was to taper to 10mg today. Home dose 2.5mg prednisone daily. Tumor lysis labs were stable per [facility]. Borderline hyperkalemia. CBC reportedly stable. Was not requiring Neupogen. Recommended Heme/Onc consultation here. Dr. Burgess was consulted and has discussed case directly with [facility]. Main ongoing problem is that he continues to have severe dysphagia. Workup at [facility] including MRI (negative) speech eval, ENT eval (nasopharyngeoscope was without acute findings and recommended PPI), has coresafe and on tube feeds. Was recommended for PEG tube which family would like but has not been placed. Plan to transition lovenox to eliquis post PEG placement Otherwise stable, VSS Per [facility] Chart Review History of dementia, spinal stenosis, diabetes, GERD, BPH, Alzheimer's, hypertension, recurrent PE, PMR, CKD, AAS s/p TAVR who was found to have large retroperitoneal mass with path showing high-grade B-cell lymphoma/non-GCB who was treated with mini CHOP. Course was complicated by aspiration pneumonia, thrombocytopenia, and was transiently in the ICU and intubated. He was extubated 07/18 downgraded to [facility] 07/21. He was subsequently transferred to [facility] once bed availability was confirmed. High-grade B-cell lymphoma Ultrasound-guided biopsy of retroperitoneal mass 07/11: High-grade B-cell lymphoma Flow cytometry: Atypical lymphoid population, CD5-, CD10-, double negative for kappa/lambda, favoring B-cell lymphoma MRI brain 07/12: Unremarkable Mini CHOP with cyclophosphamide 07/16, vincristine 07/19, doxorubicin 07/20 Continued on allopurinol 3 mg twice daily FISH pending No indication for G-CSF as ANC was 7.03, recommended to be followed closely Adrenal insufficiency On stress dose steroids. Home dose of steroids 2.5 mg daily. Plan to taper down to 10 mg daily on 07/26, currently on 20 mg daily Hyperkalemia suspected due to TLS reportedly stable. Labs pending. Suggested to consider Kayexalate or Petit room air to assist with clearance Sepsis due to aspiration pneumonia: Resolved following Zosyn, vancomycin, meropenem, Bactrim. Completed Zosyn 07/06 - 07/12, vancomycin 07/06 - 07/16, meropenem 07/12 - 07/20, Bactrim single dose on 07/19. Severe dysphagia with aspiration Suspected multifactorial with encephalopathy, hospital delirium, Alzheimer's Barium swallow 07/10: Significant dysphagia NGT placed 07/15 Per speech 07/22: Strict avoidance of p.o. route. was interested in PEG placement, patient was interested in continuing nasogastric tube at the time. This was dislodged and self removed by patient 07/24. Reportedly plan was to reinsert this. This was not done prior to transfer. Due to severe dysphagia over the preceding 3 weeks, failure to improve/progress, and speech recommendations patient was recommended for PEG placement. Speech at [facility] recommended against barium swallow due to concerns for continued recurrent aspiration and frankly unsafe swallow. Hospital-acquired deep pressure injury of left heel, right heel. Left heel improving but not resolved. Right pressure wound healing, reportedly resolved at time of discharge Chronic conditions including ambulatory dysfunction, diabetes with neuropathy, chronic pain, TIA, DVT. History of DVT, recurrent PE Was transiently on therapeutic Lovenox Transition to Eliquis by NGT however this was subsequently self removed and remains on Lovenox until able to tolerate p.o. or has feeding tube placed Nutrition: Nutren 2.0 at 55 cc/h with Beneprotein 1 packet per carton of feeding and Neutra source fiber 2 packets and 50 cc of water 4 times a day. PICC in left upper extremity Per patient/family: At time of bedside visit patient is oriented to name, [facility]. He is not oriented to year. Collateral is collected from his Alana by phone. Later seen in re- evaluation with and son present. Oriented improved on reassessment. She reports he was transferred to [facility] for a needle biopsy of his mass. While there he aspirated and had pnemonia. Was in the ICU there and intubated, but was extubated and did OK NGT got pulled out a few day sago. Was difficult to put in the first time. The second time they could not get it placed. Deferred replacement at that time until he was settled here. Speech was concerned about him eating any amount of food and recommended a PEG tube. would prefer to numb his nose/throat somewhat, tolerated the fiberoptic with some lidocaine and numbing medicine. Has had some disoriented to place in the hospital, is usually oriented to year, and place and is more forgetful than delirious most of the time but has been moved often and has been through 'a huge ordeal.' The plan for Patrick was to come back to [facility], have a PEG tub eplaced, and then followup with Dr. Burgess for more chemo. HE originally presented for severe pain in the back which turned out to be the mass, and they want to pursue treatment for this after it was confirmed to be NHL. 3x treatments of chemo at [facility] First treatment he had resolved his pain completely. Currently transitioning from Dr. Aleman to Dr. Burgess. NExt round of chemo is expected to be in ~2 weeks. Current goal is to get well enough and stable to tolerate this and possible get strong enough to walk with a walker. Also had mucous plugging at [facility]. Has tended to cough up thick mucous since extubation. Speech is different and more hoarse. He has also not eaten and has lost a lot of strength. No alcohol No tobacco use NKDA History of PE/DVT. No blood clots in many years on warfan. Never been on a DOAC. No history of bleeding complications Code Status: Full Code. Would not want prolonged interventions if he did not show signs of recovery after 24-48 hours. Allergies Allergy/AdvReac Type Severity Reaction Status Date / Time bee venom protein (honey bee) Allergy Unknown Anaphylaxis Verified 12/12/24 10:02 Home Medications Medication Instructions Recorded Confirmed Type famotidine 20 mg tablet (Pepcid) 40 mg PO HS 03/04/22 07/26/25 History magnesium 200 mg tablet 400 mg PO DAILY 02/23/23 07/26/25 History tamsulosin 0.4 mg capsule (Flomax) 0.4 mg PO DAILY 02/23/23 07/26/25 History allopurinol 300 mg tablet 300 mg PO DAILY 07/26/25 07/26/25 History amoxicillin 500 mg capsule 500 mg PO DIRECTED 07/26/25 07/26/25 History cholecalciferol (vitamin D3) 125 125 mcg PO DAILY 07/26/25 07/26/25 History mcg (5,000 unit) tablet enoxaparin 100 mg/mL subcutaneous 100 mg subcut Q12H 07/26/25 07/26/25 History syringe (Lovenox) folic acid 1 mg tablet 1 mg PO DAILY 07/26/25 07/26/25 History metformin 500 mg tablet 500 mg PO BID 07/26/25 07/26/25 History metoprolol tartrate 25 mg tablet 25 mg PO BID 07/26/25 07/26/25 History prednisone 1 mg tablet 1 mg PO DAILY 07/26/25 07/26/25 History pyridoxine (vitamin B6) 100 mg 100 mg PO DAILY 07/26/25 07/26/25 History tablet warfarin 5 mg tablet 5 - 7.5 mg PO DAILY 07/26/25 07/26/25 History Past Med/Surg History Problem List (Updated 07/26/25 @ 16:49 by Omari Card MD) B-cell lymphoma Weakness Retroperitoneal mass (Acute) Hypomagnesemia (Acute) Retroperitoneal hemorrhage Chronic kidney disease, stage 3a Spinal stenosis H/O polymyalgia rheumatica Back pain Arthralgia Vitamin D deficiency Anticoagulant long-term use CAD (coronary artery disease) Seizure-like activity S/P TAVR (transcatheter aortic valve replacement) TIA (transient ischemic attack) LBBB (left bundle branch block) Leg swelling Chest discomfort Acute kidney injury Dehydration Elevated troponin Syncope Aortic stenosis Convulsive syncope Peripheral neuropathy Pseudogout Observed seizure-like activity (Acute) BPH with obstruction/lower urinary tract symptoms Type 2 diabetes mellitus (Acute) Elevated PSA (Acute) Hypertension (Acute) Medical History Hypotension Contusion of periorbital region, right Generalized weakness Fall Hx pulmonary embolism Hypercholesterolemia Bronchitis Surgical History Aortic valve replaced S/P colonoscopy Family History Father Cardiac disorder Mother Hypertension Son Nephrolithiasis Other Diabetes Social History Smoking Status: Former smoker Tobacco Type: Cigarettes Second Hand Exposure: No; Do You Dip or Chew Tobacco: No; Hx Alcohol Use: No Hx Substance Use: No Preferred Language: Venezuelan Communication Ability: Effective Carpenters Supervisor Required: No Beliefs That Will Affect Care: None marital status: Current Living Situation: Spouse Current Living Situation Comment: single family home Feels Safe at Home: Yes Assistive Devices: Lift Chair, Raised Toilet Seat and Walker Physical Exam Physical Exam: General: Oriented to name, [facility]. Not oriented to year. Is not able to give a good history of why he is in the hospital HEENT: Atraumatic, normocephalic. Vision and hearing grossly intact. Pupils equal and reactive to light. EOM intact without nystagmus Pulm: Diminished, some crackles in the bases otherwise clear. symmetrical chest rise. No increased work of breathing. No respiratory distress. Cardiac: RRR, -mrg. Radial pulses intact and symmetrical. Abdominal: Nontender, nondistended, soft. BS present. : Dressing overlying scrotum. Scortum with mild edema, NT Skin/extremities: Left heel pressure ulcer present on admission. Right heel ulcer healing over, present on admission. Sacral pressure ulcer superficial present on admission. Exam somewhat limited by engagement however work force advisor strength, hip flexion, ankle dorsiflexion/plantarflexion are grossly intact and symmetrical bilaterally. He has bilateral lower extremity pitting edema right greater than left. Significantly larger right calf circumference compared to the left PG Care Time/CCT Total # of Minutes Spent Total Time Spent with Patient: Total time spent is greater than 50% in coordination of care (as documented) at patient's floor/unit and/or counseling patient: Coding Level of Care Code 87401 INT INP/OBS CARE 375MIN Diagnoses B-cell lymphoma C85.10 Chronic kidney disease, stage 3a N18.31 Spinal stenosis M48.00 LBBB (left bundle branch block) I44.7 TIA (transient ischemic attack) G45.9 BPH with obstruction/lower urinary tract symptoms N40.1; N13.8 Type 2 diabetes mellitus E11.9 Hypertension I10
[2025-07-26] MEDS ORDERED: GLUCOSE 40% GEL 15 GM TUBE PO PRN (16:48)
[2025-07-26] MEDS ORDERED: GLUCAGON FOR INJ 1 MG VIAL SQ PRN (16:48)
[2025-07-26] MEDS ORDERED: PHARMACY GLYCEMIC MGMT CONSULT PRN (16:48)
[2025-07-26] MEDS ORDERED: CARBOHYDRATES FOR HYPOGLYCEMIA PO PRN (16:48)
[2025-07-26] MEDS ORDERED: GLUCOSE 10 TAB/TUBE PO PRN (16:48)
[2025-07-26] MEDS ORDERED: DEXTROSE 50% 50 ML SYRINGE IV PRN (16:48)
[2025-07-26 17:41] LABS: Alanine Aminotransferase 23.0 U/L (7-52); Albumin Globulin Ratio 1.1 (0.9-2); Albumin Level 2.2 gm/dl (3.4-5.0); Alkaline Phosphatase 92.0 U/L (34-104); Anion Gap 5.0 (3-11); Bilirubin,Total 0.7 mg/dl (0.2-1.0); Blood Urea Nitrogen 37.0 mg/dl (6-23); Calcium 7.9 mg/dl (8.6-10.3); Carbon Dioxide 25.0 mmol/L (21-32); Chloride 113.0 mmol/L (98-107); Creatinine Clr Calc Pharmacy 81.9 ml/min; Globulin 2.0 gm/dl (2.5-4.0); Glucose 149.0 mg/dl (70-99(Fasting)); Magnesium 1.7 mg/dl (1.7-2.4); Potassium 4.6 mmol/L (3.5-5.1); Sodium 143.0 mmol/L (136-145); Total Protein 4.2 gm/dl (6.0-8.3); Uric Acid 2.5 mg/dl (2.6-7.2)
[2025-07-26] MEDS: Patient's HEIGHT &/or WEIGHT Needed SCH (17:44)
[2025-07-26 17:50] LABS: Hematocrit (blood only) 23.3 % (42.0-52.0); Hemoglobin 7.7 g/dl (14.0-18.0); Mean Corpuscular Hemoglobin 26.6 pg (25.0-34.0); Mean Corpuscular Volume 80.6 fL (80.0-100.0); Platelet Count 92 K/uL (130-400); RDW Standard Deviation 44.4 fL (36.4-46.3); Red Blood Count 2.89 M/uL (4.70-6.10); White Blood Count 3.61 K/ul (4.8-10.8)
[2025-07-26 17:52] LABS: Anisocytosis Present; Hypersegmented Neutrophils 2+; Immature Granulocytes # (auto) 0.05 K/uL (0.01-0.20); Immature Granulocytes % (auto) 1.4 %; Microcytosis Present
[2025-07-26 17:55] LABS: INR 1.1 (0.9-1.1); Partial Thromboplastin Time 30 Seconds (21-31); Prothrombin Time 11.7 Seconds (9.0-12.0)
[2025-07-26] MEDS: INSULIN ASPART PER UNIT CHARGE SC SCH (18:19)
[2025-07-26] MEDS: MAGNESIUM SULFATE / D5W 1 GM/100 ML BAG IV ONE (18:20)
[2025-07-26] MEDS: ENOXAPARIN 100 MG/1ML SYR SQ SCH (22:04)
[2025-07-26] MEDS: FAMOTIDINE 20MG IV PUSH 20 MG/5 ML SYR IV SCH (22:04)
--- NOTE | 2025-07-26 23:16 | Ultrasound Report ---
Exam(s): US VENOUS RIGHT LOWER EXTREMITY EXAM: US Duplex Right Lower Extremity Veins CLINICAL HISTORY: Recurrent Deep vein thrombosis TECHNIQUE: Real-time duplex ultrasound scan of the right lower extremity veins integrating B-mode two-dimensional vascular structure, Doppler spectral analysis, color flow Doppler imaging and compression. COMPARISON: No relevant prior studies available. FINDINGS: Deep veins: Nonocclusive deep vein thrombosis of the superficial femoral vein. Nonocclusive thrombosis of the deep femoral vein. The common femoral vein, popliteal vein, anterior tibial vein and posterior tibial vein are patent. Superficial veins: Unremarkable. No thrombus in the visualized great saphenous vein. Soft tissues: Marked nonspecific subcutaneous edema. No popliteal cyst. IMPRESSION: 1. Nonocclusive deep vein thrombosis of the superficial femoral vein. 2. Nonocclusive thrombosis of the deep femoral vein. 3. Marked nonspecific subcutaneous edema. Communications: Verify Receipt Electronically signed by: Jenni Mcgowan MD 07/26/25 23:15 PM
[2025-07-27 07:16] LABS: Hematocrit (blood only) 20.9 % (42.0-52.0); Hemoglobin 6.8 g/dl (14.0-18.0); Mean Corpuscular Hemoglobin 26.5 pg (25.0-34.0); Mean Corpuscular Volume 81.3 fL (80.0-100.0); Platelet Count 81 K/uL (130-400); RDW Standard Deviation 46.5 fL (36.4-46.3); Red Blood Count 2.57 M/uL (4.70-6.10); White Blood Count 3.01 K/ul (4.8-10.8)
[2025-07-27 07:24] LABS: Anion Gap 5.0 (3-11); Blood Urea Nitrogen 31.0 mg/dl (6-23); Calcium 7.8 mg/dl (8.6-10.3); Carbon Dioxide 26.0 mmol/L (21-32); Chloride 113.0 mmol/L (98-107); Creatinine Clr Calc Pharmacy 78.5 ml/min; Glucose 92.0 mg/dl (70-99(Fasting)); Magnesium 1.7 mg/dl (1.7-2.4); Potassium 4.0 mmol/L (3.5-5.1); Sodium 144.0 mmol/L (136-145)
--- NOTE | 2025-07-27 07:35 | Hospitalist Progress Note ---
Date of Service July 27, 2025 Assessment & Plan (1) B-cell lymphoma: Plan: Joshua is an 79-year-old male who was transferred to [facility] for evaluation of a retroperitoneal mass suspicious for malignancy versus hematoma. Following biopsy this was found to be high-grade B-cell lymphoma. He was being treated with mini CHOP however his course at [facility] was complicated by aspiration pneumonia requiring intubation. He was subsequently extubated and recovered. He then c ontinued to have inability to tolerate p.o. due to aspiration for which he had an NGT placed. Patient was discussed with [facility] and recommended for return evaluation as he had hemodynamically stabilized, was extubated, but required further evaluation for PEG tube and ongoing chemo with likely placement. At time of arrival/assessment patient's core safe NGT had been removed, in discussion with patient review of documentation this had been removed by patient however had been recommended for further evaluation at [facility] for replacement of NGT versus pursuing PEG. Patient was recovering from his mini CHOP treatment, and is anticipating his next treatment in approximately 2 weeks. Case had been signed out directly between [facility] oncology and Dr. Burgess. High-grade B-cell lymphoma Ultrasound-guided biopsy of retroperitoneal mass 07/11: High-grade B-cell lymphoma Flow cytometry: Atypical lymphoid population, CD5-, CD10-, double negative for kappa/lambda, favoring B-cell lymphoma MRI brain 07/12: Unremarkable Mini CHOP with cyclophosphamide 07/16, vincristine 07/19, doxorubicin 07/20. Next anticipated chemotherapy in approximately 2 weeks Recommended to continue allopurinol 300 mg daily twice daily through NGT/PEG when available FISH pending No indication for G-CSF as ANC was 7.03 at [facility]. Follow counts daily. If ANC less than 1, [facility] Oncology consulted On admission potassium normalized at 4.6, uric acid 2.5, most calcium 7.9 corrects to normal when corrected for hypoalbuminemia. Phosphorus normal, magnesium low range of normal Adrenal insufficiency On stress dose steroids. Home dose of steroids 2.5 mg daily. Plan was to down titrate to methylprednisolone 10 mg daily, was on 20 mg daily up through time of transfer. - Wean steroids to 10 mg 07/28 Severe dysphagia with aspiration Suspected multifactorial with encephalopathy, hospital delirium, Alzheimer's 07/10 Speech evaluation and modified Barium swallow: Pooling of contrast materials at the level of the vallecula and piriform sinuses. No Cricopharyngeal bar (sustained, greater than 50% diameter narrowing of esophagus): Or nasopharyngeal reflux. Aspiration to thin barium, nectar thin liquid, pure food/pudding. Further materials not attempted NGT placed 07/15 Per [facility] speech 07/22: Strict avoidance of p.o. route. was interested in PEG placement, patient was interested in continuing nasogastric tube at the time. This was dislodged and self removed by patient 07/24. Reportedly plan was to reinsert this. This was not done prior to transfer. Due to severe dysphagia over the preceding 3 weeks, failure to improve/progress, and speech recommendations patient was recommended for PEG placement. Speech at [facility] recommended against barium swallow due to concerns for continued recurrent aspiration and unsafe swallow. He was recommended to continue Protonix 40 mg IV in the morning, Pepcid 40 mg at bedtime by ENT. Further workup was deferred to [facility] GI Patient's reports she would like a speech reevaluation as she notes prior to this episode he has never had any trouble swallowing or aspiration and was critically ill for a decent period of time. He had not had an EGD at any point. He did have a flexible fiberoptic be with ENT, this was normal at [facility] 1.3 L serosanguineous fluid drained via thoracentesis 07/13 for left-sided pleural effusion in the setting of pneumonia. Stenotrophomonas and Coni positive. ID was consulted. He did not receive any antifungal treatment, clinically improved/progressed. ON admit I had a kandi discussion with the patient's that if he has severely impaired swallowing mechanics/dysphagia that a PEG tube does not eliminate the risk of aspiration. Discussed potential to have reflux aspiration even with continuous PEG tube feeds and that this cannot be eliminated as a risk. She expresses an understanding of this, would like to have a swallow reevaluation and ultimately still pursue PEG tube if he continues to be unsafe to swallow. Per report from [facility] he did have recurrent aspiration events and was not felt to be safe for further p.o. challenge. -Nutrition requirements while at [facility] when core safe was available: Nutren 2.0 at 55 cc/h with Beneprotein 1 packet per carton of feeding and Neutra source fiber 2 packets and 50 cc of water 4 times a day. With protein malnutrition and hypoalbuminemia contributing to third spacing He is significantly body overloaded with third spacing however appears slightly intravascularly contracted with dry mucous membranes, no JVD, and elevated BUN/creatinine ratio. Thigh-high SCDs to help mobilize lower extremity fluid Family meeting pending 07/28 around 1011 AM to discuss plans and goals of care. Ultimately can have follow-up VFSS likely on Tuesday however low chance that this will show that he is safe to swallow. Did also discussed with GI who also agree and reinforced that PEG tube and even NGT feeds will not lower and may actually increase his risk of aspiration. Family is aware of possibility for presence of aspiration, would like to discuss this when everyone is present 07/28. Hx Asymptomatic hyperkalemia Resolved Pancytopenia, anemia with hemoglobin less than 7 Likely 2/2 mini CHOP therapy Hematology oncology following Neutrophil count greater than 1 Hemoglobin 6.8 on 07/27. Reviewed with family, they report he did receive a blood transfusion 07/26 prior to transfer thought to be due to chemotherapy with no active bleeding noted at [facility] Consent completed. 1 unit ordered for transfusion. H&H 1 hour posttransfusi on. Trend daily. Monitor for bleeding Hospital-acquired deep pressure injury of left heel, right heel. Left heel improving but not resolved. Right heel pressure wound healing. Does not appear acutely cellulitic Wound care, offloading precautions History of DVT, recurrent PE Was transiently on therapeutic Lovenox at [facility]. Transitioned to Eliquis by NGT however this was subsequently self removed and remains on Lovenox until able to tolerate p.o. or has feeding tube placed Continue Lovenox 1 mg/kg twice daily Confirmed with [facility] transfer center last dose of Lovenox was 9:45 AM on Bilateral lower extremity edema is present however he has significantly more right sided edema compared to the left. Lower extremity Doppler shows nonocclusive DVT of the superficial femoral and deep femoral vein and marked nonspecific edema. Continue Lovenox 1M PK twice daily. He is high risk both with malignancy and with history of recurrent DVT/PE to hold this. He is undergoing blood transfusion with a hemoglobin of 6.8 on 07/27; however this is following mini CHOP therapy and he has had no clinical bleeding including absence of melena/medic easier. Hemoglobin drop may be related to chemotherapy and he is pancytopenic. If he has clinical life-threatening bleeding and anticoagulation will need to stop Lovenox, address source of bleeding, and goals of care and possible filter at that History of type II DM Last A1c 6.5% Sliding scale ordered on admission, dose reduced basal pending BSG evaluation Pharmacy consulted for assistance with management due to impaired p.o., and concurrent steroid Recent pneumonia with ICU admission Resolved at [facility] - Sepsis due to aspiration pneumonia: Resolved following Zosyn, vancomycin, meropenem, Bactrim. Completed Zosyn 07/06 - 07/12, vancomycin 07/06 - 07/16, meropenem 07/12 - 07/20, Bactrim single dose on 07/19. Respiratory cultures grew stenotrophomonas, ID was consulted and suspected colonization. TTE 07/13 while critically ill: Technically challenging study. EF 60-65%. Limited wall motion interpretation. Bundle branch block noted with some abnormal septal motion, mild LVH. Bioprosthetic AVR with expected gradients noted IV access: PICC in left upper extremity DVT prophylaxis: Lovenox therapeutic as noted CODE STATUS: Full code. Discussed with patient and his on admission. He was recently intubated in the ICU at [facility] and would want all measures taken again; however if he did not have signs of significant recovery after 24-48 hours would want to review the rare/benefits of ongoing support at that time with care team Diet: n.p.o. pending VFSS. Clinically volume overloaded. Temporary PPN versus permissive after duration versus temporary NGT attempt pending further family discussion and goals of care (2) Chronic kidney disease, stage 3a: (3) Spinal stenosis: (4) LBBB (left bundle branch block): (5) TIA (transient ischemic attack): (6) BPH with obstruction/lower urinary tract symptoms: (7) Type 2 diabetes mellitus: (8) Hypertension: Admission and Anticipated Discharge Date Admission Date: July 26, 2025 Subjective Was seen at the bedside. Case was discussed with his by phone, and then again in person. Tired overall, no bleeding. Pain remains greatly improved since chemotherapy. Did discuss his current course and progression, his current anticoagulation and lower extremity DVTs, balanced against his anemia on transfusion which is suspected to be chemo related rather than from acute bleeding. His recognizes that he is on a very tenuous balance and if he were to bleed then the need for anticoagulation with high DVT/PE risk up against absolute contraindication and life-threatening bleeding has a poor prognosis. Ultimately could consider filter, but this does not prevent clots that just tries to min imize risk of migration and may paradoxically increase risk of forming further clot at the access point. She and Joshua had discussed before that he did not want prolonged measures if he were unlikely to recover; their goal is for him to get strong enough to walk with a walker and consider further chemotherapy. They would like to continue full measures for now, but also acknowledge that they would want to talk with their son and family if his aspiration risk could not be meaningfully eliminated or if he were to decompensate whether he would want to continue aggressive measures. For now they do continue to continue current measures. Joshua and his and son will be present for family meeting tomorrow morning at around 10/11 AM to revisit the case in his entirety and to further discuss goals of care. Physical Exam Physical Exam: General: Oriented to name, [facility] and 2024 HEENT: Atraumatic, normocephalic. Vision and hearing grossly intact. Pupils equal and reactive to light. EOM intact without nystagmus Pulm: Diminished, some crackles in the bases otherwise clear. symmetrical chest rise. No increased work of breathing. No respiratory distress. Cardiac: RRR, -mrg. Radial pulses intact and symmetrical. Abdominal: Nontender, nondistended, soft. BS present. : Dressing overlying scrotum. Scortum with mild edema, NT Skin/extremities: Left heel pressure ulcer, Right heel ulcer unchanged. Continues with right greater than left bilateral lower extremity edema Results & Data Results & Data Vital Signs (Past 12 Hours) Vital Signs Temp Pulse Resp BP Pulse Ox O2 Del Method 07/26/25 22:59 36.9 C 79 20 145/72 H 96 Room Air 07/26/25 20:00 Room Air PG Care Time/CCT Total # of Minutes Spent Total Time Spent with Patient: Total time spent is greater than 50% in coordination of care (as documented) at patient's floor/unit and/or counseling patient: Coding Level of Care Code 70296 SUB INP/OBS CARE 3/50MIN Diagnoses B-cell lymphoma C85.10 Chronic kidney disease, stage 3a N18.31 Spinal stenosis M48.00 LBBB (left bundle branch block) I44.7 TIA (transient ischemic attack) G45.9 BPH with obstruction/lower urinary tract symptoms N40.1; N13.8 Type 2 diabetes mellitus E11.9 Hypertension I10
--- NOTE | 2025-07-27 08:15 | Gastrointestinal Consultation ---
Date of Consultation July 27, 2025 Assessment & Plan (1) Dysphagia: Patient with dysphagia and consultation made regarding PEG. I agree with repeat speech pathology evaluation to see where we stand. I do need to speak with when she is around to see what her wishes are but this can be done after speech pathology evaluation. I agree with Dr. Card that patient and spouse need to not have the expectation that PEG will eliminate issues with aspiration as PEG tubes tend to increase the risk of aspiration in patients because they tend to be fed in the supine position. Will follow but no intervention until after speech pathology eval and discussion with patient and spouse. History of Present Illness Reason for Consultation: dysphagia Attending Physician: Omari Card MD History of Present Illness 79 year old man whom I am asked to see, I think, regarding PEG tube. Patient has had rather abrupt deterioration in his swallowing abilities with aspiration issues and had speech pathology evaluation revealing issues in mid June. He is currently under treatment for B cell lymphoma and was at [facility] with an NG tube. Tube was dislodged/removed and we are asked to consider other options. Patient sleeping on my visit and when aroused he didn't offer much help in history. Reading the chart patient's wants repeat speech pathology evaluation (order placed) as she is concerned with acute change and is hopeful his swallowing will return. Allergies Allergy/AdvReac Type Severity Reaction Status Date / Time bee venom protein (honey bee) Allergy Unknown Anaphylaxis Verified 12/12/24 10:02 Home Medications Medication Instructions Recorded Confirmed Type famotidine 20 mg tablet (Pepcid) 40 mg PO HS 03/04/22 07/26/25 History magnesium 200 mg tablet 400 mg PO DAILY 02/23/23 07/26/25 History tamsulosin 0.4 mg capsule (Flomax) 0.4 mg PO DAILY 02/23/23 07/26/25 History allopurinol 300 mg tablet 300 mg PO DAILY 07/26/25 07/26/25 History amoxicillin 500 mg capsule 500 mg PO DIRECTED 07/26/25 07/26/25 History cholecalciferol (vitamin D3) 125 125 mcg PO DAILY 07/26/25 07/26/25 History mcg (5,000 unit) tablet enoxaparin 100 mg/mL subcutaneous 100 mg subcut Q12H 07/26/25 07/26/25 History syringe (Lovenox) folic acid 1 mg tablet 1 mg PO DAILY 07/26/25 07/26/25 History metformin 500 mg tablet 500 mg PO BID 07/26/25 07/26/25 History metoprolol tartrate 25 mg tablet 25 mg PO BID 07/26/25 07/26/25 History prednisone 1 mg tablet 1 mg PO DAILY 07/26/25 07/26/25 History pyridoxine (vitamin B6) 100 mg 100 mg PO DAILY 07/26/25 07/26/25 History tablet warfarin 5 mg tablet 5 - 7.5 mg PO DAILY 07/26/25 07/26/25 History Patient History Medical History Acute hyponatremia Supratherapeutic INR Acute adrenal insufficiency Lactic acidosis Hypotension Contusion of periorbital region, right Generalized weakness Fall Hx pulmonary embolism Hypercholesterolemia Bronchitis Surgical History Aortic valve replaced S/P colonoscopy Family History Father Cardiac disorder Mother Hypertension Son Nephrolithiasis Other Diabetes Social History Smoking Status: Never smoker Tobacco Type: Cigarettes Second Hand Exposure: No; Do You Dip or Chew Tobacco: No; Hx Alcohol Use: No Hx Substance Use: No Preferred Language: Palauan Communication Ability: Effective Label Operator Required: No Beliefs That Will Affect Care: None marital status: Current Living Situation: Spouse Current Living Situation Comment: single family home Other Information That Helps Us Care for You: No Feels Safe at Home: Yes Safety Concerns: Feels Safe At This Time Assistive Devices: Lift Chair, Raised Toilet Seat and Walker Physical Exam Physical Exam: Elderly man in no overt distress Constitutional: WD/WN, vitals as above + lethargic Respiratory: normal respiratory effort, lungs clear to auscultation Cardiovascular: RRR, no murmur, no edema Gastrointestinal (Abdomen): normal bowel sounds, soft, nontender, no hepatosplenomegaly Results & Data Vital Signs (Past 12 Hours) Vital Signs Temp Pulse Resp BP Pulse Ox O2 Del Method 07/26/25 22:59 36.9 C 79 20 145/72 H 96 Room Air Laboratory Results 07/27/25 07/27/25 07/27/25 Range/Units 07:58 06:42 03:50 WBC 3.01 L (4.8-10.8) K/ul RBC 2.57 L (4.70-6.10) M/uL Hgb 6.8 L* (14.0-18.0) g/dl Hct 20.9 L* (42.0-52.0) % MCV 81.3 (80.0-100.0) fL MCH 26.5 (25.0-34.0) pg MCHC 32.5 (32.0-36.0) g/dL RDW Std Deviation 46.5 H (36.4-46.3) fL RDW Coeff of Spike 18.3 H (11.5-14.5) % Plt Count 81 L (130-400) K/uL MPV 11.1 (9.4-12.4) fL Immature Gran % (Auto) % Neut % (Auto) % Lymph % (Auto) % Mckean % (Auto) % Eos % (Auto) % Baso % (Auto) % Neut # (Auto) (1.40-6.50) K/uL Lymph # (Auto) (1.20-3.40) K/uL Mckean # (Auto) (0.11-0.59) K/uL Eos # (Auto) (0.00-0.50) K/uL Baso # (Auto) (0.00-0.20) K/uL Immature Gran # (Auto) (0.01-0.20) K/uL Hypersegmented Neuts Platelet Estimate (Normal) Anisocytosis Microcytosis PT (9.0-12.0) Seconds INR (0.9-1.1) APTT (21-31) Seconds PTT Ratio Sodium 144 (136-145) mmol/L Potassium 4.0 (3.5-5.1) mmol/L Chloride 113 H (98-107) mmol/L Carbon Dioxide 26 (21-32) mmol/L Anion Gap 5 (3-11) BUN 31 H (6-23) mg/dl Creatinine 0.97 (0.6-1.4) mg/dl Est Cr Clr Drug Dosing 78.5 ml/min eGFR 78.92 BUN/Creatinine Ratio 32.0 H (10-20) Glucose 92 (70-99(Fasting)) mg/dl POC Glucose 93 94 (70-99) mg/dl Uric Acid (2.6-7.2) mg/dl Calcium 7.8 L (8.6-10.3) mg/dl Phosphorus (2.5-4.9) mg/dl Magnesium 1.7 (1.7-2.4) mg/dl Total Bilirubin (0.2-1.0) mg/dl AST (13-39) U/L ALT (7-52) U/L Alkaline Phosphatase (34-104) U/L Total Protein (6.0-8.3) gm/dl Albumin (3.4-5.0) gm/dl Globulin (2.5-4.0) gm/dl Albumin/Globulin Ratio (0.9-2) 07/27/25 07/26/25 07/26/25 Range/Units 01:06 20:40 17:08 WBC 3.61 L (4.8-10.8) K/ul RBC 2.89 L (4.70-6.10) M/uL Hgb 7.7 L (14.0-18.0) g/dl Hct 23.3 L (42.0-52.0) % MCV 80.6 (80.0-100.0) fL MCH 26.6 (25.0-34.0) pg MCHC 33.0 (32.0-36.0) g/dL RDW Std Deviation 44.4 (36.4-46.3) fL RDW Coeff of Spike 17.8 H (11.5-14.5) % Plt Count 92 L (130-400) K/uL MPV 11.1 (9.4-12.4) fL Immature Gran % (Auto) 1.4 % Neut % (Auto) 89.2 % Lymph % (Auto) 6.6 % Mckean % (Auto) 1.1 % Eos % (Auto) 1.4 % Baso % (Auto) 0.3 % Neut # (Auto) 3.22 (1.40-6.50) K/uL Lymph # (Auto) 0.24 L (1.20-3.40) K/uL Mckean # (Auto) 0.04 L (0.11-0.59) K/uL Eos # (Auto) 0.05 (0.00-0.50) K/uL Baso # (Auto) 0.01 (0.00-0.20) K/uL Immature Gran # (Auto) 0.05 (0.01-0.20) K/uL Hypersegmented Neuts 2+ Platelet Estimate Decreased L (Normal) Anisocytosis Present Microcytosis Present PT 11.7 (9.0-12.0) Seconds INR 1.1 (0.9-1.1) APTT 30 (21-31) Seconds PTT Ratio 1.1 Sodium 143 (136-145) mmol/L Potassium 4.6 (3.5-5.1) mmol/L Chloride 113 H (98-107) mmol/L Carbon Dioxide 25 (21-32) mmol/L Anion Gap 5 (3-11) BUN 37 H (6-23) mg/dl Creatinine 0.93 (0.6-1.4) mg/dl Est Cr Clr Drug Dosing 81.9 ml/min eGFR 83.01 BUN/Creatinine Ratio 39.8 H (10-20) Glucose 149 H (70-99(Fasting)) mg/dl POC Glucose 101 H 135 H (70-99) mg/dl Uric Acid 2.5 L (2.6-7.2) mg/dl Calcium 7.9 L (8.6-10.3) mg/dl Phosphorus 4.1 (2.5-4.9) mg/dl Magnesium 1.7 (1.7-2.4) mg/dl Total Bilirubin 0.7 (0.2-1.0) mg/dl AST 25 (13-39) U/L ALT 23 (7-52) U/L Alkaline Phosphatase 92 (34-104) U/L Total Protein 4.2 L (6.0-8.3) gm/dl Albumin 2.2 L (3.4-5.0) gm/dl Globulin 2.0 L (2.5-4.0) gm/dl Albumin/Globulin Ratio 1.1 (0.9-2) 07/26/25 Range/Units 16:44 WBC (4.8-10.8) K/ul RBC (4.70-6.10) M/uL Hgb (14.0-18.0) g/dl Hct (42.0-52.0) % MCV (80.0-100.0) fL MCH (25.0-34.0) pg MCHC (32.0-36.0) g/dL RDW Std Deviation (36.4-46.3) fL RDW Coeff of Spike (11.5-14.5) % Plt Count (130-400) K/uL MPV (9.4-12.4) fL Immature Gran % (Auto) % Neut % (Auto) % Lymph % (Auto) % Mckean % (Auto) % Eos % (Auto) % Baso % (Auto) % Neut # (Auto) (1.40-6.50) K/uL Lymph # (Auto) (1.20-3.40) K/uL Mckean # (Auto) (0.11-0.59) K/uL Eos # (Auto) (0.00-0.50) K/uL Baso # (Auto) (0.00-0.20) K/uL Immature Gran # (Auto) (0.01-0.20) K/uL Hypersegmented Neuts Platelet Estimate (Normal) Anisocytosis Microcytosis PT (9.0-12.0) Seconds INR (0.9-1.1) APTT (21-31) Seconds PTT Ratio Sodium (136-145) mmol/L Potassium (3.5-5.1) mmol/L Chloride (98-107) mmol/L Carbon Dioxide (21-32) mmol/L Anion Gap (3-11) BUN (6-23) mg/dl Creatinine (0.6-1.4) mg/dl Est Cr Clr Drug Dosing ml/min eGFR BUN/Creatinine Ratio (10-20) Glucose (70-99(Fasting)) mg/dl POC Glucose 153 H (70-99) mg/dl Uric Acid (2.6-7.2) mg/dl Calcium (8.6-10.3) mg/dl Phosphorus (2.5-4.9) mg/dl Magnesium (1.7-2.4) mg/dl Total Bilirubin (0.2-1.0) mg/dl AST (13-39) U/L ALT (7-52) U/L Alkaline Phosphatase (34-104) U/L Total Protein (6.0-8.3) gm/dl Albumin (3.4-5.0) gm/dl Globulin (2.5-4.0) gm/dl Albumin/Globulin Ratio (0.9-2) Diagnostic Findings Venous Doppler Study 07/26/25 17:20 CR Exam(s): US VENOUS RIGHT LOWER EXTREMITY EXAM: US Duplex Right Lower Extremity Veins CLINICAL HISTORY: Recurrent Deep vein thrombosis TECHNIQUE: Real-time duplex ultrasound scan of the right lower extremity veins integrating B-mode two-dimensional vascular structure, Doppler spectral analysis, color flow Doppler imaging and compression. COMPARISON: No relevant prior studies available. FINDINGS: Deep veins: Nonocclusive deep vein thrombosis of the superficial femoral vein. Nonocclusive thrombosis of the deep femoral vein. The common femoral vein, popliteal vein, anterior tibial vein and posterior tibial vein are patent. Superficial veins: Unremarkable. No thrombus in the visualized great saphenous vein. Soft tissues: Marked nonspecific subcutaneous edema. No popliteal cyst. IMPRESSION: 1. Nonocclusive deep vein thrombosis of the superficial femoral vein. 2. Nonocclusive thrombosis of the deep femoral vein. 3. Marked nonspecific subcutaneous edema. Communications: Verify Receipt Electronically signed by: Jenni Mcgowan MD 07/26/25 23:15 PM
[2025-07-27 08:20] LABS: Hypochromasia Present; Immature Granulocytes # (auto) 0.04 K/uL (0.01-0.20); Immature Granulocytes % (auto) 1.3 %
[2025-07-27] MEDS ORDERED: SODIUM CHLORIDE 0.9% 100 ML IV PRN (08:47)
[2025-07-27] MEDS: PANTOprazole 40 MG/10 ML SYR IV SCH (09:49)
--- NOTE | 2025-07-27 14:23 | Pharmacy Report ---
Pharmacy Glycemic Short Note 2 - Date of Service July 27, 2025 - Glycemic Short BSG Results (Last 24 hours): 07/26/25 07/26/25 07/26/25 16:44 17:08 20:40 Glucose 149 H POC Glucose 153 H 135 H 07/27/25 07/27/25 07/27/25 01:06 03:50 06:42 Glucose 92 POC Glucose 101 H 94 07/27/25 07/27/25 07:58 11:45 Glucose POC Glucose 93 109 H OUTPATIENT ANTIDIABETIC REGIMEN: * metformin 500 mg bid ASSESSMENT: * 79 year old admitted with dysphagia. Type 2 diabetic managed on metformin outpatient. Pharmacy consulted for glycemic management. Started on solumedol 20 mg iv daily. Will start novolog low dose scale. PLAN FOR INPATIENT GLYCEMIC CONTROL: * Hold outpatient oral diabetes medications * Basal insulin * Lantus - hold * Bolus insulin * NovoLog per scale ACHS or Q6hrs while NPO * Goal Range: Low 110 mg/dL - High 140 mg/dL * Correction Factor: 25 mg/dL/unit * Nutritional / Prandial insulin per carb ratio of 1 unit per 12 grams CHO consumed
[2025-07-27 15:30] LABS: Hematocrit (blood only) 24.8 % (42.0-52.0); Hemoglobin 8.1 g/dl (14.0-18.0)
[2025-07-28 06:54] LABS: Hematocrit (blood only) 25.1 % (42.0-52.0); Hemoglobin 8.2 g/dl (14.0-18.0); Mean Corpuscular Hemoglobin 26.5 pg (25.0-34.0); Mean Corpuscular Volume 81.0 fL (80.0-100.0); Platelet Count 70 K/uL (130-400); RDW Standard Deviation 47.8 fL (36.4-46.3); Red Blood Count 3.10 M/uL (4.70-6.10); White Blood Count 2.31 K/ul (4.8-10.8)
[2025-07-28 07:12] LABS: Anion Gap 6.0 (3-11); Blood Urea Nitrogen 26.0 mg/dl (6-23); Calcium 7.8 mg/dl (8.6-10.3); Carbon Dioxide 26.0 mmol/L (21-32); Chloride 112.0 mmol/L (98-107); Creatinine Clr Calc Pharmacy 79.5 ml/min; Glucose 83.0 mg/dl (70-99(Fasting)); Potassium 3.9 mmol/L (3.5-5.1); Sodium 144.0 mmol/L (136-145)
[2025-07-28 07:52] LABS: Immature Granulocytes # (auto) 0.02 K/uL (0.01-0.20); Immature Granulocytes % (auto) 0.9 %; RBC Morphology Unremarkable
--- NOTE | 2025-07-28 08:56 | Communication Note ---
Date of Service: July 28, 2025 Speech pathology plans VFSS tomorrow. Will see the results and discuss plans afterward
--- NOTE | 2025-07-28 15:24 | Advance Care Plan Prog Note ---
Advanced Care Planning Note Date of Discussion July 28, 2025 ACP Discussion Diagnoses requiring ACP discussion: Protein calorie malnutrition Failure to thrive B-cell lymphoma Severe dysphagia with aspiration Recurrent DVT/PE Recent ICU admission Family members present: Mr. Joshua Westbrook (patient) Alana Westbrook () Belle Westbrook ([id number]) Jean Paul Westbrook (son) Joshua Westbrook (son) Omero Westbrook (son) A [id number] discussion with the patient's and family regarding the patient's advanced care planning took place during this hospitalization on the above date. The discussion included the explanation and discussion of advance directives and associated forms/documents, as well as the patient's current code status. We also discussed at length the patient's medical conditions (both acute and chronic), general prognosis, treatment options, and goals of care. The following summarizes the discussion: Some discussion regarding Joshua's current condition, treatment, and goals of care. His and his family's goals are for him to get enough nutrition to attempt to pursue further chemo, and reasonably ambulate and return home. They report their immediate goals are to have him have a PEG tube placed for nutrition based on conversations at [facility]. There understanding of the PEG tube is that it will help with aspiration and allow him to get nutrition safely. It is important to Joshua to continue pursuing treatments available to him within reason. He would want further attempts at resuscitation and repeat ICU admission if needed. He and his recognize that if interventions were likely to have a permanent deterioration to his quality of life or in significant ongoing pain may want a focus on quality of life at that point but do not feel that he is in this situation currently and goals are as previously noted. He has never had difficulty swallowing before, and this episode of aspiration was the first time he has had any problems related to aspiration. We reviewed his recommendations and studies from [facility]. In addition did review extensively the role and risk/benefits of PEG tubes, permissive aspiration, and parenteral nutrition. Discussed that a PEG tube is a role when someone cannot get an adequate amount of nutrition into their stomach. With respect to aspiration did discuss explicitly that this does not eliminate the risk of aspiration, and reflux aspiration is common, and can be worse in the case of overnight feedings. While having low continuous feeding and maintaining head of bed elevation to 30 degrees can reduce this risk at this not eliminated. Furthermore patient reports that Joshua had continued coughing fits while he was getting coarsely feeds at [facility] and some reflux aspiration leading to this cannot be excluded. Reviewed that with permissive aspiration critical factor for helping reduce bacterial burden and reducing the risk of progressing aspiration pneumonia is oral hygiene Reviewed role of PPN/TPN as temporizing measures. Ultimately parenteral nutrition does not provide good nutrition to enterocytes, and has an increased infectious risk. For this reason and as it would be a short-term plan do not feel the risk outweighed the benefits, and furthermore he is borderline immune compromised with low white blood cell count levels although not absolutely neutropenic and undergoing chemo. Ultimately family agrees with deferring this figuring out a long-term plan PEG placement is with additional risk as he is currently requiring therapeutic anticoagulation with right lower extremity DVT, and a past history of recurrent DVT/PE with recent critical illness and critical care stay They would like to repeat a video swallow tomorrow. As he had not had any issues previous to this, and actually appears to be progressing in alertness would like to have a reevaluation. If he is frankly unable to swallow any amount of nutrition then they would want to pursue a PEG tube versus temporary NGT tube for nutrition If he is able to swallow a reasonable amount of food/modified diet and the aspiration risk between a PEG/NGT versus permissive aspiration were similar then would consider permissive aspiration. Confirms full code Questions answered to patient and family satisfaction, total conversation occurring over 55 minutes, and documentation time of approximately 15 minutes. Status Resuscitation Status Full Code Total Time I spent a total of [*] minutes was spent on this discussion, including counseling, answering questions, and completing, if any, pertinent advanced care planning forms/documents.
--- NOTE | 2025-07-28 15:34 | Hospitalist Progress Note ---
Date of Service July 28, 2025 Assessment & Plan (1) B-cell lymphoma: Plan: Joshua is an 79-year-old male who was transferred to [facility] for evaluation of a retroperitoneal mass suspicious for malignancy versus hematoma. Following biopsy this was found to be high-grade B-cell lymphoma. He was being treated with mini CHOP however his course at [facility] was complicated by aspiration pneumonia requiring intubation. He was subsequently extubated and recovered. He then c ontinued to have inability to tolerate p.o. due to aspiration for which he had an NGT placed. Patient was discussed with [facility] and recommended for return evaluation as he had hemodynamically stabilized, was extubated, but required further evaluation for PEG tube and ongoing chemo with likely placement. At time of arrival/assessment patient's core safe NGT had been removed, in discussion with patient review of documentation this had been removed by patient however had been recommended for further evaluation at [facility] for replacement of NGT versus pursuing PEG. Patient was recovering from his mini CHOP treatment, and is anticipating his next treatment in approximately 2 weeks. Case had been signed out directly between [facility] oncology and Dr. Burgess. Currently he is pending evaluation of swallowing ability and nutritional requirements, otherwise is stable and his pain is greatly improved following his chemotherapy at [facility] High-grade B-cell lymphoma Ultrasound-guided biopsy of retroperitoneal mass 07/11: High-grade B-cell lymphoma Flow cytometry: Atypical lymphoid population, CD5-, CD10-, double negative for kappa/lambda, favoring B-cell lymphoma MRI brain 07/12: Unremarkable Mini CHOP with cyclophosphamide 07/16, vincristine 07/19, doxorubicin 07/20. Next anticipated chemotherapy in approximately 2 weeks Recommended to continue allopurinol 300 mg daily twice daily through NGT/PEG when available FISH pending No indication for G-CSF as ANC was 7.03 at [facility]. Follow counts daily. [facility] On admission potassium normalized at 4.6, uric acid 2.5, most calcium 7.9 corrects to normal when corrected for hypoalbuminemia. Phosphorus normal, magnesium low range of normal Potassium within normal range, creatinine remains stable Adrenal insufficiency On stress dose steroids. Home dose of steroids 2.5 mg daily. Down titrated to 10 mg 07/28. Continue to wean steroids as tolerated. BP stable Severe dysphagia with aspiration Historical review of course at [facility] per records: Aspiration event occurring, patient with complex presentation at that time with acute encephalopathy, hospital delirium, reported history of ?Alzheimer's, and critical illness 07/10 [facility] speech evaluation and modified Barium swallow: Pooling of contrast materials at the level of the vallecula and piriform sinuses. No Cricopharyngeal bar (sustained, greater than 50% diameter narrowing of esophagus): Or nasopharyngeal reflux. Aspiration to thin barium, nectar thin liquid, pure food/pudding. Further materials not attempted. NGT placed 07/15 Per [facility] speech 07/22: Strict avoidance of p.o. route. was interested in PEG placement, patient was interested in continuing nasogastric tube at the time. This was dislodged and self removed by patient 07/24. Reportedly plan was to reinsert this. This was not done prior to transfer. Due to severe dysphagia over the preceding 3 weeks, failure to imp rove/progress, and speech recommendations patient was recommended for PEG placement. Speech at [facility] recommended against barium swallow due to concerns for continued recurrent aspiration and unsafe swallow. He was recommended to continue Protonix 40 mg IV in the morning, Pepcid 40 mg at bedtime by ENT. Further workup was deferred to [facility] GI Patient's reports she would like a speech reevaluation as she notes prior to this episode he has never had any trouble swallowing or aspiration and was critically ill for a decent period of time. He had not had an EGD at any point. He did have a flexible fiberoptic be with ENT, this was normal at [facility] 1.3 L serosanguineous fluid drained via thoracentesis 07/13 for left-sided pleural effusion in the setting of pneumonia. Stenotrophomonas and Coni positive. ID was consulted. He did not receive any antifungal treatment, clinically improved/progressed. He is significantly body overloaded with third spacing however appears s lightly intravascularly contracted with dry mucous membranes, no JVD, and elevated BUN/creatinine ratio. He was referred back to [facility] with intact nation of PEG tube being Family meeting 07/28/2025. Please see details in ACP note, risks/beneifts of PEG were reviewed including that PEG does not eliminate aspiration risk. Family would like to pursue repeat video swallow 07/29. As he had not had any issues previous to this, and actually appears to be progressing in alertness would like to have a reevaluation. If he is frankly unable to swallow any amount of nutrition then they would want to pursue a PEG tube versus temporary NGT tube for nutritional needs. If he is able to swallow a reasonable amount of food/modified diet and the aspiration risk between a PEG/NGT versus permissive aspiration were similar then would consider permissive aspiration. Hx Asymptomatic hyperkalemia Resolved Pancytopenia, anemia with hemoglobin less than 7 Likely 2/2 mini CHOP therapy Hematology oncology following He has not developed severe neutropenia Hemoglobin 6.8 on 07/27. Reviewed with family, they report he did receive a blood transfusion 07/26 prior to transfer thought to be due to chemotherapy with no active bleeding noted at [facility] Received 1 unit of blood for transfusion 07/27 with good improvement energy color and overall engagement. He has not shown signs of active bleeding. Suspect this is from marrow suppression. Hospital-acquired deep pressure injury of left heel, right heel. Left heel improving but not resolved. Right heel pressure wound healing. D oes not appear acutely cellulitic Wound care, offloading precautions History of DVT, recurrent PE Was transiently on therapeutic Lovenox at [facility]. Transitioned to Eliquis by NGT however this was subsequently self removed and remains on Lovenox until able to tolerate p.o. or has feeding tube placed Continue Lovenox 1 mg/kg twice daily Confirmed with [facility] transfer center last dose of Lovenox was 9:45 AM on 07/26/2025 Bilateral lower extremity edema is present however he has significantly more right sided edema compared to the left. Lower extremity Doppler shows nonocclusive DVT of the superficial femoral and deep femoral vein and marked nonspecific edema. Continue Lovenox 1mpk twice daily. He has a right lower extremity DVT, history of recurrent DVT/PE, and BCL. Did receive a blood transfusion for anemia but this is thought to be due to marrow suppression rather than bleeding. he had an appropriate rise in hemoglobin to 1 unit on 07/27, showed no clinical signs of bleeding on reassessment. Did discuss poor prognosis if he were to develop hemodynamically significant bleeding while also requiring anticoagulation for DVT/PE, and limited role of a DVT filter as an effort to c atch clot before migrates but inability of this to prevent clot development or propagation History of type II DM Last A1c 6.5% Sliding scale ordered on admission, dose reduced basal pending BSG evaluation Pharmacy consulted for assistance with management due to impaired p.o., and concurrent steroid Recent pneumonia with ICU admission Resolved at [facility] - Sepsis due to aspiration pneumonia: Resolved following Zosyn, vancomycin, meropenem, Bactrim. Completed Zosyn 07/06 - 07/12, vancomycin 07/06 - 07/16, meropenem 07/12 - 07/20, Bactrim single dose on 07/19. Respiratory cultures grew stenotrophomonas, ID was consulted and suspected colonization. TTE 07/13 while critically ill: Technically challenging study. EF 60-65%. Limited wall motion interpretation. Bundle branch block noted with some abnormal septal motion, mild LVH. Bioprosthetic AVR with expected gradients noted See aspiration evaluation above IV access: PICC in left upper extremity DVT prophylaxis: Lovenox therapeutic as noted CODE STATUS: Full code. Discussed with patient and his on admission. He was recently intubated in the ICU at [facility] and would want all measures taken again; however if he did not have signs of significant recovery after 24-48 hours would want to review the rare/benefits of ongoing support at that time with care team Diet: Pending VFSS. (2) Chronic kidney disease, stage 3a: (3) Spinal stenosis: (4) LBBB (left bundle branch block): (5) TIA (transient ischemic attack): (6) BPH with obstruction/lower urinary tract symptoms: (7) Type 2 diabetes mellitus: (8) Hypertension: Admission and Anticipated Discharge Date Admission Date: July 26, 2025 Subjective Feels improved after blood transfusion. No bleeding. No fevers chills or sweats. Continues to have no pain, this resolved after his initial chemo treatment. No hematochezia/melena Extended ACP discussion over 55 minutes early Physical Exam Physical Exam: General: Oriented to name, [facility], and year. Improved engagement/energy compared to prior HEENT: Atraumatic, normocephalic. Vision and hearing grossly intact. Pupils equal and reactive to light. EOM intact without nystagmus Pulm: Diminished, some crackles in the bases otherwise clear. symmetrical chest rise. No increased work of breathing. No respiratory distress. Cardiac: RRR, -mrg. Radial pulses intact and symmetrical. Abdominal: Nontender, nondistended, soft. BS present. : Dressing overlying scrotum. Scortum with mild edema, NT Skin/extremities: Left heel pressure ulcer, Right heel ulcer unchanged. Continues with right greater than left bilateral lower extremity edema. Results & Data Results & Data Vital Signs (Past 12 Hours) Vital Signs Temp Pulse Resp BP Pulse Ox O2 Del Method 07/28/25 14:41 36.4 C L 87 16 145/58 H 98 Room Air 07/28/25 07:53 Room Air 07/28/25 07:19 36.3 C L 85 16 164/77 H 98 Room Air PG Care Time/CCT Total # of Minutes Spent Total Time Spent with Patient: Total time spent is greater than 50% in coordination of care (as documented) at patient's floor/unit and/or counseling patient: Coding Level of Care Code 65136 SUB INP/OBS CARE 3/50MIN Diagnoses B-cell lymphoma C85.10 Chronic kidney disease, stage 3a N18.31 Spinal stenosis M48.00 LBBB (left bundle branch block) I44.7 TIA (transient ischemic attack) G45.9 BPH with obstruction/lower urinary tract symptoms N40.1; N13.8 Type 2 diabetes mellitus E11.9 Hypertension I10
[2025-07-29 07:50] LABS: Hematocrit (blood only) 24.6 % (42.0-52.0); Hemoglobin 8.0 g/dl (14.0-18.0); Mean Corpuscular Hemoglobin 26.3 pg (25.0-34.0); Mean Corpuscular Volume 80.9 fL (80.0-100.0); Platelet Count 53 K/uL (130-400); RDW Standard Deviation 48.8 fL (36.4-46.3); Red Blood Count 3.04 M/uL (4.70-6.10); White Blood Count 1.54 K/ul (4.8-10.8)
[2025-07-29 08:08] LABS: Anion Gap 8.0 (3-11); Blood Urea Nitrogen 20.0 mg/dl (6-23); Calcium 7.7 mg/dl (8.6-10.3); Carbon Dioxide 24.0 mmol/L (21-32); Chloride 112.0 mmol/L (98-107); Creatinine Clr Calc Pharmacy 89.3 ml/min; Glucose 74.0 mg/dl (70-99(Fasting)); Magnesium 1.4 mg/dl (1.7-2.4); Potassium 3.6 mmol/L (3.5-5.1); Sodium 144.0 mmol/L (136-145)
--- NOTE | 2025-07-29 08:14 | Oncology Consultation ---
Date of Consultation July 29, 2025 Assessment & Plan (1) B-cell lymphoma: (2) Dysphagia: Plan -Please give G-CSF with filgrastim 40 mcg SC daily x 3 days for neutropenia -Plan to resume chemotherapy after discharge from hospital. History of Present Illness Reason for Consultation: Lymphoma Attending Physician: Elpidio Woods MD History of Present Illness 79-year-old gentleman recently diagnosed with high-grade B-cell lymphoma for which he is s/p 1 cycle of mini CHOP at [facility] on 07/20/2025. Posttreatment, he developed severe encephalopathy requiring intubation, was subsequently extubated and weaned to room air. Was transferred back to due to requiring continued care secondary to severe dysphagia. Labs today show leukopenia with white cell count of 0.88, hemoglobin 8.1, hematocrit 24.6 and platelet count of 44,000. Did not receive G-CSF after receiving chemotherapy at [facility]. Allergies Allergy/AdvReac Type Severity Reaction Status Date / Time bee venom protein (honey bee) Allergy Unknown Anaphylaxis Verified 12/12/24 10:02 Home Medications Medication Instructions Recorded Confirmed Type famotidine 20 mg tablet (Pepcid) 40 mg PO HS 03/04/22 07/26/25 History magnesium 200 mg tablet 400 mg PO DAILY 02/23/23 07/26/25 History tamsulosin 0.4 mg capsule (Flomax) 0.4 mg PO DAILY 02/23/23 07/26/25 History allopurinol 300 mg tablet 300 mg PO DAILY 07/26/25 07/26/25 History amoxicillin 500 mg capsule 500 mg PO DIRECTED 07/26/25 07/26/25 History cholecalciferol (vitamin D3) 125 125 mcg PO DAILY 07/26/25 07/26/25 History mcg (5,000 unit) tablet enoxaparin 100 mg/mL subcutaneous 100 mg subcut Q12H 07/26/25 07/26/25 History syringe (Lovenox) folic acid 1 mg tablet 1 mg PO DAILY 07/26/25 07/26/25 History metformin 500 mg tablet 500 mg PO BID 07/26/25 07/26/25 History metoprolol tartrate 25 mg tablet 25 mg PO BID 07/26/25 07/26/25 History prednisone 1 mg tablet 1 mg PO DAILY 07/26/25 07/26/25 History pyridoxine (vitamin B6) 100 mg 100 mg PO DAILY 07/26/25 07/26/25 History tablet warfarin 5 mg tablet 5 - 7.5 mg PO DAILY 07/26/25 07/26/25 History Patient History Medical History Acute hyponatremia Supratherapeutic INR Acute adrenal insufficiency Lactic acidosis Hypotension Contusion of periorbital region, right Generalized weakness Fall Hx pulmonary embolism Hypercholesterolemia Bronchitis Surgical History Aortic valve replaced S/P colonoscopy Family History Father Cardiac disorder Mother Hypertension Son Nephrolithiasis Other Diabetes Social History Smoking Status: Never smoker Tobacco Type: Cigarettes Second Hand Exposure: No; Do You Dip or Chew Tobacco: No; Hx Alcohol Use: No Hx Substance Use: No Preferred Language: Bengali Communication Ability: Effective Cellar 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
[2025-07-29 08:32] LABS: Immature Granulocytes # (auto) 0.02 K/uL (0.01-0.20); Immature Granulocytes % (auto) 1.3 %
--- NOTE | 2025-07-29 09:06 | Electrocardiogram Report ---
Test Reason : Blood Pressure : */* mmHG Vent. Rate : 100 BPM Atrial Rate : 100 BPM P-R Int : 120 ms QRS Dur : 126 ms QT Int : 402 ms P-R-T Axes : 34 8 149 degrees QTcB Int : 518 ms Sinus rhythm with occasional Premature ventricular complexes Left bundle branch block Abnormal ECG When compared with ECG of 04-Jul-2025 13:06, Premature ventricular complexes are now Present HR has increased Confirmed by Drew Montero ([id number]) on 07/29/2025 9:06:09 AM Referred By: Deepthi Fortune Confirmed By: Drew Montero
[2025-07-29] MEDS: MAGNESIUM SULFATE / D5W 1 GM/100 ML BAG IV SCH (10:39)
--- NOTE | 2025-07-29 10:45 | Fluoroscopy Report ---
MODIFIED BARIUM SWALLOW CLINICAL HISTORY: determine swallow function, r/o aspiration COMPARISON STUDY: None FLUOROSCOPY TIME: 1.33 minutes. Ka,r: 6.59 mGy TECHNIQUE: A modified barium swallow was performed in conjunction with Speech Pathology. The patient ingested varying consistencies of barium containing material. Video fluoroscopy was performed. FINDINGS: When swallowing thin liquids, there was silent aspiration. The patient was unable to fully clear this. When swallowing thin liquids with chin type maneuver there was also silent aspiration. When swallowing nectar thick liquids, there was silent aspiration. When swallowing nectar thick liquids with chin tuck there was silent aspiration. When swallowing pudding there was no aspiration however there was significant residue within the vall ecula and piriform sinuses. IMPRESSION: 1. Silent aspiration of thin liquids and nectar thick liquids. Significant vallecular and piriform si nus residue. ACT 112: Negative or not required by law. Electronically signed by: Trevor Giron M.D. 07/29/2025 10:43 AM
[2025-07-29] MEDS: SODIUM CHLORIDE 0.9% 500 ML IV ONE (15:02)
--- NOTE | 2025-07-29 15:04 | Palliative Care Consultation ---
Date of Consultation July 29, 2025 Assessment & Plan (1) Dysphagia: appreciate ST recs, pending PEG placement for nutrition. (2) Weakness: (3) Palliative care by specialist: Met at bedside with pt and his . Introduced Palliative Medicine and explained our role in advanced care planning, symptom management and navigation through the progression of life limiting disease. Patient and/or family were receptive to palliative services for goals of care discussions. Reviewed we are different from hospice, a home health nurse visiting service. Discussed benefits of following up with Dr Raymond in outpt palliative care clinic for ongoing symptom management and navigation, they are agreeable. (4) Counseling regarding goals of care: ACP meeting held with patient and his Alana at bedside from 14:00 - 14:45. Dr Woods was present for final 15 minutes of discussion. cintia Warner and Lexx live independently and have three adult sons, four grandchildren between ages 1y and 30y old, and one 2y great grandson. Lexx places highest value on family and being home with them. He shared that his goals of care are to pursue anything that will give him more quality time with his grandchildren and great grand son. Discussed pt's current condition, HPI, hospital course, and goals of care. They expressed gratitude for Dr Card's ACP discussion with them and their sons and Alana was able to summarize the discussion in basic terms. Alana reports that Patrick has some short term memory loss and hospital acquired delirium, but has never been diagnoses with dementia nor had previous cognitive deficits. She states that the documented history of dementia and alzheimer's are incorrect and pt has never been diagnosed with any cognitive deficits. She shared that his delirium has improved since returning to [facility], but that he does not have memory of his time at [facility]. She shared concern that he has not had any nutrition in five days and is focused on restarting nutrition without delay. Alana emphasized that Lexx has never had difficulty swallowing before, and this was an isolated episode of aspiration. We discussed the swallow studies that have been done and Alana shared understanding that Ruddys does not have a coordinated swallow. Lexx and Alana shared motivation to pursue PEG tube to allow him to get nutrition safely so that he can continue cancer directed therapies. We discussed that PEG tube does not limit risks of aspiration and discussed strategies to mitigate risk of aspiration pna. Lexx shared that he does wish to retrun to oral feeding in future and is willing to work with ST in hopes of improving his swallow abilities. We discussed that there is no guarantee that this will improve and that tube feedings may be a permanent part of his life. Alana and Lexx both shared desire for PEG placement followed by trial of tube feedings in conjunction with speech therapy to improve swallow. Alana shared that she had been told that a PEG tube would not be able to be placed immediately because of anticoagulation. She shared that if this is the case, they would want to avoid further delay in nutrition by placing NGT until PEG can be arranged. Dr Woods shared that he will reach out to GI to get PEG placed ABI in hopes to avoid need for NGT. Alana and Lexx also confirmed that they DO WANT further attempts at resuscitation and repeat ICU admission if needed. Lexx expressed that if he is to have a permanent deterioration to his quality of life or in significant ongoing pain may want a focus on comfort at that point. He shared that he would be okay with mechanical ventilation short term, but he would not want tracheostomy or manager copy dependence on machines to keep him alive. Plan as above History of Present Illness Reason for Consultation: goals of care Requesting Physician: Elpidio Woods MD Attending Physician: Elpidio Woods MD History of Present Illness Mr Westbrook is a 79yo M with a history of dementia, spinal stenosis, diabetes, GERD, BPH, Alzheimer's, hypertension, recurrent PE, PMR, CKD, AAS s/p TAVR, who presented to [facility] mid-June with back pain and was found to have large retroperitoneal mass. 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 Course was complicated by aspiration pneumonia, thro mbocytopenia, and was transiently in the ICU and intubated. He was extubated 07/18 downgraded to C 07/21. Last chemo 07/20. Is on chronic steroids and on taper following stress dose at [facility]. Dr. Burgess was consulted and has discussed case directly with [facility]. Main ongoing problem is that he continues to have severe dysphagia. Workup at [facility] including MRI (negative) speech eval, ENT eval (nasopharyngeoscope was without acute findings and recommended PPI), has coresafe and on tube feeds. Was recommended for PEG tube which family would like but has not been placed. Allergies Allergy/AdvReac Type Severity Reaction Status Date / Time bee venom protein (honey bee) Allergy Unknown Anaphylaxis Verified 12/12/24 10:02 Home Medications Medication Instructions Recorded Confirmed Type famotidine 20 mg tablet (Pepcid) 40 mg PO HS 03/04/22 07/26/25 History magnesium 200 mg tablet 400 mg PO DAILY 02/23/23 07/26/25 History tamsulosin 0.4 mg capsule (Flomax) 0.4 mg PO DAILY 02/23/23 07/26/25 History allopurinol 300 mg tablet 300 mg PO DAILY 07/26/25 07/26/25 History amoxicillin 500 mg capsule 500 mg PO DIRECTED 07/26/25 07/26/25 History cholecalciferol (vitamin D3) 125 125 mcg PO DAILY 07/26/25 07/26/25 History mcg (5,000 unit) tablet enoxaparin 100 mg/mL subcutaneous 100 mg subcut Q12H 07/26/25 07/26/25 History syringe (Lovenox) folic acid 1 mg tablet 1 mg PO DAILY 07/26/25 07/26/25 History metformin 500 mg tablet 500 mg PO BID 07/26/25 07/26/25 History metoprolol tartrate 25 mg tablet 25 mg PO BID 07/26/25 07/26/25 History prednisone 1 mg tablet 1 mg PO DAILY 07/26/25 07/26/25 History pyridoxine (vitamin B6) 100 mg 100 mg PO DAILY 07/26/25 07/26/25 History tablet warfarin 5 mg tablet 5 - 7.5 mg PO DAILY 07/26/25 07/26/25 History Patient History Medical History Acute hyponatremia Supratherapeutic INR Acute adrenal insufficiency Lactic acidosis Hypotension Contusion of periorbital region, right Generalized weakness Fall Hx pulmonary embolism Hypercholesterolemia Bronchitis Surgical History Aortic valve replaced S/P colonoscopy Family History Father Cardiac disorder Mother Hypertension Son Nephrolithiasis Other Diabetes Social History Smoking Status: Never smoker Tobacco Type: Cigarettes Second Hand Exposure: No; Do You Dip or Chew Tobacco: No; Hx Alcohol Use: No Hx Substance Use: No Preferred Language: Irish Communication Ability: Effective 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 Required: No Beliefs That Will Affect Care: None marital status: Current Living Situation: Spouse Current Living Situation Comment: single family home Other Information That Helps Us Care for You: No Feels Safe at Home: Yes Safety Concerns: Feels Safe At This Time Assistive Devices: Walker Review of Systems Review of Systems: All systems reviewed & are unremarkable except as noted in HPI & below Physical Exam Physical Exam: Elderly man in no overt distress Constitutional: WD/WN, vitals as above Respiratory: normal respiratory effort, lungs clear to auscultation Cardiovascular: RRR, no murmur, no edema Gastrointestinal (Abdomen): normal bowel sounds, soft, nontender, no hepatosplenomegaly Results & Data Vital Signs (Past 12 Hours) Vital Signs Temp Pulse Resp BP Pulse Ox O2 Del Method 07/29/25 07:46 Room Air 07/29/25 07:20 36.8 C 81 16 161/74 H 96 Room Air Laboratory Results Abnormal lab results 07/28/25 07/29/25 07/29/25 Range/Units 16:36 07:16 11:27 WBC 1.54 L (4.8-10.8) K/ul RBC 3.04 L (4.70-6.10) M/uL Hgb 8.0 L (14.0-18.0) g/dl Hct 24.6 L (42.0-52.0) % RDW Std Deviation 48.8 H (36.4-46.3) fL RDW Coeff of Spike 18.8 H (11.5-14.5) % Plt Count 53 L (130-400) K/uL Neut # (Auto) 1.00 L (1.40-6.50) K/uL Lymph # (Auto) 0.37 L (1.20-3.40) K/uL Screven # (Auto) 0.08 L (0.11-0.59) K/uL Chloride 112 H (98-107) mmol/L BUN/Creatinine Ratio 24.7 H (10-20) POC Glucose 101 H 100 H (70-99) mg/dl Calcium 7.7 L (8.6-10.3) mg/dl Magnesium 1.4 L (1.7-2.4) mg/dl Diagnostic Findings Venous Doppler Study 07/26/25 17:20 CR Exam(s): US VENOUS RIGHT LOWER EXTREMITY EXAM: US Duplex Right Lower Extremity Veins CLINICAL HISTORY: Recurrent Deep vein thrombosis TECHNIQUE: Real-time duplex ultrasound scan of the right lower extremity veins integrating B-mode two-dimensional vascular structure, Doppler spectral analysis, color flow Doppler imaging and compression. COMPARISON: No relevant prior studies available. FINDINGS: Deep veins: Nonocclusive deep vein thrombosis of the superficial femoral vein. Nonocclusive thrombosis of the deep femoral vein. The common femoral vein, popliteal vein, anterior tibial vein and posterior tibial vein are patent. Superficial veins: Unremarkable. No thrombus in the visualized great saphenous vein. Soft tissues: Marked nonspecific subcutaneous edema. No popliteal cyst. IMPRESSION: 1. Nonocclusive deep vein thrombosis of the superficial femoral vein. 2. Nonocclusive thrombosis of the deep femoral vein. 3. Marked nonspecific subcutaneous edema. Communications: Verify Receipt Electronically signed by: Jenni Mcgowan MD 07/26/25 23:15 PM Videofluoroscopic Swallow 07/29/25 00:01 MODIFIED BARIUM SWALLOW CLINICAL HISTORY: determine swallow function, r/o aspiration COMPARISON STUDY: None FLUOROSCOPY TIME: 1.33 minutes. Ka,r: 6.59 mGy TECHNIQUE: A modified barium swallow was performed in conjunction with Speech Pathology. The patient ingested varying consistencies of barium containing material. Video fluoroscopy was performed. FINDINGS: When swallowing thin liquids, there was silent aspiration. The patient was unable to fully clear this. When swallowing thin liquids with chin type maneuver there was also silent aspiration. When swallowing nectar thick liquids, there was silent aspiration. When swallowing nectar thick liquids with chin tuck there was silent aspiration. When swallowing pudding there was no aspiration however there was significant residue within the vallecula and piriform sinuses. IMPRESSION: 1. Silent aspiration of thin liquids and nectar thick liquids. Significant vallecular and piriform sinus residue. ACT 112: Negative or not required by law. Electronically signed by: Trevor Giron M.D. 07/29/2025 10:43 AM Medications Administered Current Inpatient Medications Dextrose (Dextrose 50% 50 Ml Syringe) 25 - 50 ml IV UD PRN; Protocol PRN Reason: Hypoglycemia Protocol Stop: 08/25/25 16:47 Enoxaparin Sodium (Enoxaparin 100 Mg/1ml Syr) 100 mg SQ Q12H JARAD Stop: 08/25/25 20:59 Last Admin: 07/29/25 09:18 Dose: 100 mg Glucagon (Glucagon For Inj 1 Mg Vial) 1 mg SQ UD PRN; Protocol PRN Reason: Hypoglycemia Protocol Stop: 08/25/25 16:47 Glucose (Glucose 40% Gel 15 Gm Tube) 15 - 30 gm PO UD PRN; Protocol PRN Reason: Hypoglycemia Protocol Stop: 08/25/25 16:47 Glucose (Glucose 10 Tab/Tube) 4 - 8 tab PO UD PRN; Protocol PRN Reason: Hypoglycemia Protocol Stop: 08/25/25 16:47 Pantoprazole Sodium (Protonix) 40 mg in 10 mls @ 5 mls/min IV DAILY JARAD Stop: 08/26/25 08:59 Last Admin: 07/29/25 09:17 Dose: 5 mls/min Famotidine (Pepcid 20mg Iv Push) 20 mg in 5 mls @ 2.5 mls/min IV HS JARAD Stop: 08/25/25 20:59 Last Admin: 07/28/25 20:52 Dose: 2.5 mls/min Methylprednisolone 10 mg/ (Syringe) 0.16 mls @ 1.5 mls/min IV QAM JARAD Stop: 08/28/25 08:59 Last Admin: 07/29/25 09:18 Dose: 1.5 mls/min Sodium Chloride (Nss) 500 mls @ 60 mls/hr IV .Q8H20M ONE Stop: 07/29/25 23:07 Insulin Aspart (Insulin Aspart Per Unit Charge) 0 units SC ACHS JARAD Stop: 08/25/25 17:59 Last Admin: 07/29/25 12:25 Dose: Not Given Miscellaneous (Carbohydrates For Hypoglycemia ) 15 - 30 gm PO UD PRN PRN Reason: Hypoglycemia Protocol Stop: 08/25/25 16:47 Miscellaneous Information (Pharmacy Glycemic Mgmt Consult) 1 each N/A UD PRN PRN Reason: Consult Stop: 08/25/25 16:47 PG Care Time/CCT Total # of Minutes Spent Total Time Spent with Patient: Total time spent is greater than 50% in coordination of care (as documented) at patient's floor/unit and/or counseling patient: Advanced Care Planning 85150 Advanced Care Planning 30 [place] [address] IN/OBS CONSULT LVL 3,45M Patient Type New History Expanded Problem Focused Exam Expanded Problem Focused Medical Decision Making Moderate Complexity Diagnoses Dysphagia R13.10 Weakness R53.1 Palliative care by specialist Z51.5 Counseling regarding goals of care Z71.89 Additional Codes Advanced Care Planning - 85063 Advanced Care Planning 30 Min: 75687 Advanced Care Planning 30 Min ([id number])
--- NOTE | 2025-07-29 19:04 | Hospitalist Progress Note ---
Date of Service July 29, 2025 Assessment & Plan (1) B-cell lymphoma: Plan: Pt is an 79 y/o male who was transferred to [facility] for evaluation of a retroperitoneal mass that was found to be high-grade B-cell lymphoma upon biopsy. Pt was tx w/ mini CHOP therapy which was complicated by aspiration pneumonia that required intubation. Upon extubation, pt was unable to tolerate PO intake and had an NGT placed. Pt was recommended to [facility] for evaluation of need for PEG tube placement. Patient was recovering from his mini CHOP treatment, and is anticipating his next treatment in approximately 2 weeks. Case had been signed out directly between [facility] oncology and Dr. Burgess. #High-grade B-cell lymphoma - US biopsy of retroperitoneal mass 07/11 revealed high-grade B-cell lymphoma; Flow cytometry results favored B-cell lymphoma as well; Brain MRI 07/12 unremarkable; Mini CHOP cyclophosphamide 07/16, vincristine 07/19, doxorubicin 07/20; Next anticipated chemotherapy in approximately 2 weeks; Pt now following w/ Dr Burgess - Heme/Onc consulted - awaiting input - No indication for G-CSF as ANC was 7.03 at [facility]. Follow counts daily. If ANC less than 1, starchyCSF - Recommended to continue allopurinol 300 mg daily twice daily through NGT/PEG when available - FISH pending #Adrenal insufficiency - BP elevated, reassess in AM; Home dose of steroids 2.5mg daily Continue 10mg steroid; wean as tolerated #Severe dysphagia with aspiration - Hx of recent hospital admission w/ aspiration pneumonia requiring intubation; VSFF re-evaluation demonstrated recurrent silent aspiration, pt is currently without functional swallowing ability - PEG tube recommended - Consult GI for PEG placement - NSS IV 60ml/hr - pts urine very concentrated, pt has not received any IV fluids since admission. #Pancytopenia - no active signs of current bleed; likely result of chemotherapy; most recent transfusion 07/27 Heme/oncology following -CBC, CMP in AM #Hypomagnesemia - asx -Replaced w/ 1gm 100mL x2 -Recheck in AM #Hospital-acquired deep pressure injury of left heel, right heel - improving, not resolved Wound care, offloading precautions #History of DVT, recurrent PE - Lovenox d/t inablility to tolerate PO eliquis; LE doppler demonstrates nonocclusive DVT of superficial femoral and deep femoral vein Continue Lovenox 1 mg/kg twice daily #History of type II DM - Most recent A1c 6.5% Sliding scale ordered on admission, dose reduced basal pending BSG evaluation Pharmacy consulted for assistance with management due to impaired p.o., and concurrent steroid #Hx Asymptomatic hyperkalemia - Resolved Dispo: continue stay - awaiting GI input on PEG IV access: PICC in left upper extremity DVT prophylaxis: Lovenox (2) Chronic kidney disease, stage 3a: (3) Spinal stenosis: (4) LBBB (left bundle branch block): (5) TIA (transient ischemic attack): (6) BPH with obstruction/lower urinary tract symptoms: (7) Type 2 diabetes mellitus: (8) Hypertension: (9) Adrenal insufficiency: (10) Dysphagia: (11) Pancytopenia: Admission and Anticipated Discharge Date Admission Date: July 26, 2025 Subjective Pt was laying in bed today in [facility], at bedside. Pt + his expressed that they have the goal of getting nutrition into the body and that they are willing to move forward with PEG tube placement. Pt states that it is his personal goal to keep working with speech therapy so that he may be able to eat and drink food on his own again in the future. Pt denies H/A, sore thoat, congestion, chills, myalgias, CP, SOB, palpitations, abd pain/discomfort, and N/V/D. Review of Systems Review of Systems: All systems reviewed & are unremarkable except as noted in Subjective Physical Exam Physical Exam: General: Pt is a 79 y/o WD/WN male in [facility] who is bedbound. VS: reviewed - remarkable Skin: Pt has ulcers on heels bilat, wounds were dressed and not directly visualized today. Skin is otherwise warm and dry; no other lesions or ulcerations noted Respiratory: CTA bilat, no adventitious sounds noted. Chest expansion is full and symmetrical Cardio: RRR no murmurs Abdomen: Round, normoactive BS x4, nontender to palpation MSK: Decreased ROM of UE + LE Extremities: Pt has +1 pitting edema bilat in LE Neuro: A&Ox4, cooperative Results & Data Results & Data Vital Signs (Past 12 Hours) Vital Signs Temp Pulse Resp BP Pulse Ox O2 Del Method 07/29/25 16:52 97.9 F 80 16 172/80 H 97 Room Air 07/29/25 07:46 Room Air 07/29/25 07:20 98.2 F 81 16 161/74 H 96 Room Air Laboratory Results Reviewed: CBC, Chemistry, Magnesium PG Care Time/CCT Total # of Minutes Spent Total Time Spent with Patient: Total time spent is greater than 50% in coordination of care (as documented) at patient's floor/unit and/or counseling patient: Coding Level of Care Code 86632 SUB INP/OBS CARE 3/50MIN Diagnoses B-cell lymphoma C85.10 Chronic kidney disease, stage 3a N18.31 Spinal stenosis M48.00 LBBB (left bundle branch block) I44.7 TIA (transient ischemic attack) G45.9 BPH with obstruction/lower urinary tract symptoms N40.1; N13.8 Type 2 diabetes mellitus E11.9 Hypertension I10 Adrenal insufficiency E27.40 Dysphagia R13.10 Pancytopenia D61.818
--- NOTE | 2025-07-30 07:45 | Hospitalist Progress Note ---
Date of Service July 30, 2025 Assessment & Plan (1) B-cell lymphoma: Plan: Pt is an 79 y/o male who was transferred to [facility] for evaluation of a retroperitoneal mass that was found to be high-grade B-cell lymphoma upon biopsy. Pt was tx w/ mini CHOP therapy which was complicated by aspiration pneumonia that required intubation. Upon extubation, pt was unable to tolerate PO intake and had an NGT placed. Pt was recommended to [facility] for evaluation of need for PEG tube placement. Patient was recovering from his mini CHOP treatment, and is anticipating his next treatment in approximately 2 weeks. Case had been signed out directly between [facility] oncology and Dr. Burgess. #Severe dysphagia with aspiration - Hx of recent hospital admission w/ aspiration pneumonia requiring intubation; VSFF re-evaluation demonstrated recurrent silent aspiration, pt is currently without functional swallowing ability - PEG tube recommended -Consulted GI; unable to place PEG d/t current pancytopenia w/ ANC of 0.54 on 07/30; will pursue once labs improve -PPN via IV - associated labs -CXR - worsening cough w/ recent hospital admission for PNA -Phosphorus, Triglycerides in AM #High-grade B-cell lymphoma - US biopsy of retroperitoneal mass 07/11 revealed high-grade B-cell lymphoma; Flow cytometry results favored B-cell lymphoma as well; Brain MRI 07/12 unremarkable; Mini CHOP cyclophosphamide 07/16, vincristine 07/19, doxorubicin 07/20; Next anticipated chemotherapy in approximately 2 weeks; Pt now following w/ Dr Burgess -Heme/Onc consulted - awaiting input -Palliative Consulted; discussed goals of care with patient -G-CSF 480 mcg x3 days - per heme/onc; ANC 0.54 & WBC 0.88 (07/30) Follow counts daily. If ANC less than 1, starchyCSF -Recommended to continue allopurinol 300 mg daily twice daily through NGT/PEG when available -FISH pending #Adrenal insufficiency - BP elevated, reassess in AM; Home dose of steroids 2.5mg daily Continue 10mg steroid; wean as tolerated #Pancytopenia - no active signs of current bleed; likely result of chemotherapy; most recent transfusion 07/27 Heme/oncology following -CBC, CMP in AM #Hypomagnesemia - asx -Replaced w/ 1gm 100mL x2 -Recheck in AM #Hospital-acquired deep pressure injury of left heel, right heel - improving, not resolved Wound care, offloading precautions #History of DVT, recurrent PE - Lovenox d/t inablility to tolerate PO eliquis; LE doppler demonstrates nonocclusive DVT of superficial femoral and deep femoral vein Continue Lovenox 1 mg/kg twice daily #History of type II DM - Most recent A1c 6.5% Sliding scale ordered on admission, dose reduced basal pending BSG evaluation Pharmacy consulted for assistance with management due to impaired p.o. and concurrent steroid pt's BSG remains on lower end despite concurrent glucose management; consider low-flow IV dextrose if necessary, caution d/t pts third spacing #Hx Asymptomatic hyperkalemia - Resolved Dispo: continue stay - awaiting GI input on PEG IV access: PICC in left upper extremity DVT prophylaxis: Lovenox (2) Chronic kidney disease, stage 3a: (3) Spinal stenosis: (4) LBBB (left bundle branch block): (5) TIA (transient ischemic attack): (6) BPH with obstruction/lower urinary tract symptoms: (7) Type 2 diabetes mellitus: (8) Hypertension: (9) Adrenal insufficiency: (10) Dysphagia: (11) Pancytopenia: Admission and Anticipated Discharge Date Admission Date: July 26, 2025 Subjective Pt was laying in bed today in [facility], at bedside. GI physician present in room during conversation about postponement of PEG placement. Pt understands reason for postponement but was curious about replacement of nutrients and how that would occur. Pt and were educated on PPN via IV for replacement of nutrients in interim period. Pt and state that they are eager to get the PEG tube and hope to get it sooner rather than later. Pt has additionally developed a productive cough but denies SOB and CP. Pt denies H/A, abd pain/discomfort, and N/V/D. Review of Systems Review of Systems: All systems reviewed & are unremarkable except as noted in Subjective Physical Exam Physical Exam: General: Pt is a 79 y/o WD/WN male in NAD who is bedbound. VS: reviewed - remarkable Skin: Pt has ulcers on heels bilat, wounds were dressed and not directly visualized today. Skin is otherwise warm and dry; no other lesions or ulcerations noted Respiratory: Dec Lung sound in LLL, cough present; lungs otherwise CTA, no other adventitious sounds noted. Cardio: RRR no murmurs Abdomen: Round, normoactive BS x4, nontender to palpation MSK: Decreased ROM of UE + LE Extremities: Pt has +1 pitting edema bilat in LE Neuro: A&Ox4, cooperative Results & Data Results & Data Vital Signs (Past 12 Hours) Vital Signs Temp Pulse Resp BP Pulse Ox O2 Del Method 07/30/25 07:30 97.5 F L 87 14 166/82 H 94 Room Air 07/29/25 22:50 97.5 F L 85 16 180/80 H 95 Room Air 07/29/25 19:56 Room Air Laboratory Results Reviewed: CBC, CMP PG Care Time/CCT Total # of Minutes Spent Total Time Spent with Patient: Total time spent is greater than 50% in coordination of care (as documented) at patient's floor/unit and/or counseling patient: time discussing care and tx plan w/ pt 35 minutes. GI present in room for 15 mins of conversation to discuss PEG placement. An additional 40 minutes were spent on the pts chart/care plan, including discussion of care w/ heme/oncology. Coding Level of Care Code 27854 SUB INP/OBS CARE 3/50MIN Diagnoses B-cell lymphoma C85.10 Chronic kidney disease, stage 3a N18.31 Spinal stenosis M48.00 LBBB (left bundle branch block) I44.7 TIA (transient ischemic attack) G45.9 BPH with obstruction/lower urinary tract symptoms N40.1; N13.8 Type 2 diabetes mellitus E11.9 Hypertension I10 Adrenal insufficiency E27.40 Dysphagia R13.10 Pancytopenia D61.818
[2025-07-30 09:02] LABS: Alanine Aminotransferase 26.0 U/L (7-52); Albumin Globulin Ratio 1.1 (0.9-2); Albumin Level 2.4 gm/dl (3.4-5.0); Alkaline Phosphatase 89.0 U/L (34-104); Anion Gap 10.0 (3-11); Bilirubin,Total 0.8 mg/dl (0.2-1.0); Blood Urea Nitrogen 15.0 mg/dl (6-23); Calcium 7.7 mg/dl (8.6-10.3); Carbon Dioxide 22.0 mmol/L (21-32); Chloride 110.0 mmol/L (98-107); Creatinine Clr Calc Pharmacy 108.0 ml/min; Globulin 2.2 gm/dl (2.5-4.0); Glucose 74.0 mg/dl (70-99(Fasting)); Magnesium 1.5 mg/dl (1.7-2.4); Potassium 3.3 mmol/L (3.5-5.1); Sodium 142.0 mmol/L (136-145); Total Protein 4.6 gm/dl (6.0-8.3)
[2025-07-30 09:23] LABS: Hematocrit (blood only) 24.6 % (42.0-52.0); Hemoglobin 8.1 g/dl (14.0-18.0); Immature Granulocytes # (auto) 0.01 K/uL (0.01-0.20); Immature Granulocytes % (auto) 1.1 %; Mean Corpuscular Hemoglobin 26.6 pg (25.0-34.0); Mean Corpuscular Volume 80.7 fL (80.0-100.0); Platelet Count 44 K/uL (130-400); RDW Standard Deviation 50.7 fL (36.4-46.3); Red Blood Count 3.05 M/uL (4.70-6.10); White Blood Count 0.88 K/ul (4.8-10.8)
[2025-07-30 09:24] LABS: Acanthocytes 1+; Polychromasia 1+
[2025-07-30] MEDS ORDERED: TPN/PPN CONSULT PHARMACY PRN (09:40)
[2025-07-30] MEDS: POTASSIUM CHLORIDE / WTR 10 MEQ/100 ML PLCT IV SCH (10:01)
[2025-07-30] MEDS: MAGNESIUM SULFATE / D5W 1 GM/100 ML BAG IV SCH (10:01)
--- NOTE | 2025-07-30 10:43 | Gastroenterology Progress Note ---
Date of Service July 30, 2025 Assessment & Plan (1) Pharyngeal dysphagia: Plan Discussed with Dr. Rader. Not currently appropriate candidate for PEG placement at present as WBC count is 0.88 and platelets are 44. He is on Lovenox. Discussed with patient that bleeding and infection are the most common complications from a PEG, even with normal blood counts. Will need to select an alternative feeding plan at present. Can monitor as he receives treatment recommended by hematology. Admission and Anticipated Discharge Date Admission Date: July 26, 2025 Supervising Physician Co-Signing Physician Notes I personally saw and examined the patient. I have reviewed the chart and agree with the documentation provided by the COUNTER CONTROL OPERATOR including discussion about the assessment, treatment and plan. Briefly, GI reconsulted due to concern for possible PEG needs due to dysphagia/poor oral intake. Video swallow on 07/29 indicated severe pharyngeal dysphagia resulting in aspiration. 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 Platelets are 44 and a ANC is low. Will need to wait until he is no longer neutropenic and platelets are greater than 50 and we can do a PEG tube. Subjective GI reconsulted due to concern for possible PEG needs due to dysphagia/poor oral intake. Video swallow on 07/29 indicated severe pharyngeal dysphagia resulting in aspiration. 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 It appears palliative discussed with patient and family and they are desiring PEG placement (knowing that it does not eliminate risk of aspiration). Patient's WBC count is 0.88 and platelets are 44. Review of Systems Gastrointestinal: + dysphagia; no abdominal pain Physical Exam Constitutional: well developed Respiratory: normal respiratory effort Psychiatric: Orientation: alert and oriented x 3 Results & Data Results & Data Vital Signs (Past 12 Hours) Vital Signs Temp Pulse Resp BP Pulse Ox O2 Del Method 07/30/25 07:30 36.4 C L 87 14 166/82 H 94 Room Air 07/29/25 22:50 36.4 C L 85 16 180/80 H 95 Room Air PG Care Time/CCT Total # of Minutes Spent Total Time Spent with Patient: Total time spent is greater than 50% in coordination of care (as documented) at patient's floor/unit and/or counseling patient: Coding Level of Care Code 40304 SUB INP/OBS CARE 3/50MIN Diagnoses Pharyngeal dysphagia R13.13
[2025-07-30] MEDS: FILGRASTIM 480 MCG/1.6 ML VIAL SC SCH (14:32)
--- NOTE | 2025-07-30 15:31 | Pharmacy Report ---
Pharmacy Initial PN Consult Nt - Date of Service July 30, 2025 - Scope Pharmacy has been consulted on this date to manage parenteral nutrition orders and order appropriate labs. As part of the Nutrition Support Team Guidelines, pharmacy will work in conjunction with dietary when determining the patients caloric needs. - Subjective * The patient is a 79 year old Male admitted on 07/26/25 for DYSPHAGIA. * Patient is to receive parenteral nutrition for prolonged NPO status/unable to place PEG - Objective Vascular Access: * Patient currently has a central line Height & Weight (Last Documented) Height 6 ft 4 in Weight 101.8 kg Diet Order(s) 07/28/25 10:43 NPO Intake & Ouput (24hrs) 07/29/25 07/30/25 07/31/25 06:59 06:59 06:59 Intake Total 700 / 700 495 / 495 Output Total 1475 / 1475 300 / 300 290 / 290 Balance -1475 / -1475 400 / 400 205 / 205 Selected Laboratory Results 07/30/25 08:00 Sodium 142 Potassium 3.3 L Chloride 110 H Carbon Dioxide 22 Anion Gap 10 BUN 15 Creatinine 0.67 BUN/Creatinine Ratio 22.4 H Glucose 74 Calcium 7.7 L Phosphorus 2.4 L Magnesium 1.5 L Total Bilirubin 0.8 AST 24 ALT [address] - Follow Up Nutrition Assessment Start: 07/27/25 21:06 Freq: Status: Active Protocol: Document 07/30/25 11:23 WN (Rec: 07/30/25 11:54 WN [id number]) RD - Initial Nutrition Assessment Start: 07/27/25 20:21 Freq: Status: Active Protocol: Document 07/27/25 20:21 KK (Rec: 07/27/25 20:54 KK [id number]) - Assessment & Plan Assessment: * Appreciate dietitians recommendations for macronutrients. Provider carias'ed to use central line for parenteral nutrition. Unable to place PEG tube currently due to pancytopenia. Will start conservatively with TPN today, plan to titrate up based upon ongoing labs. Plan: * For Day #1 of TPN administration, the following will be ordered: * Macronutrients: * Amino Acids: 86 grams/day * Dextrose: 151 grams/day * Lipids: -- grams/day * Micronutrients: * Sodium phosphate: 21 mMol/day * Sodium chloride: 20 mEq/day * Sodium acetate: 40 mEq/day * Potassium acetate: 50 mEq/day * Magnesium sulfate: 8.12 mEq/day * Calcium gluconate: 4.65 mEq/day * Multivitamins: 10 mL/day * Trace elements: 1 mL/day * Thiamine: 100 mg/day * Folic Acid: 1 mg/day * Total volume of 1164 mL will be infused over 24 hours and will provide 859 kcal/day * Labs will be ordered per PN protocol. * Pharmacy will follow and adjust PN orders on a daily basis. Thank you!
--- NOTE | 2025-07-30 15:40 | XRay Report ---
XR chest 1V portable CLINICAL HISTORY: R/O pneumonia COMPARISON STUDY: 07/04/2025 FINDINGS: The heart is the upper limits of normal in size. There is blunting of the left lateral cost ophrenic angle suggesting small effusion. There are increased markings at the left medial lung base. While likely atelectatic, an infectious/inflammatory process could appear similar. There is no failur e. There is no pneumothorax. IMPRESSION: 1. Small left pleural effusion with associated left basilar atelectasis/consolidation. ACT 112: Negative or not required by law. Electronically signed by: Trevor Giron M.D. 07/30/2025 3:39 PM
[2025-07-30] MEDS ORDERED: DEXTROSE 10% 1,000 ML IV PRN (16:00)
[2025-07-30] MEDS: INSULIN ASPART PER UNIT CHARGE SC SCH (19:51)
[2025-07-31 07:46] LABS: Hematocrit (blood only) 24.7 % (42.0-52.0); Hemoglobin 8.0 g/dL (14.0-18.0); Mean Corpuscular Hemoglobin 26.1 pg (25.0-34.0); Mean Corpuscular Volume 80.5 fL (80.0-100.0); Platelet Count 41 K/uL (130-400); RDW Standard Deviation 52.1 fL (36.4-46.3); Red Blood Count 3.07 M/uL (4.70-6.10); White Blood Count 0.99 K/ul (4.8-10.8)
[2025-07-31 08:13] LABS: Bilirubin,Total 0.6 mg/dl (0.2-1.0); Blood Urea Nitrogen 18.0 mg/dl (6-23); Total Protein 4.3 gm/dl (6.0-8.3); Triglycerides 137.0 mg/dl (0-150)
[2025-07-31 08:22] LABS: Alanine Aminotransferase 20.0 U/L (7-52); Albumin Globulin Ratio 1.2 (0.9-2); Albumin Level 2.3 gm/dl (3.4-5.0); Alkaline Phosphatase 75.0 U/L (34-104); Anion Gap 5.0 (3-11); Calcium 7.5 mg/dl (8.6-10.3); Carbon Dioxide 26.0 mmol/L (21-32); Chloride 109.0 mmol/L (98-107); Creatinine Clr Calc Pharmacy 111.3 ml/min; Globulin 1.9 gm/dl (2.5-4.0); Glucose 173.0 mg/dl (70-99(Fasting)); Magnesium 1.6 mg/dl (1.7-2.4); Potassium 3.4 mmol/L (3.5-5.1); Sodium 140.0 mmol/L (136-145)
--- NOTE | 2025-07-31 08:38 | Hospitalist Progress Note ---
"Date of Service July 31, 2025 Assessment & Plan (1) Cellulitis of left forearm: (2) B-cell lymphoma: Plan: Pt is an 79 y/o male who was transferred to [facility] evaluation of a retroperitoneal mass that was found to be high-grade B-cell lymphoma upon biopsy. Pt was tx w/ mini CHOP therapy which was complicated by aspiration pneumonia that required intubation. Upon extubation, pt was unable to tolerate PO intake and had an NGT placed. Pt was recommended to [facility] for evaluation of need for PEG tube placement. Patient was recovering from his mini CHOP treatment, and is anticipating his next treatment in approximately 2 weeks. Case had been signed out directly between [facility] oncology and Dr. Burgess. # Rapidly progressive cellulitis versus necrotizing fasciitis - CT 07/31 w/ no clear indication of necrotizing fasciitis; -Upon initial evaluation at 11:00 am, pt was initiated on IV vancomycin and IV Cefepime -Upon Repeat evaluation at 17:24, IV Clindamycin was initiated with concern for necrotizing fasciitis -Stat consult to general surgery deferred to orthopedics for evaluation of the extremity -Stat CT scan of the arm to identify any immediately positive clinical findings of a necrotizing type infection -Patient transferred to the ICU for close monitoring, respiratory support and serial examination -Clinical examination by orthopedic surgery as well as radiologic examination with CT scan with contrast -Infectious disease will continue to follow -Case was briefly reviewed w/ general surgery at [facility] - if pts develops any emergent signs of infection or worsens significantly, [facility] will be reached out to again. #Severe dysphagia with aspiration - Hx of recent hospital admission w/ aspiration pneumonia requiring intubation; VSFF re-evaluation demonstrated recurrent silent aspiration, pt is currently without functional swallowing ability - PEG tube recommended -Consulted GI; unable to place PEG d/t current pancytopenia w/ ANC of 0.54 on 07/30; will pursue once labs improve -PPN via IV - associated labs #High-grade B-cell lymphoma - US biopsy of retroperitoneal mass 07/11 revealed high-grade B-cell lymphoma; Flow cytometry results favored B-cell lymphoma as well; Brain MRI 07/12 unremarkable; Mini CHOP cyclophosphamide 07/16, vincristine 07/19, doxorubicin 07/20; Next anticipated chemotherapy in approximately 2 weeks; Pt now following w/ Dr Burgess -Heme/Onc consulted - awaiting input -Palliative Consulted; discussed goals of care with patient -G-CSF 480 mcg x3 days - per heme/onc; ANC 0.54 & WBC 0.88 (07/30) Follow counts daily. If ANC less than 1, starchyCSF -Recommended to continue allopurinol 300 mg daily twice daily through NGT/PEG when available -FISH pending #Adrenal insufficiency - BP elevated, reassess in AM; Home dose of steroids 2.5mg daily Continue 10mg steroid; wean as tolerated #Pancytopenia - no active signs of current bleed; likely result of chemotherapy; most recent transfusion 07/27 Heme/oncology following -CBC, CMP in AM #Hypomagnesemia | Hypophosphatemia | Hypokalemia | Hypocalcemia - pt is asx -IV Calcium -IV Mag 2gm -IV Potassium Phosphate -Recheck in AM #Hospital-acquired deep pressure injury of left heel, right heel - improving, not resolved Wound care, offloading precautions #History of DVT, recurrent PE - Lovenox d/t inablility to tolerate PO eliquis; LE doppler demonstrates nonocclusive DVT of superficial femoral and deep femoral vein Continue Lovenox 1 mg/kg twice daily #History of type II DM - Most recent A1c 6.5% Sliding scale ordered on admission, dose reduced basal pending BSG evaluation Pharmacy consulted for assistance with management due to impaired p.o. and concurrent steroid pt's BSG remains on lower end despite concurrent glucose management; consider low-flow IV dextrose if necessary, caution d/t pts third spacing #Hx Asymptomatic hyperkalemia - Resolved Dispo: Transfer to PCU - rapidly progressing cellulitis DVT prophylaxis: pt is currently pancytopenic, deferred d/t bleed risk (3) Chronic kidney disease, stage 3a: (4) Spinal stenosis: (5) LBBB (left bundle branch block): (6) TIA (transient ischemic attack): (7) BPH with obstruction/lower urinary tract symptoms: (8) Type 2 diabetes mellitus: (9) Hypertension: (10) Adrenal insufficiency: (11) Dysphagia: (12) Pancytopenia: Admission and Anticipated Discharge Date Admission Date: July 26, 2025 Subjective Pt was seen laying in bed this AM in NAD. Pt had developed some erythema just distally to PICC site. Bedside US was done with Dr Calvo, Myself, and IV cafeteria team leader around 11:00; no thrombus was seen on imaging. Cultures were obtained and IV abx were initiated at this time. Initial discussion w/ Vascular surgery was favoring leaving the PICC until the pt BCx confirmed wether or not infection was present; this was communicated and confirmed with ID. I later received a message from IV cafeteria team leader Ms Murali Daily, who informed me the PICC site was looking very different at 17:24. Upon further examination, erythema, swelling, and pain of L forarm distal to PICC site had increased significantly. Pt expressed pain to light touch and movement of arm. ID, Vascular Surgery were contacted immediately and the PICC line was removed. A STAT CT scan was performed and Dr Stanford was contacted for concern of necrotizing fasciitis. Pt was transferred to PCU service. Please refer to Dr Calvo's progress note for any additional information. Review of Systems 2 Review of Systems: All systems reviewed & are unremarkable except as noted in Subjective Physical Exam 2 Physical Exam: General: Pt is a 79 y/o WD/WN male in NAD who is bedbound. VS: reviewed - remarkable Skin: Pt had small area of erythema on medilal aspect of elbow just distal to the PICC site location around 11am; this progressed rapidly to an erythematous and edematous forearm that was incredibly painful to light movement (PLEASE SEE IMAGE BELOW); Pt has ulcers on heels bilat, wounds were dressed and not directly visualized today. Skin is otherwise warm and dry; no other lesions or ulcerations noted Respiratory: Dec Lung sound in LLL, cough present; lungs otherwise CTA, no other adventitious sounds noted. Cardio: RRR no murmurs Abdomen: Round, normoactive BS x4, nontender to palpation MSK: Mild pain to palpation of initial redness at 11 am; Pt developed extreme pain to palpation as swelling and erythema progressed Lower Extremities: Pt has +1 pitting edema bilat in LE Neuro: A&Ox4, cooperative Results & Data Results & Data Vital Signs (Past 12 Hours) Vital Signs Temp Pulse Resp BP Pulse Ox O2 Del Method 07/31/25 07:12 98.2 F 86 16 160/74 H 92 Room Air 07/30/25 22:00 98.2 F 88 16 151/72 H 95 Room Air Laboratory Results Reviewed CBC, CMP, VBG, Ca, Phos, Mag, Lactate, CRP, Procal, MRSA PCR Diagnostic Findings Reviewed CT of L arm PG Care Time/CCT Total # of Minutes Spent Total Time Spent with Patient: Total time spent is greater than 50% in coordination of care (as documented) at patient's floor/unit and/or counseling patient: Coding Level of Care Code 22751 SUB INP/OBS CARE 3/50MIN Diagnoses Cellulitis of left forearm L03.114 B-cell lymphoma C85.10 Chronic kidney disease, stage 3a N18.31 Spinal stenosis M48.00 LBBB (left bundle branch block) I44.7 TIA (transient ischemic attack) G45.9 BPH with obstruction/lower urinary tract symptoms N40.1; N13.8 Type 2 diabetes mellitus E11.9 Hypertension I10 Adrenal insufficiency E27.40 Dysphagia R13.10 Pancytopenia D61.818"
[2025-07-31] MEDS ORDERED: POTASSIUM PHOS 3 MMOL/1 ML INFUSION IV STA (08:53)
[2025-07-31] MEDS: MAGNESIUM SULFATE / D5W 1 GM/100 ML BAG IV SCH (09:44)
[2025-07-31 09:55] LABS: Polychromasia 1+
[2025-07-31] MEDS: CALCIUM GLUCONATE 1,000 MG/60 ML BAG IV STA (09:55)
[2025-07-31 09:59] LABS: Immature Granulocytes # (auto) 0.01 K/uL (0.01-0.20); Immature Granulocytes % (auto) 1.0 %
[2025-07-31] MEDS: POTASSIUM PHOSPHATE 15 MMOL in SODIUM CHLORIDE 0.9% 250 ML IV ONE (10:16)
[2025-07-31 13:29] LABS: Base Excess VBG 3.3 mEq/L; HCO3 VBG 28 mmol/L; Oxygen Saturation VBG 69.4 %; PCO2 VBG 41 mmHg (38-50); PO2 VBG 39 mmHg; pH VBG 7.44 (7.36-7.41)
[2025-07-31] MEDS ORDERED: VANCOMYCIN CONSULT ACTIVE PRN (13:30)
[2025-07-31] MEDS: CEFEPIME 2000MG 2,000 MG/20 ML SYR IV SCH (14:18)
--- NOTE | 2025-07-31 14:30 | Ultrasound Report ---
ULTRASOUND LEFT UPPER EXTREMITY VENOUS CLINICAL HISTORY: Acute pain and swelling of the left upper family. COMPARISON STUDY: Priors. TECHNIQUE: Real-time, grayscale, and color Doppler sonography of the deep veins of the left upper ext remity is performed. Compression and augmentation were utilized. FINDINGS: There is no sonographic evidence of deep venous thrombosis identified in the left upper ext remity. The left internal jugular, axillary, and brachial veins are patent and normally compressible. Normal venous waveforms and augmentation are seen within the left subclavian vein. The cephalic and basilic veins are clear. The visualized radial and ulnar veins are patent. Partially visualized PICC within the subclavian vein. Subcutaneous edema of the forearm without drain able fluid collection. IMPRESSION: There is no sonographic evidence of deep venous thrombosis identified in the left upper e xtremity. ACT 112: Negative or not required by law. Electronically signed by: Brandan Argueta M.D. 07/31/2025 2:28 PM
--- NOTE | 2025-07-31 14:41 | Vascular Surgery Consultation ---
<Statement entered by Tono Nunn MD - 08/01/25 07:14> Not clear at this point if LUE PICC can be salvaged/replaced. PICC line would be preferable to tunneled central venous line. Will discuss with primary team. Date of Consultation July 31, 2025 Assessment & Plan (1) Left arm swelling: patient with a 1 day history of increasing focal forearm edema along with redness and warmth in setting of pancytopenia, recent chemotherapy and PICC in the extremity. Currently undergoing infectious work up for this, including blood cultures, and PICC is not being used at this time. If plan is to pull PICC line from the left arm, can consider Perez placement once we are sure that he has no bacteremia. This was discussed with him and his who was at bedside. We would need anticoagulation to be held prior to placing the line. (2) B-cell lymphoma: Initially had plans for port placement while at [place], but ended up with PICC due to becoming unstable. He would likely benefit from having Perez placed, as this would be stable access for future chemotherapy while he awaits port placement, and would enable him to receive TPN should he be unable to have PEG tube placed for a while. Again, would wait until sure blood cultures were negative, however if Perez access is agreed upon, can plan for placement end of this week vs early next week. We would need anticoagulation to be held prior to placing the line. History of Present Illness Reason for Consultation: Need for PICC/Perez access Requesting Physician: Nancy Oliveira PA-C Attending Physician: Gabriel Calvo MD History of Present Illness Mr. 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 History was obtained from patient, his Alana, and the electronic medical record. Patient's admission started in late June when he presented with back pain and was found to have a supratherapeutic INR of 7.4, and retroperitoneal hemorrhage vs mass, and was transferred to [facility] for further work up and care for finding. Ultimately worked up and found to be high grade B cell lymphoma (07/11) on biopsy. While at [place] a LUE PICC was placed for chemo, and he received mini- CHOP therapy for his lymphoma while there. Per his , initially a port silvano cement was planned, however he went "unresponsive" prior to procedure and a PICC was placed instead. His last chemotherapy treatment was on 07/20. He has since recovered from his stay in [place], which required prolonged ICU stay for AHRF, and has been transferred back to [facility] due to ongoing difficulties with severe dysphagia with aspiration noted on video swallow. PEG placement has been recommended, although due to his pancytopenia and anticoagulation, will not be placed right away, and IV nutrition has been started while labs are recovering. His previously placed left UE PICC at [place] has been working well, however, has noted that yesterday and especially today his left arm has become warm, red, and swollen below the PICC, in the elbow/forearm area. He and she deny any fevers, although he does feel chilled. Blood cultures were drawn this afternoon and are pending. Procalcitonin is within normal limits, as is lactate. Venous duplex of the left upper extremity was done, and did not show any DVT. There was subcutaneous edema noted in the forearm and anticubital fossa, but no definite abscess. He was started on cefepime for concerns for infection given his neutropenic status. The PICC has been left in place for now, however Rt PIV was placed in order for Mr. Westbrook to get PPN, as he awaits PEG placement. He has never had a central line before that he or his can remember. As mentioned above, he does have CKD, although Cr today is 0.65, with eGFR 95. WBC 0.99, Plt 41. He is on therapeutic Lovenox for recent non-occlusive DVT of right superficial femoral and deep femoral vein and his history of recurrent PE. Allergies Allergy/AdvReac Type Severity Reaction Status Date / Time bee venom protein (honey bee) Allergy Unknown Anaphylaxis Verified 12/12/24 10:02 Home Medications Medication Instructions Recorded Confirmed Type famotidine 20 mg tablet (Pepcid) 40 mg PO HS 03/04/22 07/26/25 History magnesium 200 mg tablet 400 mg PO DAILY 02/23/23 07/26/25 History tamsulosin 0.4 mg capsule (Flomax) 0.4 mg PO DAILY 02/23/23 07/26/25 History allopurinol 300 mg tablet 300 mg PO DAILY 07/26/25 07/26/25 History amoxicillin 500 mg capsule 500 mg PO DIRECTED 07/26/25 07/26/25 History cholecalciferol (vitamin D3) 125 125 mcg PO DAILY 07/26/25 07/26/25 History mcg (5,000 unit) tablet enoxaparin 100 mg/mL subcutaneous 100 mg subcut Q12H 07/26/25 07/26/25 History syringe (Lovenox) folic acid 1 mg tablet 1 mg PO DAILY 07/26/25 07/26/25 History metformin 500 mg tablet 500 mg PO BID 07/26/25 07/26/25 History metoprolol tartrate 25 mg tablet 25 mg PO BID 07/26/25 07/26/25 History prednisone 1 mg tablet 1 mg PO DAILY 07/26/25 07/26/25 History pyridoxine (vitamin B6) 100 mg 100 mg PO DAILY 07/26/25 07/26/25 History tablet warfarin 5 mg tablet 5 - 7.5 mg PO DAILY 07/26/25 07/26/25 History Patient History Medical History Acute hyponatremia Supratherapeutic INR Acute adrenal insufficiency Lactic acidosis Hypotension Contusion of periorbital region, right Generalized weakness Fall Hx pulmonary embolism Hypercholesterolemia Bronchitis Surgical History Aortic valve replaced S/P colonoscopy Family History Father Cardiac disorder Mother Hypertension Son Nephrolithiasis Other Diabetes Social History Smoking Status: Never smoker Tobacco Type: Cigarettes Second Hand Exposure: No; Do You Dip or Chew Tobacco: No; Hx Alcohol Use: No Hx Substance Use: No Preferred Language: Danish Communication Ability: Effective Wholesale Buyer Required: No Beliefs That Will Affect Care: None marital status: Current Living Situation: Spouse Current Living Situation Comment: single family home Other Information That Helps Us Care for You: No Feels Safe at Home: Yes Safety Concerns: Feels Safe At This Time Assistive Devices: Walker Review of Systems Constitutional: positive for chills, negative for fevers Ear, Nose, Mouth, Throat: positive for difficulty swallowing Respiratory: positive for cough, negative for shortness of breath, wheezing Cardiovascular: Additional Comments: negative for chest pain, palpitations, dizziness Gastrointestinal: negative for nausea, vomiting, abdominal pain Musculoskeletal: positive for lower extremity edema, positive for left arm pain and swelling Integumentary: positive for redness to left arm, negative for rashes or itching Neurologic: negative for unilateral weakness or numbness Hematologic / Lymphatic: positive for recurrent blood clots, positive for B cell lymphoma Physical Exam Constitutional: chronically ill appearing, pleasant, in no distress, visiting with family Neck: supple, trachea midline, no bruits Respiratory: no accessory muscle use or increased respiratory effort, CTAB Cardiovascular: RRR Radial pulses +2/4 bilaterally +3 pitting edema bilaterally Chest (Breasts): Additional Comments: no rashes or scarring Musculoskeletal: LUE with focal edema on the radial side of forearm extending into antecubital fossa. This area is erythematous and warm and tender to palpation. PICC line is present in the upper part of the LUE, no surrounding erythema noted. Skin: warm and dry Neurologic: no focal deficits noted Results & Data Vital Signs (Past 12 Hours) Vital Signs Temp Pulse Resp BP Pulse Ox O2 Del Method 07/31/25 09:00 Room Air 07/31/25 07:12 36.8 C 86 16 160/74 H 92 Room Air Laboratory Results 07/31/25 13:16 Aerobic Blood Culture - Pending Blood Anaerobic Blood Culture - Pending 07/31/25 13:16 Aerobic Blood Culture - Pending Blood Anaerobic Blood Culture - Pending 07/31/25 07/31/25 07/31/25 13:16 11:28 07:01 WBC 0.99 L* RBC 3.07 L Hgb 8.0 L Hct 24.7 L MCV 80.5 MCH 26.1 MCHC 32.4 RDW Std Deviation 52.1 H RDW Coeff of Spike 19.9 H Plt Count 41 L Immature Gran % (Auto) 1.0 Neut % (Auto) 63.6 Lymph % (Auto) 17.2 Rogers % (Auto) 11.1 Eos % (Auto) 6.1 Baso % (Auto) 1.0 Neut # (Auto) 0.63 L* Lymph # (Auto) 0.17 L Rogers # (Auto) 0.11 Eos # (Auto) 0.06 Baso # (Auto) 0.01 Immature Gran # (Auto) 0.01 Polychromasia 1+ VBG pH 7.44 H VBG pCO2 41 VBG pO2 39 VBG HCO3 28 VBG O2 Saturation 69.4 VBG Base Excess 3.3 Sodium 140 Potassium 3.4 L Chloride 109 H Carbon Dioxide 26 Anion Gap 5 BUN 18 Creatinine 0.65 Est Cr Clr Drug Dosing 111.3 eGFR 95.26 BUN/Creatinine Ratio 27.7 H Glucose 173 H POC Glucose 192 H Lactate 1.8 Calcium 7.5 L Phosphorus 2.1 L Magnesium 1.6 L Total Bilirubin 0.6 AST 17 ALT 20 Alkaline Phosphatase 75 C-Reactive Protein 4.15 H Total Protein 4.3 L Albumin 2.3 L Globulin 1.9 L Albumin/Globulin Ratio 1.2 Triglycerides 137 Procalcitonin 0.11 07/31/25 07/31/25 07/30/25 05:58 00:00 19:15 WBC RBC Hgb Hct MCV MCH MCHC RDW Std Deviation RDW Coeff of Spike Plt Count Immature Gran % (Auto) Neut % (Auto) Lymph % (Auto) Rogers % (Auto) Eos % (Auto) Baso % (Auto) Neut # (Auto) Lymph # (Auto) Rogers # (Auto) Eos # (Auto) Baso # (Auto) Immature Gran # (Auto) Polychromasia VBG pH VBG pCO2 VBG pO2 VBG HCO3 VBG O2 Saturation VBG Base Excess Sodium Potassium Chloride Carbon Dioxide Anion Gap BUN Creatinine Est Cr Clr Drug Dosing eGFR BUN/Creatinine Ratio Glucose POC Glucose 162 H 139 H 125 H Lactate Calcium Phosphorus Magnesium Total Bilirubin AST ALT Alkaline Phosphatase C-Reactive Protein Total Protein Albumin Globulin Albumin/Globulin Ratio Triglycerides Procalcitonin 07/30/25 16:35 WBC RBC Hgb Hct MCV MCH MCHC RDW Std Deviation RDW Coeff of Spike Plt Count Immature Gran % (Auto) Neut % (Auto) Lymph % (Auto) Rogers % (Auto) Eos % (Auto) Baso % (Auto) Neut # (Auto) Lymph # (Auto) Rogers # (Auto) Eos # (Auto) Baso # (Auto) Immature Gran # (Auto) Polychromasia VBG pH VBG pCO2 VBG pO2 VBG HCO3 VBG O2 Saturation VBG Base Excess Sodium Potassium Chloride Carbon Dioxide Anion Gap BUN Creatinine Est Cr Clr Drug Dosing eGFR BUN/Creatinine Ratio Glucose POC Glucose 115 H Lactate Calcium Phosphorus Magnesium Total Bilirubin AST ALT Alkaline Phosphatase C-Reactive Protein Total Protein Albumin Globulin Albumin/Globulin Ratio Triglycerides Procalcitonin Diagnostic Findings Extremity Venous Study 07/31/25 12:00 ULTRASOUND LEFT UPPER EXTREMITY VENOUS CLINICAL HISTORY: Acute pain and swelling of the left upper family. COMPARISON STUDY: Priors. TECHNIQUE: Real-time, grayscale, and color Doppler sonography of the deep veins of the left upper extremity is performed. Compression and augmentation were utilized. FINDINGS: There is no sonographic evidence of deep venous thrombosis identified in the left upper extremity. The left internal jugular, axillary, and brachial veins are patent and normally compressible. Normal venous waveforms and augmentation are seen within the left subclavian vein. The cephalic and basilic veins are clear. The visualized radial and ulnar veins are patent. Partially visualized PICC within the subclavian vein. Subcutaneous edema of the forearm without drainable fluid collection. IMPRESSION: There is no sonographic evidence of deep venous thrombosis i dentified in the left upper extremity. ACT 112: Negative or not required by law. Electronically signed by: Brandan Argueta M.D. 07/31/2025 2:28 PM Medications Administered Home Medications Medication Instructions Recorded Confirmed Last Taken famotidine 20 mg tablet (Pepcid) 40 mg PO HS 03/04/22 07/26/25 01/06/23 08:00 magnesium 200 mg tablet 400 mg PO DAILY 02/23/23 07/26/25 06/28/25 05:00 tamsulosin 0.4 mg capsule (Flomax) 0.4 mg PO DAILY 02/23/23 07/26/25 Unknown allopurinol 300 mg tablet 300 mg PO DAILY 07/26/25 07/26/25 Unknown amoxicillin 500 mg capsule 500 mg PO DIRECTED 07/26/25 07/26/25 Unknown cholecalciferol (vitamin D3) 125 125 mcg PO DAILY 07/26/25 07/26/25 Unknown mcg (5,000 unit) tablet enoxaparin 100 mg/mL subcutaneous 100 mg subcut Q12H 07/26/25 07/26/25 Unknown syringe (Lovenox) folic acid 1 mg tablet 1 mg PO DAILY 07/26/25 07/26/25 Unknown metformin 500 mg tablet 500 mg PO BID 07/26/25 07/26/25 Unknown metoprolol tartrate 25 mg tablet 25 mg PO BID 07/26/25 07/26/25 Unknown prednisone 1 mg tablet 1 mg PO DAILY 07/26/25 07/26/25 Unknown pyridoxine (vitamin B6) 100 mg 100 mg PO DAILY 07/26/25 07/26/25 Unknown tablet warfarin 5 mg tablet 5 - 7.5 mg PO DAILY 07/26/25 07/26/25 Unknown Active Medications Generic Name Dose Route Start Last Admin Trade Name Patricia PRN Reason Stop Dose Admin Enoxaparin Sodium 100 mg 07/26/25 21:00 07/31/25 08:50 Enoxaparin 100 Mg/1ml Syr SQ 08/25/25 20:59 Not Given Q12H JARAD Filgrastim 480 mcg 07/30/25 10:30 07/31/25 08:39 Filgrastim 480 Mcg/1.6 Ml Vial SC 08/01/25 09:01 480 mcg DAILY JARAD Administration Pantoprazole Sodium 40 mg in 10 mls @ 5 mls/min 07/27/25 09:00 07/31/25 09:39 Protonix IV 08/26/25 08:59 5 mls/min DAILY JARAD Administration Famotidine 20 mg in 5 mls @ 2.5 mls/min 07/26/25 21:00 07/30/25 21:04 Pepcid 20mg Iv Push IV 08/25/25 20:59 2.5 mls/min HS JARAD Administration Methylprednisolone 10 mg/ 0.16 mls @ 1.5 mls/min 07/29/25 09:00 07/31/25 08:39 Syringe IV 08/28/25 08:59 1.5 mls/min QAM JARAD Administration Amino Acids/Dextrose 1,164 ml/ 1,164 mls @ 48.5 mls/hr 07/30/25 16:00 07/30/25 15:58 Nutrition (Parenteral) IV 07/31/25 15:59 48.5 mls/hr .Q24H JARAD Administration Protocol Cefepime HCl 2,000 mg in 20 mls @ 5 mls/min 07/31/25 13:00 07/31/25 14:18 Maxipime 2000mg IV 08/02/25 12:59 5 mls/min Q8H JARAD Administration Protocol Insulin Aspart 0 units 07/30/25 18:45 07/31/25 12:06 Insulin Aspart Per Unit Charge SC 08/29/25 18:44 Not Given Q6H JARAD PG Care Time/CCT Total # of Minutes Spent Total Time Spent with Patient: Total time spent is greater than 50% in coordination of care (as documented) at patient's floor/unit and/or counseling patient: [place] [address] INT INP/OBS CARE 2/55MIN Patient Type New History Detailed Exam Detailed Medical Decision Making Moderate Complexity Diagnoses Left arm swelling M79.89 B-cell lymphoma C85.10
--- NOTE | 2025-07-31 14:48 | Pharmacy Report ---
Pharmacy Initial PN Consult Nt - Date of Service July 31, 2025 - Scope Pharmacy has been consulted on this date to manage parenteral nutrition orders and order appropriate labs. As part of the Nutrition Support Team Guidelines, pharmacy will work in conjunction with dietary when determining the patients caloric needs. - Subjective * The patient is a 79 year old Male admitted on 07/26/25 for DYSPHAGIA. * Patient is to receive parenteral nutrition for [Indication]. * Pertinent PMHx: - Objective Vascular Access: * Patient currently has a peripheral line. * Peripheral line was confirmed by IV Team to be acceptable for PPN use on this date. Height & Weight (Last Documented) Height 6 ft 4 in Weight 97.5 kg Diet Order(s) 07/28/25 10:43 NPO Intake & Ouput (24hrs) 07/30/25 07/31/25 08/01/25 06:59 06:59 06:59 Intake Total 700 / 700 595 / 595 160 / 160 Output Total 300 / 300 1390 / 1390 450 / 450 Balance 400 / 400 -795 / -795 -290 / -290 Selected Laboratory Results 07/31/25 07:01 Sodium 140 Potassium 3.4 L Chloride 109 H Carbon Dioxide 26 Anion Gap 5 BUN 18 Creatinine 0.65 BUN/Creatinine Ratio 27.7 H Glucose 173 H Calcium 7.5 L Phosphorus 2.1 L Magnesium 1.6 L Total Bilirubin 0.6 AST 17 ALT 20 Alkaline Phosphatase [address] - Follow Up Nutrition Assessment Start: 07/27/25 21:06 Freq: Status: Active Protocol: Document 07/30/25 11:23 WN (Rec: 07/30/25 11:54 WN [id number]) RD - Initial Nutrition Assessment Start: 07/27/25 20:21 Freq: Status: Active Protocol: Document 07/27/25 20:21 KK (Rec: 07/27/25 20:54 KK [id number]) - Assessment & Plan Assessment: * Appreciate dietitians recommendations for macronutrients. Plan: * For Day #1 of [PPN][TPN] administration, the following will be ordered: * Macronutrients: * Amino Acids: [] grams/day * Dextrose: [] grams/day * Lipids: [] grams/day * Micronutrients: * TPN electrolytes: [] mL/day - Contains 35 mEq Na, 20 mEq K, 4.5 mEq Ca, 5 mEq Mg, 35 mEq Cl, 29.5 mEq Acetate per 20 mL * Sodium phosphate: [] mMol/day * Sodium chloride: [] mEq/day * Sodium acetate: [] mEq/day * Potassium phosphate: [] mMol/day * Potassium chloride: [] mEq/day * Potassium acetate: [] mEq/day * Magnesium sulfate: [] mEq/day * Calcium gluconate: [] mEq/day * Multivitamins: 10 mL/day * Trace elements: 1 mL/day * Thiamine: [] mg/day * Folic Acid: [] mg/day * Total volume of [] mL will be infused over [] hours and will provide [] kcal/day * Patient is on PPN which has a maximum mOsm/L of 900. Final osmolarity of current solution is [] mOsm/L. * Labs will be ordered per PN protocol. * Pharmacy will follow and adjust PN orders on a daily basis. Thank you!
--- NOTE | 2025-07-31 14:50 | Pharmacy Report ---
Pharmacy PN Follow-up Note - Date of Service July 31, 2025 - Subjective Patient is currently on day #1 of PPN for prolonged NPO. - Objective Height & Weight (Last Documented) Height 6 ft 4 in Weight 97.5 kg Diet Order(s) 07/28/25 10:43 NPO Intake & Ouput (24hrs) 07/30/25 07/31/25 08/01/25 06:59 06:59 06:59 Intake Total 700 / 700 595 / 595 160 / 160 Output Total 300 / 300 1390 / 1390 675 / 675 Balance 400 / 400 -795 / -795 -515 / -515 Selected Laboratory Results 07/31/25 07:01 Sodium 140 Potassium 3.4 L Chloride 109 H Carbon Dioxide 26 Anion Gap 5 BUN 18 Creatinine 0.65 BUN/Creatinine Ratio 27.7 H Glucose 173 H Calcium 7.5 L Phosphorus 2.1 L Magnesium 1.6 L Total Bilirubin 0.6 AST 17 ALT 20 Alkaline Phosphatase 75 Triglycerides 137 - Assessment & Plan Assessment: Plan: * For Day #1 of PPN administration, the following will be ordered: * Macronutrients: * Amino Acids: 66 grams/day * Dextrose: 78 grams/day * Lipids: 50 grams/day * Micronutrients: * TPN electrolytes: 40 mL/day Contains 35 mEq Na, 20 mEq K, 4.5 mEq Ca, 5 mEq Mg, 35 mEq Cl, 29.5 mEq Acetate per 20 mL * Sodium phosphate: 30 mMol/day * Potassium acetate: 20 mEq/day * Magnesium sulfate: 4.06 mEq/day * Multivitamins: 10 mL/day * Trace elements: 1 mL/day * Thiamine: 100 mg/day * Total volume of 1633 mL will be infused over 24 hours and will provide 1030 kcal/day * Patient is on PPN which has a maximum mOsm/L of 900. Final osmolarity of current solution is 868 mOsm/L. * Labs will be ordered per PN protocol. * Pharmacy will follow and adjust PN orders on a daily basis. Thank you!
[2025-07-31] MEDS: VANCOMYCIN HCL 2,000 MG in SODIUM CHLORIDE 0.9% 500 ML IV ONE (15:04)
--- NOTE | 2025-07-31 15:06 | Pharmacy Report ---
Pharmacy PK ABX Note - Date of Service July 31, 2025 - Assessment and Plan Assessment 79 year old M receiving vancomycin/cefepime for empiric treatment of suspected PICC line infection with neutropenia. Pertinent microbiologic data includes: blood cultures pending Day # 1 of antimicrobial therapy. Plan Vancomycin * Loading dose: 2000 mg IV x 1 * Maintenance dose: 1500 mg IV every 12 hours * Regimen is predicted to achieve target AUC/CYNTHIA of 400-600 mg/L.hr * Trough to be ordered if continued beyond 48 hours. Pharmacy will continue to follow and will adjust dose/frequency as necessary. Thank you. Pharmacy has transitioned to AUC monitoring for vancomycin. AUC/CYNTHIA is the preferred PK/PD target and is associated with decreased risk of nephrotoxicity compared to traditional trough targets.
--- NOTE | 2025-07-31 15:14 | Palliative Family Discussion ---
Date of Service July 31, 2025 Patient Directed Conference Time of Meetin:00 - 11:30 Participants: Abril Enrique [facility], Patient participation: minimal Patient Support System: spouse Other Healthcare Provider Participation: None Meeting Location: bedside Advanced Directive available:no If yes, descriptors: The patient's surrogate medical decision maker participated: spouse Legally authorized health care proxy:n/a Other surrogate:n/a A family meeting was held for Patrick Westbrook. This meeting was necessary for determining the appropriate course of treatment. Topics of Discussion Topics of Discussion: 1. Opportunity given for participants to speak and ask questions. 2. Participants were assured of attention to patient comfort. 3. Reassurance provided. 4. Support was provided for informed, good-zaynab decisions. 5. Emotions expressed by family were acknowledged and addressed. 6. Follow-up Outpatient: TBD 7. Plan of Care: full code Met with pt and his at bedside. Prior discussion reinforced with both, Lexx drifted quickly to sleep and did not participate in discussion. Alana shared concern that Lexx has developed a pulmonary effusion and edema in DHARMESH after starting TPN via PICC. She shared concern that these complications are delaying his PEG placement, but grateful that TPN can continue. Discussed that Lexx is very ill, discussed his chronic medical conditions, HPI, and overall deconditioning and immobility that put all him at high risk for further complications. Alana stated that she wishes to remain positive and hopeful to put these bumps in the road behind them and shared that Dr Burgess had visited with them and she is now more hopeful. She shared that Dr Burgess is willing to continue cancer directed treatments once he is out of the hospital. Alana shared that she is hopeful that he can be clear to discharge home soon. We discussed pt's weakness and deconditioning and feasibility of attending rehab. She shared hope that he can just be discharged home and not require PT but understands that may be necessary. Alana is focused on ensuring proper nutrition and offering all reasonable therapies to ensure Lexx can return to oncology clinic and continue cancer directed treatment. Palliative care will continue to follow for ongoing ACP discussions and patient/family support. Time Involved in Meeting: I spent 40 minutes overall addressing this case: 10 in medical data review/discussion with referring provider(s) and/or preparation for the visit 20 in direct interaction with the patient and spouse 20 Advance Care Planning/Goals of Care discussions as detailed above in note (must be >16min) 5 in subsequent review and synthesis of assessment and plan 5 in communicating with other providers regarding the patient's case: primary team, BSRN
--- NOTE | 2025-07-31 17:01 | Infectious Disease Consult ---
Date of Consultation July 31, 2025 Assessment & Plan (1) Left arm swelling: Plan Problems: #LUE erythema, swelling around PICC site Micro: 07/31 BCx x2: pending Abx: Vanc 07/31 - present Cefepime 07/31 - present 79 yo M with history of PMR, CKD, s/p TAVR, PE previously on coumadin now on lovenox who presented to [facility] in mid-June with back pain, found to have a retroperitoneal mass s/p biopsy showing high grade B cell lymphoma s/p 1 cycle of mini CHOP [place] [facility] [place] Course complicated by aspiration pneumonia, thrombocytopenia, transiently in ICU and intubated. He was transferred back to [facility] on 07/26 for continued care and further evaluation for PEG due to severe dysphagia and ongoing chemo with likely placement. While at [facility], he had a LUE PICC placed for chemo. Per , initially a port placement was planned, but pt went "unresponsive" prior to procedure, so PICC was placed instead. Pt's noted that yesterday and especially today, LUE has become warm, red, swollen below the PICC in the elbow/forearm area. Denied fevers. BCx drawn and pending. LUE venous duplex showed no DVT. There was subcutaneous edema in the forearm and antecubital fossa but no definite abscess. He was started on vancomycin and cefepime due to concern for infection in the setting of neutropenia. Recommendations: - Continue vanc, cefepime for now - Follow-up blood cultures - would ideally remove PICC line Will continue to follow Consultation Information This patient recommendation is based on a telemedicine consult request which was completed asynchronously through chart review and information provided by the primary physician. The patient was not seen or examined today. The evaluation is consultative in nature and all patient care and treatment decisions can either be accepted or rejected by the patient's primary hospital-based treating physician using their own independent medical judgment for their patient. Manager Photo contact information: Please call [facility] [phone]. (Phone Number For Physician Use Only) An e-consult was performed due to lack of telepresenter availability. Time Spent Reviewing Chart: 31+ minutes History of Present Illness Reason for Consultation: PICC erythema, neutropenia Attending Physician: Gabriel Calvo MD History of Present Illness 79 yo M with history of PMR, CKD, s/p TAVR, PE previously on coumadin now on lovenox who presented to [facility] in mid-June with back pain, found to have a retroperitoneal mass s/p biopsy showing high grade B cell lymphoma s/p 1 cycle of mini CHOP [place] [facility] [place]). Course complicated by aspiration pneumonia, thrombocytopenia, transiently in ICU and intubated. He was transferred back to [facility] on 07/26 for continued care and further evaluation for PEG due to severe dysphagia and ongoing chemo with likely placement. While at [facility], he had a LUE PICC placed for chemo. Per , initially a port placement was planned, but pt went "unresponsive" prior to procedure, so PICC was placed instead. Pt's noted that yesterday and especially today, LUE has become warm, red, swollen below the PICC in the elbow/forearm area. Denied fevers. BCx drawn and pending. LUE venous duplex showed no DVT. There was subcutaneous edema in the forearm and antecubital fossa but no definite abscess. He was started on vancomycin and cefepime due to concern for infection in the setting of neutropenia. Allergies Allergy/AdvReac Type Severity Reaction Status Date / Time bee venom protein (honey bee) Allergy Unknown Anaphylaxis Verified 12/12/24 10:02 Home Medications Medication Instructions Recorded Confirmed Type famotidine 20 mg tablet (Pepcid) 40 mg PO HS 03/04/22 07/26/25 History magnesium 200 mg tablet 400 mg PO DAILY 02/23/23 07/26/25 History tamsulosin 0.4 mg capsule (Flomax) 0.4 mg PO DAILY 02/23/23 07/26/25 History allopurinol 300 mg tablet 300 mg PO DAILY 07/26/25 07/26/25 History amoxicillin 500 mg capsule 500 mg PO DIRECTED 07/26/25 07/26/25 History cholecalciferol (vitamin D3) 125 125 mcg PO DAILY 07/26/25 07/26/25 History mcg (5,000 unit) tablet enoxaparin 100 mg/mL subcutaneous 100 mg subcut Q12H 07/26/25 07/26/25 History syringe (Lovenox) folic acid 1 mg tablet 1 mg PO DAILY 07/26/25 07/26/25 History metformin 500 mg tablet 500 mg PO BID 07/26/25 07/26/25 History metoprolol tartrate 25 mg tablet 25 mg PO BID 07/26/25 07/26/25 History prednisone 1 mg tablet 1 mg PO DAILY 07/26/25 07/26/25 History pyridoxine (vitamin B6) 100 mg 100 mg PO DAILY 07/26/25 07/26/25 History tablet warfarin 5 mg tablet 5 - 7.5 mg PO DAILY 07/26/25 07/26/25 History Patient History Medical History Acute hyponatremia Supratherapeutic INR Acute adrenal insufficiency Lactic acidosis Hypotension Contusion of periorbital region, right Generalized weakness Fall Hx pulmonary embolism Hypercholesterolemia Bronchitis Surgical History Aortic valve replaced S/P colonoscopy Family History Father Cardiac disorder Mother Hypertension Son Nephrolithiasis Other Diabetes Social History Smoking Status: Never smoker Tobacco Type: Cigarettes Second Hand Exposure: No; Do You Dip or Chew Tobacco: No; Hx Alcohol Use: No Hx Substance Use: No Preferred Language: Armenian Communication Ability: Effective Charge Account Clerk Required: No Beliefs That Will Affect Care: None marital status: Current Living Situation: Spouse Current Living Situation Comment: single family home Other Information That Helps Us Care for You: No Feels Safe at Home: Yes Safety Concerns: Feels Safe At This Time Assistive Devices: Walker Results & Data Vital Signs (Past 12 Hours) Vital Signs Temp Pulse Resp BP Pulse Ox O2 Del Method 07/31/25 16:36 167/89 H 07/31/25 15:10 36.6 C 106 H 16 180/81 H 90 Room Air 07/31/25 09:00 Room Air 07/31/25 07:12 36.8 C 86 16 160/74 H 92 Room Air
[2025-07-31] MEDS: CLINOLIPID 20% IV FAT EMULSION 250 ML IV SCH (18:03)
[2025-07-31] MEDS: CLINDAMYCIN/D5W 900 MG/50 ML BAG IV SCH (19:01)
[2025-07-31] MEDS: OPTIRAY 320 100ml IV ONE (19:13)
--- NOTE | 2025-07-31 20:11 | CT Scan Report ---
CT of the left humerus with contrast Technique: Postcontrast axial imagesOf the left humerus. Coronal and sagittal reformatted images are made available for review No comparison Findings: Incidental note is made of a large left pleural effusion with elevation of left hemidiaphragm. No acute fractures or dislocations. No rim-enhancing fluid collection from his exam. Subtle circumferential inflammatory changes about the distal humeral soft tissue without defined rim-enhancing fluid collection. Impression No acute pathology Soft tissue swelling about the distal humerus near the antecubital fossa. Electronically signed by Tigre Leavitt 07-31-2025 8:10 PM
--- NOTE | 2025-07-31 20:13 | CT Scan Report ---
CT of the left forearm with contrast Technique: Postcontrast axial images of the left forearm. Coronal and sagittal reformatted images made available for review No comparison Findings: Soft tissue swelling and inflammatory changes about the antecubital fossa and proximal forearm without rim-enhancing fluid collection. Diffuse vascular calcifications of radial and ulnar arteries. No rim-enhancing fluid collection. No acute fracture or dislocation Impression Soft tissue swelling about the antecubital fossa and proximal forearm. Electronically signed by Tigre Leavitt 07-31-2025 8:13 PM
--- NOTE | 2025-07-31 20:31 | Orthopedic Consultation ---
Date of Service July 31, 2025 Assessment & Plan (1) Cellulitis of left forearm: Clinical examination looks to be more of a cellulitis or necrotizing fasciitis. I did call the radiologist personally and went over the CT scan with him. He saw no evidence of necrotizing fasciitis on the CAT scan and did not recommend any further imaging studies at this time. I spoke with the general surgeon as well. At this point I want him to continue the IV antibiotics that he is on. Will treat this like a cellulitis. If it continues to progress rapidly then we can revisit it or maybe send him for another scan. However, for now I do not see any signs of necrotizing fasciitis and no surgical indications. History of Present Illness Reason for Consultation: Left forearm cellulitis. Requesting Physician: . Attending Physician: Gabriel Calvo MD Joshua is a pleasant 79-year-old male who is doing with B-cell lymphoma. He has a PICC line in his left arm for his chemotherapy treatment. Starting early afternoon he began developing some cellulitis down his forearm. It did progress rapidly. It progressed down to his wrist. The redness became quite severe. He began having more pain. There was a concern for necrotizing fasciitis. Orthopedics was consulted to evaluate and treat.. Allergies Allergy/AdvReac Type Severity Reaction Status Date / Time bee venom protein (honey bee) Allergy Unknown Anaphylaxis Verified 12/12/24 10:02 Home Medications Medication Instructions Recorded Confirmed Type famotidine 20 mg tablet (Pepcid) 40 mg PO HS 03/04/22 07/26/25 History magnesium 200 mg tablet 400 mg PO DAILY 02/23/23 07/26/25 History tamsulosin 0.4 mg capsule (Flomax) 0.4 mg PO DAILY 02/23/23 07/26/25 History allopurinol 300 mg tablet 300 mg PO DAILY 07/26/25 07/26/25 History amoxicillin 500 mg capsule 500 mg PO DIRECTED 07/26/25 07/26/25 History cholecalciferol (vitamin D3) 125 125 mcg PO DAILY 07/26/25 07/26/25 History mcg (5,000 unit) tablet enoxaparin 100 mg/mL subcutaneous 100 mg subcut Q12H 07/26/25 07/26/25 History syringe (Lovenox) folic acid 1 mg tablet 1 mg PO DAILY 07/26/25 07/26/25 History metformin 500 mg tablet 500 mg PO BID 07/26/25 07/26/25 History metoprolol tartrate 25 mg tablet 25 mg PO BID 07/26/25 07/26/25 History prednisone 1 mg tablet 1 mg PO DAILY 07/26/25 07/26/25 History pyridoxine (vitamin B6) 100 mg 100 mg PO DAILY 07/26/25 07/26/25 History tablet warfarin 5 mg tablet 5 - 7.5 mg PO DAILY 07/26/25 07/26/25 History Past Med/Surg History Problem List (Updated 07/31/25 @ 20:30 by Samuel Stanford DO) Cellulitis of left forearm Left arm swelling Pharyngeal dysphagia Pancytopenia Adrenal insufficiency Counseling regarding goals of care Palliative care by specialist Dysphagia B-cell lymphoma Weakness Retroperitoneal mass (Acute) Hypomagnesemia (Acute) Retroperitoneal hemorrhage Chronic kidney disease, stage 3a Spinal stenosis H/O polymyalgia rheumatica Back pain Arthralgia Vitamin D deficiency Anticoagulant long-term use CAD (coronary artery disease) Seizure-like activity S/P TAVR (transcatheter aortic valve replacement) TIA (transient ischemic attack) LBBB (left bundle branch block) Leg swelling Chest discomfort Acute kidney injury Dehydration Elevated troponin Syncope Aortic stenosis Convulsive syncope Peripheral neuropathy Pseudogout Observed seizure-like activity (Acute) BPH with obstruction/lower urinary tract symptoms Type 2 diabetes mellitus (Acute) Elevated PSA (Acute) Hypertension (Acute) Medical History Acute hyponatremia Supratherapeutic INR Acute adrenal insufficiency Lactic acidosis Hypotension Contusion of periorbital region, right Generalized weakness Fall Hx pulmonary embolism Hypercholesterolemia Bronchitis Surgical History Aortic valve replaced S/P colonoscopy Family History Father Cardiac disorder Mother Hypertension Son Nephrolithiasis Other Diabetes Social History Smoking Status: Never smoker Tobacco Type: Cigarettes Second Hand Exposure: No; Do You Dip or Chew Tobacco: No; Hx Alcohol Use: No Hx Substance Use: No Preferred Language: Monegasque Communication Ability: Effective Mirror Painter Required: No Beliefs That Will Affect Care: None marital status: Current Living Situation: Spouse Current Living Situation Comment: single family home Feels Safe at Home: Yes Assistive Devices: Walker Review of Systems All systems reviewed & are unremarkable except as noted in HPI & below. Physical Exam On physical exam of the left forearm, there is redness more on the medial aspect of the elbow. He has some redness throughout the forearm but it fades a little bit on the dorsal aspect. He has full motion of his elbow and his wrist. I am able to palpate his forearm without much pain. He has no loss of pulses. Sensations intact.. Constitutional WD/WN, vitals as above Eyes PERRL, conjunctivae normal, anicteric sclerae ENMT external ear and nose normal, oropharynx normal Neck trachea midline, no thyromegaly Respiratory normal respiratory effort Cardiovascular RRR, no murmur, no edema Gastrointestinal (Abdomen) normal bowel sounds, soft, nontender, no hepatosplenomegaly Psychiatric A+Ox3, euthymic affect Results & Data Results & Data Laboratory Results . Diagnostic Findings CT scan of the left forearm was reviewed and it showed no subcutaneous gas pockets and no rim-enhancing lesions. There is no signs of necrotizing fasciitis on the CT scan.. PG Care Time/CCT Total # of Minutes Spent Total Time Spent with Patient: Total time spent is greater than 50% in coordination of care (as documented) at patient's floor/unit and/or counseling patient: Coding Level of Care Code 10395 IN/OBS CONSULT LVL 4,60M Diagnoses Cellulitis of left forearm L03.114
[2025-07-31] MEDS: STOP CLINOLIPID SCH (20:35)
--- NOTE | 2025-07-31 21:24 | Hospitalist Progress Note ---
Date of Service July 31, 2025 Assessment & Plan (1) B-cell lymphoma: Plan: Pt is an 79 y/o male who was transferred to [facility] [place] evaluation of a retroperitoneal mass that was found to be high-grade B-cell lymphoma upon biopsy. Pt was tx w/ mini CHOP therapy which was complicated by aspiration pneumonia that required intubation. Upon extubation, pt was unable to tolerate PO intake and had an NGT placed. Pt was recommended to [facility] for evaluation of need for PEG tube placement. Patient was recovering from his mini CHOP treatment, and is anticipating his next treatment in approximately 2 weeks. Case had been signed out directly between [facility] oncology and Dr. Burgess. # Rapidly progressive cellulitis versus necrotizing fasciitis - Called the bedside with immediate and progressive concern for necrotizing type infection. Clindamycin was initiated in addition to the cefepime and vancomycin already been given - Stat consult to general surgery deferred to orthopedics for evaluation of the extremity - Stat CT scan of the arm to identify immediately positive clinical findings of a necrotizing type infection - Patient transferred to the ICU for close monitoring, respiratory support and serial examination - Clinical examination by orthopedic surgery as well as radiologic examination with CT scan with contrast indicates likely rapidly progressive cellulitis, no clear indication of necrotizing fasciitis at this time - Will continue cares in the ICU, continue cefepime, vancomycin, clindamycin. - Given his underlying neutropenia infectious disease have been consulted. Today we will continue to follow - Case was briefly reviewed with general surgery at [facility]. He has any defervescent's, worsens, conditions or emergent signs of infection will reach out to them we had initiated a transfer without a hold for this time #Absolute neutropenia -G-CSF administered approximately 2 days ago, will continue to monitor daily, neutropenic cautions otherwise #Severe dysphagia with aspiration - Hx of recent hospital admission w/ aspiration pneumonia requiring intubation; VSFF re-evaluation demonstrated recurrent silent aspiration, pt is currently without functional swallowing ability - PEG tube recommended -Consulted GI; unable to place PEG d/t current pancytopenia w/ ANC of 0.54 on 07/30; will pursue once labs improve -PPN via IV - associated labs -CXR - worsening cough w/ recent hospital admission for PNA -Phosphorus, Triglycerides in AM #High-grade B-cell lymphoma - US biopsy of retroperitoneal mass 07/11 revealed high-grade B-cell lymphoma; Flow cytometry results favored B-cell lymphoma as well; Brain MRI 07/12 unremarkable; Mini CHOP cyclophosphamide 07/16, vincristine 07/19, doxorubicin 07/20; Next anticipated chemotherapy in approximately 2 weeks; Pt now following w/ Dr Burgess -Heme/Onc consulted - awaiting input -Palliative Consulted; discussed goals of care with patient -G-CSF 480 mcg x3 days - per heme/onc; ANC 0.54 & WBC 0.88 (07/30) Follow counts daily. If ANC less than 1, starchyCSF -Recommended to continue allopurinol 300 mg daily twice daily through NGT/PEG when available -FISH pending #Adrenal insufficiency - BP elevated, reassess in AM; Home dose of steroids 2.5mg daily Continue 10mg steroid; wean as tolerated #Pancytopenia - no active signs of current bleed; likely result of chemotherapy; most recent transfusion 07/27 Heme/oncology following -CBC, CMP in AM #Hypomagnesemia - asx -Replaced w/ 1gm 100mL x2 -Recheck in AM #Hospital-acquired deep pressure injury of left heel, right heel - improving, not resolved Wound care, offloading precautions #History of DVT, recurrent PE - Lovenox d/t inablility to tolerate PO eliquis; LE doppler demonstrates nonocclusive DVT of superficial femoral and deep femoral vein Continue Lovenox 1 mg/kg twice daily #History of type II DM - Most recent A1c 6.5% Sliding scale ordered on admission, dose reduced basal pending BSG evaluation Pharmacy consulted for assistance with management due to impaired p.o. and concurrent steroid pt's BSG remains on lower end despite concurrent glucose management; consider low-flow IV dextrose if necessary, caution d/t pts third spacing #Hx Asymptomatic hyperkalemia - Resolved Dispo: continue stay - awaiting GI input on PEG IV access: PICC in left upper extremity DVT prophylaxis: Lovenox CRITICAL CARE: approximately 77 minutes spent at the bedside spent in the direct evaluation, assessment, diagnosis, stabilization and transfer of the above critically ill patient. Time was spent in addition to any procedures performed and documented. (2) Chronic kidney disease, stage 3a: (3) Spinal stenosis: (4) LBBB (left bundle branch block): (5) TIA (transient ischemic attack): (6) BPH with obstruction/lower urinary tract symptoms: (7) Type 2 diabetes mellitus: (8) Hypertension: (9) Adrenal insufficiency: (10) Dysphagia: (11) Pancytopenia: Admission and Anticipated Discharge Date Admission Date: July 26, 2025 Subjective Patient was seen earlier today with increased redness at the PICC site. Bedside ultrasound was done by myself with Nancy FERMIN at approximately 11 AM indicated no underlying thrombus at the PICC site. Slight indication of erythema differential PICC dysfunction versus cellulitis. Cultures were obtained antibiotics initiated. Called bedside again approximately 6:40 PM for rapidly progressive cellulitis throughout the lower extremity. Patient has been given cefepime and vancomycin. Despite this he was febrile, rapidly increasing pain throughout the distal forearm and proximal bicep. Concerning the differential at that time was for a rapid aggressive cellulitis versus potentially underlying necrotizing fasciitis. See assessment plan for below. Physical Exam Physical Exam: General: A&Ox3. NAD. Cooperative. HEENT: Atraumatic, normocephalic. Vision and hearing grossly intact. Pupils equal and reactive to light, sclera clear and anicteric Respiratory: Dec Lung sound in LLL, cough present; lungs otherwise CTA, no other adventitious sounds noted. Cardiac: RRR. -mrg. Radial pulses intact and symmetrical. Extremities: Pt has +1 pitting edema bilat in LE NEURO: A&O as above, no focal deficits Skin: Approximately 6 cm area of demarcated erythema with trace subcutaneous edema distal to the PICC insertion site. No underlying induration or crepitus noted pt has ulcers on heels bilat, wounds were dressed and not directly visualized today. Skin is otherwise warm and dry; no other lesions or ulcerations noted Results & Data Results & Data Vital Signs (Past 12 Hours) Vital Signs Temp Pulse Pulse Resp BP BP Pulse Ox 07/31/25 20:00 38.6 C H 113 H 23 166/86 H 91 07/31/25 20:00 115 H 23 92 07/31/25 16:36 167/89 H 07/31/25 15:10 36.6 C 106 H 16 180/81 H 90 O2 Del Method 07/31/25 20:00 07/31/25 20:00 07/31/25 16:36 07/31/25 15:10 Room Air Diagnostic Findings POCUS: [id number] ultrasound utilized at the bedside and with B-mode a.m., to differentiate the vasculature just caudal and distal to the patient versus life. Color-flow indicated good arterial flow with no limitations. Compressible venous system to the bifurcation of the brachiocephalic and medial cephalic, approximately through the, brachial showed good compressibility with no evidence of clot. PG Care Time/CCT Total # of Minutes Spent Total Time Spent with Patient: Total time spent is greater than 50% in coordination of care (as documented) at patient's floor/unit and/or counseling patient: Coding Level of Care Code 78645 SUB INP/OBS CARE 3/50MIN Diagnoses B-cell lymphoma C85.10 Chronic kidney disease, stage 3a N18.31 Spinal stenosis M48.00 LBBB (left bundle branch block) I44.7 TIA (transient ischemic attack) G45.9 BPH with obstruction/lower urinary tract symptoms N40.1; N13.8 Type 2 diabetes mellitus E11.9 Hypertension I10 Adrenal insufficiency E27.40 Dysphagia R13.10 Pancytopenia D61.818
[2025-07-31] MEDS: ACETAMINOPHEN 1,000 MG/100 ML VIAL IV PRN (21:25)
[2025-08-01] MEDS: VANCOMYCIN HCL 1,500 MG in SODIUM CHLORIDE 0.9% 500 ML IV SCH (00:44)
[2025-08-01 05:20] LABS: Alanine Aminotransferase 15.0 U/L (7-52); Albumin Globulin Ratio 1.2 (0.9-2); Albumin Level 2.2 gm/dl (3.4-5.0); Alkaline Phosphatase 69.0 U/L (34-104); Anion Gap 6.0 (3-11); Bilirubin,Total 0.6 mg/dl (0.2-1.0); Blood Urea Nitrogen 17.0 mg/dl (6-23); Calcium 7.2 mg/dl (8.6-10.3); Carbon Dioxide 23.0 mmol/L (21-32); Chloride 109.0 mmol/L (98-107); Creatinine Clr Calc Pharmacy 93.9 ml/min; Globulin 1.9 gm/dl (2.5-4.0); Glucose 127.0 mg/dl (70-99(Fasting)); Magnesium 1.6 mg/dl (1.7-2.4); Potassium 3.4 mmol/L (3.5-5.1); Sodium 138.0 mmol/L (136-145); Total Protein 4.1 gm/dl (6.0-8.3)
[2025-08-01 05:30] LABS: Hematocrit (blood only) 23.4 % (42.0-52.0); Hemoglobin 7.7 g/dL (14.0-18.0); Mean Corpuscular Hemoglobin 26.6 pg (25.0-34.0); Mean Corpuscular Volume 80.7 fL (80.0-100.0); Platelet Count 50 K/uL (130-400); RDW Standard Deviation 56.5 fL (36.4-46.3); Red Blood Count 2.90 M/uL (4.70-6.10); White Blood Count 0.97 K/ul (4.8-10.8)
[2025-08-01 06:18] LABS: Anisocytosis Present; Dohle Bodies 1+; Immature Granulocytes # (auto) 0.01 K/uL (0.01-0.20); Immature Granulocytes % (auto) 1.0 %
[2025-08-01] MEDS: STOP CLINOLIPID SCH (06:18)
--- NOTE | 2025-08-01 08:28 | Infectious Disease Progress Nt ---
Date of Service August 01, 2025 Assessment & Plan (1) Cellulitis of left forearm: Plan Problems: #LUE cellulitis #Fever #Neutropenia #High grade B cell lymphoma: s/p 1 cycle mini CHOP 07/20/25 Micro: 07/31 BCx x2: pending Abx: Vanc 07/31 - present Cefepime 07/31 - present 79 yo M with history of PMR, CKD, s/p TAVR, PE previously on coumadin now on lovenox who presented to [facility] in mid-June with back pain, found to have a retroperitoneal mass s/p biopsy showing high grade B cell lymphoma s/p 1 cycle of mini CHOP at [facility] ([place]). Course complicated by aspiration pneumonia, thrombocytopenia, transiently in ICU and intubated. He was transferred back to [facility] on 07/26 for continued care and further evaluation for PEG due to severe dysphagia and ongoing chemo with likely placement. ID consulted on 07/31 due to erythema around LUE PICC site. While at [facility], he had a LUE PICC placed for chemo. Per , initially a port placement was planned, but pt went "unresponsive" prior to procedure, so PICC was placed instead. Pt's noted that on 07/30-07/31, LUE has become warm, red, swollen below the PICC in the elbow/forearm area. BCx drawn and pending. LUE venous duplex showed no DVT. There was subcutaneous edema in the forearm without drainable collection. He was started on vancomycin and cefepime due to concern for infection in the setting of neutropenia. LUE erythema rapidly progressed 07/[address] was done for further evaluation, which showed soft tissue swelling about the antecubital fossa and proximal forearm, no fluid collections. Ortho consulted with concern for nec fasc--no signs of nec fasc seen at this time. Became febrile 11/12 PM. Recommendations: - With neutropenia, fever, and concern for LUE cellulitis, will continue vanc, cefepime for now - Follow-up blood cultures - Trend fever curve Will continue to follow Admission and Anticipated Discharge Date Admission Date: July 26, 2025 Subjective Subsequent visit was provided via telemedicine using two-way real-time interactive telecommunication between the patient and the telemedicine provider. For the duration of the visit, the provider was performing the assessment from a different facility than the patient. This includesuse of bluetooth stethosc ope forauscultationperformed by the telepresenter that the telemedicine provider can hear if described in the physical exam. [employer] Lead contact information: Please call [facility] [phone]. (Phone Number For Physician Use Only) After establishing a telemedicine visit, patient was: Patient was verified with two unique identifiers, Patient/authorized rep acknowledged consent and understanding and Gave permission to continue telehealth session Time Spent with Patient: Subsequent => 25 min Yesterday evening developed rapidly progressing erythema down his L wrist. CT LUE with contrast showed soft tissue swelling about the antecubital fossa and proximal forearm, no fluid collections Ortho consulted with concern for nec fasc--no signs of nec fasc seen at this time Febrile to 38.6 last night Review of System A complete ROS was performed and is negative except as mentioned in the HPI. Physical Exam Physical Exam: GEN: elderly many laying in bed in NAD. RESP: No increased work of breathing EXT: LUE erythema of the forearm, somewhat tender to palpation, warm. No induration, no open wounds NEURO: Answering questions appropriately. Results & Data Vital Signs (Past 12 Hours) Vital Signs Temp Pulse Resp BP Pulse Ox 08/01/25 06:00 138/74 08/01/25 06:00 37.4 C 90 12 97 08/01/25 05:00 138/64 08/01/25 05:00 37.5 C 89 16 95 08/01/25 04:00 37.5 C 93 H 17 95 08/01/25 04:00 146/72 H 08/01/25 03:00 37.5 C 92 H 17 97 08/01/25 03:00 130/78 08/01/25 03:00 130/78 08/01/25 02:00 37.5 C 95 H 19 95 08/01/25 02:00 133/81 08/01/25 01:00 37.7 C H 97 H 21 94 08/01/25 01:00 128/74 08/01/25 00:00 132/69 08/01/25 00:00 37.9 C H 98 H 20 94 08/01/25 00:00 103 H 07/31/25 23:00 118/65 07/31/25 23:00 38.3 C H 118/65 07/31/25 23:00 109 H 22 87 L 07/31/25 22:30 38.4 C H 110 H 20 92 07/31/25 22:00 155/85 H 07/31/25 22:00 38.6 C H 155/85 H 07/31/25 22:00 123 H 16 92 07/31/25 21:30 38.5 C H 111 H 22 92 07/31/25 21:00 38.5 C H 115 H 21 92 07/31/25 21:00 38.5 C H 147/78 H 07/31/25 20:30 38.6 C H 112 H 21 92
[2025-08-01] MEDS: VANCOMYCIN LEVEL ONE (11:02)
[2025-08-01] MEDS: MAGNESIUM SULFATE / D5W 1 GM/100 ML BAG IV SCH (12:09)
[2025-08-01] MEDS: POTASSIUM CHLORIDE / WTR 10 MEQ/100 ML PLCT IV SCH (12:10)
--- NOTE | 2025-08-01 12:26 | Pharmacy Report ---
Pharmacy PK ABX Note - Date of Service August 01, 2025 - Assessment and Plan Assessment 79 year old M receiving vancomycin/cefepime for empiric treatment of suspected PICC line infection with neutropenia. Pertinent microbiologic data includes: blood cultures pending, catheter tip culture pending. Day #2 of antimicrobial therapy. Plan Vancomycin * Loading dose: 2000 mg IV x 1 (given 07/31 @1500) * Previous maintenance dose: 1500 mg IV every 12 hours * True trough drawn 08/01 @1047 was 12.4 * Regimen of 1500 mg IV every 12 hours may be slightly supratherapeutic as more doses are given * Will lower the dose for now and obtain a trough 08/03 before the fourth dose of new regimen * New maintenance dose: 1250 mg IV every 12 hours * Regimen is predicted to achieve target AUC/CYNTHIA of 400-600 mg/L.hr * Trough ordered for 08/03/25 @1100 Pharmacy will continue to follow and will adjust dose/frequency as necessary. Thank you. Pharmacy has transitioned to AUC monitoring for vancomycin. AUC/CYNTHIA is the preferred PK/PD target and is associated with decreased risk of nephrotoxicity compared to traditional trough targets.
--- NOTE | 2025-08-01 13:37 | Palliative Care Progress Note ---
Date of Service August 01, 2025 Assessment & Plan (1) Dysphagia: Plan: appreciate ST recs, pending PEG placement for nutrition. (2) Weakness: (3) Palliative care by specialist: Plan: Palliative care will continue to follow for ongoing ACP discussions and patient/family support. (4) Counseling regarding goals of care: Plan: 08/01: Met with pt and his Alana at bedside. Pt states that he is "feeling fine" and questions when he can return home. He again shared desire for all aggressive measures to continue to allow him to return home. We discussed pt's deconditioned state and decreased mobility since admission. Discussed possible need for rehab to improve strength and optimize functional independence before returning home. Pt and his are both agreeable to this. Lexx shared that he "feels well" and has never really allowed himself to feel sick. He shared strong desire to continue to prolong life with all therapies appropriate to allow him as much quality time with his grand children as possible. We discussed the importance of being patient with himself and allowing his body the time it needs to recuperate. Alana questioned possible "central line placement in his neck so he can get TPN at home". Discussed benefits of enteric feeding over TPN if gut is working. Goals of care remain clearly established for all aggressive life prolonging therapies. 07/29: ACP meeting held with patient and his Alana at bedside from 14:00 - 14:45. Dr Woods was present for final 15 minutes of discussion. cintia Warner and Lexx live independently and have three adult sons, four grandchildren between ages 1y and 30y old, and one 2y great grandson. Lexx places highest value on family and being home with them. He shared that his goals of care are to pursue anything that will give him more quality time with his grandchildren and great grand son. Discussed pt's current condition, HPI, hospital course, and goals of care. They expressed gratitude for Dr Card's ACP discussion with them and their sons and Alana was able to summarize the discussion in basic terms. Alana reports that Patrick has some short term memory loss and hospital acquired delirium, but has never been diagnoses with dementia nor had previous cognitive deficits. She states that the documented history of dementia and alzheimer's are incorrect and pt has never been diagnosed with any cognitive deficits. She shared that his delirium has improved since returning to [facility], but that he does not have memory of his time at [facility]. She shared concern that he has not had any nutrition in five days and is focused on restarting nutrition without delay. Alana emphasized that Lexx has never had difficulty swallowing before, and this was an isolated episode of aspiration. We discussed the swallow studies that have been done and Alana shared understanding that Lexx's does not have a coordinated swallow. Lexx and Alana shared motivation to pursue PEG tube to allow him to get nutrition safely so that he can continue cancer directed therapies. We discussed that PEG tube does not limit risks of aspiration and discussed strategies to mitigate risk of aspiration pna. Lexx shared that he does wish to retrun to oral feeding in future and is willing to work with ST in hopes of improving his swallow abilities. We discussed that there is no guarantee that this will improve and that tube feedings may be a permanent part of his life. Alana and Lexx both shared desire for PEG placement followed by trial of tube feedings in conjunction with speech therapy to improve swallow. Alana shared that she had been told that a PEG tube would not be able to be placed immediately because of anticoagulation. She shared that if this is the case, they would want to avoid further delay in nutrition by placing NGT until PEG can be arranged. Dr Woods shared that he will reach out to GI to get PEG placed ABI in hopes to avoid need for NGT. Alana and Lexx also confirmed that they DO WANT further attempts at resuscitation and repeat ICU admission if needed. Lexx expressed that if he is to have a permanent deterioration to his quality of life or in significant ongoing pain may want a focus on comfort at that point. He shared that he would be okay with mechanical ventilation short term, but he would not want tracheostomy or director long term care dependence on machines to keep him alive. Plan as above Admission and Anticipated Discharge Date Admission Date: July 26, 2025 Subjective Overnight pt developed cellulitis in RUE and RLE and transferred to ICU overnight for suspicion of necrotizing fascitis. Pt seen in ICU bed 107 today, at his cognitive baseline with only c/o pain in RUE with any touch/pressure. His PICC line has been removed and he is pending central line access. Review of Systems Review of Systems: All systems reviewed & are unremarkable except as noted in HPI & below Physical Exam Constitutional: WD/WN, vitals as above Eyes: PERRL, conjunctivae normal, anicteric sclerae Respiratory: normal respiratory effort, lungs clear to auscultation Cardiovascular: Rate/Rhythm: regular rate and regular rhythm Gastrointestinal (Abdomen): normal bowel sounds, soft, nontender, no hepatosplenomegaly Musculoskeletal: errythema and edema to right lower arm to level of elbow. +2 pitting edema to BLE to mid calf/knee Neurologic: awake mild confusion requiring frequent reorientation. dysarthria per baseline. Results & Data Vital Signs (Past 12 Hours) Vital Signs Temp Pulse Resp BP Pulse Ox O2 Del Method O2 Flow Rate 08/01/25 12:00 37.3 C 87 18 137/68 97 Nasal Cannula 2 08/01/25 12:00 137/68 08/01/25 12:00 137/68 08/01/25 12:00 137/68 08/01/25 12:00 137/68 08/01/25 12:00 37.4 C 86 17 97 08/01/25 11:00 136/72 08/01/25 11:00 136/72 08/01/25 11:00 136/72 08/01/25 11:00 136/72 08/01/25 11:00 136/72 08/01/25 11:00 37.4 C 85 15 97 08/01/25 10:00 37.4 C 87 17 96 08/01/25 10:00 133/74 08/01/25 10:00 133/74 08/01/25 10:00 133/74 08/01/25 10:00 133/74 08/01/25 10:00 133/74 08/01/25 09:00 140/72 08/01/25 09:00 140/72 08/01/25 09:00 140/72 08/01/25 09:00 140/72 08/01/25 09:00 140/72 08/01/25 09:00 37.4 C 89 19 97 08/01/25 08:40 Nasal Cannula 2 08/01/25 08:00 136/79 08/01/25 08:00 136/79 08/01/25 08:00 136/79 08/01/25 08:00 136/79 08/01/25 08:00 136/79 08/01/25 08:00 136/79 08/01/25 08:00 136/79 08/01/25 08:00 136/79 08/01/25 08:00 136/79 08/01/25 08:00 37.4 C 93 H 20 98 08/01/25 07:00 136/73 08/01/25 07:00 136/73 08/01/25 07:00 136/73 08/01/25 07:00 136/73 08/01/25 07:00 136/73 08/01/25 07:00 37.5 C 90 18 96 08/01/25 06:00 138/74 08/01/25 06:00 37.4 C 90 12 97 08/01/25 05:00 138/64 08/01/25 05:00 37.5 C 89 16 95 08/01/25 04:00 37.5 C 93 H 17 95 08/01/25 04:00 146/72 H 08/01/25 03:00 37.5 C 92 H 17 97 08/01/25 03:00 130/78 08/01/25 03:00 130/78 08/01/25 02:00 37.5 C 95 H 19 95 08/01/25 02:00 133/81 Laboratory Results Abnormal lab results 07/31/25 07/31/25 08/01/25 Range/Units 13:16 18:07 00:47 WBC (4.8-10.8) K/ul RBC (4.70-6.10) M/uL Hgb (14.0-18.0) g/dL Hct (42.0-52.0) % RDW Std Deviation (36.4-46.3) fL RDW Coeff of Spike (11.5-14.5) % Plt Count (130-400) K/uL Neut # (Auto) (1.40-6.50) K/uL Lymph # (Auto) (1.20-3.40) K/uL Potassium (3.5-5.1) mmol/L Chloride (98-107) mmol/L BUN/Creatinine Ratio (10-20) Glucose (70-99(Fasting)) mg/dl POC Glucose 120 H 154 H (70-99) mg/dl Calcium (8.6-10.3) mg/dl Magnesium (1.7-2.4) mg/dl C-Reactive Protein 4.15 H (0-0.5) mg/dl Total Protein (6.0-8.3) gm/dl Albumin (3.4-5.0) gm/dl Globulin (2.5-4.0) gm/dl 08/01/25 08/01/25 08/01/25 Range/Units 04:35 06:15 11:38 WBC 0.97 L* (4.8-10.8) K/ul RBC 2.90 L (4.70-6.10) M/uL Hgb 7.7 L (14.0-18.0) g/dL Hct 23.4 L (42.0-52.0) % RDW Std Deviation 56.5 H (36.4-46.3) fL RDW Coeff of Spike 20.8 H (11.5-14.5) % Plt Count 50 L (130-400) K/uL Neut # (Auto) 0.63 L* (1.40-6.50) K/uL Lymph # (Auto) 0.14 L (1.20-3.40) K/uL Potassium 3.4 L (3.5-5.1) mmol/L Chloride 109 H (98-107) mmol/L BUN/Creatinine Ratio 22.1 H (10-20) Glucose 127 H (70-99(Fasting)) mg/dl POC Glucose 144 H 151 H (70-99) mg/dl Calcium 7.2 L (8.6-10.3) mg/dl Magnesium 1.6 L (1.7-2.4) mg/dl C-Reactive Protein 10.58 H (0-0.5) mg/dl Total Protein 4.1 L (6.0-8.3) gm/dl Albumin 2.2 L (3.4-5.0) gm/dl Globulin 1.9 L (2.5-4.0) gm/dl Diagnostic Findings Venous Doppler Study 07/26/25 17:20 CR Exam(s): US VENOUS RIGHT LOWER EXTREMITY EXAM: US Duplex Right Lower Extremity Veins CLINICAL HISTORY: Recurrent Deep vein thrombosis TECHNIQUE: Real-time duplex ultrasound scan of the right lower extremity veins integrating B-mode two-dimensional vascular structure, Doppler spectral analysis, color flow Doppler imaging and compression. COMPARISON: No relevant prior studies available. FINDINGS: Deep veins: Nonocclusive deep vein thrombosis of the superficial femoral vein. Nonocclusive thrombosis of the deep femoral vein. The common femoral vein, popliteal vein, anterior tibial vein and posterior tibial vein are patent. Superficial veins: Unremarkable. No thrombus in the visualized great saphenous vein. Soft tissues: Marked nonspecific subcutaneous edema. No popliteal cyst. IMPRESSION: 1. Nonocclusive deep vein thrombosis of the superficial femoral vein. 2. Nonocclusive thrombosis of the deep femoral vein. 3. Marked nonspecific subcutaneous edema. Communications: Verify Receipt Electronically signed by: Jenni Mcgowan MD 07/26/25 23:15 PM Videofluoroscopic Swallow 07/29/25 00:01 MODIFIED BARIUM SWALLOW CLINICAL HISTORY: determine swallow function, r/o aspiration COMPARISON STUDY: None FLUOROSCOPY TIME: 1.33 minutes. Ka,r: 6.59 mGy TECHNIQUE: A modified barium swallow was performed in conjunction with Speech Pathology. The patient ingested varying consistencies of barium containing material. Video fluoroscopy was performed. FINDINGS: When swallowing thin liquids, there was silent aspiration. The patient was unable to fully clear this. When swallowing thin liquids with chin type maneuver there was also silent aspiration. When swallowing nectar thick liquids, there was silent aspiration. When swallowing nectar thick liquids with chin tuck there was silent aspiration. When swallowing pudding there was no aspiration however there was significant residue within the vallecula and piriform sinuses. IMPRESSION: 1. Silent aspiration of thin liquids and nectar thick liquids. Significant vallecular and piriform sinus residue. ACT 112: Negative or not required by law. Electronically signed by: Trevor Giron M.D. 07/29/2025 10:43 AM Chest X-Ray 07/30/25 15:18 XR chest 1V portable CLINICAL HISTORY: R/O pneumonia COMPARISON STUDY: 07/04/2025 FINDINGS: The heart is the upper limits of normal in size. There is blunting of the left lateral costophrenic angle suggesting small effusion. There are increased markings at the left medial lung base. While likely atelectatic, an infectious/inflammatory process could appear similar. There is no failure. There is no pneumothorax. IMPRESSION: 1. Small left pleural effusion with associated left basilar atelectasis/consolidation. ACT 112: Negative or not required by law. Electronically signed by: Trevor Giron M.D. 07/30/2025 3:39 PM Extremity Venous Study 07/31/25 12:00 ULTRASOUND LEFT UPPER EXTREMITY VENOUS CLINICAL HISTORY: Acute pain and swelling of the left upper family. COMPARISON STUDY: Priors. TECHNIQUE: Real-time, grayscale, and color Doppler sonography of the deep veins of the left upper extremity is performed. Compression and augmentation were utilized. FINDINGS: There is no sonographic evidence of deep venous thrombosis identified in the left upper extremity. The left internal jugular, axillary, and brachial veins are patent and normally compressible. Normal venous waveforms and augmentation are seen within the left subclavian vein. The cephalic and basilic veins are clear. The visualized radial and ulnar veins are patent. Partially visualized PICC within the subclavian vein. Subcutaneous edema of the forearm without drainable fluid collection. IMPRESSION: There is no sonographic evidence of deep venous thrombosis identified in the left upper extremity. ACT 112: Negative or not required by law. Electronically signed by: Brandan Argueta M.D. 07/31/2025 2:[address] 07/31/25 17:51 CT of the left forearm with contrast Technique: Postcontrast axial images of the left forearm. Coronal and sagittal reformatted images made available for review No comparison Findings: Soft tissue swelling and inflammatory changes about the antecubital fossa and proximal forearm without rim-enhancing fluid collection. Diffuse vascular calcifications of radial and ulnar arteries. No rim-enhancing fluid collection. No acute fracture or dislocation Impression Soft tissue swelling about the antecubital fossa and proximal forearm. Electronically signed by Tigre Leavitt 07-31-2025 8:[address] 07/31/25 17:51 CT of the left humerus with contrast Technique: Postcontrast axial imagesOf the left humerus. Coronal and sagittal reformatted images are made available for review No comparison Findings: Incidental note is made of a large left pleural effusion with elevation of left hemidiaphragm. No acute fractures or dislocations. No rim-enhancing fluid collection from his exam. Subtle circumferential inflammatory changes about the distal humeral soft tissue without defined rim-enhancing fluid collection. Impression No acute pathology Soft tissue swelling about the distal humerus near the antecubital fossa. Electronically signed by Tigre Leavitt 07-31-2025 8:10 PM Medications Administered Current Inpatient Medications Dextrose (Dextrose 50% 50 Ml Syringe) 25 - 50 ml IV UD PRN; Protocol PRN Reason: Hypoglycemia Protocol Stop: 08/25/25 16:47 Glucagon (Glucagon For Inj 1 Mg Vial) 1 mg SQ UD PRN; Protocol PRN Reason: Hypoglycemia Protocol Stop: 08/25/25 16:47 Glucose (Glucose 40% Gel 15 Gm Tube) 15 - 30 gm PO UD PRN; Protocol PRN Reason: Hypoglycemia Protocol Stop: 08/25/25 16:47 Glucose (Glucose 10 Tab/Tube) 4 - 8 tab PO UD PRN; Protocol PRN Reason: Hypoglycemia Protocol Stop: 08/25/25 16:47 Pantoprazole Sodium (Protonix) 40 mg in 10 mls @ 5 mls/min IV DAILY JARAD Stop: 08/26/25 08:59 Last Admin: 08/01/25 08:49 Dose: 5 mls/min Famotidine (Pepcid 20mg Iv Push) 20 mg in 5 mls @ 2.5 mls/min IV HS JARAD Stop: 08/25/25 20:59 Last Admin: 07/31/25 21:25 Dose: 2.5 mls/min Methylprednisolone 10 mg/ (Syringe) 0.16 mls @ 1.5 mls/min IV QAM JARAD Stop: 08/28/25 08:59 Last Admin: 08/01/25 08:51 Dose: 1.5 mls/min Dextrose (D10w) 1,000 mls @ 0 mls/hr IV .Q0M PRN PRN Reason: protocol (see label comments) Stop: 08/02/25 15:59 Amino Acids 1,633 ml/ (Nutrition (Parenteral)) 1,633 mls @ 68 mls/hr IV .Q24H JARAD; Protocol Stop: 08/01/25 15:59 Last Admin: 07/31/25 18:02 Dose: 68 mls/hr Cefepime HCl (Maxipime 2000mg) 2,000 mg in 20 mls @ 5 mls/min IV Q8H JARAD; Protocol Stop: 08/02/25 12:59 Last Admin: 08/01/25 04:57 Dose: 5 mls/min Vancomycin HCl 1,500 mg/ (Sodium Chloride) 530 mls @ 200 mls/hr IV Q12H JARAD Stop: 08/01/25 15:00 Last Admin: 08/01/25 11:02 Dose: 200 mls/hr Clindamycin Phosphate (Cleocin/D5w) 900 mg in 50 mls @ 100 mls/hr IV Q8H [facility] Stop: 08/02/25 17:59 Last Infusion: 08/01/25 11:08 Dose: Infused Acetaminophen (Ofirmev) 1,000 mg in 100 mls @ 400 mls/hr IV Q8H PRN PRN Reason: Pain or Fever Stop: 08/03/25 20:59 Last Infusion: 07/31/25 21:45 Dose: Infused Vancomycin HCl 1,250 mg/ (Sodium Chloride) 275 mls @ 200 mls/hr IV Q12H [facility] Stop: 08/09/25 00:00 Amino Acids 1,665 ml/ (Nutrition (Parenteral)) 1,665 mls @ 69 mls/hr IV .Q24H [facility]; Protocol Stop: 08/02/25 15:59 Fat Emulsion-[place] Oil/Soybean Oil (Clinolipid 20% Iv Fat Emulsion) 250 mls @ 20.8 mls/hr IV .Q12H2M [facility] Stop: 08/02/25 04:01 Insulin Aspart (Insulin Aspart Per Unit Charge) 0 units SC Q6H [facility] Stop: 08/29/25 18:44 Last Admin: 08/01/25 12:09 Dose: 1 units Miscellaneous (Carbohydrates For Hypoglycemia ) 15 - 30 gm PO UD PRN PRN Reason: Hypoglycemia Protocol Stop: 08/25/25 16:47 Miscellaneous (Stop Clinolipid) 1 each N/A DAILY@0400 [facility] Stop: 08/31/25 03:59 Last Admin: 08/01/25 06:18 Dose: 1 each Miscellaneous (Stop Clinolipid) 1 each N/A DAILY@0400 [facility] Stop: 09/01/25 03:59 Miscellaneous Information (Tpn/Ppn Consult Pharmacy) 1 each N/A UD PRN PRN Reason: Consult Stop: 08/29/25 09:39 Miscellaneous Information (Vancomycin Consult Active) 1 each N/A UD PRN PRN Reason: Consult Stop: 08/30/25 13:29 PG Care Time/CCT Total # of Minutes Spent Total Time Spent with Patient: Total time spent is greater than 50% in coordination of care (as documented) at patient's floor/unit and/or counseling patient: [place]oding [place] [address] SUB INP/OBS CARE MIN Patient Type Established History Expanded Problem Focused Exam Expanded Problem Focused Diagnoses Dysphagia R13.10 Weakness R53.1 Palliative care by specialist Z51.5 Counseling regarding goals of care Z71.89
--- NOTE | 2025-08-01 14:13 | Hospitalist Progress Note ---
"Date of Service August 01, 2025 Assessment & Plan (1) Cellulitis of left forearm: (2) B-cell lymphoma: Plan: Pt is an 79 y/o male who was transferred to [facility] for evaluation of a retroperitoneal mass that was found to be high-grade B-cell lymphoma upon biopsy. Pt was tx w/ mini CHOP therapy which was complicated by aspiration pneumonia that required intubation. Upon extubation, pt was unable to tolerate PO intake and had an NGT placed. Pt was recommended to [facility] for evaluation of need for PEG tube placement. Patient was recovering from his mini CHOP treatment, and is anticipating his next treatment in approximately 2 weeks. Case had been signed out directly between [facility] oncology and Dr. Burgess. # Rapidly progressive cellulitis versus necrotizing fasciitis - CT 07/31 w/ no clear indication of necrotizing fasciitis; -Upon initial evaluation at 11:00 am, pt was initiated on IV vancomycin and IV Cefepime -Upon Repeat evaluation at 17:24, IV Clindamycin was initiated with concern for necrotizing fasciitis -Stat consult to general surgery deferred to orthopedics for evaluation of the extremity -Stat CT scan of the arm to identify any immediately positive clinical findings of a necrotizing type infection -Patient transferred to the ICU for close monitoring, respiratory support and serial examination -Clinical examination by orthopedic surgery as well as radiologic examination with CT scan with contrast -Infectious disease will continue to follow -New/Severe, clinically stable overnight, antibiotics per infectious disease. Fortunately no signs of progression in fact general signs of improvement over the last 12 hours. Tomorrow morning - PICC tip culture pending #Severe dysphagia with aspiration - Hx of recent hospital admission w/ aspiration pneumonia requiring intubation; VSFF re-evaluation demonstrated recurrent silent aspiration, pt is currently without functional swallowing ability - PEG tube recommended -Consulted GI; unable to place PEG d/t current pancytopenia w/ ANC of 0.54 on 07/30; will pursue once labs improve -PPN via IV - associated labs #High-grade B-cell lymphoma - US biopsy of retroperitoneal mass 07/11 revealed high-grade B-cell lymphoma; Flow cytometry results favored B-cell lymphoma as well; Brain MRI 07/12 unremarkable; Mini CHOP cyclophosphamide 07/16, vincristine 07/19, doxorubicin 07/20; Next anticipated chemotherapy in approximately 2 weeks; Pt now following w/ Dr Burgess -Heme/Onc consulted - awaiting input -Palliative Consulted; discussed goals of care with patient -G-CSF 480 mcg x3 days - per heme/onc; ANC 0.54 & WBC 0.88 (07/30) Follow counts daily. If ANC less than 1, starchyCSF -Recommended to continue allopurinol 300 mg daily twice daily through NGT/PEG when available -FISH pending #Adrenal insufficiency - BP elevated, reassess in AM; Home dose of steroids 2.5mg daily Continue 10mg steroid; wean as tolerated #Pancytopenia - no active signs of current bleed; likely result of chemotherapy; most recent transfusion 07/27 Heme/oncology following -CBC, CMP in AM #Hypomagnesemia | Hypophosphatemia | Hypokalemia | Hypocalcemia - pt is asx -IV Calcium -IV Mag 2gm -IV Potassium Phosphate -Recheck in AM #Hospital-acquired deep pressure injury of left heel, right heel - improving, not resolved Wound care, offloading precautions #History of DVT, recurrent PE - Lovenox d/t inablility to tolerate PO eliquis; LE doppler demonstrates nonocclusive DVT of superficial femoral and deep femoral vein Continue Lovenox 1 mg/kg twice daily #History of type II DM - Most recent A1c 6.5% Sliding scale ordered on admission, dose reduced basal pending BSG evaluation Pharmacy consulted for assistance with management due to impaired p.o. and concurrent steroid pt's BSG remains on lower end despite concurrent glucose management; consider low-flow IV dextrose if necessary, caution d/t pts third spacing #Hx Asymptomatic hyperkalemia - Resolved Dispo: Transfer to PCU - rapidly progressing cellulitis DVT prophylaxis: pt is currently pancytopenic, deferred d/t bleed risk (3) Chronic kidney disease, stage 3a: (4) Spinal stenosis: (5) LBBB (left bundle branch block): (6) TIA (transient ischemic attack): (7) BPH with obstruction/lower urinary tract symptoms: (8) Type 2 diabetes mellitus: (9) Hypertension: (10) Adrenal insufficiency: (11) Dysphagia: (12) Pancytopenia: Admission and Anticipated Discharge Date Admission Date: July 26, 2025 Subjective Doing much better this morning. Still some residual pain and discomfort in the left arm. Denies fevers or chills or other worsening generalized signs of illness. Patient has declined oral cares per nursing. Otherwise remains on nasal cannula with no acute events or concerns. Subjectively decreased amount of swelling and discomfort in the left arm Physical Exam 2 Physical Exam: General: A&Ox3. NAD. Cooperative. HEENT: Atraumatic, normocephalic. Vision and hearing grossly intact. Pupils equal and reactive to light, sclera clear and anicteric Respiratory: Dec Lung sound in LLL, cough present; lungs otherwise CTA, no other adventitious sounds noted. Cardiac: RRR. -mrg. Radial pulses intact and symmetrical. Extremities: Pt has +1 pitting edema bilat in LE NEURO: A&O as above, no focal deficits Skin: Poorly delineated erythema on the ventrolateral aspect of the forearm and bicep from the axilla down to the area of the wrist, around the elbow there is an ill-defined area of boggy edema but no palpable fluid collection or abscess. No underlying induration or crepitus noted skin is otherwise warm and dry; no other lesions or ulcerations noted. Results & Data Results & Data Vital Signs (Past 12 Hours) Vital Signs Temp Pulse Resp BP Pulse Ox O2 Del Method O2 Flow Rate 08/01/25 12:00 37.3 C 87 18 137/68 97 Nasal Cannula 2 08/01/25 12:00 137/68 08/01/25 12:00 137/68 08/01/25 12:00 137/68 08/01/25 12:00 137/68 08/01/25 12:00 37.4 C 86 17 97 08/01/25 11:00 136/72 08/01/25 11:00 136/72 08/01/25 11:00 136/72 08/01/25 11:00 136/72 08/01/25 11:00 136/72 08/01/25 11:00 37.4 C 85 15 97 08/01/25 10:00 37.4 C 87 17 96 08/01/25 10:00 133/74 08/01/25 10:00 133/74 08/01/25 10:00 133/74 08/01/25 10:00 133/74 08/01/25 10:00 133/74 08/01/25 09:00 140/72 08/01/25 09:00 140/72 08/01/25 09:00 140/72 08/01/25 09:00 140/72 08/01/25 09:00 140/72 08/01/25 09:00 37.4 C 89 19 97 08/01/25 08:40 Nasal Cannula 2 08/01/25 08:00 136/79 08/01/25 08:00 136/79 08/01/25 08:00 136/79 08/01/25 08:00 136/79 08/01/25 08:00 136/79 08/01/25 08:00 136/79 08/01/25 08:00 136/79 08/01/25 08:00 136/79 08/01/25 08:00 136/79 08/01/25 08:00 37.4 C 93 H 20 98 08/01/25 07:00 136/73 08/01/25 07:00 136/73 08/01/25 07:00 136/73 08/01/25 07:00 136/73 08/01/25 07:00 136/73 08/01/25 07:00 37.5 C 90 18 96 08/01/25 06:00 138/74 08/01/25 06:00 37.4 C 90 12 97 08/01/25 05:00 138/64 08/01/25 05:00 37.5 C 89 16 95 08/01/25 04:00 37.5 C 93 H 17 95 08/01/25 04:00 146/72 H 08/01/25 03:00 37.5 C 92 H 17 97 08/01/25 03:00 130/78 08/01/25 03:00 130/78 Laboratory Results 07/31/25 13:16 Aerobic Blood Culture - Preliminary Blood No growth in Aerobic bottle after 24 hours. Anaerobic Blood Culture - Preliminary No growth in Anaerobic bottle after 24 hours. 07/31/25 13:16 Aerobic Blood Culture - Pending Blood Anaerobic Blood Culture - Preliminary No growth in Anaerobic bottle after 24 hours. 07/31/25 18:25 Catheter Tip Culture - Pending Catheter Tip, Picc 08/01/25 08/01/25 08/01/25 11:38 10:47 06:15 WBC RBC Hgb Hct MCV MCH MCHC RDW Std Deviation RDW Coeff of Spike Plt Count MPV Immature Gran % (Auto) Neut % (Auto) Lymph % (Auto) Gentry % (Auto) Eos % (Auto) Baso % (Auto) Neut # (Auto) Lymph # (Auto) Gentry # (Auto) Eos # (Auto) Baso # (Auto) Immature Gran # (Auto) Dohle Bodies Anisocytosis Sodium Potassium Chloride Carbon Dioxide Anion Gap BUN Creatinine Est Cr Clr Drug Dosing eGFR BUN/Creatinine Ratio Glucose POC Glucose 151 H 144 H Calcium Phosphorus Magnesium Total Bilirubin AST ALT Alkaline Phosphatase C-Reactive Protein Total Protein Albumin Globulin Albumin/Globulin Ratio Procalcitonin Nasal Screen MRSA (PCR) Random Vancomycin 12.4 08/01/25 08/01/25 07/31/25 04:35 00:47 Unknown WBC 0.97 L* RBC 2.90 L Hgb 7.7 L Hct 23.4 L MCV 80.7 MCH 26.6 MCHC 32.9 RDW Std Deviation 56.5 H RDW Coeff of Spike 20.8 H Plt Count 50 L MPV 11.5 Immature Gran % (Auto) 1.0 Neut % (Auto) 65.0 Lymph % (Auto) 14.4 Gentry % (Auto) 12.4 Eos % (Auto) 6.2 Baso % (Auto) 1.0 Neut # (Auto) 0.63 L* Lymph # (Auto) 0.14 L Gentry # (Auto) 0.12 Eos # (Auto) 0.06 Baso # (Auto) 0.01 Immature Gran # (Auto) 0.01 Dohle Bodies 1+ Anisocytosis Present Sodium 138 Potassium 3.4 L Chloride 109 H Carbon Dioxide 23 Anion Gap 6 BUN 17 Creatinine 0.77 Est Cr Clr Drug Dosing 93.9 eGFR 90.50 BUN/Creatinine Ratio 22.1 H Glucose 127 H POC Glucose 154 H Calcium 7.2 L Phosphorus 3.0 Magnesium 1.6 L Total Bilirubin 0.6 AST 14 ALT 15 Alkaline Phosphatase 69 C-Reactive Protein 10.58 H Total Protein 4.1 L Albumin 2.2 L Globulin 1.9 L Albumin/Globulin Ratio 1.2 Procalcitonin 0.16 Nasal Screen MRSA (PCR) Negative Random Vancomycin 07/31/25 18:07 WBC RBC Hgb Hct MCV MCH MCHC RDW Std Deviation RDW Coeff of Spike Plt Count MPV Immature Gran % (Auto) Neut % (Auto) Lymph % (Auto) Gentry % (Auto) Eos % (Auto) Baso % (Auto) Neut # (Auto) Lymph # (Auto) Gentry # (Auto) Eos # (Auto) Baso # (Auto) Immature Gran # (Auto) Dohle Bodies Anisocytosis Sodium Potassium Chloride Carbon Dioxide Anion Gap BUN Creatinine Est Cr Clr Drug Dosing eGFR BUN/Creatinine Ratio Glucose POC Glucose 120 H Calcium Phosphorus Magnesium Total Bilirubin AST ALT Alkaline Phosphatase C-Reactive Protein Total Protein Albumin Globulin Albumin/Globulin Ratio Procalcitonin Nasal Screen MRSA (PCR) Random Vancomycin Diagnostic Findings Extremity Venous Study 07/31/25 12:00 ULTRASOUND LEFT UPPER EXTREMITY VENOUS CLINICAL HISTORY: Acute pain and swelling of the left upper family. COMPARISON STUDY: Priors. TECHNIQUE: Real-time, grayscale, and color Doppler sonography of the deep veins of the left upper extremity is performed. Compression and augmentation were utilized. FINDINGS: There is no sonographic evidence of deep venous thrombosis identified in the left upper extremity. The left internal jugular, axillary, and brachial veins are patent and normally compressible. Normal venous waveforms and augmentation are seen within the left subclavian vein. The cephalic and basilic veins are clear. The visualized radial and ulnar veins are patent. Partially visualized PICC within the subclavian vein. Subcutaneous edema of the forearm without drainable fluid collection. IMPRESSION: There is no sonographic evidence of deep venous thrombosis identified in the left upper extremity. ACT 112: Negative or not required by law. Electronically signed by: Brandan Argueta M.D. 07/31/2025 2:[address] 07/31/25 17:51 CT of the left forearm with contrast Technique: Postcontrast axial images of the left forearm. Coronal and sagittal reformatted images made available for review No comparison Findings: Soft tissue swelling and inflammatory changes about the antecubital fossa and proximal forearm without rim-enhancing fluid collection. Diffuse vascular calcifications of radial and ulnar arteries. No rim-enhancing fluid collection. No acute fracture or dislocation Impression Soft tissue swelling about the antecubital fossa and proximal forearm. Electronically signed by Tigre Leavitt 07-31-2025 8:[address] 07/31/25 17:51 CT of the left humerus with contrast Technique: Postcontrast axial imagesOf the left humerus. Coronal and sagittal reformatted images are made available for review No comparison Findings: Incidental note is made of a large left pleural effusion with elevation of left hemidiaphragm. No acute fractures or dislocations. No rim-enhancing fluid collection from his exam. Subtle circumferential inflammatory changes about the distal humeral soft tissue without defined rim-enhancing fluid collection. Impression No acute pathology Soft tissue swelling about the distal humerus near the antecubital fossa. Electronically signed by Tigre Leavitt 07-31-2025 8:10 PM PG Care Time/CCT Total # of Minutes Spent Total Time Spent with Patient: Total time spent is greater than 50% in coordination of care (as documented) at patient's floor/unit and/or counseling patient: Coding Level of Care Code 20065 SUB INP/OBS CARE 3/50MIN Diagnoses Cellulitis of left forearm L03.114 B-cell lymphoma C85.10 Chronic kidney disease, stage 3a N18.31 Spinal stenosis M48.00 LBBB (left bundle branch block) I44.7 TIA (transient ischemic attack) G45.9 BPH with obstruction/lower urinary tract symptoms N40.1; N13.8 Type 2 diabetes mellitus E11.9 Hypertension I10 Adrenal insufficiency E27.40 Dysphagia R13.10 Pancytopenia D61.818"
[2025-08-01 14:24] LABS: A calco-baum cmplx NotReported Not Detected (NotDetected); Bact fragilis Not Reported Not Detected (NotDetected); Blood Culture Id Panel See PCR Comment (NotDetected); C auris Not Reported Not Detected (NotDetected); Calbicans Not Reported Not Detected (NotDetected); Candida glabrata Not Reported Not Detected (NotDetected); Candida krusei Not Reported Not Detected (NotDetected); Cneoformans/gatti Not Reported Not Detected (NotDetected); Cparapsilosis Not Reported Not Detected (NotDetected); Ctropicalis Not Reported Not Detected (NotDetected); E cloacae compx Not Reported Not Detected (NotDetected); Efaecalis Not Reported Not Detected (NotDetected); Efaecium Not Reported Not Detected (NotDetected); Enterobacterales Not Reported Not Detected (NotDetected); Escherichia coli Not Reported Not Detected (NotDetected); H influenzae Not Reported Not Detected (NotDetected); K aerogenes Not Reported Not Detected (NotDetected); Koxytoca Not Reported Not Detected (NotDetected); Kpneumoniae grp Not Reported Not Detected (NotDetected); Lmonocyt Not Reported Not Detected (NotDetected); N meningitidis Not Reported Not Detected (NotDetected); P aeruginosa Not Reported Not Detected (NotDetected); Proteus spp Not Reported Not Detected (NotDetected); Salmonella spp Not Reported Not Detected (NotDetected); Staph lugdunensis Not Reported Not Detected (NotDetected); Staph spp. Not Reported DETECTED (NotDetected); Staphaureus Not Reported Not Detected (NotDetected); Staphepi Not Reported DETECTED (NotDetected); Staphylococcus epidermidis DETECTED (NotDetected); Staphylococcus spp. DETECTED (NotDetected); Stenmaltophilia Not Reported Not Detected (NotDetected); Strep agal(GrpB) Not Reported Not Detected (NotDetected); Strep pneum Not Reported Not Detected (NotDetected); Strep pyog (GrpA) Not Reported Not Detected (NotDetected); Strep spp Not Reported Not Detected (NotDetected)
[2025-08-01 14:49] LABS: mecAC Resistant Gene DETECTED (NotDetected)
[2025-08-01] MEDS: CLINOLIPID 20% IV FAT EMULSION 250 ML IV SCH (16:32)
[2025-08-02] MEDS: VANCOMYCIN HCL 1,250 MG in SODIUM CHLORIDE 0.9% 250 ML IV SCH (00:56)
[2025-08-02] MEDS ORDERED: STOP CLINOLIPID SCH (04:00)
[2025-08-02 06:38] LABS: Anion Gap 5.0 (3-11); Blood Urea Nitrogen 19.0 mg/dl (6-23); Calcium 7.5 mg/dl (8.6-10.3); Carbon Dioxide 24.0 mmol/L (21-32); Chloride 108.0 mmol/L (98-107); Creatinine Clr Calc Pharmacy 104.8 ml/min; Glucose 133.0 mg/dl (70-99(Fasting)); Magnesium 1.6 mg/dl (1.7-2.4); Potassium 3.8 mmol/L (3.5-5.1); Sodium 137.0 mmol/L (136-145)
[2025-08-02] MEDS: MAGNESIUM SULFATE / D5W 1 GM/100 ML BAG IV SCH (09:53)
[2025-08-02 10:03] LABS: Hematocrit (blood only) 23.9 % (42.0-52.0); Hemoglobin 7.8 g/dL (14.0-18.0); Mean Corpuscular Hemoglobin 26.7 pg (25.0-34.0); Mean Corpuscular Volume 81.8 fL (80.0-100.0); Platelet Count 66 K/uL (130-400); RDW Standard Deviation 61.5 fL (36.4-46.3); Red Blood Count 2.92 M/uL (4.70-6.10)
--- NOTE | 2025-08-02 10:15 | Infectious Disease Progress Nt ---
Date of Service August 02, 2025 Assessment & Plan (1) Cellulitis of left forearm: Plan Problems: #LUE cellulitis #Fever #Neutropenia #High grade B cell lymphoma: s/p 1 cycle mini CHOP 07/20/25 Micro: 08/02 BCx x2: pending 07/31 Catheter tip cx: NGTD 07/31 BCx x2: Staph epi in 2/4 bottles (in 1 set). Biofire with methicillin resistance Abx: Vanc 07/31 - present Cefepime 07/31 - 08/02 Clinda 07/31 - 08/02 79 yo M with history of PMR, CKD, s/p TAVR, PE previously on coumadin now on lovenox who presented to [facility] in mid-June with back pain, found to have a retroperitoneal mass s/p biopsy showing high grade B cell lymphoma s/p 1 cycle of mini CHOP at [facility] (07/[place]/25). Course complicated by aspiration pneumonia, thrombocytopenia, transiently in ICU and intubated. He was transferred back to [facility] on 07/26 for continued care and further evaluation for PEG due to severe dysphagia and ongoing chemo with likely placement. ID consulted on 07/31 due to erythema around LUE PICC site. While at [facility], he had a LUE PICC placed for chemo. Per , initially a port placement was planned, but pt went "unresponsive" prior to procedure, so PICC was placed instead. Pt's noted that on 07/30-07/31, LUE has become warm, red, swollen below the PICC in the elbow/forearm area. BCx drawn and pending. LUE venous duplex showed no DVT. There was subcutaneous edema in the forearm without drainable collection. He was started on vancomycin and cefepime due to concern for infection in the setting of neutropenia. LUE erythema rapidly progressed [address] was done for further evaluation, which showed soft tissue swelling about the antecubital fossa and proximal forearm, no fluid collections. Ortho consulted with concern for nec fasc--no signs of nec fasc seen at this time. Became febrile 11/12 PM. Discussion: 07/31 BCx growing Staph epi in 1/4 bottles--could represent contaminant, vs catheter associated bloodstream infection. Catheter tip cx NGTD. Fever has resolved, and LUE looking improved on antibiotics. Recommendations: - Discontinued cefepime and clinda - Continue vanc to cover Staph epi and common gram positive causes of cellulitis - Ordered repeat blood culture 08/02 to assess for clearance - Follow-up catheter tip cx - If blood cultures clear and pt remains afebrile, anticipate 7 day course of antibiotics. Ok to transition to PO if discharging (such as linezolid 600 mg PO BID) Please note that ID does not round or write notes over the weekend. If questions or concerns arise, please contact the Infectious Disease Call Center and ask to speak with the covering ID physician. [] will take over on Tuesday. Admission and Anticipated Discharge Date Admission Date: July 26, 2025 Subjective Subsequent visit was provided via telemedicine using two-way real-time interactive telecommunication between the patient and the telemedicine provider. For the duration of the visit, the provider was performing the assessment from a different facility than the patient. This includesuse of bluetooth stethoscope forauscultationperformed by the telepresenter that the telemedicine provider can hear if described in the physical exam. Warehouse [employer]pper contact information: Please call [facility] [phone]. (Phone Number For Physician Use Only) After establishing a telemedicine visit, patient was: Patient was verified with two unique identifiers, Patient/authorized rep acknowledged consent and understanding and Gave permission to continue telehealth session Time Spent with Patient: Subsequent => 25 min Afebrile Pt feels LUE is improved, less painful Review of System A complete ROS was performed and is negative except as mentioned in the HPI. Physical Exam Physical Exam: GEN: elderly man laying in bed in NAD. RESP: No increased work of breathing SKIN: L forearm erythema, nontender, mild warmth Results & Data Vital Signs (Past 12 Hours) Vital Signs Temp Pulse Pulse Pulse Resp BP Pulse Ox 08/02/25 07:38 90 08/02/25 07:38 08/02/25 07:33 36.5 C 94 H 19 113/65 94 08/02/25 03:44 36.6 C 89 16 125/70 93 08/02/25 00:23 36.6 C 90 16 146/72 H 93 08/01/25 23:00 O2 Del Method 08/02/25 07:38 08/02/25 07:38 Room Air 08/02/25 07:33 Room Air 08/02/25 03:44 Room Air 08/02/25 00:23 Room Air 08/01/25 23:00 Room Air
[2025-08-02 10:39] LABS: White Blood Count 3.73 K/ul (4.8-10.8)
[2025-08-02 11:01] LABS: ALC (manual) 0.63 K/uL (1.2-3.4); ANC (manual) 2.54 K/uL (1.4-6.5)
--- NOTE | 2025-08-02 18:40 | Hospitalist Progress Note ---
"Date of Service August 02, 2025 Assessment & Plan (1) Cellulitis of left forearm: (2) B-cell lymphoma: Plan: Pt is an 79 y/o male who [place] [facility] [place] retroperitoneal mass that was found to be high-grade B-cell lymphoma upon biopsy. Pt was tx w/ mini CHOP therapy which was complicated by aspiration pneumonia that required intubation. Upon extubation, pt was unable to tolerate PO intake and had an NGT placed. Pt was recommended to [facility] for evaluation of need for PEG tube placement. Patient was recovering from his mini CHOP treatment, and is anticipating his next treatment in approximately 2 weeks. Case had been signed out directly [place] [facility] and Dr. Burgess. # Rapidly progressive cellulitis versus necrotizing fasciitis - CT 07/31 w/ no clear indication of necrotizing fasciitis; -Upon initial evaluation at 11:00 am, pt was initiated on IV vancomycin and IV Cefepime -Upon Repeat evaluation at 17:24, IV Clindamycin was initiated with concern for necrotizing fasciitis -Stat consult to general surgery deferred to orthopedics for evaluation of the extremity -Stat CT scan of the arm to identify any immediately positive clinical findings of a necrotizing type infection -Patient transferred to the ICU for close monitoring, respiratory support and serial examination -Clinical examination by orthopedic surgery as well as radiologic examination with CT scan with contrast -Infectious disease will continue to follow, no abx chages at this time -New/Severe, clinically stable overnight, antibiotics per infectious disease. Fortunately no signs of progression in fact general signs of improvement over the last 36 hours. - PICC tip culture pending, NGTD #Severe dysphagia with aspiration - Hx of recent hospital admission w/ aspiration pneumonia requiring intubation; VSFF re-evaluation demonstrated recurrent silent aspiration, pt is currently without functional swallowing ability - PEG tube recommended -Consulted GI; unable to place PEG d/t current pancytopenia w/ ANC of 0.54 on 07/30; will pursue once labs improve -PPN via IV - associated labs - PT open to having NG placed tomorrow. Will likely require weighthed tip #High-grade B-cell lymphoma - US biopsy of retroperitoneal mass 07/11 revealed high-grade B-cell lymphoma; Flow cytometry results favored B-cell lymphoma as well; Brain MRI 07/12 unremarkable; Mini CHOP cyclophosphamide 07/16, vincristine 07/19, doxorubicin 07/20; Next anticipated chemotherapy in approximately 2 weeks; Pt now following w/ Dr Burgess -Heme/Onc consulted - awaiting input -Palliative Consulted; discussed goals of care with patient -G-CSF 480 mcg x3 days - per heme/onc; ANC 0.54 & WBC 0.88 (07/30) Follow counts daily. If ANC less than 1, starchyCSF -Recommended to continue allopurinol 300 mg daily twice daily through NGT/PEG when available -FISH pending #Frequency high demand care needs - Patient and willing to meet with palliative care #Adrenal insufficiency - BP elevated, reassess in AM; Home dose of steroids 2.5mg daily Continue 10mg steroid; wean as tolerated #Pancytopenia - no active signs of current bleed; likely result of chemotherapy; most recent transfusion 07/27 Heme/oncology following -CBC, CMP in AM #Hypomagnesemia | Hypophosphatemia | Hypokalemia | Hypocalcemia - pt is asx -IV Calcium -IV Mag 2gm -IV Potassium Phosphate -Recheck in AM #Hospital-acquired deep pressure injury of left heel, right heel - improving, not resolved Wound care, offloading precautions #History of DVT, recurrent PE - Lovenox d/t inablility to tolerate PO eliquis; LE doppler demonstrates nonocclusive DVT of superficial femoral and deep femoral vein Continue Lovenox 1 mg/kg twice daily #History of type II DM - Most recent A1c 6.5% Sliding scale ordered on admission, dose reduced basal pending BSG evaluation Pharmacy consulted for assistance with management due to impaired p.o. and concurrent steroid pt's BSG remains on lower end despite concurrent glucose management; consider low-flow IV dextrose if necessary, caution d/t pts third spacing #Hx Asymptomatic hyperkalemia - Resolved Dispo: Transfer to PCU - rapidly progressing cellulitis DVT prophylaxis: pt is currently pancytopenic, deferred d/t bleed risk (3) Chronic kidney disease, stage 3a: (4) Spinal stenosis: (5) LBBB (left bundle branch block): (6) TIA (transient ischemic attack): (7) BPH with obstruction/lower urinary tract symptoms: (8) Type 2 diabetes mellitus: (9) Hypertension: (10) Adrenal insufficiency: (11) Dysphagia: (12) Pancytopenia: Admission and Anticipated Discharge Date Admission Date: July 26, 2025 Subjective Doing okay this morning. No fevers or chills. He was resting comfortably. Slept pretty well last night. We do lengthy discussion about his recent infection, positive blood cultures and the need to transition away from TPN. Patient is willing to undergo NG tube placement as a temporizing point until his white cells can recover to the point where he can have a PEG tube placed. Otherwise has had no new or different symptoms. The pain in his arm is improving. According nurse that there have been no new events or concerns. No new events or concerns per patient or at the bedside. We also did have a lengthy discussion regards to overall goals of care. They have been understandably frustrated with the seemingly rapid and random changes and setbacks he has had in regards to his treatment and care. We did discuss the possibility of a review with palliative care and they did seem interested in engaging with them at some point. They would be willing to do so during this hospitalization Physical Exam 2 Physical Exam: General: A&Ox3. NAD. Cooperative. HEENT: Atraumatic, normocephalic. Vision and hearing grossly intact. Pupils equal and reactive to light, sclera clear and anicteric Respiratory: Dec Lung sound in LLL, cough present; lungs otherwise CTA, no other adventitious sounds noted. Cardiac: RRR. -mrg. Radial pulses intact and symmetrical. Extremities: Pt has +1 pitting edema bilat in LE NEURO: A&O as above, no focal deficits Skin: Poorly delineated erythema on the ventrolateral aspect of the forearm and bicep from the axilla down to the area of the wrist, around the elbow there is an ill-defined area of boggy edema but no palpable fluid collection or abscess. No underlying induration or crepitus noted skin is otherwise warm and dry; no other lesions or ulcerations noted. Results & Data Results & Data Vital Signs (Past 12 Hours) Vital Signs Temp Pulse Pulse Pulse Resp BP Pulse Ox 08/02/25 15:44 36.4 C L 80 19 137/74 96 08/02/25 15:15 08/02/25 14:49 85 08/02/25 11:15 36.3 C L 82 19 136/73 93 08/02/25 07:38 90 08/02/25 07:38 08/02/25 07:33 36.5 C 94 H 19 113/65 94 O2 Del Method 08/02/25 15:44 Room Air 08/02/25 15:15 Room Air 08/02/25 14:49 08/02/25 11:15 Room Air 08/02/25 07:38 08/02/25 07:38 Room Air 08/02/25 07:33 Room Air Laboratory Results 07/31/25 13:16 Aerobic Blood Culture - Preliminary Blood No growth in Aerobic bottle after 48 hours. Anaerobic Blood Culture - Preliminary No growth in Anaerobic bottle after 48 hours. 07/31/25 18:25 Catheter Tip Culture - Preliminary Catheter Tip, Picc No growth to date. 07/31/25 13:16 Aerobic Blood Culture - Preliminary Blood Staphylococcus epidermidis Anaerobic Blood Culture - Preliminary Gram positive cocci clusters 08/02/25 11:05 Aerobic Blood Culture - Pending Blood Anaerobic Blood Culture - Pending 08/02/25 11:07 Aerobic Blood Culture - Pending Blood Anaerobic Blood Culture - Pending 08/02/25 08/02/25 08/02/25 18:01 11:49 09:22 WBC 3.73 L RBC 2.92 L Hgb 7.8 L Hct 23.9 L MCV 81.8 MCH 26.7 MCHC 32.6 RDW Std Deviation 61.5 H RDW Coeff of Spike 21.7 H Plt Count 66 L MPV 12.0 Neutrophils % (Manual) 68 Lymphocytes % (Manual) 17 Monocytes % (Manual) 9 Eosinophils % (Manual) 3 Promyelocytes % (Man) 3 Neutrophils # (Manual) 2.54 Total Absolute Neuts 2.54 Lymphocytes # (Manual) 0.63 L Total Abs Lymphocytes 0.63 L Monocytes # (Manual) 0.34 Eosinophils # (Manual) 0.11 Promyelocytes # (Man) 0.11 H Sodium Potassium Chloride Carbon Dioxide Anion Gap BUN Creatinine Est Cr Clr Drug Dosing eGFR BUN/Creatinine Ratio Glucose POC Glucose 111 H 162 H Calcium Phosphorus Magnesium C-Reactive Protein Procalcitonin 08/02/25 08/02/25 08/02/25 06:23 05:59 00:17 WBC RBC Hgb Hct MCV MCH MCHC RDW Std Deviation RDW Coeff of Spike Plt Count MPV Neutrophils % (Manual) Lymphocytes % (Manual) Monocytes % (Manual) Eosinophils % (Manual) Promyelocytes % (Man) Neutrophils # (Manual) Total Absolute Neuts Lymphocytes # (Manual) Total Abs Lymphocytes Monocytes # (Manual) Eosinophils # (Manual) Promyelocytes # (Man) Sodium 137 Potassium 3.8 Chloride 108 H Carbon Dioxide 24 Anion Gap 5 BUN 19 Creatinine 0.69 Est Cr Clr Drug Dosing 104.8 eGFR 93.55 BUN/Creatinine Ratio 27.5 H Glucose 133 H POC Glucose 136 H 116 H Calcium 7.5 L Phosphorus 2.7 Magnesium 1.6 L C-Reactive Protein 15.93 H Procalcitonin 0.17 PG Care Time/CCT Total # of Minutes Spent Total Time Spent with Patient: Total time spent is greater than 50% in coordination of care (as documented) at patient's floor/unit and/or counseling patient: Coding Level of Care Code 66502 SUB INP/OBS CARE 2/35MIN Diagnoses Cellulitis of left forearm L03.114 B-cell lymphoma C85.10 Chronic kidney disease, stage 3a N18.31 Spinal stenosis M48.00 LBBB (left bundle branch block) I44.7 TIA (transient ischemic attack) G45.9 BPH with obstruction/lower urinary tract symptoms N40.1; N13.8 Type 2 diabetes mellitus E11.9 Hypertension I10 Adrenal insufficiency E27.40 Dysphagia R13.10 Pancytopenia D61.818"
[2025-08-03 07:32] LABS: Hematocrit (blood only) 25.7 % (42.0-52.0); Hemoglobin 8.5 g/dL (14.0-18.0); Mean Corpuscular Hemoglobin 26.9 pg (25.0-34.0); Mean Corpuscular Volume 81.3 fL (80.0-100.0); Platelet Count 87 K/uL (130-400); RDW Standard Deviation 62.5 fL (36.4-46.3); Red Blood Count 3.16 M/uL (4.70-6.10); White Blood Count 7.55 K/ul (4.8-10.8)
[2025-08-03 07:58] LABS: ALC (manual) 0.83 K/uL (1.2-3.4); ANC (manual) 4.45 K/uL (1.4-6.5); Anisocytosis Present; Giant Platelets 1+; Polychromasia 2+; Toxic Granulation 2+
[2025-08-03 08:14] LABS: Alanine Aminotransferase 12.0 U/L (7-52); Albumin Globulin Ratio 1.2 (0.9-2); Albumin Level 2.4 gm/dl (3.4-5.0); Alkaline Phosphatase 79.0 U/L (34-104); Anion Gap 7.0 (3-11); Bilirubin,Total 0.6 mg/dl (0.2-1.0); Blood Urea Nitrogen 14.0 mg/dl (6-23); Calcium 7.5 mg/dl (8.6-10.3); Carbon Dioxide 24.0 mmol/L (21-32); Chloride 106.0 mmol/L (98-107); Creatinine Clr Calc Pharmacy 104.8 ml/min; Globulin 2.0 gm/dl (2.5-4.0); Glucose 91.0 mg/dl (70-99(Fasting)); Magnesium 1.6 mg/dl (1.7-2.4); Potassium 3.6 mmol/L (3.5-5.1); Sodium 137.0 mmol/L (136-145); Total Protein 4.4 gm/dl (6.0-8.3)
[2025-08-03] MEDS: LACTATED RINGER'S 1,000 ML IV SCH (09:21)
--- NOTE | 2025-08-03 11:29 | Communication Note ---
Date of Service: August 03, [address] Greene in consultation for possible PEG placement. Initially PEG on hold until speech pathology assessment and improvement in his absolute neutrophil counts. Those seem to have corrected. INR acceptable. Seems to failed speech. Had TPN though this developed an infection with positive blood cultures. GI is asked to reassess repotential PEG placement. Do not see an absolute contraindication at this time. Does not seem to have had any left upper quadrant surgery. However there are potential issues with some minimal ascites on a CT scan back in June. Significant ascites is a contraindication to PEG as it prevents adequate adhesion between the stomach and stomach wall. Also there is some question about lymphomatous involvement of the left hemidiaphragm. This can cause masses between the stomach and abdominal wall which also may interfere with proper PEG function and placement. Reviewed with Dr. Calvo hospitalist. Suggest lets go ahead with a CT scan to reevaluate the abdomen for increasing intra-abdominal lesions pathology masses and evaluate for amount of ascites. After CT scan can consider PEG placement on Tuesday unless contraindications. Will reassess tomorrow after CT scan of the abdomen pelvis
--- NOTE | 2025-08-03 12:00 | Pharmacy Report ---
Pharmacy PK ABX Note - Date of Service August 03, 2025 - Assessment and Plan Assessment 79 year old M receiving vancomycin for empiric treatment of PICC line infection. Pertinent microbiologic data includes: blood cultures growing staphylococcus epidermidis catheter tip culture no growth. * Afebrile for past few days (last fever 07/31 2300 of 38.3) * WBC 7.55 today (recovered from around 0.8-0.9, noted he got filgrastim on 07/30) * SCr stable at 0.69 today (estimated CrCl 104 mL/min) * Per ID, anticipate 7 day course of antibiotics if blood cultures are clear and patient remains afebrile Day #4 of antimicrobial therapy. Plan Vancomycin * Current maintenance dose: 1250 mg IV every 12 hours * Random level obtained around 0900 this AM was 19.1 * Current regimen is predicted to achieve target AUC/CYNTHIA of 400-600 mg/L.hr * Continue current maintenance regimen of 1250 mg IV every 12 hours * Level will be entered if the patient plans to receive more than a 7-day course or renal function changes Pharmacy will continue to follow and will adjust dose/frequency as necessary. Thank you. Pharmacy has transitioned to AUC monitoring for vancomycin. AUC/CYNTHIA is the preferred PK/PD target and is associated with decreased risk of nephrotoxicity compared to traditional trough targets.
[2025-08-03] MEDS: VANCOMYCIN LEVEL ONE (12:22)
--- NOTE | 2025-08-03 15:38 | Hospitalist Progress Note ---
"Date of Service August 03, 2025 Assessment & Plan (1) Cellulitis of left forearm: (2) B-cell lymphoma: Plan: Pt is an 79 y/o male who [place] [facility] [place] retroperitoneal mass that was found to be high-grade B-cell lymphoma upon biopsy. Pt was tx w/ mini CHOP therapy which was complicated by aspiration pneumonia that required intubation. Upon extubation, pt was unable to tolerate PO intake and had an NGT placed. Pt was recommended to [facility] for evaluation of need for PEG tube placement. Patient was recovering from his mini CHOP treatment, and is anticipating his next treatment in approximately 2 weeks. Case had been signed out directly between [facility] and Dr. Burgess. # Rapidly progressive cellulitis - CT 07/31 w/ no clear indication of necrotizing fasciitis; -Upon initial evaluation at 11:00 am, pt was initiated on IV vancomycin and IV Cefepime -Upon Repeat evaluation at 17:24, IV Clindamycin was initiated with concern for necrotizing fasciitis -Stat consult to general surgery deferred to orthopedics for evaluation of the extremity -Stat CT scan of the arm to identify any immediately positive clinical findings of a necrotizing type infection -Patient transferred to the ICU for close monitoring, respiratory support and serial examination -Clinical examination by orthopedic surgery as well as radiologic examination with CT scan with contrast -Infectious disease will continue to follow, no abx chages at this time -New/Severe, clinically stable overnight, antibiotics per infectious disease. Fortunately no signs of progression in fact general signs of improvement over the last 36 hours. - PICC tip culture pending, NGTD - Normalized to improving #Severe dysphagia with aspiration - Hx of recent hospital admission w/ aspiration pneumonia requiring intubation; VSFF re-evaluation demonstrated recurrent silent aspiration, pt is currently without functional swallowing ability - PEG tube recommended -Consulted GI; unable to place PEG d/t current pancytopenia w/ ANC of 0.54 on 07/30; will pursue once labs improve -PPN via IV - associated labs - PT open to having NG placed tomorrow. Will likely require weighthed tip -Reviewed with Dr. Arias, he did have some prior mild ascites. Will obtain a CT scan of the abdomen pelvis to evaluate for anatomic appropriateness for PEG placement. Plan to hold Lovenox, last dose Tuesday in preparation for Tuesday a.m. procedure. Will maintain with normal saline via IV over the short- term #Severe neutropenia - Now improving after G-CSF as above. WBC well WNL #High-grade B-cell lymphoma - US biopsy of retroperitoneal mass 07/11 revealed high-grade B-cell lymphoma; Flow cytometry results favored B-cell lymphoma as well; Brain MRI 07/12 unremarkable; Mini CHOP cyclophosphamide 07/16, vincristine 07/19, doxorubicin 07/20; Next anticipated chemotherapy in approximately 2 weeks; Pt now following w/ Dr Burgess -Heme/Onc consulted - awaiting input -Palliative Consulted; discussed goals of care with patient -G-CSF 480 mcg x3 days - per heme/onc; ANC 0.54 & WBC 0.88 (07/30) Follow counts daily. If ANC less than 1, starchyCSF -Recommended to continue allopurinol 300 mg daily twice daily through NGT/PEG when available -FISH pending #Frequency high demand care needs - Patient and willing to meet with palliative care #Adrenal insufficiency - BP elevated, reassess in AM; Home dose of steroids 2.5mg daily Continue 10mg steroid; wean as tolerated #Pancytopenia - no active signs of current bleed; likely result of chemotherapy; most recent transfusion 07/27 Heme/oncology following -CBC, CMP in AM #Hypomagnesemia | Hypophosphatemia | Hypokalemia | Hypocalcemia - pt is asx -IV Calcium -IV Mag 2gm -IV Potassium Phosphate -Recheck in AM #Hospital-acquired deep pressure injury of left heel, right heel - improving, not resolved Wound care, offloading precautions #History of DVT, recurrent PE - Lovenox d/t inablility to tolerate PO eliquis; LE doppler demonstrates nonocclusive DVT of superficial femoral and deep femoral vein Continue Lovenox 1 mg/kg twice daily #History of type II DM - Most recent A1c 6.5% Sliding scale ordered on admission, dose reduced basal pending BSG evaluation Pharmacy consulted for assistance with management due to impaired p.o. and concurrent steroid pt's BSG remains on lower end despite concurrent glucose management; consider low-flow IV dextrose if necessary, caution d/t pts third spacing #Hx Asymptomatic hyperkalemia - Resolved Dispo: Transfer to PCU - rapidly progressing cellulitis DVT prophylaxis: pt is currently pancytopenic, deferred d/t bleed risk (3) Chronic kidney disease, stage 3a: (4) Spinal stenosis: (5) LBBB (left bundle branch block): (6) TIA (transient ischemic attack): (7) BPH with obstruction/lower urinary tract symptoms: (8) Type 2 diabetes mellitus: (9) Hypertension: (10) Adrenal insufficiency: (11) Dysphagia: (12) Pancytopenia: Admission and Anticipated Discharge Date Admission Date: July 26, 2025 Subjective Doing okay this morning. States he slept okay. No significant pain. Just persistent edema in the left arm. No generalized signs of illness or malaise. No shaking chills or subjective fevers. No chest pain or palpitations. No abdominal pain or discomfort. No new events or concerns per nursing. We reviewed his white blood cell count within the adequate normalization. Platelets are also improving. We discussed moving ahead with PEG placement. Will discuss this with gastroenterology today with hopeful placement in the next 1 to 2 days. Physical Exam Physical Exam: General: A&Ox3. NAD. Cooperative. HEENT: Atraumatic, normocephalic. Vision and hearing grossly intact. Pupils equal and reactive to light, sclera clear and anicteric Respiratory: Dec Lung sound in LLL, cough present; lungs otherwise CTA, no other adventitious sounds noted. Cardiac: RRR. -mrg. Radial pulses intact and symmetrical. Extremities: Pt has +1 pitting edema bilat in LE NEURO: A&O as above, no focal deficits Skin: Stable erythema and edema of the left arm some additional ventral pulling of the edema along the elbow this morning but no overlying skin breakdown or blistering.. No underlying induration or crepitus noted skin is otherwise warm and dry; no other lesions or ulcerations noted. Results & Data Results & Data Vital Signs (Past 12 Hours) Vital Signs Temp Pulse Pulse Resp BP Pulse Ox O2 Del Method 08/03/25 15:19 36.3 C L 77 20 163/78 H 97 Room Air 08/03/25 14:29 81 08/03/25 11:05 36.4 C L 83 18 144/63 H 95 Room Air 08/03/25 07:18 36.7 C 84 18 168/79 H 96 Room Air 08/03/25 07:00 79 08/03/25 07:00 Room Air Laboratory Results 08/02/25 11:07 Aerobic Blood Culture - Preliminary Blood No growth in Aerobic bottle after 24 hours. Anaerobic Blood Culture - Preliminary No growth in Anaerobic bottle after 24 hours. 08/02/25 11:05 Aerobic Blood Culture - Preliminary Blood No growth in Aerobic bottle after 24 hours. Anaerobic Blood Culture - Preliminary No growth in Anaerobic bottle after 24 hours. 07/31/25 13:16 Aerobic Blood Culture - Final Blood Staphylococcus epidermidis Anaerobic Blood Culture - Final Staphylococcus epidermidis 07/31/25 18:25 Catheter Tip Culture - Final Catheter Tip, Picc No growth 07/31/25 13:16 Aerobic Blood Culture - Preliminary Blood No growth in Aerobic bottle after 48 hours. Anaerobic Blood Culture - Preliminary No growth in Anaerobic bottle after 48 hours. 08/03/25 08/03/25 08/03/25 12:07 10:44 06:52 WBC 7.55 RBC 3.16 L Hgb 8.5 L Hct 25.7 L MCV 81.3 MCH 26.9 MCHC 33.1 RDW Std Deviation 62.5 H RDW Coeff of Spike 22.0 H Plt Count 87 L MPV 11.2 Absolute Nucleated RBC 0.02 Nucleated RBC % (auto) 0.3 Neutrophils % (Manual) 59 Lymphocytes % (Manual) 11 Monocytes % (Manual) 9 Eosinophils % (Manual) 4 Basophils % (Manual) 2 Metamyelocytes % (Man) 5 Myelocytes % (Man) 7 Promyelocytes % (Man) 3 Neutrophils # (Manual) 4.45 Total Absolute Neuts 4.45 Lymphocytes # (Manual) 0.83 L Total Abs Lymphocytes 0.83 L Monocytes # (Manual) 0.68 H Eosinophils # (Manual) 0.30 Basophils # (Manual) 0.15 Metamyelocytes # (Man) 0.38 H Myelocytes # (Manual) 0.53 H Promyelocytes # (Man) 0.23 H Toxic Granulation 2+ Giant Platelets 1+ Polychromasia 2+ Anisocytosis Present Sodium 137 Potassium 3.6 Chloride 106 Carbon Dioxide 24 Anion Gap 7 BUN 14 Creatinine 0.69 Est Cr Clr Drug Dosing 104.8 eGFR 93.55 BUN/Creatinine Ratio 20.3 H Glucose 91 POC Glucose 104 H Calcium 7.5 L Phosphorus 2.3 L Magnesium 1.6 L Total Bilirubin 0.6 AST 17 ALT 12 Alkaline Phosphatase 79 C-Reactive Protein 7.84 H Total Protein 4.4 L Albumin 2.4 L Globulin 2.0 L Albumin/Globulin Ratio 1.2 Procalcitonin 0.13 Random Vancomycin 19.1 08/03/25 08/03/25 08/02/25 05:41 00:37 18:01 WBC RBC Hgb Hct MCV MCH MCHC RDW Std Deviation RDW Coeff of Spike Plt Count MPV Absolute Nucleated RBC Nucleated RBC % (auto) Neutrophils % (Manual) Lymphocytes % (Manual) Monocytes % (Manual) Eosinophils % (Manual) Basophils % (Manual) Metamyelocytes % (Man) Myelocytes % (Man) Promyelocytes % (Man) Neutrophils # (Manual) Total Absolute Neuts Lymphocytes # (Manual) Total Abs Lymphocytes Monocytes # (Manual) Eosinophils # (Manual) Basophils # (Manual) Metamyelocytes # (Man) Myelocytes # (Manual) Promyelocytes # (Man) Toxic Granulation Giant Platelets Polychromasia Anisocytosis Sodium Potassium Chloride Carbon Dioxide Anion Gap BUN Creatinine Est Cr Clr Drug Dosing eGFR BUN/Creatinine Ratio Glucose POC Glucose 97 93 111 H Calcium Phosphorus Magnesium Total Bilirubin AST ALT Alkaline Phosphatase C-Reactive Protein Total Protein Albumin Globulin Albumin/Globulin Ratio Procalcitonin Random Vancomycin PG Care Time/CCT Total # of Minutes Spent Total Time Spent with Patient: Total time spent is greater than 50% in coordination of care (as documented) at patient's floor/unit and/or counseling patient: Coding Level of Care Code 84122 SUB INP/OBS CARE 2/35MIN Diagnoses Cellulitis of left forearm L03.114 B-cell lymphoma C85.10 Chronic kidney disease, stage 3a N18.31 Spinal stenosis M48.00 LBBB (left bundle branch block) I44.7 TIA (transient ischemic attack) G45.9 BPH with obstruction/lower urinary tract symptoms N40.1; N13.8 Type 2 diabetes mellitus E11.9 Hypertension I10 Adrenal insufficiency E27.40 Dysphagia R13.10 Pancytopenia D61.818"
[2025-08-03] MEDS: OPTIRAY 320 100ml IV ONE (16:12)
--- NOTE | 2025-08-03 16:58 | CT Scan Report ---
EXAMINATION: CT of the abdomen and pelvis performed after the administration of IV contrast. TECHNIQUE: Helical CT images from the lung bases through the symphysis pubis were obtained with contrast. Coronal and sagittal reformatted images were generated at a workstation for further assessment. Dose reduction techniques were achieved by using automatic exposure control and/or adjustment of mA and/or kV according to patient size and/or use of iterative reconstruction technique. HISTORY: Preoperative PEG placement. COMPARISON: July 15, 2025 July 15, 2025 CT chest abdomen and pelvis. Study report not available at time of dictation. FINDINGS: Aluminum Sheet Cutter film demonstrates left pulmonary base opacity. Contrast large bowel. Aortic valve prosthesis. Lung windows demonstrate multisegmental bilateral lower lobe, left greater than right, atelectasis. Soft tissue windows demonstrate partially included likely small and moderate to large left pleural effusions. Arctic valve prosthesis. Coronary artery disease. Branching hypodensity right liver dome likely representing focal ductal dilatation. No discernible interval change. No appreciated mass. Etiology uncertain. There is otherwise within normal limits. Portions of the exam limited secondary to artifact from large bowel enteric contrast. Calcified atherosclerotic changes abdominal aorta and renal vasculature. No appreciated aneurysmal dilatation. Enlarged prostate. Uncomplicated large bowel diverticulosis. Increased caliber somewhat fluid distended thin enhancing wall appendix. This measures 1.1 cm diameter. Mild periappendiceal fat stranding is noted. This is not present on prior exam. Persistent increased volume of the left psoas, iliolumbar and paraspinous musculature. This extends to the level of the iliac us muscle. No discrete mass or drainable fluid collection. This is decreased in volume when compared to prior study. Prominent bilateral perinephric fat stranding. Difficulty appreciating significant interval change. This is nonspecific. Remaining solid and hollow organs of the abdomen and pelvis are within normal limits. No appreciated free air or free fluid. Subcutaneous edematous changes bilateral flanks and pelvic soft tissues. Small uncomplicated left inguinal hernia. This is incompletely evaluated on this exam. Bone windows demonstrate mild degenerative changes of the spine. No appreciated acute osseous process. IMPRESSION: 1. Nonspecific short segmental likely biliary ductal dilatation right liver dome. This is unchanged. No discrete mass. Etiology uncertain. MR may be of benefit. 2. Interval increased caliber of the appendix with enhancing wall and mild periappendiceal fat stranding. Findings worrisome for early acute appendicitis. Etiology is otherwise uncertain. Correlate with clinical data. 3. Diminishing volume of the increased volume left retroperitoneal soft tissues. Inflammatory or infectious process is not excluded. Hematoma not entirely excluded. No discernible drainable fluid collection. 4. Multisegmental bilateral lower lobe atelectasis with perfusions. Pneumonia not entirely excluded. Please see above for details. Electronically signed by Cory Stack 08-03-2025 4:57 PM
[2025-08-04 06:26] LABS: Creatinine Clr Calc Pharmacy 153.9 ml/min
[2025-08-04 09:52] LABS: Hematocrit (blood only) 21.8 % (42.0-52.0); Hemoglobin 7.0 g/dL (14.0-18.0); Mean Corpuscular Hemoglobin 26.6 pg (25.0-34.0); Mean Corpuscular Volume 82.9 fL (80.0-100.0); Platelet Count 101 K/uL (130-400); RDW Standard Deviation 62.5 fL (36.4-46.3); Red Blood Count 2.63 M/uL (4.70-6.10); White Blood Count 7.06 K/ul (4.8-10.8)
[2025-08-04 09:52] LABS: Alanine Aminotransferase 9.0 U/L (7-52); Albumin Globulin Ratio 1.1 (0.9-2); Albumin Level 1.9 gm/dl (3.4-5.0); Alkaline Phosphatase 63.0 U/L (34-104); Anion Gap 11.0 (3-11); Bilirubin,Total 0.5 mg/dl (0.2-1.0); Blood Urea Nitrogen 9.0 mg/dl (6-23); Calcium 7.2 mg/dl (8.6-10.3); Carbon Dioxide 19.0 mmol/L (21-32); Chloride 107.0 mmol/L (98-107); Globulin 1.7 gm/dl (2.5-4.0); Glucose 65.0 mg/dl (70-99(Fasting)); Magnesium 1.1 mg/dl (1.7-2.4); Potassium 3.6 mmol/L (3.5-5.1); Sodium 137.0 mmol/L (136-145); Total Protein 3.6 gm/dl (6.0-8.3)
[2025-08-04 10:51] LABS: ALC (manual) 0.85 K/uL (1.2-3.4); ANC (manual) 4.02 K/uL (1.4-6.5); Anisocytosis Present; Polychromasia 1+; Tear Drop Cells 1+; Toxic Granulation 3+; Toxic Vacuolation 2+
--- NOTE | 2025-08-04 11:19 | Vascular Surgery Progress Note ---
Date of Service August 04, 2025 Assessment & Plan (1) B-cell lymphoma: Plan: Will discuss with Oncology team timing of and access needs for resumption of chemotherapy regimen. Agree with enteral access for nutritional needs. No acute need for central access at this point in time. Admission and Anticipated Discharge Date Admission Date: July 26, 2025 Subjective Patient seen along with his . He is now out of ICU and overall doing much better. Awaiting possible post-pyloric feeding tube to address nutritional needs and history of aspiration. Physical Exam Physical Exam: Resolving cellulitis of left arm. Results & Data Vital Signs (Past 12 Hours) Vital Signs Temp Pulse Pulse Resp BP Pulse Ox O2 Del Method 08/04/25 07:55 Room Air 08/04/25 07:33 36.3 C L 79 17 164/67 H 97 Room Air 08/04/25 07:31 83 08/04/25 03:43 36.8 C 77 20 150/77 H 90 Room Air Laboratory Results 1/2 blood cultures from 07/31 - [facility]. 08/02 blood cultures NGSF PG Care Time/CCT Total # of Minutes Spent Total Time Spent with Patient: Total time spent is greater than 50% in coordination of care (as documented) at patient's floor/unit and/or counseling patient:
--- NOTE | 2025-08-04 12:21 | Gastroenterology Progress Note ---
Date of Service August 04, 2025 Assessment & Plan (1) Pharyngeal dysphagia: Plan: Failed swallowing study pharyngeal dysphagia. Asked to assess PEG placement. As noted above no absolute contraindication at this time. Recheck platelets INR in the AM. Last dose of Lovenox should be this a.m. Patient will receive 1 dose of Ancef preoperatively. He is on vancomycin though this would be an adequate coverage. N.p.o. after midnight for potential PEG placement tomorrow. (2) Pancytopenia: Plan: Recheck platelets tomorrow. Plus INR. (3) B-cell lymphoma: Admission and Anticipated Discharge Date Admission Date: July 26, 2025 Subjective Feeding difficulty Patient with failed swallowing study. Had post chemo neutropenia. GI asked to assess for potential feeding options. Placed on hold because of his neutropenia which is subsequently resolved. Chart reviewed and assessed yesterday. Potential issues to prevent PEG placement included ascites abnormalities of the left hemidiaphragm. A CT scan was ordered which shows no ascites. There is some new dilation of the appendix though patient is asymptomatic. The left upper quadrant appeared to be normal. There is no previous abdominal surgeries in this area. Patient has history of Coumadin use dose currently off. Gets Lovenox. Last dose should be this a.m. For potential PEG placement. Note platelets are 101,000. This should be acceptable. Hemoglobin down to 7. No kandi gastrointestinal bleeding. Iron studies are normal. Patient has a typical weak voice seen in patients with swallowing difficulties. Seems keen on eating. Discussed the risk of aspiration. Review of Systems Review of Systems: Orientated denies chest pain shortness of breath or abdominal pain at this time specifically denies right lower quadrant discomfort. Physical Exam Physical Exam: Weak voice. Pale no acute distress Abdomen benign left upper quadrant no masses guarding rebound. Thin abdomen. No scars. Right lower quadrant negative Gonzalez sign Results & Data Results & Data Vital Signs (Past 12 Hours) Vital Signs Temp Pulse Pulse Pulse Resp BP Pulse Ox 08/04/25 11:34 36.4 C L 83 20 173/75 H 96 08/04/25 07:55 08/04/25 07:33 36.3 C L 79 17 164/67 H 97 08/04/25 07:31 83 08/04/25 03:43 36.8 C 77 20 150/77 H 90 O2 Del Method 08/04/25 11:34 Room Air 08/04/25 07:55 Room Air 08/04/25 07:33 Room Air 08/04/25 07:31 08/04/25 03:43 Room Air PG Care Time/CCT Total # of Minutes Spent Total Time Spent with Patient: Total time spent is greater than 50% in coordination of care (as documented) at patient's floor/unit and/or counseling patient: Coding Level of Care Code 61700 SUB INP/OBS CARE 10/13MIN Diagnoses Pharyngeal dysphagia R13.13 Pancytopenia D61.818 B-cell lymphoma C85.10
--- NOTE | 2025-08-04 14:51 | Hospitalist Progress Note ---
"Date of Service August 04, 2025 Assessment & Plan (1) Cellulitis of left forearm: (2) B-cell lymphoma: Plan: Pt is an 79 y/o male who was transferred to [facility] for evaluation of a retroperitoneal mass that was found to be high-grade B-cell lymphoma upon biopsy. Pt was tx w/ mini CHOP therapy which was complicated by aspiration pneumonia that required intubation. Upon extubation, pt was unable to tolerate PO intake and had an NGT placed. Pt was [facility] to [facility] for evaluation of need for PEG tube placement. Patient was recovering from his mini CHOP treatment, and is anticipating his next treatment in approximately 2 weeks. Case had been signed out directly between [facility] oncology and Dr. Burgess. # Rapidly progressive cellulitis, Currently Stable - CT 07/31 left arm very rapidly involved over the course of hours, workup wfor nec fasc unremarkable at that time c/w diffuse cellulitis - PICC tip culture pending, NGTD - Initially on cefepime, vanco and clinda, tapered to vanco by ID on 08/02 for 7 total days of therapy, clinically much improved #Severe dysphagia with aspiration - Hx of recent hospital admission w/ aspiration pneumonia requiring intubation; VSFF re-evaluation demonstrated recurrent silent aspiration, pt is currently without functional swallowing ability - PEG tube recommended -Consulted GI; unable to place PEG d/t current pancytopenia w/ ANC of 0.54 on 07/30; will pursue once labs improve -PPN via IV - associated labs - PT open to having NG placed tomorrow. Will likely require weighthed tip -Reviewed with Dr. Arias, he did have some prior mild ascites. Will obtain a CT scan of the abdomen pelvis to evaluate for anatomic appropriateness for PEG placement. Plan to hold Lovenox, last dose Tuesday in preparation for Tuesday a.m. procedure. Will maintain with normal saline via IV over the short- term - See GI consult, PEG in AM - CBC and INR in AM for prepr for procedure #Port Placement - Prior consult to vascular, More for TPN/PPN reviewed again with Dr Nunn 08/04. Will establish PEG and eval for needs based on possible chemotherapy/infusion needs at that time. #Severe neutropenia - Now improving after G-CSF 07/31 as above. WBC well WNL - Daily Labs #High-grade B-cell lymphoma - US biopsy of retroperitoneal mass 07/11 revealed high-grade B-cell lymphoma; Flow cytometry results favored B-cell lymphoma as well; Brain MRI 07/12 unremarkable; Mini CHOP cyclophosphamide 07/16, vincristine 07/19, doxorubicin 07/20; Next anticipated chemotherapy in approximately 2 weeks; Pt now following w/ Dr Burgess -Heme/Onc consulted - awaiting input -Palliative Consulted; discussed goals of care with patient -G-CSF 480 mcg x3 days - per heme/onc; ANC 0.54 & WBC 0.88 (07/30) Follow counts daily. If ANC less than 1, starchyCSF -Recommended to continue allopurinol 300 mg daily twice daily through NGT/PEG when available -FISH pending #Frequency high demand care needs - Patient and willing to meet with palliative care #Adrenal insufficiency - BP elevated, reassess in AM; Home dose of steroids 2.5mg daily Continue 10mg steroid; wean as tolerated #Pancytopenia - no active signs of current bleed; likely result of chemotherapy; most recent transfusion 07/27 Heme/oncology following -CBC, CMP in AM #Hypomagnesemia | Hypophosphatemia | Hypokalemia | Hypocalcemia - pt is asx -IV Calcium -IV Mag 2gm -IV Potassium Phosphate -Recheck in AM #Hospital-acquired deep pressure injury of left heel, right heel - improving, not resolved Wound care, offloading precautions #History of DVT, recurrent PE - Lovenox d/t inablility to tolerate PO eliquis; LE doppler demonstrates nonocclusive DVT of superficial femoral and deep femoral vein Continue Lovenox 1 mg/kg twice daily #History of type II DM - Most recent A1c 6.5% Sliding scale ordered on admission, dose reduced basal pending BSG evaluation Pharmacy consulted for assistance with management due to impaired p.o. and concurrent steroid pt's BSG remains on lower end despite concurrent glucose management; consider low-flow IV dextrose if necessary, caution d/t pts third spacing #Hx Asymptomatic hyperkalemia - Resolved Dispo: Transfer to PCU - rapidly progressing cellulitis DVT prophylaxis: pt is currently pancytopenic, deferred d/t bleed risk (3) Chronic kidney disease, stage 3a: (4) Spinal stenosis: (5) LBBB (left bundle branch block): (6) TIA (transient ischemic attack): (7) BPH with obstruction/lower urinary tract symptoms: (8) Type 2 diabetes mellitus: (9) Hypertension: (10) Adrenal insufficiency: (11) Dysphagia: (12) Pancytopenia: Admission and Anticipated Discharge Date Admission Date: July 26, 2025 Subjective Doing very well this morning. His is present at the bedside. He is much more awake, alert, conversational. His voice and strength of conversation have improved substantially. Lengthy conversation about his goals. He is very willing to continue supportive cares understands that he importance of nutrition prior to moving ahead with either chemotherapy or other interventions. His pr iorities would be to be able to get home and spend some holidays with some of his younger grandchildren. He has no new complaints or concerns at this time. We discussed PEG tube placement with gastroenterology tomorrow morning. They should be by shortly to have a discussion with him in this regards. Physical Exam Physical Exam: General: A&Ox3. NAD. Cooperative. HEENT: Atraumatic, normocephalic. Vision and hearing grossly intact. Pupils equal and reactive to light, sclera clear and anicteric Respiratory: Dec Lung sound in LLL, cough present; lungs otherwise CTA, no other adventitious sounds noted. Cardiac: RRR. -mrg. Radial pulses intact and symmetrical. Extremities: Pt has +1 pitting edema bilat in LE NEURO: A&O as above, no focal deficits Skin: Stable erythema and edema of the left arm some additional ventral pulling of the edema along the elbow this morning but no overlying skin breakdown or blistering.. No underlying induration or crepitus noted skin is otherwise warm and dry; no other lesions or ulcerations noted. Results & Data Results & Data Vital Signs (Past 12 Hours) Vital Signs Temp Pulse Pulse Pulse Resp BP Pulse Ox 08/04/25 13:56 89 08/04/25 11:34 36.4 C L 83 20 173/75 H 96 08/04/25 07:55 08/04/25 07:33 36.3 C L 79 17 164/67 H 97 08/04/25 07:31 83 08/04/25 03:43 36.8 C 77 20 150/77 H 90 O2 Del Method 08/04/25 13:56 08/04/25 11:34 Room Air 08/04/25 07:55 Room Air 08/04/25 07:33 Room Air 08/04/25 07:31 08/04/25 03:43 Room Air Laboratory Results 08/02/25 11:07 Aerobic Blood Culture - Preliminary Blood No growth in Aerobic bottle after 48 hours. Anaerobic Blood Culture - Preliminary No growth in Anaerobic bottle after 48 hours. 08/02/25 11:05 Aerobic Blood Culture - Preliminary Blood No growth in Aerobic bottle after 48 hours. Anaerobic Blood Culture - Preliminary No growth in Anaerobic bottle after 48 hours. 07/31/25 13:16 Aerobic Blood Culture - Final Blood Staphylococcus epidermidis Anaerobic Blood Culture - Final Staphylococcus epidermidis 08/04/25 08/04/25 08/04/25 11:59 05:30 05:24 WBC 7.06 RBC 2.63 L Hgb 7.0 L Hct 21.8 L MCV 82.9 MCH 26.6 MCHC 32.1 RDW Std Deviation 62.5 H RDW Coeff of Spike 21.7 H Plt Count 101 L MPV 11.8 Neutrophils % (Manual) 57 Lymphocytes % (Manual) 12 Monocytes % (Manual) 6 Eosinophils % (Manual) 1 Basophils % (Manual) 2 Metamyelocytes % (Man) 8 Myelocytes % (Man) 10 Promyelocytes % (Man) 4 Neutrophils # (Manual) 4.02 Total Absolute Neuts 4.02 Lymphocytes # (Manual) 0.85 L Total Abs Lymphocytes 0.85 L Monocytes # (Manual) 0.42 Eosinophils # (Manual) 0.07 Basophils # (Manual) 0.14 Metamyelocytes # (Man) 0.56 H Myelocytes # (Manual) 0.71 H Promyelocytes # (Man) 0.28 H Toxic Granulation 3+ Toxic Vacuolation 2+ Polychromasia 1+ Anisocytosis Present Tear Drop Cells 1+ Sodium 137 Potassium 3.6 Chloride 107 Carbon Dioxide 19 L Anion Gap 11 BUN 9 Creatinine 0.47 L Est Cr Clr Drug Dosing 153.9 eGFR 105.05 BUN/Creatinine Ratio 19.1 Glucose 65 L POC Glucose 85 Calcium 7.2 L Magnesium 1.1 L Total Bilirubin 0.5 AST 15 ALT 9 Alkaline Phosphatase 63 C-Reactive Protein 3.68 H Total Protein 3.6 L Albumin 1.9 L Globulin 1.7 L Albumin/Globulin Ratio 1.1 08/04/25 08/03/25 08/03/25 05:21 23:05 18:05 WBC RBC Hgb Hct MCV MCH MCHC RDW Std Deviation RDW Coeff of Spike Plt Count MPV Neutrophils % (Manual) Lymphocytes % (Manual) Monocytes % (Manual) Eosinophils % (Manual) Basophils % (Manual) Metamyelocytes % (Man) Myelocytes % (Man) Promyelocytes % (Man) Neutrophils # (Manual) Total Absolute Neuts Lymphocytes # (Manual) Total Abs Lymphocytes Monocytes # (Manual) Eosinophils # (Manual) Basophils # (Manual) Metamyelocytes # (Man) Myelocytes # (Manual) Promyelocytes # (Man) Toxic Granulation Toxic Vacuolation Polychromasia Anisocytosis Tear Drop Cells Sodium Potassium Chloride Carbon Dioxide Anion Gap BUN Creatinine Est Cr Clr Drug Dosing eGFR BUN/Creatinine Ratio Glucose POC Glucose 85 81 93 Calcium Magnesium Total Bilirubin AST ALT Alkaline Phosphatase C-Reactive Protein Total Protein Albumin Globulin Albumin/Globulin Ratio Diagnostic Findings Abdomen/Pelvis CT 08/03/25 15:31 EXAMINATION: CT of the abdomen and pelvis performed after the administration of IV contrast. TECHNIQUE: Helical CT images from the lung bases through the symphysis pubis were obtained with contrast. Coronal and sagittal reformatted images were generated at a workstation for further assessment. Dose reduction techniques were achieved by using automatic exposure control and/or adjustment of mA and/or kV according to patient size and/or use of iterative reconstruction technique. HISTORY: Preoperative PEG placement. COMPARISON: July 15, 2025 July 15, 2025 CT chest abdomen and pelvis. Study report not available at time of dictation. FINDINGS: Cardboard Cutter film demonstrates left pulmonary base opacity. Contrast large bowel. Aortic valve prosthesis. Lung windows demonstrate multisegmental bilateral lower lobe, left greater than right, atelectasis. Soft tissue windows demonstrate partially included likely small and moderate to large left pleural effusions. Arctic valve prosthesis. Coronary artery disease. Branching hypodensity right liver dome likely representing focal ductal dilatation. No discernible interval change. No appreciated mass. Etiology uncertain. There is otherwise within normal limits. Portions of the exam limited secondary to artifact from large bowel enteric contrast. Calcified atherosclerotic changes abdominal aorta and renal vasculature. No appreciated aneurysmal dilatation. Enlarged prostate. Uncomplicated large bowel diverticulosis. Increased caliber somewhat fluid distended thin enhancing wall appendix. This measures 1.1 cm diameter. Mild periappendiceal fat stranding is noted. This is not present on prior exam. Persistent increased volume of the left psoas, iliolumbar and paraspinous musculature. This extends to the level of the iliac us muscle. No discrete mass or drainable fluid collection. This is decreased in volume when compared to prior study. Prominent bilateral perinephric fat stranding. Difficulty appreciating significant interval change. This is nonspecific. Remaining solid and hollow organs of the abdomen and pelvis are within normal limits. No appreciated free air or free fluid. Subcutaneous edematous changes bilateral flanks and pelvic soft tissues. Small uncomplicated left inguinal hernia. This is incompletely evaluated on this exam. Bone windows demonstrate mild degenerative changes of the spine. No appreciated acute osseous process. IMPRESSION: 1. Nonspecific short segmental likely biliary ductal dilatation right liver dome. This is unchanged. No discrete mass. Etiology uncertain. MR may be of benefit. 2. Interval increased caliber of the appendix with enhancing wall and mild periappendiceal fat stranding. Findings worrisome for early acute appendicitis. Etiology is otherwise uncertain. Correlate with clinical data. 3. Diminishing volume of the increased volume left retroperitoneal soft tissues. Inflammatory or infectious process is not excluded. Hematoma not entirely excluded. No discernible drainable fluid collection. 4. Multisegmental bilateral lower lobe atelectasis with perfusions. Pneumonia not entirely excluded. Please see above for details. Electronically signed by Cory Stack 08-03-2025 4:57 PM PG Care Time/CCT Total # of Minutes Spent Total Time Spent with Patient: Total time spent is greater than 50% in coordination of care (as documented) at patient's floor/unit and/or counseling patient: Coding Level of Care Code 96724 SUB INP/OBS CARE 2/35MIN Diagnoses Cellulitis of left forearm L03.114 B-cell lymphoma C85.10 Chronic kidney disease, stage 3a N18.31 Spinal stenosis M48.00 LBBB (left bundle branch block) I44.7 TIA (transient ischemic attack) G45.9 BPH with obstruction/lower urinary tract symptoms N40.1; N13.8 Type 2 diabetes mellitus E11.9 Hypertension I10 Adrenal insufficiency E27.40 Dysphagia R13.10 Pancytopenia D61.818"
[2025-08-04] MEDS: MAGNESIUM SULFATE / D5W 1 GM/100 ML BAG IV SCH (21:14)
[2025-08-04] MEDS: CALCIUM GLUCONATE 1,000 MG/60 ML BAG IV STA (21:14)
[2025-08-04] MEDS: NYSTATIN POWDER 15GM BTL EXT PRN (21:20)
[2025-08-04] MEDS: D5NSS + 20MEQ KCL 20 MEQ/1,000 ML BAG IV SCH (21:33)
[2025-08-05 06:32] LABS: Hematocrit (blood only) 22.2 % (42.0-52.0); Hemoglobin 7.3 g/dL (14.0-18.0); Mean Corpuscular Hemoglobin 26.9 pg (25.0-34.0); Mean Corpuscular Volume 81.9 fL (80.0-100.0); Platelet Count 117 K/uL (130-400); RDW Standard Deviation 59.6 fL (36.4-46.3); Red Blood Count 2.71 M/uL (4.70-6.10); White Blood Count 7.40 K/ul (4.8-10.8)
[2025-08-05 07:03] LABS: INR 1.2 (0.9-1.1); Prothrombin Time 12.9 Seconds (9.0-12.0)
[2025-08-05 08:14] LABS: Anion Gap 7.0 (3-11); Blood Urea Nitrogen 7.0 mg/dl (6-23); Calcium 7.5 mg/dl (8.6-10.3); Carbon Dioxide 25.0 mmol/L (21-32); Chloride 107.0 mmol/L (98-107); Creatinine Clr Calc Pharmacy 126.9 ml/min; Magnesium 1.5 mg/dl (1.7-2.4); Potassium 3.5 mmol/L (3.5-5.1); Sodium 139.0 mmol/L (136-145)
--- NOTE | 2025-08-05 11:31 | History & Physical Bridge Note ---
Date of Service August 05, 2025 History & Physical Bridge Note I have examined the patient, reviewed the History & Physical and in the interval since the performance of the History & Physical I have noted the following changes of clinical significance: no changes noted Patient has no reported concerns today. INR 1.2, Hgb 7.3. Plan to hang Ancef prophylactivally during procedure. Plan to proceed with PEG tube placement as scheduled today. Supervising Physician Co-Signing Physician Notes INR 1.2. Platelets 117. Patient feels well denies chest pain or shortness of breath. Proceed with PEG placement today. Informed consent obtained, risk benefits discussed which include aspiration bleeding perforation and infection
--- NOTE | 2025-08-05 11:50 | Infectious Disease Progress Nt ---
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 Biofire with methicillin resistance Abx: Vanc 07/31 - present Cefepime 07/31 - 08/02 Clinda 07/31 - 08/02 79 yo M with history of PMR, CKD, s/p TAVR, PE previously on coumadin now on lovenox who presented to [facility] in mid-June with back pain, found to have a retroperitoneal mass s/p biopsy showing high grade B cell lymphoma s/p 1 cycle of mini CHOP at [facility] (07/20/25). Course complicated by aspiration pneumonia, thrombocytopenia, transiently in ICU and intubated. He was transferred back to [facility] on 07/26 for continued care and further evaluation for PEG due to severe dysphagia and ongoing chemo with likely placement. ID consulted on 07/31 due to erythema around LUE PICC site. While at [facility], he had a LUE PICC placed for chemo. Per , initially a port placement was planned, but pt went "unresponsive" prior to procedure, so PICC was placed instead. Pt's noted that on 07/30-07/31, LUE has become warm, red, swollen below the PICC in the elbow/forearm area. BCx drawn and pending. LUE venous duplex showed no DVT. There was subcutaneous edema in the forearm without drainable collection. He was started on vancomycin and cefepime due to concern for infection in the setting of neutropenia. LUE erythema rapidly progressed 11/ PM. PICC removed. CT was done for further evaluation, which showed soft tissue swelling about the antecubital fossa and proximal forearm, no fluid collections. Ortho consulted with concern for nec fasc--no signs of nec fasc seen at this time. Became febrile 11/12 PM. Discussion: 07/31 BCx growing Staph epi in 1/4 bottles--could represent contaminant, vs catheter associated bloodstream infection. Catheter tip cx NG. Fever has resolved, and LUE looking improved on antibiotics. Recommendations: - Continue vanc to cover Staph epi and common gram positive causes of cellulitis. Can complete 7 day course of antibiotics on 08/06 Will sign off Admission and Anticipated Discharge Date Admission Date: July 26, 2025 Subjective This patient recommendation is based on a telemedicine consult request which was completed asynchronously through chart review and information provided by the primary physician. The patient was not seen or examined today. The evaluation is consultative in nature and all patient care and treatment decisions can either be accepted or rejected by the patient's primary hospital-based treating physician using their own independent medical judgment for their patient. Time Spent Reviewing Chart: 11 - 20 minutes No longer neutropenic Afebrile Results & Data Vital Signs (Past 12 Hours) Vital Signs Temp Pulse Resp BP Pulse Ox O2 Del Method 08/05/25 11:02 36.6 C 90 17 166/72 H 95 Room Air 08/05/25 07:38 36.3 C L 90 19 162/74 H 93 Room Air 08/05/25 03:12 36.9 C 74 20 148/78 H 93 Room Air
--- NOTE | 2025-08-05 12:09 | Anesthesiology Consultation ---
Date of Service August 05, 2025 Assessment & Plan ASA ASA4 Proposed Anesthesia Anesthesia Type: MAC Risk / Benefits Reviewed With: PT / POA / Parent / Guardian, Accepts Plan and Informed Consent Obtained History Surgery Operation Date: 08/05/25 16:55 Proposed Procedures p Esophagogastroduodenoscopy Gita Espinoza MD s Peg Tube Placement Dr. Hugo Arias MD Height/Weight Height: 6 ft 4 in Weight: 102.5 kg Allergies Allergy/AdvReac Type Severity Reaction Status Date / Time bee venom protein (honey bee) Allergy Unknown Anaphylaxis Verified 12/12/24 10:02 Medications Home Medications Medication Instructions Recorded Confirmed Last Taken famotidine 20 mg tablet (Pepcid) 40 mg PO HS 03/04/22 07/26/25 01/06/23 08:00 magnesium 200 mg tablet 400 mg PO DAILY 02/23/23 07/26/25 06/28/25 05:00 tamsulosin 0.4 mg capsule (Flomax) 0.4 mg PO DAILY 02/23/23 07/26/25 Unknown allopurinol 300 mg tablet 300 mg PO DAILY 07/26/25 07/26/25 Unknown amoxicillin 500 mg capsule 500 mg PO DIRECTED 07/26/25 07/26/25 Unknown cholecalciferol (vitamin D3) 125 125 mcg PO DAILY 07/26/25 07/26/25 Unknown mcg (5,000 unit) tablet enoxaparin 100 mg/mL subcutaneous 100 mg subcut Q12H 07/26/25 07/26/25 Unknown syringe (Lovenox) folic acid 1 mg tablet 1 mg PO DAILY 07/26/25 07/26/25 Unknown metformin 500 mg tablet 500 mg PO BID 07/26/25 07/26/25 Unknown metoprolol tartrate 25 mg tablet 25 mg PO BID 07/26/25 07/26/25 Unknown prednisone 1 mg tablet 1 mg PO DAILY 07/26/25 07/26/25 Unknown pyridoxine (vitamin B6) 100 mg 100 mg PO DAILY 07/26/25 07/26/25 Unknown tablet warfarin 5 mg tablet 5 - 7.5 mg PO DAILY 07/26/25 07/26/25 Unknown Active Medications Generic Name Dose Route Start Last Admin Trade Name Freq PRN Reason Stop Dose Admin Pantoprazole Sodium 40 mg in 10 mls @ 5 mls/min 07/27/25 09:00 08/05/25 09:06 Protonix IV 08/26/25 08:59 5 mls/min DAILY JARAD Administration Famotidine 20 mg in 5 mls @ 2.5 mls/min 07/26/25 21:00 08/04/25 20:28 Pepcid 20mg Iv Push IV 08/25/25 20:59 2.5 mls/min HS JARAD Administration Methylprednisolone 10 mg/ 0.16 mls @ 1.5 mls/min 07/29/25 09:00 08/05/25 09:06 Syringe IV 08/28/25 08:59 1.5 mls/min QAM JARAD Administration Vancomycin HCl 1,250 mg/ 275 mls @ 200 mls/hr 08/02/25 00:00 08/05/25 01:41 Sodium Chloride IV 08/06/25 23:59 Infused Q12H JARAD Infusion Potassium Chloride/Dextrose/Sod Cl 20 meq in 1,000 mls @ 80 mls/hr 08/04/25 21:30 08/05/25 09:07 D5nss + 20meq Kcl IV 08/07/25 21:29 80 mls/hr .[id number] JARAD Administration Insulin Aspart 0 units 07/30/25 18:45 08/05/25 06:06 Insulin Aspart Per Unit Charge SC 08/29/25 18:44 Not Given Q6H JARAD Nystatin 1 appln 08/04/25 21:06 08/04/25 21:20 Nystatin Powder 15gm Btl EXT 09/03/25 21:05 1 appln Q6H PRN Administration Rash NPO Date Last Intake of Fluids: 08/04/25 Time Last Intake of Fluids: 23:59 Date Last Intake of Solids: 08/04/25 Time Last Intake of Solids: 23:59 Past Medical History Medical History Acute hyponatremia Supratherapeutic INR Acute adrenal insufficiency Lactic acidosis Hypotension Contusion of periorbital region, right Generalized weakness Fall Hx pulmonary embolism Hypercholesterolemia Bronchitis Exercise / Class Metabolic Activity II 4-5 Yardwork/Stairs/Walk up hill Past Family History Family History Father Cardiac disorder Mother Hypertension Son Nephrolithiasis Other Diabetes Past Surgical History Surgical History Aortic valve replaced S/P colonoscopy Past Anesthesia History No Hx of Anesthesia Complications and No Family Hx of Anesthesia Complications History of PONV No Hx of PONV and No Hx of Motion Sickness Social History Smoking Status: Never smoker Do You Dip or Chew Tobacco: No Hx Alcohol Use: No Alcohol type: beer alcohol intake frequency: holidays/special occasions only Hx Substance Use: No substance use type: does not use Physical Exam Vital Signs Last Vital Signs Temp 36.6 C 08/05/25 11:02 Pulse 90 08/05/25 11:02 Resp 17 08/05/25 11:02 BP 166/72 H 08/05/25 11:02 Pulse Ox 95 08/05/25 11:02 O2 Del Method Room Air 08/05/25 11:02 O2 Flow Rate 2 08/01/25 17:00 Constitutional no acute distress ENMT Mouth: + dentition abnormality (multiple missing teeth including #1-7; no loose teeth) Thyromental Distance: > or= 3.5 Finger Breadths Mallampati Class: III Neck normal visual inspection Respiratory normal respiratory effort; no respiratory distress Auscultation: lungs clear to auscultation bilaterally Cardiovascular Rate/Rhythm: regular rate and regular rhythm Heart Sounds: no murmur Musculoskeletal Spine: normal cervical ROM Psychiatric Orientation: alert and oriented x 3 Testing Laboratory Results 08/05/25 05:53 08/05/25 07:39 PT 12.9 Seconds (9.0-12.0) H 08/05/25 05:53 INR 1.2 (0.9-1.1) H 08/05/25 05:53 APTT 30 Seconds (21-31) 07/26/25 17:08 Blood Type A Positive 07/27/25 09:02 Antibody Screen NEGATIVE 07/27/25 09:02 08/02/25 11:07 Aerobic Blood Culture - Preliminary Blood No growth in Aerobic bottle after 48 hours. Anaerobic Blood Culture - Preliminary No growth in Anaerobic bottle after 48 hours. 08/02/25 11:05 Aerobic Blood Culture - Preliminary Blood No growth in Aerobic bottle after 48 hours. Anaerobic Blood Culture - Preliminary No growth in Anaerobic bottle after 48 hours. 07/31/25 13:16 Aerobic Blood Culture - Final Blood Staphylococcus epidermidis Anaerobic Blood Culture - Final Staphylococcus epidermidis 07/31/25 18:25 Catheter Tip Culture - Final Catheter Tip, Picc No growth 07/31/25 13:16 Aerobic Blood Culture - Preliminary Blood No growth in Aerobic bottle after 48 hours. Anaerobic Blood Culture - Preliminary No growth in Anaerobic bottle after 48 hours. 08/05/25 08/05/25 08/05/25 05:59 05:57 00:17 POC Glucose 117 H 524 H* 101 H Day of Procedure Evaluation. Date of Surgery August 05, 2025 Height/Weight Height: 6 ft 4 in Weight: 102.5 kg Vital Signs Last Vital Signs Temp 36.6 C 08/05/25 11:02 Pulse 90 08/05/25 11:02 Resp 17 08/05/25 11:02 BP 166/72 H 08/05/25 11:02 Pulse Ox 95 08/05/25 11:02 O2 Del Method Room Air 08/05/25 11:02 O2 Flow Rate 2 08/01/25 17:00 Allergies Allergy/AdvReac Type Severity Reaction Status Date / Time bee venom protein (honey bee) Allergy Unknown Anaphylaxis Verified 12/12/24 10:02 Medications Home Medications Medication Instructions Recorded Confirmed Last Taken famotidine 20 mg tablet (Pepcid) 40 mg PO HS 03/04/22 07/26/25 01/06/23 08:00 magnesium 200 mg tablet 400 mg PO DAILY 02/23/23 07/26/25 06/28/25 05:00 tamsulosin 0.4 mg capsule (Flomax) 0.4 mg PO DAILY 02/23/23 07/26/25 Unknown allopurinol 300 mg tablet 300 mg PO DAILY 07/26/25 07/26/25 Unknown amoxicillin 500 mg capsule 500 mg PO DIRECTED 07/26/25 07/26/25 Unknown cholecalciferol (vitamin D3) 125 125 mcg PO DAILY 07/26/25 07/26/25 Unknown mcg (5,000 unit) tablet enoxaparin 100 mg/mL subcutaneous 100 mg subcut Q12H 07/26/25 07/26/25 Unknown syringe (Lovenox) folic acid 1 mg tablet 1 mg PO DAILY 07/26/25 07/26/25 Unknown metformin 500 mg tablet 500 mg PO BID 07/26/25 07/26/25 Unknown metoprolol tartrate 25 mg tablet 25 mg PO BID 07/26/25 07/26/25 Unknown prednisone 1 mg tablet 1 mg PO DAILY 07/26/25 07/26/25 Unknown pyridoxine (vitamin B6) 100 mg 100 mg PO DAILY 07/26/25 07/26/25 Unknown tablet warfarin 5 mg tablet 5 - 7.5 mg PO DAILY 07/26/25 07/26/25 Unknown Active Medications Generic Name Dose Route Start Last Admin Trade Name Freq PRN Reason Stop Dose Admin Pantoprazole Sodium 40 mg in 10 mls @ 5 mls/min 07/27/25 09:00 08/05/25 09:06 Protonix IV 08/26/25 08:59 5 mls/min DAILY JARAD Administration Famotidine 20 mg in 5 mls @ 2.5 mls/min 07/26/25 21:00 08/04/25 20:28 Pepcid 20mg Iv Push IV 08/25/25 20:59 2.5 mls/min HS JARAD Administration Methylprednisolone 10 mg/ 0.16 mls @ 1.5 mls/min 07/29/25 09:00 08/05/25 09:06 Syringe IV 08/28/25 08:59 1.5 mls/min QAM JARAD Administration Vancomycin HCl 1,250 mg/ 275 mls @ 200 mls/hr 08/02/25 00:00 08/05/25 01:41 Sodium Chloride IV 08/06/25 23:59 Infused Q12H JARAD Infusion Potassium Chloride/Dextrose/Sod Cl 20 meq in 1,000 mls @ 80 mls/hr 08/04/25 21:30 08/05/25 09:07 D5nss + 20meq Kcl IV 08/07/25 21:29 80 mls/hr .[id number] JARAD Administration Insulin Aspart 0 units 07/30/25 18:45 08/05/25 06:06 Insulin Aspart Per Unit Charge SC 08/29/25 18:44 Not Given Q6H JARAD Nystatin 1 appln 08/04/25 21:06 08/04/25 21:20 Nystatin Powder 15gm Btl EXT 09/03/25 21:05 1 appln Q6H PRN Administration Rash Past Anesthesia History No Hx of Anesthesia Complications and No Family Hx of Anesthesia Complications History of PONV No Hx of PONV and No Hx of Motion Sickness NPO Date Last Intake of Fluids: 08/04/25 Time Last Intake of Fluids: 23:59 Date Last Intake of Solids: 08/04/25 Time Last Intake of Solids: 23:59 HCG & FBG Results 08/05/25 08/05/25 08/05/25 05:59 05:57 00:17 POC Glucose 117 H 524 H* 101 H Home Medications Home Medications Medication Instructions Recorded Confirmed Last Taken famotidine 20 mg tablet (Pepcid) 40 mg PO HS 03/04/22 07/26/25 01/06/23 08:00 magnesium 200 mg tablet 400 mg PO DAILY 02/23/23 07/26/25 06/28/25 05:00 tamsulosin 0.4 mg capsule (Flomax) 0.4 mg PO DAILY 02/23/23 07/26/25 Unknown allopurinol 300 mg tablet 300 mg PO DAILY 07/26/25 07/26/25 Unknown amoxicillin 500 mg capsule 500 mg PO DIRECTED 07/26/25 07/26/25 Unknown cholecalciferol (vitamin D3) 125 125 mcg PO DAILY 07/26/25 07/26/25 Unknown mcg (5,000 unit) tablet enoxaparin 100 mg/mL subcutaneous 100 mg subcut Q12H 07/26/25 07/26/25 Unknown syringe (Lovenox) folic acid 1 mg tablet 1 mg PO DAILY 07/26/25 07/26/25 Unknown metformin 500 mg tablet 500 mg PO BID 07/26/25 07/26/25 Unknown metoprolol tartrate 25 mg tablet 25 mg PO BID 07/26/25 07/26/25 Unknown prednisone 1 mg tablet 1 mg PO DAILY 07/26/25 07/26/25 Unknown pyridoxine (vitamin B6) 100 mg 100 mg PO DAILY 07/26/25 07/26/25 Unknown tablet warfarin 5 mg tablet 5 - 7.5 mg PO DAILY 07/26/25 07/26/25 Unknown Active Medications Generic Name Dose Route Start Last Admin Trade Name Freq PRN Reason Stop Dose Admin Pantoprazole Sodium 40 mg in 10 mls @ 5 mls/min 07/27/25 09:00 08/05/25 09:06 Protonix IV 08/26/25 08:59 5 mls/min DAILY JARAD Administration Famotidine 20 mg in 5 mls @ 2.5 mls/min 07/26/25 21:00 08/04/25 20:28 Pepcid 20mg Iv Push IV 08/25/25 20:59 2.5 mls/min HS JARAD Administration Methylprednisolone 10 mg/ 0.16 mls @ 1.5 mls/min 07/29/25 09:00 08/05/25 09:06 Syringe IV 08/28/25 08:59 1.5 mls/min QAM JARAD Administration Vancomycin HCl 1,250 mg/ 275 mls @ 200 mls/hr 08/02/25 00:00 08/05/25 01:41 Sodium Chloride IV 08/06/25 23:59 Infused Q12H JARAD Infusion Potassium Chloride/Dextrose/Sod Cl 20 meq in 1,000 mls @ 80 mls/hr 08/04/25 21:30 08/05/25 09:07 D5nss + 20meq Kcl IV 08/07/25 21:29 80 mls/hr .[id number] JARAD Administration Insulin Aspart 0 units 07/30/25 18:45 08/05/25 06:06 Insulin Aspart Per Unit Charge SC 08/29/25 18:44 Not Given Q6H JARAD Nystatin 1 appln 08/04/25 21:06 08/04/25 21:20 Nystatin Powder 15gm Btl EXT 09/03/25 21:05 1 appln Q6H PRN Administration Rash Exercise / Class Metabolic Activity Metabolic Activity: II 4-5 Yardwork/Stairs/Walk up hill Physical Exam Constitutional: no acute distress Mouth: + dentition abnormality (multiple missing teeth including #1-7; no loose teeth) Thyromental Distance: > or= 3.5 Finger Breadths Mallampati Class: III Neck: + visual inspection normal Respiratory: + respiratory effort normal and + clear to auscultation bilaterally; no respiratory distress Cardiovascular: + regular rate and + regular rhythm; no murmur Musculoskeletal: no limited cervical ROM Psychiatric: + alert and + oriented x 3 ASA ASA4 Proposed Anesthesia Proposed Anesthesia: MAC Risk / Benefits Reviewed With: PT / POA / Parent / Guardian, Accepts Plan and Informed Consent Obtained
--- NOTE | 2025-08-05 14:03 | Communication Note ---
Date of Service: August 05, 2025 Uncomplicated PEG placement. Upper airway secretions suctioned throughout the test No stricturing or esophageal obstruction Can use the PEG immediately for meds. Start feeds tomorrow. Can resume Lovenox tomorrow
--- NOTE | 2025-08-05 14:11 | GI REPORT ---
[facility] Patient: BETTYE ARRIAZA : 1945 Sex at : Male Age: 79 Years Procedure: Upper GI endoscopy Date: 08/05/2025 Attending Physician: Erik Arias MD Referring MD: Deepthi Fortune Md Indications: - Failed modified barium swallow, for PEG placement Medications: - Monitored Anesthesia Care Complications: - No immediate complications. Estimated Blood Loss: - Estimated blood loss was minimal. Procedure: - The egd scope was introduced through the mouth and advanced to the second part of the duodenum. - The upper GI endoscopy was accomplished without difficulty. - The patient tolerated the procedure. - Oropharyngeal secretions requiring repeated suctioning. Findings: - The examined esophagus was normal. - Mild inflammation was found in the gastric body. - The examined duodenum was normal. - Stomach was insufflated with air. The abdomen was transilluminated. The area of maximal transillumination projected just to the left of the midline in the left upper quadrant. Palpation were freely transmitted to the gastric lumen. Area was prepped and draped in a sterile fashion. The area was infiltrated with lidocaine. Facility Assistant needle inserted through the abdomen with counterpressure. No air return until entered gastric lumen. A 16-gauge angiocatheter was inserted into the gastric lumen guidewire placed through the center of this and snared and pulled retrogradely through the oropharynx. A 20 Mexican gastrostomy tube inserted and attached to this wire which was then pulled antegrade through the esophagus and out through the abdominal wall. PEG fixed to the abdominal wall with external bolster at the 3.5 marker. Some minor bleeding from skin incision settled under observation. Proper PEG placement documented by scope reinsertion. Patient tolerated procedure well Impression: - Stomach was insufflated with air. The abdomen was transilluminated. The area of maximal transillumination projected just to the left of the midline in the left upper quadrant. Palpation were freely transmitted to the gastric lumen. Area was prepped and draped in a sterile fashion. The area was infiltrated with lidocaine. Facility Assistant needle inserted through the abdomen with counterpressure. No air return until entered gastric lumen. A 16-gauge angiocatheter was inserted into the gastric lumen guidewire placed through the center of this and snared and pulled retrogradely through the oropharynx. A 20 Mexican gastrostomy tube inserted and attached to this wire which was then pulled antegrade through the esophagus and out through the abdominal wall. PEG fixed to the abdominal wall with external bolster at the 3.5 marker. Some minor bleeding from skin incision settled under observation. Proper PEG placement documented by scope reinsertion. Patient tolerated procedure well - Normal esophagus. - Gastritis. - Normal examined duodenum. - No specimens collected. - Uncomplicated PEG placed - PEG can be used immediately for medications. Can start tube feeds tomorrow. Can resume Lovenox tomorrow Recommendation: Procedure Code(s): - 09541, Esophagogastroduodenoscopy, flexible, transoral; diagnostic, including collection of specimen(s) by brushing or washing, when performed (separate procedure) Diagnosis Code(s): - K29.70, Gastritis, unspecified, without bleeding CPT(R) - 2022 copyright [employer]. All Rights Reserved. The CPT codes, CCI edits and ICD codes generated are intended as suggestions and were generated based on input data. These codes are preliminary and upon museum librarian review may be revised to meet current compliance and payer requirements. The provider is responsible for the final determination of appropriate codes, and modifiers. Erik Arias MD This document has been electronically signed. Note Initiated:08/05/2025 Note Completed:08/05/2025 2:10 PM \\[id number]
--- NOTE | 2025-08-05 16:53 | Anesthesiology Progress Note ---
Date of Service August 05, 2025 Anesthesia Post Procedure Vital Signs Vital Signs: Temp Pulse Pulse Pulse Resp BP Pulse Ox 08/05/25 15:59 36.5 C 91 H 18 160/65 H 96 08/05/25 15:13 36.5 C 101 H 19 155/82 H 93 08/05/25 14:50 36.5 C 103 H 19 157/66 H 92 08/05/25 14:37 100 H 17 145/77 H 93 08/05/25 14:23 109 H 17 157/85 H 95 08/05/25 14:08 110 H 16 138/76 96 08/05/25 12:16 36.6 C 90 16 162/81 H 94 08/05/25 11:02 36.6 C 90 17 166/72 H 95 08/05/25 09:00 08/05/25 07:38 36.3 C L 90 19 162/74 H 93 08/05/25 07:30 84 08/05/25 03:12 36.9 C 74 20 148/78 H 93 08/04/25 22:59 36.6 C 84 20 150/76 H 92 08/04/25 22:15 65 08/04/25 20:00 08/04/25 19:48 36.9 C 88 20 120/66 95 O2 Del Method 08/05/25 15:59 Room Air 08/05/25 15:13 Room Air 08/05/25 14:50 Room Air 08/05/25 14:37 Room Air 08/05/25 14:23 Room Air 08/05/25 14:08 Room Air 08/05/25 12:16 Room Air 08/05/25 11:02 Room Air 08/05/25 09:00 Room Air 08/05/25 07:38 Room Air 08/05/25 07:30 08/05/25 03:12 Room Air 08/04/25 22:59 Room Air 08/04/25 22:15 08/04/25 20:00 Room Air 08/04/25 19:48 Room Air Pain Intensity Generalized: Pain Intensity: 0 Transfer of Care Handoff Completed per policy Notes Mental Status: alert / awake / arousable and participated in evaluation Patient Amnestic to Procedure: Yes Nausea / Vomiting: adequately controlled Pain: adequately controlled Airway Patency, RR, SpO2: stable & adequate BP & HR: stable & adequate Hydration State: stable & adequate Anesthetic Complications: no major complications apparent and Pt Satisfied with anesthetic care
--- NOTE | 2025-08-05 16:56 | Hospitalist Progress Note ---
Date of Service August 05, 2025 Assessment & Plan (1) Cellulitis of left forearm: (2) B-cell lymphoma: Plan: Pt is an 79 y/o male who was transferred to [facility] [place] for evaluation of a retroperitoneal mass that was found to be high-grade B-cell lymphoma upon biopsy. Pt was tx w/ mini CHOP therapy which was complicated by aspiration pneumonia that required intubation. Upon extubation, pt was unable to tolerate PO intake and had an NGT placed. Pt was recommended to [facility] for evaluation of need for PEG tube placement. Patient was recovering from his mini CHOP treatment, and is anticipating his next treatment in approximately 2 weeks. Case had been signed out directly between [facility] [place] oncology and Dr. Burgess. # Upper extremity cellulitis - Currently on IV vancomycin. Per infectious disease, last dose tomorrow 08/06/2025 Area of cellulitis is much improved. #Severe dysphagia with aspiration -Patient failed swallow evaluation, currently without function and swallowing ability. -Now status post PEG tube placement -Will resume PEG tube feeding tomorrow -Consult dietitian #Port Placement - Prior consult to vascular,Will establish PEG and eval for needs based on possible chemotherapy/infusion needs at that time. #Severe neutropenia - Now resolved after G-CSF #High-grade B-cell lymphoma - US biopsy of retroperitoneal mass 07/11 revealed high-grade B-cell lymphoma; Flow cytometry results favored B-cell lymphoma as well; Brain MRI 07/12 unremarkable; Mini CHOP cyclophosphamide 07/16, vincristine 07/19, doxorubicin 07/20; Next anticipated chemotherapy in approximately 2 weeks; Pt now following w/ Dr Burgess -Heme/Onc consulted - awaiting input -Palliative Consulted; discussed goals of care with patient -Recommended to continue allopurinol 300 mg daily twice daily through NGT/PEG when available -FISH pending #Frequency high demand care needs - Palliative is on board #Adrenal insufficiency -Home dose of steroids 2.5mg daily Continue 10mg steroid; wean as tolerated #Hospital-acquired deep pressure injury of left heel, right heel - improving, not resolved Wound care, offloading precautions #History of DVT, recurrent PE - Lovenox d/t inablility to tolerate PO eliquis; LE doppler demonstrates nonocclusive DVT of superficial femoral and deep femoral vein Continue Lovenox 1 mg/kg twice daily #History of type II DM - Most recent A1c 6.5% Sliding scale ordered on admission, dose reduced basal pending BSG evaluation Pharmacy consulted for assistance with management due to impaired p.o. and concurrent steroid Bedbound: Patient said he does not walk, he is essentially bedbound Disposition: Patient may need PT OT to determine if he needs placement (3) Chronic kidney disease, stage 3a: (4) Spinal stenosis: (5) LBBB (left bundle branch block): (6) TIA (transient ischemic attack): (7) BPH with obstruction/lower urinary tract symptoms: (8) Type 2 diabetes mellitus: (9) Hypertension: (10) Adrenal insufficiency: (11) Dysphagia: (12) Pancytopenia: Admission and Anticipated Discharge Date Admission Date: July 26, 2025 Subjective Patient seen and examined, lying quietly in bed, by the bedside Review of Systems Review of Systems: All systems reviewed are negative, apart from the ones contained in the history. Physical Exam Physical Exam: The patient is awake, alert and oriented 3, well developed and well nourished, normocephalic and atraumatic, lying in bed and in no acute distress. HEENT--PERRL, EOMI, mucous membranes and oropharynx mildly dry Neck--supple. No JVD. No bruits. Thyroid normal, trachea midline, no adenopathy. Heart--normal S1 and S2. No murmurs, rubs or gallops. Lungs--clear bilaterally, no respiratory distress, no accessory muscle use. Abdomen--normal bowel sounds and soft. Extremities--no cyanosis or clubbing. trace leg edema. Dermatologic--normal skin turgor, normal color, no abnormal lymph nodes, no rash. Neurologic--cranial nerves II through XII grossly intact. Rheumatologic--normal range of motion. Psychiatric--normal affect. Results & Data Results & Data Vital Signs (Past 12 Hours) Vital Signs Temp Pulse Pulse Pulse Resp BP Pulse Ox 08/05/25 15:59 97.7 F 91 H 18 160/65 H 96 08/05/25 15:13 97.7 F 101 H 19 155/82 H 93 08/05/25 14:50 97.7 F 103 H 19 157/66 H 92 08/05/25 14:37 100 H 17 145/77 H 93 08/05/25 14:23 109 H 17 157/85 H 95 08/05/25 14:08 110 H 16 138/76 96 08/05/25 12:16 97.9 F 90 16 162/81 H 94 08/05/25 11:02 97.9 F 90 17 166/72 H 95 08/05/25 09:00 08/05/25 07:38 97.3 F L 90 19 162/74 H 93 08/05/25 07:30 84 O2 Del Method 08/05/25 15:59 Room Air 08/05/25 15:13 Room Air 08/05/25 14:50 Room Air 08/05/25 14:37 Room Air 08/05/25 14:23 Room Air 08/05/25 14:08 Room Air 08/05/25 12:16 Room Air 08/05/25 11:02 Room Air 08/05/25 09:00 Room Air 08/05/25 07:38 Room Air 08/05/25 07:30 PG Care Time/CCT Total # of Minutes Spent Total Time Spent with Patient: Total time spent is greater than 50% in coordination of care (as documented) at patient's floor/unit and/or counseling patient: Coding Level of Care Code 88370 SUB INP/OBS CARE MIN Diagnoses Cellulitis of left forearm L03.114 B-cell lymphoma C85.10 Chronic kidney disease, stage 3a N18.31 Spinal stenosis M48.00 LBBB (left bundle branch block) I44.7 TIA (transient ischemic attack) G45.9 BPH with obstruction/lower urinary tract symptoms N40.1; N13.8 Type 2 diabetes mellitus E11.9 Hypertension I10 Adrenal insufficiency E27.40 Dysphagia R13.10 Pancytopenia D61.818 Time Spent (min) 35
[2025-08-05] MEDS: PROPOFOL IV EMULSION 10 MG/ML 20 ML VIAL IV ONE (17:10)
[2025-08-05] MEDS: GLYCOPYRROLATE 0.2 MG/ML VIAL ONE (17:10)
[2025-08-05] MEDS: ONDANSETRON INJ 2 MG/ML 2 ML VIAL ONE (17:10)
[2025-08-05] MEDS: LIDOCAINE 2% 2 ML VIAL/AMP(20MG/ML) INFIL ONE (17:10)
--- NOTE | 2025-08-05 18:26 | Communication Note ---
Date of Service: August 05, 2025 Post PEG placement follow-up Patient seen at the bedside good spirits minimal discomfort over his PEG placement site. Bandage dry. Can start tube feeds tomorrow.
[2025-08-06] MEDS: BUTT PASTE (ZINC OXIDE 16%) 171 APPLN/57 GM JAR EXT SCH (00:03)
[2025-08-06 06:36] LABS: Anion Gap 6.0 (3-11); Blood Urea Nitrogen 5.0 mg/dl (6-23); Calcium 7.5 mg/dl (8.6-10.3); Carbon Dioxide 27.0 mmol/L (21-32); Chloride 108.0 mmol/L (98-107); Creatinine Clr Calc Pharmacy 124.7 ml/min; Glucose 130.0 mg/dl (70-99(Fasting)); Magnesium 1.3 mg/dl (1.7-2.4); Potassium 3.5 mmol/L (3.5-5.1); Sodium 141.0 mmol/L (136-145)
[2025-08-06 08:01] LABS: Hematocrit (blood only) 27.6 % (42.0-52.0); Hemoglobin 8.9 g/dL (14.0-18.0); Mean Corpuscular Hemoglobin 26.8 pg (25.0-34.0); Mean Corpuscular Volume 83.1 fL (80.0-100.0); Platelet Count 143 K/uL (130-400); RDW Standard Deviation 63.4 fL (36.4-46.3); Red Blood Count 3.32 M/uL (4.70-6.10); White Blood Count 8.55 K/ul (4.8-10.8)
[2025-08-06 08:15] LABS: ALC (manual) 0.43 K/uL (1.2-3.4); ANC (manual) 5.04 K/uL (1.4-6.5); Anisocytosis Present; Blast # (manual) 0.09 K/uL (0-0); Polychromasia 1+; Schistocytes 1+; Toxic Granulation 2+
--- NOTE | 2025-08-06 10:53 | Hospitalist Progress Note ---
Date of Service August 06, 2025 Assessment & Plan (1) Cellulitis of left forearm: (2) B-cell lymphoma: Plan: Pt is an 79 y/o male who was transferred to [facility] [place] for evaluation of a retroperitoneal mass that was found to be high-grade B-cell lymphoma upon biopsy. Pt was tx w/ mini CHOP therapy which was complicated by aspiration pneumonia that required intubation. Upon extubation, pt was unable to tolerate PO intake and had an NGT placed. Pt was recommended to [facility] for evaluation of need for PEG tube placement. Patient was recovering from his mini CHOP treatment, and is anticipating his next treatment in approximately 2 weeks. Case had been signed out directly between [facility] [place] oncology and Dr. Burgess. # Upper extremity cellulitis - Currently on IV vancomycin. Per infectious disease, last dose today 08/06/2025 Area of cellulitis is much improved. #Severe dysphagia with aspiration -Patient failed swallow evaluation, currently without function and swallowing ability. -Now status post PEG tube placement -Will resume PEG tube feeding today in the afternoon -Consult dietitian #Port Placement - Prior consult to vascular,Will establish PEG and eval for needs based on possible chemotherapy/infusion needs at that time. #Severe neutropenia - Now resolved after G-CSF #High-grade B-cell lymphoma - US biopsy of retroperitoneal mass 07/11 revealed high-grade B-cell lymphoma; Flow cytometry results favored B-cell lymphoma as well; Brain MRI 07/12 unremarkable; Mini CHOP cyclophosphamide 07/16, vincristine 07/19, doxorubicin 07/20; Next anticipated chemotherapy in approximately 2 weeks; Pt now following w/ Dr Burgess -Heme/Onc consulted - awaiting input -Palliative Consulted; discussed goals of care with patient -Recommended to continue allopurinol 300 mg daily twice daily through PEG when available -FISH pending #Frequency high demand care needs - Palliative is on board #Adrenal insufficiency -Home dose of steroids 2.5mg daily Continue 10mg steroid; wean as tolerated #Hospital-acquired deep pressure injury of left heel, right heel - improving, not resolved Wound care, offloading precautions #History of DVT, recurrent PE - Lovenox d/t inablility to tolerate PO eliquis; LE doppler demonstrates nonocclusive DVT of superficial femoral and deep femoral vein Continue Lovenox 1 mg/kg twice daily #History of type II DM - Most recent A1c 6.5% Sliding scale ordered on admission, dose reduced basal pending BSG evaluation Pharmacy consulted for assistance with management due to impaired p.o. and concurrent steroid Bedbound: Patient said he does not walk, he is essentially bedbound Disposition: Patient will need PT OT to determine if he needs placement (3) Chronic kidney disease, stage 3a: (4) Spinal stenosis: (5) LBBB (left bundle branch block): (6) TIA (transient ischemic attack): (7) BPH with obstruction/lower urinary tract symptoms: (8) Type 2 diabetes mellitus: (9) Hypertension: (10) Adrenal insufficiency: (11) Dysphagia: (12) Pancytopenia: Admission and Anticipated Discharge Date Admission Date: July 26, 2025 Subjective Patient seen and examined, lying quietly in bed,no new complaints, got his PEG placed yesterday Review of Systems Review of Systems: All systems reviewed are negative, apart from the ones contained in the history. Physical Exam Physical Exam: The patient is awake, alert and oriented 3, well developed and well nourished, normocephalic and atraumatic, lying in bed and in no acute distress. HEENT--PERRL, EOMI, mucous membranes and oropharynx mildly dry Neck--supple. No JVD. No bruits. Thyroid normal, trachea midline, no adenopathy. Heart--normal S1 and S2. No murmurs, rubs or gallops. Lungs--clear bilaterally, no respiratory distress, no accessory muscle use. Abdomen--normal bowel sounds and soft. Extremities--no cyanosis or clubbing. trace leg edema. Dermatologic--normal skin turgor, normal color, no abnormal lymph nodes, no rash. Neurologic--cranial nerves II through XII grossly intact. Rheumatologic--normal range of motion. Psychiatric--normal affect. Results & Data Results & Data Vital Signs (Past 12 Hours) Vital Signs Temp Pulse Pulse Pulse Resp BP Pulse Ox 08/06/25 08:00 79 08/06/25 08:00 08/06/25 07:37 97.5 F L 93 H 19 187/86 H 96 08/06/25 02:29 97.3 F L 84 16 166/77 H 93 O2 Del Method 08/06/25 08:00 08/06/25 08:00 Room Air 08/06/25 07:37 Room Air 08/06/25 02:29 Room Air PG Care Time/CCT Total # of Minutes Spent Total Time Spent with Patient: Total time spent is greater than 50% in coordination of care (as documented) at patient's floor/unit and/or counseling patient: Coding Level of Care Code 28188 SUB INP/OBS CARE 2/35MIN Diagnoses Cellulitis of left forearm L03.114 B-cell lymphoma C85.10 Chronic kidney disease, stage 3a N18.31 Spinal stenosis M48.00 LBBB (left bundle branch block) I44.7 TIA (transient ischemic attack) G45.9 BPH with obstruction/lower urinary tract symptoms N40.1; N13.8 Type 2 diabetes mellitus E11.9 Hypertension I10 Adrenal insufficiency E27.40 Dysphagia R13.10 Pancytopenia D61.818 Time Spent (min) 35
[2025-08-06] MEDS: MAGNESIUM SULFATE / D5W 1 GM/100 ML BAG IV SCH (10:55)
[2025-08-06] MEDS: TUBE FEEDING WATER FLUSH PEG SCH (11:33)
[2025-08-06] MEDS: PEPTAMEN 1.5 CAL 1,000 ML BAG PEG SCH (11:34)
--- NOTE | 2025-08-06 13:03 | Palliative Care Progress Note ---
Date of Service August 06, 2025 Assessment & Plan (1) Dysphagia: Plan: appreciate ST recs, POD1 s/p PEG placement for nutrition. (2) Weakness: (3) Palliative care by specialist: Plan: Met with pt and his at bedside today. they reaffirm goals of care and plan to initiate TF today with request for discharge to [facility] to optimize strength and functional independence in hopes to be able to return to living home with . (4) Counseling regarding goals of care: Plan: 08/01: Met with pt and his Alana at bedside. Pt states that he is "feeling fine" and questions when he can return home. He again shared desire for all aggressive measures to continue to allow him to return home. We discussed pt's deconditioned state and decreased mobility since admission. Discussed possible need for rehab to improve strength and optimize functional independence before returning home. Pt and his are both agreeable to this. Lexx shared that he "feels well" and has never really allowed himself to feel sick. He shared strong desire to continue to prolong life with all therapies appropriate to allow him as much quality time with his grand children as possible. We discussed the importance of being patient with himself and allowing his body the time it needs to recuperate. Alana questioned possible "central line placement in his neck so he can get TPN at home". Discussed benefits of enteric feeding over TPN if gut is working. Goals of care remain clearly established for all aggressive life prolonging therapies. 07/29: ACP meeting held with patient and his Alana at bedside from 14:00 - 14:45. Dr Woods was present for final 15 minutes of discussion. cintia Warner and Lexx live independently and have three adult sons, four grandchildren between ages 1y and 30y old, and one 2y great grandson. Lexx places highest value on family and being home with them. He shared that his goals of care are to pursue anything that will give him more quality time with his grandchildren and great grand son. Discussed pt's current condition, HPI, hospital course, and goals of care. They expressed gratitude for Dr Card's ACP discussion with them and their sons and Alana was able to summarize the discussion in basic terms. Alana reports that Patrick has some short term memory loss and hospital acquired delirium, but has never been diagnoses with dementia nor had previous cognitive deficits. She states that the documented history of dementia and alzheimer's are incorrect and pt has never been diagnosed with any cognitive deficits. She shared that his delirium has improved since returning to [facility], but that he does not have memory of his time at [facility] [place] [place]. She shared concern that he has not had any nutrition in five days and is focused on restarting nutrition without delay. Alana emphasized that Lexx has never had difficulty swallowing before, and t his was an isolated episode of aspiration. We discussed the swallow studies that have been done and Alana shared understanding that Lexx's does not have a coordinated swallow. Lexx and Alana shared motivation to pursue PEG tube to allow him to get nutrition safely so that he can continue cancer directed therapies. We discussed that PEG tube does not limit risks of aspiration and discussed strategies to mitigate risk of aspiration pna. Lexx shared that he does wish to retrun to oral feeding in future and is willing to work with ST in hopes of improving his swallow abilities. We discussed that there is no guarantee that this will improve and that tube feedings may be a permanent part of his life. Alana and Lexx both shared desire for PEG placement followed by trial of tube feedings in conjunction with speech therapy to improve swallow. Alana shared that she had been told that a PEG tube would not be able to be placed immediately because of anticoagulation. She shared that if this is the case, they would want to avoid further delay in nutrition by placing NGT until PEG can be arranged. Dr Woods shared that he will reach out to GI to get PEG placed ABI in hopes to avoid need for NGT. Alana and Lexx also confirmed that they DO WANT further attempts at resuscitation and repeat ICU admission if needed. Lexx expressed that if he is to have a permanent deterioration to his quality of life or in significant ongoing pain may want a focus on comfort at that point. He shared that he would be okay with mechanical ventilation short term, but he would not want t racheostomy or fdc dependence on machines to keep him alive. Plan We will sign off on this patient as goals of care are clearly established to continue all other life prolonging therapies a this time. Thank you for including Palliative Care in the management of this patient. Please call with any questions or concerns regarding this consultation. Admission and Anticipated Discharge Date Admission Date: July 26, 2025 Subjective Patient seen and examined, lying quietly in bed,no new complaints, POD1 s/p PEG placement plan to initiate tube feeding today per GI Review of Systems Review of Systems: All systems reviewed & are unremarkable except as noted in Subjective Physical Exam Physical Exam: Elderly man in no overt distress Constitutional: WD/WN, vitals as above Eyes: PERRL, conjunctivae normal, anicteric sclerae Respiratory: normal respiratory effort, lungs clear to auscultation Cardiovascular: RRR, no murmur, no edema Rate/Rhythm: regular rate and regular rhythm Gastrointestinal (Abdomen): normal bowel sounds, soft, nontender, no hepatosplenomegaly Neurologic: awake Results & Data Vital Signs (Past 12 Hours) Vital Signs Temp Pulse Pulse Pulse Resp BP Pulse Ox 08/06/25 11:12 36.3 C L 89 18 136/74 96 08/06/25 08:00 79 08/06/25 08:00 08/06/25 07:37 36.4 C L 93 H 19 187/86 H 96 08/06/25 02:29 36.3 C L 84 16 166/77 H 93 O2 Del Method 08/06/25 11:12 Room Air 08/06/25 08:00 08/06/25 08:00 Room Air 08/06/25 07:37 Room Air 08/06/25 02:29 Room Air Laboratory Results Abnormal lab results 08/05/25 08/05/25 08/06/25 Range/Units 16:13 17:54 00:02 RBC (4.70-6.10) M/uL Hgb (14.0-18.0) g/dL Hct (42.0-52.0) % RDW Std Deviation (36.4-46.3) fL RDW Coeff of Spike (11.5-14.5) % Lymphocytes # (Manual) (1.2-3.4) K/uL Total Abs Lymphocytes (1.2-3.4) K/uL Metamyelocytes # (Man) (0-0) K/uL Myelocytes # (Manual) (0-0) K/uL Promyelocytes # (Man) (0-0) K/uL Blast Cells # (Man) (0-0) K/uL Chloride (98-107) mmol/L BUN (6-23) mg/dl Creatinine (0.6-1.4) mg/dl BUN/Creatinine Ratio (10-20) Glucose (70-99(Fasting)) mg/dl POC Glucose 143 H 133 H 125 H (70-99) mg/dl Calcium (8.6-10.3) mg/dl Magnesium (1.7-2.4) mg/dl 08/06/25 08/06/25 08/06/25 Range/Units 05:49 06:05 11:45 RBC 3.32 L (4.70-6.10) M/uL Hgb 8.9 L (14.0-18.0) g/dL Hct 27.6 L (42.0-52.0) % RDW Std Deviation 63.4 H (36.4-46.3) fL RDW Coeff of Spike 22.0 H (11.5-14.5) % Lymphocytes # (Manual) 0.43 L (1.2-3.4) K/uL Total Abs Lymphocytes 0.43 L (1.2-3.4) K/uL Metamyelocytes # (Man) 1.11 H (0-0) K/uL Myelocytes # (Manual) 0.86 H (0-0) K/uL Promyelocytes # (Man) 0.26 H (0-0) K/uL Blast Cells # (Man) 0.09 H (0-0) K/uL Chloride 108 H (98-107) mmol/L BUN 5 L (6-23) mg/dl Creatinine 0.58 L (0.6-1.4) mg/dl BUN/Creatinine Ratio 8.6 L (10-20) Glucose 130 H (70-99(Fasting)) mg/dl POC Glucose 120 H 152 H (70-99) mg/dl Calcium 7.5 L (8.6-10.3) mg/dl Magnesium 1.3 L (1.7-2.4) mg/dl Medications Administered Current Inpatient Medications Dextrose (Dextrose 50% 50 Ml Syringe) 25 - 50 ml IV UD PRN; Protocol PRN Reason: Hypoglycemia Protocol Stop: 08/25/25 16:47 Enteral Nutritional Formula (Peptamen 1.5 Antonio 1,000 Ml Bag) 1,000 ml PEG DAILY JARAD; Protocol Stop: 09/05/25 10:29 Last Admin: 08/06/25 11:34 Dose: 1,000 ml Glucagon (Glucagon For Inj 1 Mg Vial) 1 mg SQ UD PRN; Protocol PRN Reason: Hypoglycemia Protocol Stop: 08/25/25 16:47 Glucose (Glucose 40% Gel 15 Gm Tube) 15 - 30 gm PO UD PRN; Protocol PRN Reason: Hypoglycemia Protocol Stop: 08/25/25 16:47 Glucose (Glucose 10 Tab/Tube) 4 - 8 tab PO UD PRN; Protocol PRN Reason: Hypoglycemia Protocol Stop: 08/25/25 16:47 Pantoprazole Sodium (Protonix) 40 mg in 10 mls @ 5 mls/min IV DAILY JARAD Stop: 08/26/25 08:59 Last Admin: 08/06/25 09:29 Dose: 5 mls/min Famotidine (Pepcid 20mg Iv Push) 20 mg in 5 mls @ 2.5 mls/min IV HS JARAD Stop: 08/25/25 20:59 Last Admin: 08/05/25 20:07 Dose: 2.5 mls/min Methylprednisolone 10 mg/ (Syringe) 0.16 mls @ 1.5 mls/min IV QAM JARAD Stop: 08/28/25 08:59 Last Admin: 08/06/25 09:29 Dose: 1.5 mls/min Vancomycin HCl 1,250 mg/ (Sodium Chloride) 275 mls @ 200 mls/hr IV Q12H JARAD Stop: 08/06/25 23:59 Last Infusion: 08/06/25 01:28 Dose: Infused Potassium Chloride/Dextrose/Sod Cl (D5nss + 20meq Kcl) 20 meq in 1,000 mls @ 80 mls/hr IV .[id number] JARAD Stop: 08/07/25 21:29 Last Admin: 08/06/25 13:08 Dose: 80 mls/hr Magnesium Sulfate/Dextrose (Magnesium Sulfate / D5w) 1 gm in 100 mls @ 50 mls/hr IV Q2H JARAD Stop: 08/06/25 14:29 Last Admin: 08/06/25 13:08 Dose: 50 mls/hr Insulin Aspart (Insulin Aspart Per Unit Charge) 0 units SC Q6H JARAD Stop: 08/29/25 18:44 Last Admin: 08/06/25 06:35 Dose: Not Given Miscellaneous (Carbohydrates For Hypoglycemia ) 15 - 30 gm PO UD PRN PRN Reason: Hypoglycemia Protocol Stop: 08/25/25 16:47 Miscellaneous Information (Vancomycin Consult Active) 1 each N/A UD PRN PRN Reason: Consult Stop: 08/06/25 23:59 Nystatin (Nystatin Powder 15gm Btl) 1 appln EXT Q6H PRN PRN Reason: Rash Stop: 09/03/25 21:05 Last Admin: 08/04/25 21:20 Dose: 1 appln Petrolatum (Butt Paste (Zinc Oxide 16%) 171 Appln/57 Gm Jar) 1 appln EXT TID JARAD Stop: 09/04/25 20:59 Last Admin: 08/06/25 09:29 Dose: 1 appln Sterile Water (Tube Feeding Water Flush) 150 ml PEG Q4H JARAD Stop: 09/05/25 10:29 Last Admin: 08/06/25 11:33 Dose: 150 ml PG Care Time/CCT Total # of Minutes Spent Total Time Spent with Patient: Total time spent is greater than 50% in coordination of care (as documented) at patient's floor/unit and/or counseling patient: Coding [place] [address] SUB INP/OBS CARE 2/35MIN Patient Type Established History Problem Focused Exam Problem Focused Medical Decision Making Low Complexity Diagnoses Dysphagia R13.10 Weakness R53.1 Palliative care by specialist Z51.5 Counseling regarding goals of care Z71.89
--- NOTE | 2025-08-06 14:58 | Gastroenterology Progress Note ---
Date of Service August 06, 2025 Assessment & Plan (1) S/P percutaneous endoscopic gastrostomy (PEG) tube placement: Plan [id number] is seen today on GI rounds for follow up of PEG tube placement on 08/05/25. (1) S/P PEG tube placement - - No concerns today. - No signs of irritation. - I'll plan to f/u tomorrow as well to ensure proper placement of bumper (3.5). - Please feel free to reach out with any concerns. Admission and Anticipated Discharge Date Admission Date: July 26, 2025 Supervising Physician Co-Signing Physician Notes Reviewed above notes discussed with PA. Tolerated PEG well. Reconsult if new GI issues. Subjective Patient seen today on follow up GI rounds to see how he's doing with PEG tube since it was placed 08/05/25. He has no concerns. Discussed with Nursing. They're using PEG tube without any issues. He denies any abdominal pain, N/V/D, melena or hematochezia. Review of Systems Review of Systems: See HPI Physical Exam Physical Exam: Constitutional: NAD. Alert. Answering questions appropriately. Respiratory: Breathing is even, non-labored. Lungs rubin are clear to auscultation anteriorly. Cardiovascular: Regular Rate and Rhythm, no murmurs, rubs or gallops appreciated. Gastrointestinal (Abdomen): Normoactive bowel sounds x4, soft, non-distended, non-tender. PEG in situ. Bumper is at 3.5. No signs of irritation or abrasions. Musculoskeletal: Lying in bed comfortably. No peripheral edema. Results & Data Results & Data Vital Signs (Past 12 Hours) Vital Signs Temp Pulse Pulse Resp BP Pulse Ox O2 Del Method 08/06/25 11:12 97.3 F L 89 18 136/74 96 Room Air 08/06/25 08:00 79 08/06/25 08:00 Room Air 08/06/25 07:37 97.5 F L 93 H 19 187/86 H 96 Room Air PG Care Time/CCT Total # of Minutes Spent Total Time Spent with Patient: Total time spent is greater than 50% in coordination of care (as documented) at patient's floor/unit and/or counseling patient: Coding Level of Care Code 12666 SUB INP/OBS CARE 10/13MIN Diagnoses S/P percutaneous endoscopic gastrostomy (PEG) tube placement Z93.1
[2025-08-07 09:40] LABS: Anion Gap 6.0 (3-11); Blood Urea Nitrogen 4.0 mg/dl (6-23); Calcium 7.6 mg/dl (8.6-10.3); Carbon Dioxide 27.0 mmol/L (21-32); Chloride 107.0 mmol/L (98-107); Creatinine Clr Calc Pharmacy 131.5 ml/min; Glucose 129.0 mg/dl (70-99(Fasting)); Potassium 3.4 mmol/L (3.5-5.1); Sodium 140.0 mmol/L (136-145)
--- NOTE | 2025-08-07 11:40 | Hospitalist Progress Note ---
Date of Service August 07, 2025 Assessment & Plan (1) Cellulitis of left forearm: (2) B-cell lymphoma: Plan: Pt is an 79 y/o male who was transferred to [facility] for evaluation of a retroperitoneal mass that was found to be high-grade B-cell lymphoma upon biopsy. Pt was tx w/ mini CHOP therapy which was complicated by aspiration pneumonia that required intubation. Upon extubation, pt was unable to tolerate PO intake and had an NGT placed. Pt was recommended to [facility] for evaluation of need for PEG tube placement. Patient was recovering from his mini CHOP treatment, and is anticipating his next treatment in approximately 2 weeks. Case had been signed out directly between [facility] oncology and Dr. Burgess. # Upper extremity cellulitis - Currently on IV vancomycin. Per infectious disease, last dose was on 08/06/2025 Area of cellulitis is much improved. #Severe dysphagia with aspiration -Patient failed swallow evaluation, currently without function and swallowing ability. -Now status post PEG tube placement -Patient is currently tolerating PEG tube feeding -Appreciate dietary Constipation: Will provide Dulcolax suppository #Port Placement - Prior consult to vascular,Will establish PEG and eval for needs based on possible chemotherapy/infusion needs at that time. #Severe neutropenia - Now resolved after G-CSF #High-grade B-cell lymphoma - US biopsy of retroperitoneal mass 07/11 revealed high-grade B-cell lymphoma; Flow cytometry results favored B-cell lymphoma as well; Brain MRI 07/12 unremarkable; Mini CHOP cyclophosphamide 07/16, vincristine 07/19, doxorubicin 07/20; Next anticipated chemotherapy in approximately 2 weeks; Pt now following w/ Dr Burgess -Heme/Onc consulted - awaiting input -Palliative Consulted; discussed goals of care with patient -Recommended to continue allopurinol 300 mg daily twice daily through PEG when available -FISH pending #Frequency high demand care needs - Palliative is on board #Adrenal insufficiency -Home dose of steroids 2.5mg daily Continue 10mg steroid; wean as tolerated #Hospital-acquired deep pressure injury of left heel, right heel - improving, not resolved Wound care, offloading precautions #History of DVT, recurrent PE - Lovenox d/t inablility to tolerate PO eliquis; LE doppler demonstrates nonocclusive DVT of superficial femoral and deep femoral vein Continue Lovenox 1 mg/kg twice daily #History of type II DM - Most recent A1c 6.5% Sliding scale ordered on admission, dose reduced basal pending BSG evaluation Pharmacy consulted for assistance with management due to impaired p.o. and concurrent steroid Bedbound: Patient said he does not walk, he is essentially bedbound Disposition: Patient will need PT OT to determine if he needs placement (3) Chronic kidney disease, stage 3a: (4) Spinal stenosis: (5) LBBB (left bundle branch block): (6) TIA (transient ischemic attack): (7) BPH with obstruction/lower urinary tract symptoms: (8) Type 2 diabetes mellitus: (9) Hypertension: (10) Adrenal insufficiency: (11) Dysphagia: (12) Pancytopenia: Admission and Anticipated Discharge Date Admission Date: July 26, 2025 Subjective Patient seen and examined, tolerating tube feeding, complains of constipation Review of Systems Review of Systems: All systems reviewed are negative, apart from the ones contained in the history. Physical Exam Physical Exam: The patient is awake, alert and oriented 3, well developed and well nourished, normocephalic and atraumatic, lying in bed and in no acute distress. HEENT--PERRL, EOMI, mucous membranes and oropharynx mildly dry Neck--supple. No JVD. No bruits. Thyroid normal, trachea midline, no adenopathy. Heart--normal S1 and S2. No murmurs, rubs or gallops. Lungs--clear bilaterally, no respiratory distress, no accessory muscle use. Abdomen--normal bowel sounds and soft. Extremities--no cyanosis or clubbing. trace leg edema. Dermatologic--normal skin turgor, normal color, no abnormal lymph nodes, no rash. Neurologic--cranial nerves II through XII grossly intact. Rheumatologic--normal range of motion. Psychiatric--normal affect. Results & Data Results & Data Vital Signs (Past 12 Hours) Vital Signs Temp Pulse Pulse Resp BP Pulse Ox O2 Del Method 08/07/25 07:29 97.5 F L 98 H 18 163/85 H 93 Room Air 08/07/25 07:27 93 H 08/07/25 07:27 Room Air 08/07/25 03:12 97.7 F 91 H 18 153/83 H 94 Room Air 08/06/25 23:45 90 164/77 H PG Care Time/CCT Total # of Minutes Spent Total Time Spent with Patient: Total time spent is greater than 50% in coordination of care (as documented) at patient's floor/unit and/or counseling patient: Coding Level of Care Code 13063 SUB INP/OBS CARE 235MIN Diagnoses Cellulitis of left forearm L03.114 B-cell lymphoma C85.10 Chronic kidney disease, stage 3a N18.31 Spinal stenosis M48.00 LBBB (left bundle branch block) I44.7 TIA (transient ischemic attack) G45.9 BPH with obstruction/lower urinary tract symptoms N40.1; N13.8 Type 2 diabetes mellitus E11.9 Hypertension I10 Adrenal insufficiency E27.40 Dysphagia R13.10 Pancytopenia D61.818 Time Spent (min) 35
--- NOTE | 2025-08-07 12:52 | Gastroenterology Progress Note ---
Date of Service August 07, 2025 Assessment & Plan (1) S/P percutaneous endoscopic gastrostomy (PEG) tube placement: Plan 79yowm is seen today on GI rounds for follow up of PEG tube placement on 08/05/25. (1) S/P PEG tube placement - - No concerns today. - No signs of irritation. He had some dried blood that matted in his abdominal hair. Asked nursing to cleanse this area and apply some petrolatum for comfort. - Thank you for allowing us to participate in the care of this patient. Please call with any acute changes, questions or concerns. Please see addendum below with additional recommendation from my supervising physician. Admission and Anticipated Discharge Date Admission Date: July 26, 2025 Supervising Physician Co-Signing Physician Notes Patient examined at the bedside sleeping arouses to voice. Abdomen soft benign PEG site clean. Getting tube feeds. GI will sign off reconsult as needed Subjective Patient seen today on follow up GI rounds to see how he's doing with PEG tube since it was placed 08/05/25. He has no concerns. Discussed with Nursing. They're using PEG tube without any issues. He denies any abdominal pain, N/V/D, melena or hematochezia. Review of Systems Review of Systems: See HPI Physical Exam Physical Exam: Constitutional: NAD. Alert. Answering questions appropriately. Respiratory: Breathing is even, non-labored. Lungs rubin are clear to auscultation anteriorly. Cardiovascular: Regular Rate and Rhythm, no murmurs, rubs or gallops appreciated. Gastrointestinal (Abdomen): Normoactive bowel sounds x4, soft, non-distended, non-tender. PEG in situ. Bumper is at 3.5. No signs of irritation or abrasions. He does have some dried blood still from procedure. Musculoskeletal: Lying in bed comfortably. No peripheral edema. Results & Data Results & Data Vital Signs (Past 12 Hours) Vital Signs Temp Pulse Pulse Resp BP Pulse Ox O2 Del Method 08/07/25 07:29 97.5 F L 98 H 18 163/85 H 93 Room Air 08/07/25 07:27 93 H 08/07/25 07:27 Room Air 08/07/25 03:12 97.7 F 91 H 18 153/83 H 94 Room Air PG Care Time/CCT Total # of Minutes Spent Total Time Spent with Patient: Total time spent is greater than 50% in coordination of care (as documented) at patient's floor/unit and/or counseling patient: Coding Level of Care Code 21737 SUB INP/OBS CARE Diagnoses S/P percutaneous endoscopic gastrostomy (PEG) tube placement Z93.1
[2025-08-07] MEDS: POTASSIUM CHLORIDE / WTR 10 MEQ/100 ML PLCT IV SCH (15:36)
[2025-08-07] MEDS: MAGNESIUM SULFATE / D5W 1 GM/100 ML BAG IV SCH (15:36)
[2025-08-08 06:19] LABS: Anion Gap 6.0 (3-11); Blood Urea Nitrogen 4.0 mg/dl (6-23); Calcium 7.8 mg/dl (8.6-10.3); Carbon Dioxide 27.0 mmol/L (21-32); Chloride 106.0 mmol/L (98-107); Creatinine Clr Calc Pharmacy 144.7 ml/min; Glucose 142.0 mg/dl (70-99(Fasting)); Potassium 3.5 mmol/L (3.5-5.1); Sodium 139.0 mmol/L (136-145)
[2025-08-08 07:20] VITALS: RESP 19
[2025-08-08 08:05] LABS: Magnesium 1.4 mg/dl (1.7-2.4)
--- NOTE | 2025-08-08 10:21 | Hospitalist Progress Note ---
Date of Service August 08, 2025 Assessment & Plan (1) Cellulitis of left forearm: (2) B-cell lymphoma: Plan: Pt is an 79 y/o male who was transferred to [facility] [place] for evaluation of a retroperitoneal mass that was found to be high-grade B-cell lymphoma upon biopsy. Pt was tx w/ mini CHOP therapy which was complicated by aspiration pneumonia that required intubation. Upon extubation, pt was unable to tolerate PO intake and had an NGT placed. Pt was recommended to [facility] for evaluation of need for PEG tube placement. Patient was recovering from his mini CHOP treatment, and is anticipating his next treatment in approximately 2 weeks. Case had been signed out directly between [facility] [place] oncology and Dr. Burgess. # Upper extremity cellulitis - completed a course of IV antibiotics -Area of cellulitis is much improved. #Severe dysphagia with aspiration -Patient failed swallow evaluation, currently without function and swallowing ability. -Now status post PEG tube placement -Patient is currently tolerating PEG tube feeding -Appreciate dietary Constipation: Will provide Dulcolax suppository #Port Placement - Needs for possible chemotherapy/infusion #Severe neutropenia - Now resolved after G-CSF #High-grade B-cell lymphoma - US biopsy of retroperitoneal mass 07/11 revealed high-grade B-cell lymphoma; Flow cytometry results favored B-cell lymphoma as well; Brain MRI 07/12 unremarkable; Mini CHOP cyclophosphamide 07/16, vincristine 07/19, doxorubicin 07/20; Next anticipated chemotherapy in approximately 2 weeks; Pt now following w/ Dr Burgess -Heme/Onc consulted - awaiting input -Palliative Consulted; discussed goals of care with patient -Recommended to continue allopurinol 300 mg daily twice daily through PEG when available -FISH pending #Frequency high demand care needs - Palliative is on board #Adrenal insufficiency -Home dose of steroids 2.5mg daily #Hospital-acquired deep pressure injury of left heel, right heel - improving, not resolved Wound care, offloading precautions #History of DVT, recurrent PE - Lovenox d/t inability to tolerate PO eliquis; LE doppler demonstrates nonocclusive DVT of superficial femoral and deep femoral vein Continue Lovenox 1 mg/kg twice daily #History of type II DM - Most recent A1c 6.5% Sliding scale ordered on admission, dose reduced basal pending BSG evaluation Pharmacy consulted for assistance with management due to impaired p.o. and concurrent steroid Bedbound: Patient said he does not walk, he is essentially bedbound Disposition: he needs placement (3) Chronic kidney disease, stage 3a: (4) Spinal stenosis: (5) LBBB (left bundle branch block): (6) TIA (transient ischemic attack): (7) BPH with obstruction/lower urinary tract symptoms: (8) Type 2 diabetes mellitus: (9) Hypertension: (10) Adrenal insufficiency: (11) Dysphagia: (12) Pancytopenia: Admission and Anticipated Discharge Date Admission Date: July 26, 2025 Subjective patient seen and examined, lying quietly in bed, no new complaints, tolerating tube feeds Review of Systems Review of Systems: All systems reviewed are negative, apart from the ones contained in the history. Physical Exam Physical Exam: The patient is awake, alert and oriented 3, well developed and well nourished, normocephalic and atraumatic, lying in bed and in no acute distress. HEENT--PERRL, EOMI, mucous membranes and oropharynx mildly dry Neck--supple. No JVD. No bruits. Thyroid normal, trachea midline, no adenopathy. Heart--normal S1 and S2. No murmurs, rubs or gallops. Lungs--clear bilaterally, no respiratory distress, no accessory muscle use. Abdomen--normal bowel sounds and soft. Extremities--no cyanosis or clubbing. trace leg edema. Dermatologic--normal skin turgor, normal color, no abnormal lymph nodes, no rash. Neurologic--cranial nerves II through XII grossly intact. Rheumatologic--normal range of motion. Psychiatric--normal affect. Results & Data Results & Data Vital Signs (Past 12 Hours) Vital Signs Temp Pulse Pulse Pulse Resp BP Pulse Ox 08/08/25 07:17 97.2 F L 98 H 19 150/82 H 95 08/08/25 03:31 97.5 F L 99 H 18 151/83 H 99 08/07/25 23:39 96 H 08/07/25 23:31 97.5 F L 96 H 18 170/88 H 93 O2 Del Method 08/08/25 07:17 Room Air 08/08/25 03:31 Room Air 08/07/25 23:39 08/07/25 23:31 Room Air PG Care Time/CCT Total # of Minutes Spent Total Time Spent with Patient: Total time spent is greater than 50% in coordination of care (as documented) at patient's floor/unit and/or counseling patient: Coding Level of Care Code 97008 SUB INP/OBS CARE MIN Diagnoses Cellulitis of left forearm L03.114 B-cell lymphoma C85.10 Chronic kidney disease, stage 3a N18.31 Spinal stenosis M48.00 LBBB (left bundle branch block) I44.7 TIA (transient ischemic attack) G45.9 BPH with obstruction/lower urinary tract symptoms N40.1; N13.8 Type 2 diabetes mellitus E11.9 Hypertension I10 Adrenal insufficiency E27.40 Dysphagia R13.10 Pancytopenia D61.818 Time Spent (min) 35
[2025-08-08] MEDS: MAGNESIUM SULFATE / D5W 1 GM/100 ML BAG IV SCH (10:49)
[2025-08-08 11:30] VITALS: TEMP 97.3
--- NOTE | 2025-08-08 13:11 | Discharge Summary ---
Date of Service August 08, 2025 Admission HPI Per Admitting Provider Per Sign Out from accepting hospitalist 79yo M with a history of PMR, CKD, s/p TAVR, PE previously on coumadin now on lovenox who presented to [facility] mid-June with back pain and who was found to have retroperitoneal hemorrhage vs mass and which was ultimately foudn to be a mass. Dx post bx LBCL, recieved mini-CHOP tx. Had a difficult recovery following this due to AHRF requiring ICU admission with severe encephalopathy. Transiently intubated, subsequently extubated on weaned to RA. Last chemo 07/20. Is on chronic steroids and on taper following stress dose at [facility]. 20mg 07/25 and was to taper to 10mg today. Home dose 2.5mg prednisone daily. Tumor lysis labs were stable per [facility]. Borderline hyperkalemia. CBC reportedly stable. Was not requiring Neupogen. Recommended Heme/Onc consultation here. Dr. Burgess was consulted and has discussed case directly with [facility]. Main ongoing problem is that he continues to have severe dysphagia. Workup at [facility] including MRI (negative) speech eval, ENT eval (nasopharyngeoscope was without acute findings and recommended PPI), has coresafe and on tube feeds. Was recommended for PEG tube which family would like but has not been placed. Plan to transition lovenox to eliquis post PEG placement Otherwise stable, VSS Per [facility] Chart Review History of dementia, spinal stenosis, diabetes, GERD, BPH, Alzheimer's, hypertension, recurrent PE, PMR, CKD, AAS s/p TAVR who was found to have large retroperitoneal mass with path showing high-grade B-cell lymphoma/non-GCB who wa s treated with mini CHOP. Course was complicated by aspiration pneumonia, thrombocytopenia, and was transiently in the ICU and intubated. He was extubated 07/18 downgraded to C 07/21. He was subsequently transferred to [facility] once bed availability was confirmed. High-grade B-cell lymphoma Ultrasound-guided biopsy of retroperitoneal mass 07/11: High-grade B-cell lymphoma Flow cytometry: Atypical lymphoid population, CD5-, CD10-, double negative for kappa/lambda, favoring B-cell lymphoma MRI brain 07/12: Unremarkable Mini CHOP with cyclophosphamide 07/16, vincristine 07/19, doxorubicin 07/20 Continued on allopurinol 3 mg twice daily FISH pending No indication for G-CSF as ANC was 7.03, recommended to be followed closely Adrenal insufficiency On stress dose steroids. Home dose of steroids 2.5 mg daily. Plan to taper down to 10 mg daily on 07/26, currently on 20 mg daily Hyperkalemia suspected due to TLS reportedly stable. Labs pending. Suggested to consider Kayexalate or Petit room air to assist with clearance Sepsis due to aspiration pneumonia: Resolved following Zosyn, vancomycin, meropenem, Bactrim. Completed Zosyn 07/06 - 07/12, vancomycin 07/06 - 07/16, meropenem 07/12 - 07/20, Bactrim single dose on 07/19. Severe dysphagia with aspiration Suspected multifactorial with encephalopathy, hospital delirium, Alzheimer's Barium swallow 07/10: Significant dysphagia NGT placed 07/15 Per speech 07/22: Strict avoidance of p.o. route. was interested in PEG placement, patient was interested in continuing nasogastric tube at the time. This was dislodged and self removed by patient 07/24. Reportedly plan was to reinsert this. This was not done prior to transfer. Due to severe dysphagia over the preceding 3 weeks, failure to improve/progress, and speech recommendations patient was recommended for PEG placement. Speech at [facility] recommended against barium swallow due to concerns for continued recurrent aspiration and frankly unsafe swallow. Hospital-acquired deep pressure injury of left heel, right heel. Left heel improving but not resolved. Right pressure wound healing, reportedly resolved at time of discharge Chronic conditions including ambulatory dysfunction, diabetes with neuropathy, chronic pain, TIA, DVT. History of DVT, recurrent PE Was transiently on therapeutic Lovenox Transition to Eliquis by NGT however this was subsequently self removed and remains on Lovenox until able to tolerate p.o. or has feeding tube placed Nutrition: Nutren 2.0 at 55 cc/h with Beneprotein 1 packet per carton of feeding and Neutra source fiber 2 packets and 50 cc of water 4 times a day. PICC in left upper extremity Per patient/family: At time of bedside visit patient is oriented to name, [facility]. He is not oriented to year. Collateral is collected from his Alana by phone. Later seen in re- evaluation with and son present. Oriented improved on reassessment. She reports he was transferred to [facility] for a needle biopsy of his mass. While there he aspirated and had pnemonia. Was in the ICU there and intubated, but was extubated and did OK NGT got pulled out a few day sago. Was difficult to put in the first time. The second time they could not get it placed. Deferred replacement at that time until he was settled here. Speech was concerned about him eating any amount of food and recommended a PEG tube. would prefer to numb his nose/throat somewhat, tolerated the fiberoptic with some lidocaine and numbing medicine. Has had some disoriented to place in the hospital, is usually oriented to year, and place and is more forgetful than delirious most of the time but has been moved often and has been through 'a huge ordeal.' The plan for Patrick was to come back to [facility], have a PEG tub eplaced, and then followup with Dr. Burgess for more chemo. HE originally presented for severe pain in the back which turned out to be the mass, and they want to pursue treatment for this after it was confirmed to be NHL. 3x treatments of chemo at [facility] First treatment he had resolved his pain completely. Currently transitioning from Dr. Aleman to Dr. Burgess. NExt round of chemo is expected to be in ~2 weeks. Current goal is to get well enough and stable to tolerate this and possible get strong enough to walk with a walker. Also had mucous plugging at [facility]. Has tended to cough up thick mucous since extubation. Speech is different and more hoarse. He has also not eaten and has lost a lot of strength. No alcohol No tobacco use NKDA History of PE/DVT. No blood clots in many years on warfan. Never been on a DOAC. No history of bleeding complications Code Status: Full Code. Would not want prolonged interventions if he did not show signs of recovery after 24-48 hours. Admission Exam (Per Admitting) Constitutional The patient is awake, alert and oriented 3, well developed and well nourished, normocephalic and atraumatic, lying in bed and in no acute distress. HEENT--PERRL, EOMI, mucous membranes and oropharynx mildly dry Neck--supple. No JVD. No bruits. Thyroid normal, trachea midline, no adenopathy. Heart--normal S1 and S2. No murmurs, rubs or gallops. Lungs--clear bilaterally, no respiratory distress, no accessory muscle use. Abdomen--normal bowel sounds and soft. PEG tube Extremities--no cyanosis or clubbing. No edema. Dermatologic--normal skin turgor, normal color, no abnormal lymph nodes, no rash. Neurologic--cranial nerves II through XII grossly intact. Rheumatologic--normal range of motion. Psychiatric--normal affect. Discharge Data Consultations 07/26/25 16:48 Consult Gastroenterology Routine 07/26/25 16:58 Consult Oncology Routine 07/29/25 13:25 Consult Palliative Care Routine 07/29/25 14:46 Consult Gastroenterology Routine 07/31/25 12:13 Consult Vascular Surgery Routine 07/31/25 12:23 Consult Infectious Diseases Routine 07/31/25 17:51 Consult Infectious Diseases Stat Procedures Performed Operation Date: 08/05/25 16:55 Actual Procedures p EGD Gastric Tube Placement - Erik Arias MD Hospital Course (1) Cellulitis of left forearm: (2) B-cell lymphoma: Pt is an 79 y/o male who was transferred to [facility] for evaluation of a retroperitoneal mass that was found to be high-grade B-cell lymphoma upon biopsy. Pt was tx w/ mini CHOP therapy which was complicated by aspiration pneumonia that required intubation. Upon extubation, pt was unable to tolerate PO intake and had an NGT placed. Pt was recommended to [facility] for evaluation of need for PEG tube placement. Patient was recovering from his mini CHOP treatment, and is anticipating his next treatment in approximately 2 weeks. Case had been signed out directly between [facility] oncology and Dr. Burgess. # Upper extremity cellulitis - completed a course of IV antibiotics -Area of cellulitis is much improved. #Severe dysphagia with aspiration -Patient failed swallow evaluation, currently without function and swallowing ability. -Now status post PEG tube placement -Patient is currently tolerating PEG tube feeding -Appreciate dietary Constipation: Will provide Dulcolax suppository #Port Placement - Needs for possible chemotherapy/infusion #Severe neutropenia - Now resolved after G-CSF #High-grade B-cell lymphoma - US biopsy of retroperitoneal mass 07/11 revealed high-grade B-cell lymphoma; Flow cytometry results favored B-cell lymphoma as well; Brain MRI 07/12 unremarkable; Mini CHOP cyclophosphamide 07/16, vincristine 07/19, doxorubicin 07/20; Next anticipated chemotherapy in approximately 2 weeks; Pt now following w/ Dr Burgess -Ricci/Onc consulted - awaiting input -Palliative Consulted; discussed goals of care with patient -Recommended to continue allopurinol 300 mg daily twice daily through PEG when available -FISH pending #Frequency high demand care needs - Palliative is on board #Adrenal insufficiency -Home dose of steroids 2.5mg daily #Hospital-acquired deep pressure injury of left heel, right heel - improving, not resolved Wound care, offloading precautions #History of DVT, recurrent PE - Lovenox d/t inability to tolerate PO eliquis; LE doppler demonstrates nonocclusive DVT of superficial femoral and deep femoral vein Continue Lovenox 1 mg/kg twice daily #History of type II DM - Most recent A1c 6.5% Sliding scale ordered on admission, dose reduced basal pending BSG evaluation Pharmacy consulted for assistance with management due to impaired p.o. and concurrent steroid Bedbound: Patient said he does not walk, he is essentially bedbound Disposition: he needs placement (3) Chronic kidney disease, stage 3a: (4) Spinal stenosis: (5) LBBB (left bundle branch block): (6) TIA (transient ischemic attack): (7) BPH with obstruction/lower urinary tract symptoms: (8) Type 2 diabetes mellitus: (9) Hypertension: (10) Adrenal insufficiency: (11) Dysphagia: (12) Pancytopenia: Coding Level of Care Code 02281 INP/OBS DISCH >30 MIN Diagnoses Cellulitis of left forearm L03.114 B-cell lymphoma C85.10 Chronic kidney disease, stage 3a N18.31 Spinal stenosis M48.00 LBBB (left bundle branch block) I44.7 TIA (transient ischemic attack) G45.9 BPH with obstruction/lower urinary tract symptoms N40.1; N13.8 Type 2 diabetes mellitus E11.9 Hypertension I10 Adrenal insufficiency E27.40 Dysphagia R13.10 Pancytopenia D61.818 Time Spent (min) 35
[2025-08-08 15:29] VITALS: BP 134/77; PULSE 99; O2SAT 96
== END 2025-08-08 17:02 | DRG 840 ==
LOC: 3N 07-26 16:22 → SUATTDRO 07-26 16:22 → 1E 07-31 19:27 → 4W 08-01 21:56
DX: E27.40 Unspecified adrenocortical insufficiency; G30.9 Alzheimer's disease, unspecified; Z86.711 Personal history of pulmonary embolism; Z95.2 Presence of prosthetic heart valve; Z86.718 Personal history of other venous thrombosis and embolism; T45.1X5A Adverse effect of antineoplastic and immunosuppressive drugs, initial encounter; L89.626 Pressure-induced deep tissue damage of left heel; Y92.239 Unspecified place in hospital as the place of occurrence of the external cause; Z87.891 Personal history of nicotine dependence; L89.616 Pressure-induced deep tissue damage of right heel; E83.51 Hypocalcemia; I44.7 Left bundle-branch block, unspecified; Z74.01 Bed confinement status; E11.22 Type 2 diabetes mellitus with diabetic chronic kidney disease; I12.9 Hypertensive chronic kidney disease with stage 1 through stage 4 chronic kidney disease, or unspecified chronic kidney disease; Z79.01 Long term (current) use of anticoagulants; E83.39 Other disorders of phosphorus metabolism; X58.XXXA Exposure to other specified factors, initial encounter; R62.7 Adult failure to thrive; E88.09 Other disorders of plasma-protein metabolism, not elsewhere classified; L03.114 Cellulitis of left upper limb; Y81.2 Prosthetic and other implants, materials and accessory general- and plastic-surgery devices associated with adverse incidents; G93.40 Encephalopathy, unspecified; D61.810 Antineoplastic chemotherapy induced pancytopenia; E87.5 Hyperkalemia; K59.00 Constipation, unspecified; Z79.84 Long term (current) use of oral hypoglycemic drugs; C85.13 Unspecified B-cell lymphoma, intra-abdominal lymph nodes; E87.6 Hypokalemia; E11.40 Type 2 diabetes mellitus with diabetic neuropathy, unspecified; N40.1 Benign prostatic hyperplasia with lower urinary tract symptoms; I82.411 Acute embolism and thrombosis of right femoral vein; T18.9XXA Foreign body of alimentary tract, part unspecified, initial encounter; E46 Unspecified protein-calorie malnutrition; I82.811 Embolism and thrombosis of superficial veins of right lower extremity; R13.13 Dysphagia, pharyngeal phase; E83.42 Hypomagnesemia; N18.31 Chronic kidney disease, stage 3a; Z95.828 Presence of other vascular implants and grafts; F02.80 Dementia in other diseases classified elsewhere, unspecified severity, without behavioral disturbance, psychotic disturbance, mood disturbance, and anxiety